=== PATIENT | male | born 1940 | race Caucasian/White ===

== ENCOUNTER 2016-07-31 11:20 | Outpatient (RCR) | payer MEDICARE, OTHER ==
[~2016-07-31 11:20] MED LIST: ASP81TEC PO; CEFP500T4 PO; CHOL10003 PO; DIPH25TA82 PO; HYDR-3720 PO; LISI-556 PO; MULT-608 PO; NFAMINITAB PO; OMEP40CA36 PO; SULF1TAB38 PO; TERA5CAP10 PO; [UNRECOGNIZED DRUG - OTHER] PO
[2016-07-31 11:42] LABS: BASOPHILS % (AUTO) 0 % (0-10); EOSINOPHILS # (AUTO) 0.2 10^3/uL (0.0-0.3); EOSINOPHILS % (AUTO) 3 % (0-10); LYMPHOCYTES # (AUTO) 1.1 X 10^3 (1.0-4.0); LYMPHOCYTES % (AUTO) 21 % (12-44); MEAN CORPUSCULAR HGB CONC 33 G/DL (32-36); MEAN CORPUSCULAR VOLUME 84 FL (80-99); MEAN PLATELET VOLUME 8.4 FL (7.4-10.4); MONOCYTES # (AUTO) 0.4 X 10^3 (0.0-1.0); MONOCYTES % (AUTO) 8 % (0-12); NEUTROPHILS # (AUTO) 3.4 X 10^3 (1.8-7.8); NEUTROPHILS % (AUTO) 68 % (42-75); PLATELET COUNT 160 10^3/uL (130-400); RED BLOOD COUNT 3.97 10^6/uL (4.35-5.85); RED CELL DISTRIBUTION WIDTH 14.4 % (10.0-14.5); RETICULOCYTE % 1.06 % (0.50-2.40); WHITE BLOOD COUNT 5.1 10^3/uL (4.3-11.0)
[2016-07-31 11:44] LABS: MEAN CORPUSCULAR HEMOGLOBIN 27 PG (25-34)
[2016-07-31 12:14] LABS: ERYTHROCYTE SEDIMENTATION RATE 15 MM/HR (0-30)
[2016-07-31 12:20] LABS: ALBUMIN 3.7 G/DL (3.2-4.5); BILIRUBIN,TOTAL 0.2 MG/DL (0.1-1.0); CALCIUM 8.8 MG/DL (8.5-10.1); CREATININE SERUM 1.33 MG/DL (0.60-1.30); POTASSIUM 4.4 MMOL/L (3.6-5.0); TOTAL PROTEIN 5.9 G/DL (6.4-8.2); hs C REACTIVE PROTEIN 1.33 MG/DL (0.00-0.50)
== END 2016-10-29 | disposition home or self-care (01) ==
LOC: ONC 11:20
PROVIDERS: ATTEND Internal Medicine Hematology & Oncology
DX: D63.1 Anemia in chronic kidney disease (principal); N18.3 Chronic kidney disease, stage 3 (moderate); I12.9 Hypertensive chronic kidney disease with stage 1 through stage 4 chronic kidney disease, or unspecified chronic kidney disease; M12.9 Arthropathy, unspecified; R73.09 Other abnormal glucose; Z85.46 Personal history of malignant neoplasm of prostate; Z79.899 Other long term (current) drug therapy; Z92.3 Personal history of irradiation
CPT/HCPCS: 36415; 80053; 85025; 85045; 85652; 86038; 86141

== ENCOUNTER → 2016-10-30 | Outpatient (CLI) | payer MEDICARE, OTHER | LOC: FS 11:45 | PROVIDERS: ATTEND Internal Medicine Hematology & Oncology | DX: N18.3 Chronic kidney disease, stage 3 (moderate) (principal); D63.1 Anemia in chronic kidney disease; I12.9 Hypertensive chronic kidney disease with stage 1 through stage 4 chronic kidney disease, or unspecified chronic kidney disease; L29.9 Pruritus, unspecified; M12.9 Arthropathy, unspecified; B35.3 Tinea pedis; L21.8 Other seborrheic dermatitis; R73.09 Other abnormal glucose; Z85.46 Personal history of malignant neoplasm of prostate; Z79.899 Other long term (current) drug therapy; Z92.3 Personal history of irradiation | CPT/HCPCS: 99213 ==

== ENCOUNTER → 2017-02-26 | Outpatient (CLI) | payer MEDICARE, OTHER | LOC: FS 13:07 | PROVIDERS: ATTEND Internal Medicine Hematology & Oncology | DX: N18.3 Chronic kidney disease, stage 3 (moderate) (principal); D63.1 Anemia in chronic kidney disease; I12.9 Hypertensive chronic kidney disease with stage 1 through stage 4 chronic kidney disease, or unspecified chronic kidney disease; E11.22 Type 2 diabetes mellitus with diabetic chronic kidney disease; I25.10 Atherosclerotic heart disease of native coronary artery without angina pectoris; J44.9 Chronic obstructive pulmonary disease, unspecified; M12.9 Arthropathy, unspecified; Z85.46 Personal history of malignant neoplasm of prostate; Z79.899 Other long term (current) drug therapy; Z92.3 Personal history of irradiation; Z95.1 Presence of aortocoronary bypass graft | CPT/HCPCS: 99213 ==

== ENCOUNTER → 2017-05-28 | Outpatient (CLI) | payer MEDICARE, OTHER | LOC: ONC 10:30 | PROVIDERS: ATTEND Internal Medicine Hematology & Oncology | DX: N18.3 Chronic kidney disease, stage 3 (moderate) (principal); D63.1 Anemia in chronic kidney disease; I12.9 Hypertensive chronic kidney disease with stage 1 through stage 4 chronic kidney disease, or unspecified chronic kidney disease; E11.22 Type 2 diabetes mellitus with diabetic chronic kidney disease; I25.10 Atherosclerotic heart disease of native coronary artery without angina pectoris; J44.9 Chronic obstructive pulmonary disease, unspecified; M12.9 Arthropathy, unspecified; Z85.46 Personal history of malignant neoplasm of prostate; Z79.899 Other long term (current) drug therapy; Z92.3 Personal history of irradiation; Z95.1 Presence of aortocoronary bypass graft | CPT/HCPCS: 99213 ==

== ENCOUNTER 2017-11-26 12:46 | Outpatient (RCR) | payer MEDICARE, OTHER ==
[2017-11-26 13:04] LABS: ABSOLUTE RETIC # 67 10e9/L (24-90); BASOPHILS % (AUTO) 0 % (0-10); EOSINOPHILS # (AUTO) 0.1 10^3/uL (0.0-0.3); EOSINOPHILS % (AUTO) 2 % (0-10); HEMATOCRIT 35 % (40-54); HEMOGLOBIN 11.5 G/DL (13.3-17.7); LYMPHOCYTES # (AUTO) 1.4 X 10^3 (1.0-4.0); LYMPHOCYTES % (AUTO) 22 % (12-44); MEAN CORPUSCULAR HEMOGLOBIN 27 PG (25-34); MEAN CORPUSCULAR HGB CONC 33 G/DL (32-36); MEAN CORPUSCULAR VOLUME 81 FL (80-99); MEAN PLATELET VOLUME 8.7 FL (7.4-10.4); MONOCYTES # (AUTO) 0.6 X 10^3 (0.0-1.0); MONOCYTES % (AUTO) 9 % (0-12); NEUTROPHILS # (AUTO) 4.3 X 10^3 (1.8-7.8); NEUTROPHILS % (AUTO) 66 % (42-75); PLATELET COUNT 252 10^3/uL (130-400); RED BLOOD COUNT 4.29 10^6/uL (4.35-5.85); RED CELL DISTRIBUTION WIDTH 13.2 % (10.0-14.5); RETICULOCYTE % 1.55 % (0.50-2.40); WHITE BLOOD COUNT 6.4 10^3/uL (4.3-11.0)
[2017-11-26 13:21] LABS: CREATININE SERUM 1.72 MG/DL (0.60-1.30); POTASSIUM 4.5 MMOL/L (3.6-5.0)
[2017-11-26 13:22] LABS: ALBUMIN 4.5 GM/DL (3.2-4.5); BILIRUBIN,TOTAL 0.4 MG/DL (0.1-1.0); CALCIUM 9.5 MG/DL (8.5-10.1); TOTAL PROTEIN 6.7 GM/DL (6.4-8.2)
== END 2018-02-24 | disposition home or self-care (01) ==
LOC: ONC 12:46
PROVIDERS: ATTEND Internal Medicine Hematology & Oncology
DX: N18.3 Chronic kidney disease, stage 3 (moderate) (principal); D63.1 Anemia in chronic kidney disease; I12.9 Hypertensive chronic kidney disease with stage 1 through stage 4 chronic kidney disease, or unspecified chronic kidney disease; E11.22 Type 2 diabetes mellitus with diabetic chronic kidney disease; I25.10 Atherosclerotic heart disease of native coronary artery without angina pectoris; J44.9 Chronic obstructive pulmonary disease, unspecified; M12.9 Arthropathy, unspecified; Z85.46 Personal history of malignant neoplasm of prostate; Z79.899 Other long term (current) drug therapy; Z92.3 Personal history of irradiation; Z95.1 Presence of aortocoronary bypass graft
CPT/HCPCS: 36415; 80053; 85025; 85045; 99213

== ENCOUNTER 2018-05-27 12:02 | Outpatient (RCR) | payer MEDICARE, OTHER ==
[2018-05-27 12:07] LABS: ABSOLUTE RETIC # 55 10e9/L (24-90); BASOPHILS % (AUTO) 0 % (0-10); EOSINOPHILS # (AUTO) 0.2 10^3/uL (0.0-0.3); EOSINOPHILS % (AUTO) 4 % (0-10); HEMATOCRIT 37 % (40-54); HEMOGLOBIN 12.1 G/DL (13.3-17.7); LYMPHOCYTES % (AUTO) 20 % (12-44); MEAN CORPUSCULAR HGB CONC 33 G/DL (32-36); MEAN CORPUSCULAR VOLUME 81 FL (80-99); MEAN PLATELET VOLUME 8.8 FL (7.4-10.4); MONOCYTES # (AUTO) 0.5 X 10^3 (0.0-1.0); MONOCYTES % (AUTO) 10 % (0-12); NEUTROPHILS # (AUTO) 3.3 X 10^3 (1.8-7.8); NEUTROPHILS % (AUTO) 66 % (42-75); PLATELET COUNT 209 10^3/uL (130-400); RED BLOOD COUNT 4.57 10^6/uL (4.35-5.85); RED CELL DISTRIBUTION WIDTH 14.6 % (10.0-14.5); WHITE BLOOD COUNT 5.1 10^3/uL (4.3-11.0)
[2018-05-27 12:10] LABS: MEAN CORPUSCULAR HEMOGLOBIN 26 PG (25-34)
[2018-05-27 12:27] LABS: ALBUMIN 4.1 GM/DL (3.2-4.5); BILIRUBIN,TOTAL 0.4 MG/DL (0.1-1.0); CALCIUM 9.5 MG/DL (8.5-10.1); CREATININE SERUM 1.46 MG/DL (0.60-1.30); POTASSIUM 3.8 MMOL/L (3.6-5.0); TOTAL PROTEIN 6.7 GM/DL (6.4-8.2)
== END 2018-08-25 | disposition home or self-care (01) ==
LOC: ONC 12:02
PROVIDERS: ATTEND Internal Medicine Hematology & Oncology
DX: N18.3 Chronic kidney disease, stage 3 (moderate) (principal); D63.1 Anemia in chronic kidney disease; I12.9 Hypertensive chronic kidney disease with stage 1 through stage 4 chronic kidney disease, or unspecified chronic kidney disease; E11.22 Type 2 diabetes mellitus with diabetic chronic kidney disease; I25.10 Atherosclerotic heart disease of native coronary artery without angina pectoris; J44.9 Chronic obstructive pulmonary disease, unspecified; M12.9 Arthropathy, unspecified; Z85.46 Personal history of malignant neoplasm of prostate; Z79.899 Other long term (current) drug therapy; Z92.3 Personal history of irradiation; Z95.1 Presence of aortocoronary bypass graft
CPT/HCPCS: 36415; 80053; 82728; 84153; 85025; 85045; 99213

== ENCOUNTER 2018-11-28 09:21 | Outpatient (RCR) | payer MEDICARE, OTHER ==
[2018-11-28 09:43] LABS: ABSOLUTE RETIC # 73 10e9/L (24-90); BASOPHILS % (AUTO) 0 % (0-10); EOSINOPHILS # (AUTO) 0.2 10^3/uL (0.0-0.3); EOSINOPHILS % (AUTO) 3 % (0-10); HEMATOCRIT 35 % (40-54); HEMOGLOBIN 11.2 G/DL (13.3-17.7); LYMPHOCYTES % (AUTO) 12 % (12-44); MEAN CORPUSCULAR HEMOGLOBIN 26 PG (25-34); MEAN CORPUSCULAR HGB CONC 32 G/DL (32-36); MEAN CORPUSCULAR VOLUME 81 FL (80-99); MEAN PLATELET VOLUME 8.8 FL (7.4-10.4); MONOCYTES # (AUTO) 0.5 X 10^3 (0.0-1.0); MONOCYTES % (AUTO) 6 % (0-12); NEUTROPHILS # (AUTO) 6.7 X 10^3 (1.8-7.8); NEUTROPHILS % (AUTO) 79 % (42-75); PLATELET COUNT 205 10^3/uL (130-400); RED CELL DISTRIBUTION WIDTH 15.2 % (10.0-14.5); RETICULOCYTE % 1.69 % (0.50-2.40); WHITE BLOOD COUNT 8.5 10^3/uL (4.3-11.0)
[2018-11-28 10:08] LABS: BILIRUBIN,TOTAL 0.2 MG/DL (0.1-1.0); CALCIUM 9.1 MG/DL (8.5-10.1); CREATININE SERUM 1.47 MG/DL (0.60-1.30); POTASSIUM 3.8 MMOL/L (3.6-5.0); TOTAL PROTEIN 6.2 GM/DL (6.4-8.2)
== END 2019-02-26 | disposition home or self-care (01) ==
LOC: ONC 09:21
PROVIDERS: ATTEND Internal Medicine Hematology & Oncology
DX: N18.3 Chronic kidney disease, stage 3 (moderate) (principal); D63.1 Anemia in chronic kidney disease; I12.9 Hypertensive chronic kidney disease with stage 1 through stage 4 chronic kidney disease, or unspecified chronic kidney disease; E11.22 Type 2 diabetes mellitus with diabetic chronic kidney disease; I25.10 Atherosclerotic heart disease of native coronary artery without angina pectoris; J44.9 Chronic obstructive pulmonary disease, unspecified; M12.9 Arthropathy, unspecified; Z85.46 Personal history of malignant neoplasm of prostate; Z79.899 Other long term (current) drug therapy; Z92.3 Personal history of irradiation; Z95.1 Presence of aortocoronary bypass graft
CPT/HCPCS: 36415; 80053; 82728; 85025; 85045; 99213

== ENCOUNTER 2019-05-19 12:26 | Outpatient (RCR) | payer MEDICARE, OTHER ==
[2019-05-19 13:08] LABS: ABSOLUTE RETIC # 54 10e9/L (24-90); BASOPHILS % (AUTO) 0 % (0-10); EOSINOPHILS # (AUTO) 0.3 10^3/uL (0.0-0.3); EOSINOPHILS % (AUTO) 6 % (0-10); HEMATOCRIT 33 % (40-54); HEMOGLOBIN 10.8 G/DL (13.3-17.7); LYMPHOCYTES # (AUTO) 1.3 X 10^3 (1.0-4.0); LYMPHOCYTES % (AUTO) 26 % (12-44); MEAN CORPUSCULAR HEMOGLOBIN 26 PG (25-34); MEAN CORPUSCULAR HGB CONC 33 G/DL (32-36); MEAN CORPUSCULAR VOLUME 79 FL (80-99); MEAN PLATELET VOLUME 9.5 FL (7.4-10.4); MONOCYTES # (AUTO) 0.5 X 10^3 (0.0-1.0); MONOCYTES % (AUTO) 10 % (0-12); NEUTROPHILS # (AUTO) 2.9 X 10^3 (1.8-7.8); NEUTROPHILS % (AUTO) 57 % (42-75); PLATELET COUNT 174 10^3/uL (130-400); RED CELL DISTRIBUTION WIDTH 14.9 % (10.0-14.5); RETICULOCYTE % 1.29 % (0.50-2.40); WHITE BLOOD COUNT 5.1 10^3/uL (4.3-11.0)
[2019-05-19 13:27] LABS: BILIRUBIN,TOTAL 0.2 MG/DL (0.1-1.0); CREATININE SERUM 1.58 MG/DL (0.60-1.30); TOTAL PROTEIN 6.1 GM/DL (6.4-8.2)
== END 2019-08-17 | disposition home or self-care (01) ==
LOC: ONC 12:26
PROVIDERS: ATTEND Internal Medicine Hematology & Oncology
DX: N18.3 Chronic kidney disease, stage 3 (moderate) (principal); D63.1 Anemia in chronic kidney disease; I12.9 Hypertensive chronic kidney disease with stage 1 through stage 4 chronic kidney disease, or unspecified chronic kidney disease; E11.22 Type 2 diabetes mellitus with diabetic chronic kidney disease; I25.10 Atherosclerotic heart disease of native coronary artery without angina pectoris; J44.9 Chronic obstructive pulmonary disease, unspecified; M12.9 Arthropathy, unspecified; Z85.46 Personal history of malignant neoplasm of prostate; Z79.899 Other long term (current) drug therapy; Z92.3 Personal history of irradiation; Z95.1 Presence of aortocoronary bypass graft
CPT/HCPCS: 36415; 80053; 82728; 85025; 85045; 99213

== ENCOUNTER → 2019-10-07 | Outpatient (CLI) | payer MEDICARE, OTHER ==
[~2019-10-07] MED LIST changes: +CATHETER FLUSH 10 ML SYR IV PRN; +HOLD METFORMIN - RECEIVED CONTRAST 20 ML VIAL IV SCH; +IOHEXOL 350 MG/ML 100 ML (OMNIPAQUE 350) VIAL IV ONE; +NS 100 ML (IVPB) BAG IV ONE
[2019-10-07 16:56] LABS: BILIRUBIN,TOTAL 0.2 MG/DL (0.1-1.0); CALCIUM 9.3 MG/DL (8.5-10.1); CREATININE SERUM 1.5 MG/DL (0.60-1.30); POTASSIUM 3.5 MMOL/L (3.6-5.0)
[2019-10-07 16:57] LABS: TOTAL PROTEIN 6.6 GM/DL (6.4-8.2)
--- NOTE | 2019-10-07 17:15 | Diagnostic Imaging Report ---
INDICATION: Chest pain. TECHNIQUE: Multiple contiguous axial images were obtained through the chest without the use of intravenous contrast. Auto Exposure Controls were utilized during the CT exam to meet ALARA standards for radiation dose reduction. COMPARISON: Study done without contrast is compared to 03/22/2016. FINDINGS: The thoracic aorta shows atherosclerotic calcifications. There is no evidence of aortic aneurysm. It is difficult to exclude dissection since contrast was not given, but the aorta does appear to be of normal caliber. There are coronary artery calcifications. There are no enlarged mediastinal or hilar lymph nodes. There are calcified nodes in the subcarinal region and left hilum compatible with old granulomatous disease. There are no enlarged axillary nodes. There is no pleural or pericardial fluid. Visualized portions of the upper abdomen demonstrate a few catheter scattered calcified granulomata in the spleen. There is a stable small cyst in the right lobe of the liver. Lung parenchymal windows demonstrate no pulmonary parenchymal infiltrates. There is a calcified granuloma in the left perihilar region. There is some linear scarring at right middle lobe. There is a calcified granuloma in the left lower lobe as well. There are no suspicious pulmonary masses. Patient has had previous sternotomy. IMPRESSION: Study is limited due to lack of IV contrast but no overt acute abnormality is seen. There is atherosclerotic plaquing of the aorta, but the aorta appears to be of normal caliber. There are coronary artery calcifications. There are old granulomatous changes. Some minimal linear scarring in the right middle lobe. There is no consolidation or pleural fluid. Dictated by: Dictated on workstation # [id number]
== END ==
LOC: LAB FS 15:50
PROVIDERS: ATTEND Nurse Practitioner Family
DX: I70.0 Atherosclerosis of aorta (principal); I25.10 Atherosclerotic heart disease of native coronary artery without angina pectoris; J84.10 Pulmonary fibrosis, unspecified
CPT/HCPCS: 71250; 80053

== ENCOUNTER → 2019-11-24 | Outpatient (CLI) | payer MEDICARE, OTHER ==
[~2019-11-24] MED LIST changes: -CATHETER FLUSH 10 ML SYR IV PRN; -HOLD METFORMIN - RECEIVED CONTRAST 20 ML VIAL IV SCH; -IOHEXOL 350 MG/ML 100 ML (OMNIPAQUE 350) VIAL IV ONE; -NS 100 ML (IVPB) BAG IV ONE
[2019-11-24 13:07] LABS: ABSOLUTE RETIC # 66 10e9/L (24-90); BASOPHILS % (AUTO) 0 % (0-10); EOSINOPHILS # (AUTO) 0.3 10^3/uL (0.0-0.3); EOSINOPHILS % (AUTO) 4 % (0-10); HEMATOCRIT 34 % (40-54); LYMPHOCYTES # (AUTO) 1.1 X 10^3 (1.0-4.0); LYMPHOCYTES % (AUTO) 15 % (12-44); MEAN CORPUSCULAR HEMOGLOBIN 25 PG (25-34); MEAN CORPUSCULAR HGB CONC 33 G/DL (32-36); MEAN CORPUSCULAR VOLUME 78 FL (80-99); MEAN PLATELET VOLUME 9.2 FL (7.4-10.4); MONOCYTES # (AUTO) 0.6 X 10^3 (0.0-1.0); MONOCYTES % (AUTO) 9 % (0-12); NEUTROPHILS # (AUTO) 5.3 X 10^3 (1.8-7.8); NEUTROPHILS % (AUTO) 72 % (42-75); PLATELET COUNT 203 10^3/uL (130-400); RED CELL DISTRIBUTION WIDTH 15.7 % (10.0-14.5); RETICULOCYTE % 1.52 % (0.50-2.40); WHITE BLOOD COUNT 7.4 10^3/uL (4.3-11.0)
[2019-11-24 13:21] LABS: ALBUMIN 4.2 GM/DL (3.2-4.5); POTASSIUM 4.2 MMOL/L (3.6-5.0)
[2019-11-24 13:23] LABS: TOTAL PROTEIN 6.7 GM/DL (6.4-8.2)
[2019-11-24 13:25] LABS: BILIRUBIN,TOTAL 0.4 MG/DL (0.1-1.0)
[2019-11-24 13:27] LABS: CREATININE SERUM 1.8 MG/DL (0.60-1.30)
== END ==
LOC: EDSTATUS 08-18 15:38 → ONC 12:54
PROVIDERS: ATTEND Internal Medicine Hematology & Oncology
DX: N18.3 Chronic kidney disease, stage 3 (moderate) (principal); D63.1 Anemia in chronic kidney disease; I12.9 Hypertensive chronic kidney disease with stage 1 through stage 4 chronic kidney disease, or unspecified chronic kidney disease; E11.22 Type 2 diabetes mellitus with diabetic chronic kidney disease; I25.10 Atherosclerotic heart disease of native coronary artery without angina pectoris; J44.9 Chronic obstructive pulmonary disease, unspecified; M12.9 Arthropathy, unspecified; Z85.46 Personal history of malignant neoplasm of prostate; Z79.899 Other long term (current) drug therapy; Z92.3 Personal history of irradiation; Z95.1 Presence of aortocoronary bypass graft
CPT/HCPCS: 80053; 82728; 85025; 85045; 99213

== ENCOUNTER → 2020-04-19 | Outpatient (CLI) | payer MEDICARE, OTHER | LOC: LAB FS 10:13 | PROVIDERS: ATTEND Emergency Medicine | DX: R06.02 Shortness of breath (principal); R42 Dizziness and giddiness; Z20.828 Contact with and (suspected) exposure to other viral communicable diseases | CPT/HCPCS: 87635 ==

== ENCOUNTER → 2020-05-23 | Outpatient (CLI) | payer MEDICARE, OTHER ==
[2020-05-23 13:04] LABS: ABSOLUTE RETIC # 58 10e9/uL (24-90); BASOPHILS % (AUTO) 1 % (0-10); EOSINOPHILS # (AUTO) 0.2 10^3/uL (0.0-0.3); EOSINOPHILS % (AUTO) 5 % (0-10); HEMATOCRIT 28 % (40-54); HEMOGLOBIN 9.2 g/dL (13.3-17.7); LYMPHOCYTES # (AUTO) 1.2 10^3/uL (1.0-4.0); LYMPHOCYTES % (AUTO) 27 % (12-44); MEAN CORPUSCULAR HEMOGLOBIN 25 pg (25-34); MEAN CORPUSCULAR HGB CONC 32 g/dL (32-36); MEAN CORPUSCULAR VOLUME 77 fL (80-99); MEAN PLATELET VOLUME 8.7 fL (9.0-12.2); MONOCYTES # (AUTO) 0.4 10^3/uL (0.0-1.0); MONOCYTES % (AUTO) 10 % (0-12); NEUTROPHILS # (AUTO) 2.4 10^3/uL (1.8-7.8); NEUTROPHILS % (AUTO) 57 % (42-75); PLATELET COUNT 168 10^3/uL (130-400); RETICULOCYTE % 1.58 % (0.50-2.40); WHITE BLOOD COUNT 4.2 10^3/uL (4.3-11.0)
[2020-05-23 13:25] LABS: ALBUMIN 3.6 GM/DL (3.2-4.5); BILIRUBIN,TOTAL 0.2 MG/DL (0.1-1.0); CALCIUM 8.2 MG/DL (8.5-10.1); CREATININE SERUM 1.7 MG/DL (0.60-1.30); POTASSIUM 4.2 MMOL/L (3.6-5.0); TOTAL PROTEIN 5.7 GM/DL (6.4-8.2)
== END ==
LOC: ONC 12:40
PROVIDERS: ATTEND Internal Medicine Hematology & Oncology
DX: D64.9 Anemia, unspecified (principal)
CPT/HCPCS: 80053; 82728; 85025; 85045; G0463; 99213

== ENCOUNTER → 2020-07-07 | Outpatient (CLI) | payer MEDICARE, OTHER ==
[~2020-07-07] MED LIST changes: +ALPR0.254 PO; +ASPI-1238 PO; +ASPI325T32 PO; +C,E,1CAP2 PO; +CART1TAB5 PO; +CARV3.122 PO; +CLOP75TA28 PO; +DOXY25TA50 PO; +EZET10TA49 PO; +FINA5TAB6 PO; +HYDR25TA4 PO; +HYDR50TA76 PO; +OMEP40CA27 PO; +PIOG15TA67 PO; +SENN-36 PO; +TMSL.4C PO
[2020-07-07 13:05] LABS: ABSOLUTE RETIC # 80 10e9/uL (24-90); BASOPHILS % (AUTO) 0 % (0-10); EOSINOPHILS # (AUTO) 0.3 10^3/uL (0.0-0.3); EOSINOPHILS % (AUTO) 6 % (0-10); HEMATOCRIT 28 % (40-54); HEMOGLOBIN 8.9 g/dL (13.3-17.7); LYMPHOCYTES % (AUTO) 20 % (12-44); MEAN CORPUSCULAR HEMOGLOBIN 26 pg (25-34); MEAN CORPUSCULAR HGB CONC 32 g/dL (32-36); MEAN CORPUSCULAR VOLUME 80 fL (80-99); MEAN PLATELET VOLUME 8.3 fL (9.0-12.2); MONOCYTES # (AUTO) 0.6 10^3/uL (0.0-1.0); MONOCYTES % (AUTO) 12 % (0-12); NEUTROPHILS # (AUTO) 2.9 10^3/uL (1.8-7.8); NEUTROPHILS % (AUTO) 61 % (42-75); PLATELET COUNT 258 10^3/uL (130-400); RETICULOCYTE % 2.34 % (0.50-2.40); WHITE BLOOD COUNT 4.7 10^3/uL (4.3-11.0)
[2020-07-07 13:24] LABS: ALBUMIN 3.7 GM/DL (3.2-4.5); BILIRUBIN,TOTAL 0.3 MG/DL (0.1-1.0); CALCIUM 8.8 MG/DL (8.5-10.1); CREATININE SERUM 1.58 MG/DL (0.60-1.30); POTASSIUM 3.8 MMOL/L (3.6-5.0)
== END ==
LOC: ONC 12:55
PROVIDERS: ATTEND Internal Medicine Hematology & Oncology
DX: D64.9 Anemia, unspecified (principal)
CPT/HCPCS: 80053; 82728; 83540; 85025; 85045

== ENCOUNTER → 2020-10-11 | Outpatient (CLI) | payer MEDICARE, OTHER ==
[2020-10-11 13:18] LABS: ABSOLUTE RETIC # 58 10e9/uL (24-90); BASOPHILS % (AUTO) 0 % (0-10); EOSINOPHILS # (AUTO) 0.3 10^3/uL (0.0-0.3); EOSINOPHILS % (AUTO) 5 % (0-10); HEMATOCRIT 32 % (40-54); HEMOGLOBIN 10.3 g/dL (13.3-17.7); LYMPHOCYTES # (AUTO) 1.3 10^3/uL (1.0-4.0); LYMPHOCYTES % (AUTO) 24 % (12-44); MEAN CORPUSCULAR HEMOGLOBIN 26 pg (25-34); MEAN CORPUSCULAR HGB CONC 32 g/dL (32-36); MEAN CORPUSCULAR VOLUME 80 fL (80-99); MONOCYTES # (AUTO) 0.4 10^3/uL (0.0-1.0); MONOCYTES % (AUTO) 8 % (0-12); NEUTROPHILS # (AUTO) 3.3 10^3/uL (1.8-7.8); NEUTROPHILS % (AUTO) 62 % (42-75); PLATELET COUNT 165 10^3/uL (130-400); RETICULOCYTE % 1.45 % (0.50-2.40); WHITE BLOOD COUNT 5.2 10^3/uL (4.3-11.0)
[2020-10-11 13:39] LABS: ALBUMIN 3.7 GM/DL (3.2-4.5); BILIRUBIN,TOTAL 0.3 MG/DL (0.1-1.0); CALCIUM 8.6 MG/DL (8.5-10.1); CREATININE SERUM 1.69 MG/DL (0.60-1.30); POTASSIUM 3.7 MMOL/L (3.6-5.0)
== END ==
LOC: ONC 13:04
PROVIDERS: ATTEND Internal Medicine Hematology & Oncology
DX: N18.9 Chronic kidney disease, unspecified (principal); D63.1 Anemia in chronic kidney disease; I25.10 Atherosclerotic heart disease of native coronary artery without angina pectoris; E11.22 Type 2 diabetes mellitus with diabetic chronic kidney disease; J44.9 Chronic obstructive pulmonary disease, unspecified; K21.9 Gastro-esophageal reflux disease without esophagitis; Z85.46 Personal history of malignant neoplasm of prostate; Z95.1 Presence of aortocoronary bypass graft; Z98.62 Peripheral vascular angioplasty status; Z92.3 Personal history of irradiation
CPT/HCPCS: 80053; 82728; 83540; 85025; 85045; G0463; 99213

== ENCOUNTER 2020-12-05 05:34 | Outpatient (RCR) | payer MEDICARE ==
[~2020-12-05] VITALS: Ht 177.9 cm; Wt 73.0 kg
[2020-12-05] MEDS ORDERED: OMEP40CA27 PO (11:00)
[2020-12-05] MEDS ORDERED: HYDR50TA76 PO (11:00)
[2020-12-05] MEDS ORDERED: CARV6.252 PO (11:00)
[2020-12-05] MEDS ORDERED: HYDR25TA4 PO (11:00)
[2020-12-05] MEDS ORDERED: DIPH25CA48 PO (11:00)
== END 2020-12-05 12:46 | disposition home or self-care (01) ==
LOC: PREOP 05:34 → EDSTATUS 10:30 → PREOP 12:46
PROVIDERS: ATTEND Surgery
DX: Z01.818 Encounter for other preprocedural examination (principal)

== ENCOUNTER → 2020-12-08 | Outpatient (CLI) | payer MEDICARE ==
[~2020-12-08] MED LIST changes: +CARV6.252 PO; +DIPH25CA48 PO
== END ==
LOC: LAB FS 09:57
PROVIDERS: ATTEND Surgery
DX: Z01.812 Encounter for preprocedural laboratory examination (principal); R19.5 Other fecal abnormalities; R12 Heartburn; Z20.822 Contact with and (suspected) exposure to COVID-19
CPT/HCPCS: 87635

== ENCOUNTER 2020-12-12 08:20 | Day surgery (SDC) | payer MEDICARE ==
[2020-12-12] VITALS (8 sets, daily range): BP systolic 89–176; BP diastolic 55–88
[~2020-12-12] VITALS: Ht 177.9 cm; Wt 73.0 kg
[2020-12-12] MEDS ORDERED: LACTATED RINGERS 1,000 ML IV ONE (08:24)
[2020-12-12] MEDS ORDERED: LACTATED RINGERS 1,000 ML IV STA (08:34)
[2020-12-12] MEDS ORDERED: HURRICAINE EXT TUBE (BENZOCAINE) XX PRN (08:45)
--- NOTE | 2020-12-12 08:47 | Progress Note-Pre Operative ---
Pre-Operative Progress Note H&P Reviewed The H&P was reviewed, patient examined and no changes noted. Time Seen by Provider: 08:46 Date H&P Reviewed: Dec 12, 2020 Time H&P Reviewed: 08:46 Pre-Operative Diagnosis: + Erika Lema ERIC B DO Dec 12, 2020 08:47
[2020-12-12] MEDS ORDERED: MIDAZOLAM 2 MG/2 ML (VERSED) VIAL ONE (09:35)
[2020-12-12] MEDS ORDERED: PROPOFOL INJECTION 50 ML IV ONE ×2 (09:35→09:51)
--- NOTE | 2020-12-12 10:40 | Progress Note-Post Operative ---
Post-Operative Progess Note Surgeon (s)/Tractor Driver Teamster (s) Surgeon REMINGTON MILLER DO Tractor Driver Teamster: Chivo Jean MSIII Pre-Operative Diagnosis + Cologuard, Gastritis Post-Operative Diagnosis Gastritis Hiatal hernia Gastric Polyp diverticula int hemorrhoids melanosis coli Procedure & Operative Findings Date of Procedure 12/12/20 Procedure Performed/Findings EGD with bx EGD with snare polypectomy Colon Anesthesia Type IV sedation by HUSBANDRY PERSON Estimated Blood Loss Estimated blood loss (mL): scant Specimens/Packing Specimens Removed antral bx polyp x 2 GE jxn bx REMINGTON MILLER DO Dec 12, 2020 10:40
--- NOTE | 2020-12-12 10:41 | Endoscopy Discharge Instruct ---
Endo Procedure/Findings Findings 1.: Hiatal Hernia, Gastritis 2.: Polyp (Gastric) 3.: Diverticulosis, Internal Hemorrhoids 4.: Other Findings (Melanosis Coli) Discharge Instructions - Activity: You might feel a little sleepy until tomorrow. This is due to the medicine you received to relax you. Until tomorrow, you should: NOT drive a car, operate machinery or power tools. NOT drink any alcoholic beverages. NOT make any important decisions or sign importortant papers. Do not return to work until tomorrow, unless otherwise instructed. Resume previous activities tomorrow. Diet: Start by taking liquids. If you tolerate liquids, advance to solid food. 1.: EGD in 1 year 2.: Colonscopy in 10 years Notify Physician - If you experience excessive bleeding, unusual abdominal pain, fever, or chest pain, contact your doctor immediately. REMINGTON MILLER DO Dec 12, 2020 10:41
--- NOTE | 2020-12-12 12:36 | Anesthesia-General Post-Op ---
MAC Patient Condition Mental Status/LOC: Same as Preop Cardiovascular: Satisfactory Nausea/Vomiting: Absent Respiratory: Satisfactory Pain: Controlled Complications: Absent Post Op Complications Complications None Follow Up Care/Instructions Patient Instructions None needed. Anesthesiology Discharge Order Discharge Order Patient is doing well, no complaints, stable vital signs, no apparent adverse anesthesia problems. No complications reported per nursing. ARTHUR AGRAWAL CRNA Dec 12, 2020 12:36
--- NOTE | 2020-12-13 13:52 | OPERATIVE REPORT ---
DATE OF SERVICE: 12/12/2020 PREOPERATIVE DIAGNOSES: Positive Cologuard and gastritis. POSTOPERATIVE DIAGNOSES: Gastritis, hiatal hernia and gastric polyps as well as diverticula, internal hemorrhoids and melanosis coli. PROCEDURES: 1. EGD with biopsy. 2. EGD with gastric polypectomy by snare. 3. Colonoscopy. SURGEON: Kem Johnson, DO COMPOSITE BOND WORKER: Chivo Jean, MS3 ANESTHESIA: IV sedation by the RESTUARANT CREW WORKER. SPECIMEN: Antral biopsy, gastric polyp x2 and GE junction biopsy. BLOOD LOSS: Scant. FLUIDS: Per anesthesia. POSTOPERATIVE CONDITION: Stable. INDICATION FOR PROCEDURE: The patient is an 80-year-old male who had a positive Cologuard. He has also complained of some gastritis and needed upper and lower scopes. FINDINGS: The patient had 2 polyps in the stomach. He had some gastritis as well and a small hiatal hernia. In the colon, he had diverticula, internal hemorrhoids and melanosis, but did not see any other pathology in the colon. PROCEDURE NOTE: After informed consent was obtained, the patient was brought to the endoscopy suite, placed in bed in left lateral decubitus position. He was administered IV sedation by the RESTUARANT CREW WORKER who then monitored his vitals the entire time, heart rate, blood pressure and pulse ox, started with the EGD, placing scope down the mouth through the esophagus and into the stomach. In the stomach, noted 2 polyps, one was on a stalk and one was flat and some mild gastritis. Pushing the duodenum, duodenum looked fine. Pulled back and did a biopsy of the antrum and then elected to remove these polyps with a snare polypectomy and heat. Able to grasp the polyps, had to take one of the larger polyp in 2 pieces and then the smaller polyp, took in one piece with snares. Retroflexed the scope, saw small hiatal hernia and then pulled the scope into the GE junction, did a biopsy of the GE junction. Suctioned all the air out of the scope and then out of the stomach and then pulled the scope up the esophagus and out the mouth. Switched camera, switched gloves, went down below, started the colonoscopy. Pushed all the way into about 140 cm, able to get to the cecum, took a picture of appendiceal orifice, noted the ileocecal valve. There is also a lot of melanosis here, took a picture of this and then slowly withdrew the scope insufflating to look circumferentially at the rowe looking the cecum, up the ascending colon to the hepatic flexure, then down the transverse colon, the splenic flexure, into the descending colon and down into the sigmoid, saw some diverticula on the right side and on the left side and then continued down into the rectum, retroflexed the rectal vault, saw some minimal internal hemorrhoids, took a picture of this and then removed the scope. The patient tolerated the procedure. He was recovered in endoscopy suite. Job ID: [id number] DocumentID: [id number] Dictated Date: 12/13/2020 10:16:14 Ultrasound Technologist Date: 12/13/2020 13:51:23 Dictated By: DO IFRAH PATEL
== END 2020-12-12 11:50 | disposition home or self-care (01) ==
LOC: ENDO 08:20
PROVIDERS: ATTEND Surgery
DX: K31.7 Polyp of stomach and duodenum (principal); K29.50 Unspecified chronic gastritis without bleeding; K44.9 Diaphragmatic hernia without obstruction or gangrene; K57.30 Diverticulosis of large intestine without perforation or abscess without bleeding; K64.8 Other hemorrhoids; K63.89 Other specified diseases of intestine; I10 Essential (primary) hypertension; I25.10 Atherosclerotic heart disease of native coronary artery without angina pectoris; K21.9 Gastro-esophageal reflux disease without esophagitis; I12.9 Hypertensive chronic kidney disease with stage 1 through stage 4 chronic kidney disease, or unspecified chronic kidney disease; N18.9 Chronic kidney disease, unspecified; E11.22 Type 2 diabetes mellitus with diabetic chronic kidney disease; M10.9 Gout, unspecified; M19.90 Unspecified osteoarthritis, unspecified site; D63.1 Anemia in chronic kidney disease; J44.9 Chronic obstructive pulmonary disease, unspecified; Z79.899 Other long term (current) drug therapy; Z90.49 Acquired absence of other specified parts of digestive tract; Z85.46 Personal history of malignant neoplasm of prostate; Z95.1 Presence of aortocoronary bypass graft; Z80.8 Family history of malignant neoplasm of other organs or systems
CPT/HCPCS: 82962; 88305; 88342

== ENCOUNTER → 2021-04-11 | Outpatient (CLI) | payer MEDICARE ==
[~2021-04-11] MED LIST changes: -OMEP40CA27 PO; +OMEP40CA6 PO
[2021-04-11 13:47] LABS: ABSOLUTE RETIC # 51 10e9/uL (24-90); BASOPHILS % (AUTO) 1 % (0-10); EOSINOPHILS # (AUTO) 0.2 10^3/uL (0.0-0.3); EOSINOPHILS % (AUTO) 6 % (0-10); HEMATOCRIT 29 % (40-54); HEMOGLOBIN 9.2 g/dL (13.3-17.7); LYMPHOCYTES % (AUTO) 25 % (12-44); MEAN CORPUSCULAR HEMOGLOBIN 26 pg (25-34); MEAN CORPUSCULAR HGB CONC 32 g/dL (32-36); MEAN CORPUSCULAR VOLUME 80 fL (80-99); MONOCYTES # (AUTO) 0.5 10^3/uL (0.0-1.0); MONOCYTES % (AUTO) 12 % (0-12); NEUTROPHILS # (AUTO) 2.1 10^3/uL (1.8-7.8); NEUTROPHILS % (AUTO) 56 % (42-75); PLATELET COUNT 133 10^3/uL (130-400); RETICULOCYTE % 1.43 % (0.50-2.40); WHITE BLOOD COUNT 3.8 10^3/uL (4.3-11.0)
[2021-04-11 14:10] LABS: ALBUMIN 3.4 GM/DL (3.2-4.5); BILIRUBIN,TOTAL 0.2 MG/DL (0.1-1.0); CALCIUM 8.6 MG/DL (8.5-10.1); CREATININE SERUM 1.5 MG/DL (0.60-1.30); POTASSIUM 4.5 MMOL/L (3.6-5.0); TOTAL PROTEIN 5.6 GM/DL (6.4-8.2)
== END ==
LOC: ONC 13:04
PROVIDERS: ATTEND Internal Medicine Hematology & Oncology
DX: D63.1 Anemia in chronic kidney disease (principal); I25.10 Atherosclerotic heart disease of native coronary artery without angina pectoris; E11.9 Type 2 diabetes mellitus without complications; J44.9 Chronic obstructive pulmonary disease, unspecified; E66.9 Obesity, unspecified; Z85.46 Personal history of malignant neoplasm of prostate
CPT/HCPCS: 80053; 82728; 85025; 85045; G0463; 99213

== ENCOUNTER → 2021-07-04 | Outpatient (CLI) | payer MEDICARE ==
[2021-07-04 13:41] LABS: ABSOLUTE RETIC # 66 10e9/uL (24-90); BASOPHILS % (AUTO) 0 % (0-10); EOSINOPHILS # (AUTO) 0.3 10^3/uL (0.0-0.3); EOSINOPHILS % (AUTO) 6 % (0-10); HEMATOCRIT 32 % (40-54); HEMOGLOBIN 10.4 g/dL (13.3-17.7); LYMPHOCYTES # (AUTO) 1.1 10^3/uL (1.0-4.0); LYMPHOCYTES % (AUTO) 24 % (12-44); MEAN CORPUSCULAR HEMOGLOBIN 27 pg (25-34); MEAN CORPUSCULAR HGB CONC 32 g/dL (32-36); MEAN CORPUSCULAR VOLUME 82 fL (80-99); MEAN PLATELET VOLUME 9.5 fL (9.0-12.2); MONOCYTES # (AUTO) 0.4 10^3/uL (0.0-1.0); MONOCYTES % (AUTO) 9 % (0-12); NEUTROPHILS # (AUTO) 2.8 10^3/uL (1.8-7.8); NEUTROPHILS % (AUTO) 61 % (42-75); PLATELET COUNT 162 10^3/uL (130-400); RETICULOCYTE % 1.69 % (0.50-2.40); WHITE BLOOD COUNT 4.6 10^3/uL (4.3-11.0)
[2021-07-04 13:59] LABS: ALBUMIN 3.9 GM/DL (3.2-4.5); BILIRUBIN,TOTAL 0.4 MG/DL (0.1-1.0); CALCIUM 8.9 MG/DL (8.5-10.1); CREATININE SERUM 1.28 MG/DL (0.60-1.30); TOTAL PROTEIN 6.2 GM/DL (6.4-8.2)
== END ==
LOC: ONC 13:25
PROVIDERS: ATTEND Internal Medicine Hematology & Oncology
DX: N18.30 Chronic kidney disease, stage 3 unspecified (principal); D63.1 Anemia in chronic kidney disease; I25.10 Atherosclerotic heart disease of native coronary artery without angina pectoris; E11.22 Type 2 diabetes mellitus with diabetic chronic kidney disease; J44.9 Chronic obstructive pulmonary disease, unspecified; K21.9 Gastro-esophageal reflux disease without esophagitis; E66.9 Obesity, unspecified; Z95.1 Presence of aortocoronary bypass graft; Z98.890 Other specified postprocedural states; Z85.46 Personal history of malignant neoplasm of prostate
CPT/HCPCS: 80053; 82728; 85025; 85045; G0463; 99213

== ENCOUNTER 2021-09-11 14:12 | Inpatient (IN) | payer MEDICARE ==
[~2021-09-11] VITALS: Ht 177.8 cm; Wt 73.0 kg
[2021-09-11] MEDS ORDERED: morphine INJ 10 MG/ML 1ML (SYR OR VIAL) IVP STA ×2 (14:22→14:59)
--- NOTE | 2021-09-11 14:28 | ED Fall/Injury ---
General Stated Complaint: FALL,L HIP PAIN Source: patient History of Present Illness Date Seen by Provider: Sep 11, 2021 Time Seen by Provider: 14:16 Initial Comments 81-year-old male with past medical history of CAD status post CABG, hypertension, hyperlipidemia, DM2 coming in with his family member after he tripped over a log while splitting wood earlier today. Happened a couple hours ago. He was alone, but was able to pull himself up to a chair nearby and sat for a while. He was unable to walk or put weight on his left leg due to severe left hip pain which was constant and worse with movement. Has not taking any medicines for it as of yet. 2 of his daughters were able to pick him up and put him in a car before they drove him here. Did not hit his head and did not pass out. Remembers all the events. Is denying any neck or back pain. He does not take any blood thinners. Allergies and Home Medications Allergies Coded Allergies: No Known Drug Allergies (Unverified , 07/25/10) Patient Home Medication List Home Medication List Reviewed: Yes ALPRAZolam (ALPRAZolam) 0.25 Mg Tablet, 0.25 MG PO QID PRN for ANXIETY, (Reported) Entered as Reported by: JUANPABLO LOMBARDI on 06/27/20 154 C,E,Zinc,Copper 24/Om3/Lut/Judah (Ocuvite Adult 50 Plus Softgel) 1 Each Capsule, 1 EACH PO HS, (Reported) Entered as Reported by: JUANPABLO LOMBARDI on 06/27/20 154 Cartilage/Collagen/Bor/Hyalur (Joint Health Tablet) 1 Each Tablet, 2 EACH PO DAILY, (Reported) Entered as Reported by: JUANPABLO LOMBARDI on 06/27/201544 Carvedilol (Carvedilol) 6.25 Mg Tablet, 6.25 MG PO BID, (Reported) Entered as Reported by: IGOR OCASIO on 12/05/20 1100 Diphenhydramine HCl (Diphenhydramine HCl) 25 Mg Capsule, 25 MG PO HS, (Reported) Entered as Reported by: IGOR OCASIO on 12/05/20 1100 Ezetimibe (Ezetimibe) 10 Mg Tablet, 10 MG PO DAILY, (Reported) Entered as Reported by: JUANPABLO LOMBARDI on 06/27/201544 Finasteride (Finasteride) 5 Mg Tablet, 5 MG PO HS, (Reported) Entered as Reported by: JUANPABLO LOMBARDI on 06/27/201544 Hydrochlorothiazide (Hydrochlorothiazide) 25 Mg Tablet, 25 MG PO BID, (Reported) Entered as Reported by: IGOR OCASIO on 12/05/201099 Hydroxyzine HCl (Hydroxyzine HCl) 50 Mg Tablet, 1-2 TAB PO BID PRN for ITCHING, (Reported) Entered as Reported by: IGOR OCASIO on 12/05/201099 Omeprazole (Omeprazole) 40 Mg Capsule.dr, 40 MG PO DAILY, (Reported) Entered as Reported by: GIOR OCASIO on 12/05/201099 Pioglitazone HCl (Pioglitazone HCl) 15 Mg Tablet, 15 MG PO DAILY, (Reported) Entered as Reported by: JUANPABLO LOMBARDI on 06/27/201544 Sennosides (Senokot) 8.6 Mg Tablet, 17.2 MG PO HS, (Reported) Entered as Reported by: JUANPABLO LOMBARDI on 06/27/201544 Tamsulosin HCl (Flomax) 0.4 Mg Cap, 0.4 MG PO BID, (Reported) Entered as Reported by: JUANPABLO LOMBARDI on 06/27/201544 Review of Systems Review of Systems Constitutional: No chills, No fever Eyes: Denies Blurred Vision Ears, Nose, Mouth, Throat: no symptoms reported Respiratory: No cough, No short of breath Cardiovascular: No chest pain Gastrointestinal: No abdominal pain, No diarrhea, No nausea, No vomiting Genitourinary: no symptoms reported Musculoskeletal: joint pain Skin: no symptoms reported Psychiatric/Neurological: No Symptoms Reported All Other Systems Reviewed Negative Unless Noted: Yes Past Iexuzjh-Opehon-Iedykd Hx Patient Social History Substance use?: No Seasonal Allergies Seasonal Allergies: No Past Medical History Surgeries: Yes Appendectomy, CABG, Gallbladder, Orthopedic, Transurethral Resection Respiratory: Yes COPD Currently Using CPAP: No Currently Using BIPAP: No Cardiac: Yes Coronary Artery Disease, High Cholesterol, Hypertension Neurological: No Reproductive Disorders: No Sexually Transmitted Disease: No Genitourinary: Yes (CHRONIC KIDNEY DISEASE) Benign Prostatic Hyperpl Gastrointestinal: Yes Gastroesophageal Reflux Musculoskeletal: Yes (OSTEOARTHRITIS) Endocrine: Yes Diabetes, Non-Insulin dep HEENT: Yes ([place]) Hearing Impairment: Hard of Hearing Cancer: No Psychosocial: No Integumentary: No Blood Disorders: Yes (ANEMIA) Family Medical History CAD Over 55 Years Old, Diabetes Physical Exam Vital Signs Vital Signs - First Documented 09/11/21 14:16 Temp 36.8 Pulse 71 Resp 18 B/P (MAP) 194/83 (120) Pulse Ox 100 O2 Delivery Room Air Capillary Refill : Height, Weight, BMI Height: '" Weight: lbs. oz. kg; 23.06 BMI Method: General Appearance: WD/WN, no apparent distress HEENT: PERRL/EOMI, normal ENT inspection, pharynx normal Neck: non-tender, full range of motion, supple, normal inspection Cardiovascular: regular rate, rhythm, no edema, no murmur Respiratory: chest non-tender, lungs clear, normal breath sounds, no respiratory distress, no accessory muscle use Gastrointestinal: normal bowel sounds, non tender, soft; No distended, No guarding, No rebound Back: normal inspection, no CVA tenderness, no vertebral tenderness Extremities: other (Left leg slightly shortened compared to the right, pain with any type of logroll of the left extremity and tenderness to palpation along the left hip, normal distal pulses and sensation, normal dorsiflexion and plantarflexion of the left foot, unable to lift left leg at the hip due to pain, normal right lower extremity exam) Neurologic/Psychiatric: no motor/sensory deficits, alert, normal mood/affect, oriented x 3 Skin: normal color, warm/dry Lymphatic: no adenopathy Rambo Coma Score Best Eye Response: (4) Open Spontaneously Best Verbal Response: (5) Oriented Best Motor Response: (6) Obeys Commands Progress/Results/Core Measures Results/Orders My Orders Orders - GIUSEPPE HURD MD Pelvis With Left Hip 2-3 View (09/11/21 14:22) Morphine Injection (Morphine Injection (09/11/21 14:22) Morphine Injection (Morphine Injection (09/11/21 14:59) Vital Signs/I&O 09/11/21 14:16 Temp 36.8 Pulse 71 Resp 18 B/P (MAP) 194/83 (120) Pulse Ox 100 O2 Delivery Room Air Progress Progress Note : Progress Note 81-year-old male with above history coming in after he tripped and landed on his left hip now with severe pain. ABCs were intact, vital stable, GCS 15 on presentation. He has no signs of head trauma and did not pass out. We will monitor his mental status, although I believe it is very unlikely he has any intracranial injury. No midline spinal tenderness at all. Due to his left hip pain will obtain x-rays to assess for fracture. An IV was placed and he was given morphine for pain control x2 with reassessment. X-ray of the left hip ordered and interpreted by me showing a left intertrochanteric femur fracture without displacement. I contacted the orthopedic surgeon on-call, Dr. Feliz, and he says he would be able to fix this. He needs to be n.p.o. after midnight. I then contacted Dr. De La Vega, and the patient was admitted to the hospitalist service under inpatient status for further evaluation and management. Diagnostic Imaging Diagonstic Imaging: Xray (pelvis and left hip) Comments [facility], [place] NAME: MAGDILARRY Arielle MED REC#: [id number] PT STATUS: REG ER : 1940 PHYSICIAN: GIUSEPPE HURD MD ADMIT DATE: 09/11/21/ER FS Draft Date of Exam:09/11/21 PELVIS WITH LEFT HIP 2-3 VIEW INDICATION: Left hip pain. FINDINGS: AP view pelvis shows postsurgical changes from brachytherapy seed implantation in the prostate. The pelvic ring is intact. There is a nondisplaced intertrochanteric fracture of the left hip. IMPRESSION: Nondisplaced intertrochanteric fracture of the left hip. Dictated on workstation # [id number] Dict: 09/11/21 1447 Trans: 09/11/21 1449 [id number] Interpreted by: JACY NIEVES MD Electronically signed by: Departure Impression Primary Impression: Intertrochanteric fracture of left femur Qualified Codes: S72.145A - Nondisplaced intertrochanteric fracture of left femur, initial encounter for closed fracture Disposition: 30 STILL A PATIENT Condition: Stable Admissions Decision to Admit Reason: Admit from ER (General) Decision to Admit/Date: Sep 11, 2021 Time/Decision to Admit Time: 15:10 Transfer Method of Transfer: EMS Departure-Patient Inst. Referrals: BRENT PHILLIPS DO (PCP/Family) Primary Care Physician GIUSEPPE HURD MD Sep 11, 2021 14:28
--- NOTE | 2021-09-11 14:49 | Diagnostic Imaging Report ---
INDICATION: Left hip pain. FINDINGS: AP view pelvis shows postsurgical changes from brachytherapy seed implantation in the prostate. The pelvic ring is intact. There is a nondisplaced intertrochanteric fracture of the left hip. IMPRESSION: Nondisplaced intertrochanteric fracture of the left hip. Dictated by: Dictated on workstation # [id number]
[2021-09-11 15:41] LABS: HEMATOCRIT 30 % (40-54); HEMOGLOBIN 9.9 g/dL (13.3-17.7); MEAN CORPUSCULAR HEMOGLOBIN 25 pg (25-34); MEAN CORPUSCULAR HGB CONC 33 g/dL (32-36); MEAN CORPUSCULAR VOLUME 77 fL (80-99); PLATELET COUNT 210 10^3/uL (130-400); WHITE BLOOD COUNT 8.7 10^3/uL (4.3-11.0)
[2021-09-11 15:42] LABS: BASOPHILS % (AUTO) 0 % (0-10); EOSINOPHILS # (AUTO) 0.1 10^3/uL (0.0-0.3); EOSINOPHILS % (AUTO) 2 % (0-10); LYMPHOCYTES % (AUTO) 11 % (12-44); MEAN PLATELET VOLUME 9.5 fL (9.0-12.2); MONOCYTES # (AUTO) 0.6 X 10^3 (0.0-1.0); MONOCYTES % (AUTO) 7 % (0-12); NEUTROPHILS % (AUTO) 81 % (42-75)
[2021-09-11 15:44] LABS: CREATININE SERUM 1.39 MG/DL (0.60-1.30); POTASSIUM 4.6 MMOL/L (3.6-5.0)
[2021-09-11 15:45] LABS: CALCIUM 9.2 MG/DL (8.5-10.1)
[2021-09-11 15:47] LABS: ALBUMIN 4.3 GM/DL (3.2-4.5); BILIRUBIN,TOTAL 0.3 MG/DL (0.1-1.0); TOTAL PROTEIN 6.7 GM/DL (6.4-8.2)
[2021-09-11 16:30] VITALS: BP 199/97
[2021-09-11] MEDS ORDERED: ONDANSETRON 4 MG/2 ML (SDV) Z0FRAN IV PRN ×2 (17:15→21:00)
[2021-09-11] MEDS ORDERED: CATHETER FLUSH 10 ML SYR IV PRN (17:15)
[2021-09-11] MEDS: morphine INJ 4 MG/ML 1 ML (VIAL/SYRINGE) IV PRN ×2 (17:35→21:59)
[2021-09-11 19:46] VITALS: BP 124/70
[2021-09-11] MEDS: CATHETER FLUSH 10 ML SYR IV SCH (20:15)
[2021-09-11] MEDS ORDERED: ACETAMINOPHEN 325 MG TABLET PO PRN (21:00)
[2021-09-11] MEDS ORDERED: ANTACID SUSP 30 ML UDC (MYLANTA) PO PRN (21:00)
[2021-09-11] MEDS ORDERED: ONDANSETRON 4 MG (ZOFRAN) ORAL DISSOLVE TAB PO PRN (21:00)
[2021-09-11] MEDS ORDERED: polyethylene glycoL POWDER 17 GM (MIRALAX) PACK PO PRN (21:00)
[2021-09-11] MEDS ORDERED: hydrALAZINE (APESOLINE) 20 MG/ML VIAL IV PRN (21:00)
[2021-09-11] MEDS ORDERED: MELATONIN 3 MG TABLET PO PRN (21:00)
[2021-09-11] MEDS: DOCUSATE SODIUM 100 MG (COLACE) CAP PO SCH (21:58)
[2021-09-11] MEDS: SENNOSIDES 8.6 MG (SENOKOT) TAB PO SCH (21:58)
[2021-09-11 23:49] VITALS: BP 145/72
[2021-09-12] VITALS (12 sets, daily range): BP systolic 120–176; BP diastolic 60–85
[2021-09-12] MEDS: morphine INJ 4 MG/ML 1 ML (VIAL/SYRINGE) IV PRN ×3 (02:02→12:56)
[2021-09-12 05:25] LABS: BASOPHILS % (AUTO) 0 % (0-10); EOSINOPHILS % (AUTO) 1 % (0-10); HEMATOCRIT 31 % (40-54); HEMOGLOBIN 10.2 g/dL (13.3-17.7); LYMPHOCYTES # (AUTO) 0.8 10^3/uL (1.0-4.0); LYMPHOCYTES % (AUTO) 10 % (12-44); MEAN CORPUSCULAR HEMOGLOBIN 25 pg (25-34); MEAN CORPUSCULAR HGB CONC 33 g/dL (32-36); MEAN CORPUSCULAR VOLUME 78 fL (80-99); MEAN PLATELET VOLUME 8.6 fL (9.0-12.2); MONOCYTES # (AUTO) 0.7 10^3/uL (0.0-1.0); MONOCYTES % (AUTO) 9 % (0-12); NEUTROPHILS # (AUTO) 6.5 10^3/uL (1.8-7.8); NEUTROPHILS % (AUTO) 80 % (42-75); PLATELET COUNT 188 10^3/uL (130-400); WHITE BLOOD COUNT 8.1 10^3/uL (4.3-11.0)
[2021-09-12] MEDS: CATHETER FLUSH 10 ML SYR IV SCH ×2 (05:26→14:15)
[2021-09-12 05:44] LABS: CALCIUM 9.4 MG/DL (8.5-10.1); CREATININE SERUM 1.42 MG/DL (0.60-1.30); POTASSIUM 4.5 MMOL/L (3.6-5.0)
--- NOTE | 2021-09-12 08:09 | Consultation - Ortho ---
Consult - Ortho Subjective Date of Exam 09/12/21 Chief Complaint Left Hip Pain HPI/Events since last exam fall while cutting wood last night, seen in [place] [facility] and diagnosed with L IT Femur Fx, transferred here for care of injury Medical, Surgical History Surgeries: Yes Appendectomy, CABG, Gallbladder, Orthopedic, Transurethral Resection Respiratory: Yes COPD Currently Using CPAP: No Currently Using BIPAP: No Cardiac: Yes Coronary Artery Disease, High Cholesterol, Hypertension Neurological: No Reproductive Disorders: No Sexually Transmitted Disease: No Genitourinary: Yes (CHRONIC KIDNEY DISEASE) Benign Prostatic Hyperpl Gastrointestinal: Yes Gastroesophageal Reflux Musculoskeletal: Yes (OSTEOARTHRITIS) Endocrine: Yes Diabetes, Non-Insulin dep [place]: Yes ([place]) Hearing Impairment: Hard of Hearing Cancer: No Psychosocial: No Integumentary: No Blood Disorders: Yes (ANEMIA) Social History Nonsmoker Family History Heart Dz Review of Systems not obtained Allergies: Coded Allergies: No Known Drug Allergies (Unverified , 07/25/10) Home Meds Reported Medications Omeprazole (Omeprazole) 40 Mg Capsule.dr, 40 MG PO DAILY, CAP 12/05/20 Hydroxyzine HCl (Hydroxyzine HCl) 50 Mg Tablet, 1-2 TAB PO BID PRN for ITCHING, TAB 12/05/20 Hydrochlorothiazide (Hydrochlorothiazide) 25 Mg Tablet, 25 MG PO BID, TAB 12/05/20 Diphenhydramine HCl (Diphenhydramine HCl) 25 Mg Capsule, 25 MG PO HS, CAP 12/05/20 Carvedilol (Carvedilol) 6.25 Mg Tablet, 6.25 MG PO BID, TAB 12/05/20 Sennosides (Senokot) 8.6 Mg Tablet, 17.2 MG PO HS, TAB TAKES 2 (8.2MG) TAB 06/27/20 C,E,Zinc,Copper 24/Om3/Lut/Judah (Ocuvite Adult 50 Plus Softgel) 1 Each Capsule, 1 EACH PO HS, CAP 06/27/20 Cartilage/Collagen/Bor/Hyalur (Joint Health Tablet) 1 Each Tablet, 2 EACH PO DAILY, TAB 06/27/20 Pioglitazone HCl (Pioglitazone HCl) 15 Mg Tablet, 15 MG PO DAILY, TAB 06/27/20 Ezetimibe (Ezetimibe) 10 Mg Tablet, 10 MG PO DAILY, TAB 06/27/20 Finasteride (Finasteride) 5 Mg Tablet, 5 MG PO HS, TAB 06/27/20 ALPRAZolam (ALPRAZolam) 0.25 Mg Tablet, 0.25 MG PO QID PRN for ANXIETY, TAB 06/27/20 Tamsulosin HCl (Flomax) 0.4 Mg Cap, 0.4 MG PO BID, CAP 06/27/20 Objective Exam L Hip: No abrasions, no ecchymosis, +DF of ankle, no s/s of DVT Vital Signs Vital Signs Date Time Temp Pulse Resp B/P (MAP) Pulse Ox O2 Delivery O2 Flow Rate FiO2 09/12/21 03:34 36.4 83 20 137/67 (90) 95 Room Air 09/11/21 23:49 36.3 81 18 145/72 (96) 97 Room Air 09/11/21 20:09 Room Air 09/11/21 19:46 36.3 89 19 124/70 (88) 100 Room Air 09/11/21 17:12 98 Room Air 09/11/21 16:30 36.7 80 19 199/97 (131) 98 Room Air 09/11/21 15:43 36.8 79 16 188/85 99 Room Air 09/11/21 14:16 36.8 71 18 194/83 (120) 100 Room Air I & O 09/12/21 07:00 Intake Total 200 ml Output Total 825 ml Balance -625 ml Lab Results Laboratory Tests 09/11/21 14:35: White Blood Count 8.7, Red Blood Count 3.89L, Hemoglobin 9.9L, Hematocrit 30L, Mean Corpuscular Volume 77L, Mean Corpuscular Hemoglobin 25, Mean Corpuscular Hemoglobin Concent 33, Red Cell Distribution Width 12.6, Platelet Count 210, Mean Platelet Volume 9.5, Neutrophils (%) (Auto) 81H, Lymphocytes (%) (Auto) 11L , Monocytes (%) (Auto) 7, Eosinophils (%) (Auto) 2, Basophils (%) (Auto) 0, Neutrophils # (Auto) 7.0, Lymphocytes # (Auto) 1.0, Monocytes # (Auto) 0.6, Eosinophils # (Auto) 0.1, Basophils # (Auto) 0.0, Sodium Level 131L, Potassium Level 4.6, Chloride Level 96L, Carbon Dioxide Level 23, Anion Gap 12, Blood Urea Nitrogen 19H, Creatinine 1.39H, Estimat Glomerular Filtration Rate 51, BUN/Creatinine Ratio 14, Glucose Level 167H, Calcium Level 9.2, Corrected Calcium 9.0, Total Bilirubin 0.3, Aspartate Amino Transf (AST/SGOT) 15, Alanine Aminotransferase (ALT/SGPT) 11, Alkaline Phosphatase 68, Total Protein 6.7, Albumin 4.3 09/12/21 03:44: SARS-CoV-2 RNA (RT-PCR) Not Detected 09/12/21 05:06: White Blood Count 8.1, Red Blood Count 4.04L, Hemoglobin 10.2L, Hematocrit 31L, Mean Corpuscular Volume 78L, Mean Corpuscular Hemoglobin 25, Mean Corpuscular Hemoglobin Concent 33, Red Cell Distribution Width 12.6, Platelet Count 188, Mean Platelet Volume 8.6L, Neutrophils (%) (Auto) 80H, Lymphocytes (%) (Auto) 10L, Monocytes (%) (Auto) 9, Eosinophils (%) (Auto) 1, Basophils (%) (Auto) 0, Neutrophils # (Auto) 6.5, Lymphocytes # (Auto) 0.8L, Monocytes # (Auto) 0.7, Eosinophils # (Auto) 0.0, Basophils # (Auto) 0.0, Sodium Level 134L, Potassium Level 4.5, Chloride Level 99, Carbon Dioxide Level 23, Anion Gap 12, Blood Urea Nitrogen 15, Creatinine 1.42H, Estimat Glomerular Filtration Rate 49, BUN/Creatinine Ratio 11, Glucose Level 138H, Calcium Level 9.4, Immature Granulocyte % (Auto) 1, Immature Granulocyte # (Auto) 0.0 09/12/21 05:11: Imaging 2 views of the left hip from 09/11/21 were reviewed from PACS and demonstrated a nondisplaced left intertrochanteric femur fracture Assessment and Plan Assessment Left Intertrochanteric Femur Fracture Problem List Left Intertrochanteric Femur Fracture Plan I have recommended reduction and fixation of the left intertrochanteric femur fracture. Nature of the procedure and the postoperative course were discussed. Risks and benefits were discussed. Plan to proceed later this AM. Consent to be obtained. Final Diagonsis Left Intertrochanteric Femur Fracture Level of the visit: Level 3 (preop) EDU COLLINS MD Sep 12, 2021 08:09
[2021-09-12] MEDS ORDERED: ceFAZolin INJECTION 1,000 MG in NS (IVPB) 50 ML IV ONE (08:15)
[2021-09-12] MEDS: DOCUSATE SODIUM 100 MG (COLACE) CAP PO SCH ×2 (08:37→19:58)
[2021-09-12] MEDS: SENNOSIDES 8.6 MG (SENOKOT) TAB PO SCH ×2 (08:37→19:58)
[2021-09-12] MEDS ORDERED: fentaNYL INJ 100 MCG/2 ML AMP ONE (10:07)
[2021-09-12] MEDS ORDERED: METH-731 PO (10:08)
[2021-09-12] MEDS ORDERED: DOCU-164 PO (10:08)
[2021-09-12] MEDS ORDERED: IBUP-2185 PO (10:08)
[2021-09-12] MEDS ORDERED: HYDR50TA76 PO (10:08)
[2021-09-12] MEDS ORDERED: AMLO2.5T4 PO (10:08)
[2021-09-12] MEDS ORDERED: [UNRECOGNIZED DRUG - CODE] PO (10:08)
[2021-09-12] MEDS ORDERED: ASPI-1238 PO (10:08)
[2021-09-12] MEDS ORDERED: BETA1TAB15 PO (10:08)
[2021-09-12] MEDS: LACTATED RINGERS 1,000 ML IV PRN ×2 (10:16→11:36)
[2021-09-12] MEDS ORDERED: proPOfol 200 MG/20 ML (DIPRIVAN) VIAL IV ONE (10:19)
[2021-09-12] MEDS ORDERED: ONDANSETRON 4 MG/2 ML (SDV) Z0FRAN ONE (10:19)
[2021-09-12] MEDS ORDERED: LIDOCAINE PF 2% 5 ML (XYLOCAINE) VIAL ONE (10:19)
[2021-09-12] MEDS ORDERED: ceFAZolin INJECTION 1,000 MG ONE (11:08)
[2021-09-12] MEDS ORDERED: ESMOLOL 100 MG/10 ML (BREVIBLOC) VIAL ONE (11:26)
[2021-09-12] MEDS ORDERED: BUPIVACAINE 0.25% 30 ML (SENSORCAINE) VIAL ONE (11:28)
--- NOTE | 2021-09-12 11:49 | Operative Report - Ortho ---
Operative Report Surgeon (s)/Activities Director (s) Surgeon EDU COLLINS MD Activities Director n/a Pre-Operative Diagnosis Left Intertrochanteric Femur Fracture Post-Operative Diagnosis same Operative Report Date of Procedure: Sep 12, 2021 Name of Procedure Performed: Intramedullary nailing of left intertrochanteric femur fracture Description & Findings After obtaining informed consent and marking the patient in the preoperative holding area, the patient was administered IV antibiotics and taken to the operating room. Anesthesia was induced. Patient was transferred to the fracture table. Surgical timeout was taken. The left lower extremity was placed in the traction spar and the right leg was placed in the well leg cha. The left lower extremity was prepped and draped in the usual sterile fashion. Incision was made just proximal to the greater trochanter. Blunt dissection was performed down to the tip of the trochanter. A guide wire was placed through a trochanteric entry point. Position of the wire was confirmed using C-arm. An entry reamer was then placed over the guidewire and reamed to the level of the lesser trochanter. A trochanteric gamma nail with a 125 degree angle was selected and assembled on the back table. Nail was inserted through the trochanteric entry point and seated by hand. Position of the nail was confirmed using C-arm. A guide wire was placed for the cephalomedullary screw. Version of the wire was obtained on the lateral. Measurement was taken and the reamer was set to 100 mm. Reamer was used over the guidewire and then the cephalomedullary screw was placed. Position of the cephalomedullary screw was confirmed on C-arm. Set screw was then tightened onto the cephalomedullary screw and then backed off 1/4 turn. Attention was then turned to the distal screw and using the provided guides, a 37.5 mm screw was placed through the static portion of the distal slot. Final C arm images were obtained, demonstrated appropriate placement of hardware with adequate reduction, and were transferred to PACS. Incision sites were irrigated with normal saline. Closed subcutaneously with 2- 0 vicryl and skin was closed with franklyn. Dressed with xeroform, 4x4s, ABD, and tape. Patient tolerated the procedure well and was stable to the recovery room. Anesthesia Type General Estimated Blood Loss minimal Specimen(s) collected/removed none EDU COLLINS MD Sep 12, 2021 11:49
[2021-09-12] MEDS ORDERED: morphine INJ 10 MG/ML 1ML (SYR OR VIAL) IVP ONE (12:00)
[2021-09-12] MEDS ORDERED: ONDANSETRON 4 MG/2 ML (SDV) Z0FRAN IVP PRN (12:00)
--- NOTE | 2021-09-12 13:57 | Diagnostic Imaging Report ---
INDICATION: Fluoroscopy for left hip surgery. Fluoroscopy was provided in the OR during left hip surgery. 51 seconds of fluoroscopic time were utilized. Four images were obtained demonstrating an intramedullary roxana and compression screw transfixing left hip fracture. Alignment is anatomic. IMPRESSION: Fluoroscopy for left hip ORIF. Dictated by: Dictated on workstation # [id number]
[2021-09-12] MEDS: ACETAMINOPHEN 500 MG TAB (TYLENOL) PO PRN (14:16)
--- NOTE | 2021-09-12 14:44 | Physical Therapy Evaluation ---
PT Evaluation-General Medical Diagnosis Admission Date Sep 11, 2021 at 16:40 Medical Diagnosis: L Femur fx Onset Date: Sep 11, 2021 Therapy Diagnosis Therapy Diagnosis: weakness, debility Precautions Precautions/Isolations: Fall Prevention, Standard Precautions Weight Bear Status Left Lower Extremity: Left Weight Bearing/Tolerated Referral Physician: Danilo Reason for Referral: Evaluation/Treatment Medical History Pertinent Medical History: CAD, DM, HTN Additional Medical History Hypolipidemia Current History Patient was splitting wood and tripped over a log and fell, breaking his femur. Patient arrived to ED on 09/11 via personal vehicle and had surgery on 09/12 to repair the break. Reviewed History: Yes Social History Home: Single Level Current Living Status: Alone Prior Prior Level of Function SCALE: Activities may be completed with or without assistive devices. 3-Rlbmvnzjra-gkoczpk completes the activity by him/herself with no assistance from a helper. 5-Set-up or Clean-up Assistance-helper sets up or cleans up; patient completes activity. [place] assists only prior to or following the activity. 4-Supervision or Touching Assistance-helper provides verbal cues and/or touching/steadying and/or contact guard assistance as patient completes activity. Assistance may be provided throughout the activity or intermittently. 3-Partial/Moderate Assistance-helper does LESS THAN HALF the effort. [place] lifts, holds or supports trunk or limbs, but provides less than half the effort. 2-Substantial/Maximal Assistance-helper does MORE THAN HALF the effort. [place] lifts or holds trunk or limbs and provides more than half the effort. 0-Ptnfmxkxj-dczbdw does ALL the effort. Patient does none of the effort to complete the activity. Or, the assistance of 2 or more helpers is required for the patient to complete the activity. If activity was not attempted, code reason: 7-Patient Refused. 9-Not Applicable-not attempted and the patient did not perform the activity before the current illness, exacerbation or injury. 10-Not Attempted due to Environmental Limitations-(lack of equipment, weather restraints, etc.). 88-Not Attempted due to Medical Conditions or Safety Concerns. Bed Mobility: 6 Transfers (B,C,W/C): 6 Gait: 6 Indoor Mobility (Ambulation): Independent PT Evaluation-Current Subjective Patient presented laying in bed and agreed to participate in therapy. Objective Patient Orientation: Person, Situation ROM/Strength ROM Lower Extremities WFL Strength Lower Extremities R LE 4/5 grossly L LE: not tested due to recent surgery Integumentary/Posture Bladder Incontinence: Elliott Cath Neuromuscular (Tone, Coordination, Reflexes) grossly intact Sensory Vision: Wears Glasses Hearing: Functional Sensation Right Lower Extremit: Intact Sensation Left Lower Extremity: Intact Transfers Roll Left to Right (QC): 6 Sit to Lying (QC): 3 Lying to Sitting/Side of Bed(Q: 3 Sit to Stand (QC): 3 Patient required min/mod assist for all transfers. Patient was unable to lift his leg back into bed after sitting EOB and standing. Gait Does the Patient Walk?: Yes Mode of Locomotion: Walk Anticipated Mode of Locomotion: Walk Gait Assistive Device: FWW Comments/Gait Description 5 side steps to HOB Balance Sitting Static: Normal Sitting Dynamic: Normal Standing Static: Fair Standing Dynamic: Fair Assessment/Needs Patient performed bed mobility, EOB sitting, and standing at a walker for a couple of minutes during therapy session. Patient reported that he started to feel dizzy while standing and side stepping toward the head of the bed so patient was instructed to sit back in bed and had assistance to get back to supine. Patient reported that he was not as dizzy when he was laying back in bed. Patient requires skilled therapy to return to [facility] and live independently at home. Rehab Potential: Good PT Pharmacy Buyer Goals Pharmacy Buyer Goals PT Pharmacy Buyer Goals Time Frame: Sep 23, 2021 Roll Left & Right (QC): 6 Sit to Lying (QC): 6 Lying-Sitting on Side/Bed(QC): 6 Sit to Stand (QC): 6 Chair/Tdk-nj-Wnxyu Xfer(QC): 6 Toilet Transfer (QC): 6 Does the Patient Walk: Yes Walk 10 feet (QC): 6 Walk 50ft with 2 Turns (QC): 6 Walk 150 ft (QC): 6 PT Plan Problem List Problem List: Activity Tolerance, Functional Strength, Safety, Balance, Gait, Transfer, Bed Mobility, ROM Treatment/Plan Treatment Plan: Continue Plan of Care Treatment Plan: Bed Mobility, Education, Functional Activity Liyah, Functional Strength, Gait, Safety, Therapeutic Exercise, Transfers Treatment Duration: Sep 23, 2021 Frequency: 11 times per week Estimated Hrs Per Day: .5 hour per day Patient and/or Family Agrees t: Yes Time/GCodes Time In: 1401 Time Out: 1415 Total Billed Treatment Time: 14 Total Billed Treatment 1 Visit EVModC 14 min MICHAEL RING PT Sep 12, 2021 14:44
[2021-09-12] MEDS ORDERED: SEVOFLURANE (ULTANE) 15 ML INHAL SOLN ONE (14:57)
--- NOTE | 2021-09-12 18:20 | History & Physical-Hospitalist ---
History of Present Illness HPI/Chief Complaint Chris Gaspar is an 81 year old male with PMH HTN, T2DM, HLD, BPH, CAD, GERD, who presented after a fall. He was found to have a hip fracture. He is having some hip pain. He denies any other complaints or cocnerns. He denies fevers and chills. He denies shortness of breath and cough. He denies chest pain. He denies abdominal pain, nausea, vomiting, and diarrhea. Source: patient Exam Limitations: no limitations Date Seen 09/12/21 Time Seen by a Provider: 13:00 Attending Physician Aidan Toscano MD PCP Deepak Goodman DO Referring Physician Date of Admission Sep 11, 2021 at 16:40 Home Medications & Allergies Home Medications Reviewed patient Home Medication Reconciliation performed by pharmacy medication reconciliations tar processing technician and/or nursing. Patients Allergies have been reviewed. Allergies Allergies Coded Allergies No Known Drug Allergies (Mqikpfnqne56/7/10) Past Ddeaalv-Xlxavm-Dfeocz Hx Patient Social History Tobacco Use?: No Use of E-Cig and/or Vaping dev: No Substance use?: No Alcohol Use?: No Pt feels they are or have been: No Immunizations Up To Date Date of Influenza Vaccine: May 19, 2020 First/Initial COVID19 Vaccinat: October 2ND SHOT DONE Second COVID19 Vaccination Neto: October 2ND SHOT DONE Tetanus Booster (TDap): Unknown Hepatitis A: No Hepatitis B: No Date of Pneumonia Vaccine: Aug 19, 2017 Seasonal Allergies Seasonal Allergies: No Current Status Advance Directives: Yes Advance Directive Location: Copy from prev record Communicates: Verbally Primary Language: Northern Irish Preferred Spoken Language: Northern Irish Is interpretation needed?: No Sensory deficits: Vision impairment Implanted or Applied Medical D: None Past Medical History Surgeries: Appendectomy, CABG, Gallbladder, Orthopedic, Transurethral Resection COPD Currently Using CPAP: No Currently Using BIPAP: No Coronary Artery Disease, High Cholesterol, Hypertension Sexually Transmitted Disease: No Benign Prostatic Hyperpl Gastroesophageal Reflux Diabetes, Non-Insulin dep Hearing Impairment: Hard of Hearing Blood Disorders: Yes (ANEMIA) Family Medical History CAD Over 55 Years Old, Diabetes Review of Systems Constitutional: no symptoms reported EENTM: no symptoms reported Respiratory: no symptoms reported Cardiovascular: no symptoms reported Gastrointestinal: no symptoms reported Genitourinary: no symptoms reported Musculoskeletal: joint pain Skin: no symptoms reported Psychiatric/Neurological: No Symptoms Reported Physical Exam Physical Exam Vital Signs Vital Signs - First Documented 09/11/21 14:16 Temp 36.8 Pulse 71 Resp 18 B/P (MAP) 194/83 (120) Pulse Ox 100 O2 Delivery Room Air Capillary Refill : Less Than 3 Seconds Height, Weight, BMI Height: '" Weight: lbs. oz. kg; 23.09 BMI Method: General Appearance: No Apparent Distress, WD/WN HEENT: PERRL/EOMI, Pharynx Normal Neck: Normal Inspection, Supple Respiratory: Lungs Clear, Normal Breath Sounds, No Respiratory Distress Cardiovascular: Regular Rate, Rhythm, No Edema, No Murmur Gastrointestinal: Normal Bowel Sounds, Non Tender, Soft Extremity: Normal Inspection, Non Tender, No Pedal Edema Neurologic/Psychiatric: Alert, Oriented x3, Normal Mood/Affect Skin: Normal Color, Warm/Dry Results Results/Procedures Labs Laboratory Tests 09/11/21 14:35 09/12/21 05:06 Patient resulted labs reviewed. Imaging: Reviewed Imaging Report Assessment/Plan Admission Diagnosis Hip fracture Admission Status: Inpatient Order (span 2 midnights) Reason for Inpatient Admission: Hip surgery Assessment and Plan Nondisplaced intertrochanteric fracture of the left hip XR with hip fracture Orthopedic surgery consulted s/p intramedullary nailing 09/12 Pain regimen Bowel regimen Incentive spriometry PT/OT IRU evaluation T2DM Sliding scale insulin HTN HLD CAD BPH GERD Continue home meds DVT prophylaxis: Lovenox Diagnosis/Problems Diagnosis/Problems (1) Intertrochanteric fracture of left femur Status: Acute Qualifiers: Encounter type: initial encounter Fracture type: closed Fracture alignment: nondisplaced Qualified Codes: S72.145A - Nondisplaced intertrochanteric fracture of left femur, initial encounter for closed fracture AIDAN TOSCANO MD Sep 12, 2021 18:20
[2021-09-12] MEDS ORDERED: inSUlin ASPART (NovoLOG) 1 UNIT/0.01 ML (CHARGE PER UNIT) ONE ×2 (21:28→21:29)
[2021-09-12] MEDS: inSUlin ASPART (NovoLOG) 1 UNIT/0.01 ML (CHARGE PER UNIT) SC SCH (21:36)
[2021-09-12] MEDS: ASPIRIN E.C. 81 MG (ECOTRIN) TAB PO SCH (22:05)
[2021-09-12] MEDS: FINASTERIDE (PROSCAR) 5 MG TAB PO SCH (22:07)
[2021-09-12] MEDS: hydrOXYzine (VISTARIL/ATARAX) 25 MG capsule/tablet PO SCH (22:07)
[2021-09-12] MEDS: ENOXAPARIN 40 MG/0.4 ML (LOVENOX) SYR SC SCH (22:07)
[2021-09-12] MEDS: TAMSULOSIN 0.4 MG (FLOMAX) CAP PO SCH (22:08)
[2021-09-12] MEDS: amLODIPine 2.5MG (NORVASC) TAB PO SCH ×2 (22:08→23:19)
[2021-09-13 03:24] VITALS: BP 147/69
[2021-09-13 05:50] LABS: HEMOGLOBIN 8.3 g/dL (13.3-17.7)
[2021-09-13] MEDS: inSUlin ASPART (NovoLOG) 1 UNIT/0.01 ML (CHARGE PER UNIT) SC SCH ×5 (06:31→20:10)
[2021-09-13 08:00] VITALS: BP 96/59
[2021-09-13] MEDS: DOCUSATE SODIUM 100 MG (COLACE) CAP PO SCH ×2 (08:18→20:09)
[2021-09-13] MEDS: eZETimibe 10 MG (ZETIA) TABLET PO SCH (08:18)
[2021-09-13] MEDS: hydrOXYzine (VISTARIL/ATARAX) 25 MG capsule/tablet PO SCH ×2 (08:19→20:10)
[2021-09-13] MEDS: TAMSULOSIN 0.4 MG (FLOMAX) CAP PO SCH ×2 (08:19→20:10)
[2021-09-13] MEDS ORDERED: METHYLSULFONYLMETHANE 1000 MG PO SCH (09:00)
--- NOTE | 2021-09-13 09:01 | Physical Therapy Daily Note ---
PT Daily Note-Current Subjective Patient presented sitting up in bed after finishing breakfast. Patient reports that his hip is pretty painful this morning. Mental Status Patient Orientation: Person, Place Attachments: Elliott Catheter Transfers SCALE: Activities may be completed with or without assistive devices. 1-Xnpeyxtrek-vhltkmg completes the activity by him/herself with no assistance from a helper. 5-Set-up or Clean-up Assistance-helper sets up or cleans up; patient completes activity. [place] assists only prior to or following the activity. 4-Supervision or Touching Assistance-helper provides verbal cues and/or touching/steadying and/or contact guard assistance as patient completes activity. Assistance may be provided throughout the activity or intermittently. 3-Partial/Moderate Assistance-helper does LESS THAN HALF the effort. [place] lifts, holds or supports trunk or limbs, but provides less than half the effort. 2-Substantial/Maximal Assistance-helper does MORE THAN HALF the effort. [place] lifts or holds trunk or limbs and provides more than half the effort. 9-Qpxofbdtw-zlisht does ALL the effort. Patient does none of the effort to complete the activity. Or, the assistance of 2 or more helpers is required for the patient to complete the activity. If activity was not attempted, code reason: 7-Patient Refused. 9-Not Applicable-not attempted and the patient did not perform the activity before the current illness, exacerbation or injury. 10-Not Attempted due to Environmental Limitations-(lack of equipment, weather restraints, etc.). 88-Not Attempted due to Medical Conditions or Safety Concerns. Sit to Lying (QC): 3 Lying to Sitting/Side of Bed(Q: 3 (mod assist) Sit to Stand (QC): 3 (mod) Patient stood twice and took a couple of steps the second time. Patient has a lot of dizziness and nausea. Weight Bearing Left Lower Extremity: Left Weight Bearing/Tolerated Gait Training Does the Patient Walk?: Yes Distance: 2 steps Gait Assistive Device: FWW Patient took 2 side steps toward the head of the bed. Patient had difficulty putting weight through his L LE and required assistance to move his L leg. Assessment Current Status: Poor Progress Patient performed bed mobility and standing at the walker during therapy session. Patient required mod assistance for bed mobility to move his L leg off of the bed and to sit EOB. Patient required mod assist to perform sit to stand transfer. Patient had difficulty standing all the way up and required assistance to move his L LE while trying to perform side steps. Patient was unable to perform more than two side steps and required mod assist to get back into bed. Patient reported that he was dizzy whenever he tried to stand up and is blaming it on his medication. Patient was educated on the importance of getting up and moving after a hip fracture. PT Chcf Goals Salesforce Consultant Goals PT Chcf Goals Time Frame: Sep 23, 2021 Roll Left & Right (QC): 6 Sit to Lying (QC): 6 Lying-Sitting on Side/Bed(QC): 6 Sit to Stand (QC): 6 Chair/Zzu-lx-Pwsar Xfer(QC): 6 Toilet Transfer (QC): 6 Does the Patient Walk: Yes Walk 10 feet (QC): 6 Walk 50ft with 2 Turns (QC): 6 Walk 150 ft (QC): 6 PT Plan Problem List Problem List: Activity Tolerance, Functional Strength, Safety, Balance, Gait, Transfer, Bed Mobility, ROM Treatment/Plan Treatment Plan: Continue Plan of Care Treatment Plan: Bed Mobility, Education, Functional Activity Liyah, Functional Strength, Gait, Safety, Therapeutic Exercise, Transfers Treatment Duration: Sep 23, 2021 Frequency: 11 times per week Estimated Hrs Per Day: .5 hour per day Patient and/or Family Agrees t: Yes Safety Risks/Education Patient Education: Reviewed Precautions, Correct Positioning Teaching Recipient: Patient Teaching Methods: Discussion Response to Teaching: Reinforcement Needed Time/GCodes Time In: 827 Time Out: 846 Total Billed Treatment Time: 19 Total Billed Treatment 1 Visit FA 19 min JERZY BRYAN PT Sep 13, 2021 09:01
--- NOTE | 2021-09-13 09:22 | Anesthesia-General Post-Op ---
General Patient Condition Mental Status/LOC: Same as Preop Cardiovascular: Satisfactory Nausea/Vomiting: Absent Respiratory: Satisfactory Pain: Controlled Complications: Absent Post Op Complications Complications None Follow Up Care/Instructions Patient Instructions None needed. Anesthesia/Patient Condition Patient Condition Patient is doing well, no complaints, stable vital signs, no apparent adverse anesthesia problems. No complications reported per nursing. MARY ALICE CRUZ CRNA Sep 13, 2021 09:22
--- NOTE | 2021-09-13 10:04 | Occupational Therapy Eval ---
OT Evaluation-General/PLF Medical Diagnosis Admission Date Sep 11, 2021 at 16:40 Medical Diagnosis: L Femur fx Onset Date: Sep 11, 2021 Therapy Diagnosis Therapy Diagnosis: decreased ADL status Precautions Precautions/Isolations: Fall Prevention, Standard Precautions Referral Physician: Danilo Referral Reason: Evaluation/Treatment Medical History Pertinent Medical History: CAD, DM, HTN Additional Medical History HTN, DM, HLD, BPH, CAD, GERD, COPD, CABG Current History presents after fall with hip fx, s/p L IM nail 09/12/21 Social History Home: Single Level Current Living Status: Alone Steps Into Home: 5 3 steps down into his bedroom but also has a ramp to get into the bedroom ADL-Prior Level of Function SCALE: Activities may be completed with or without assistive devices. 2-Lshvgwudld-jxqjcsu completes the activity by him/herself with no assistance from a helper. 5-Set-up or Clean-up Assistance-helper sets up or cleans up; patient completes activity. [place] assists only prior to or following the activity. 4-Supervision or Touching Assistance-helper provides verbal cues and/or touching/steadying and/or contact guard assistance as patient completes activity. Assistance may be provided throughout the activity or intermittently. 3-Partial/Moderate Assistance-helper does LESS THAN HALF the effort. [place] lifts, holds or supports trunk or limbs, but provides less than half the effort. 2-Substantial/Maximal Assistance-helper does MORE THAN HALF the effort. [place] lifts or holds trunk or limbs and provides more than half the effort. 3-Dbbsbizoo-jaqtba does ALL the effort. Patient does none of the effort to complete the activity. Or, the assistance of 2 or more helpers is required for the patient to complete the activity. If activity was not attempted, code reason: 7-Patient Refused. 9-Not Applicable-not attempted and the patient did not perform the activity befo re the current illness, exacerbation or injury. 10-Not Attempted due to Environmental Limitations-(lack of equipment, weather re straints, etc.). 88-Not Attempted due to Medical Conditions or Safety Concerns. ADL PLOF Comments Pt reports IND with ADLs and functional mobility at PLOF, no AD/AE. He has a [employer] tub with grab bars and a shower built in, does not have a SC. Self Care: Independent Functional Cognition: Independent DME/Equipment: Grab Bars, Tub (Jacuzzi tub) OT Current Status Subjective Pt in bed, agreeable to OT tx with moderate encouragement. OT educated pt on what OT is, he replied "how many therapies are there" & "I have already had therapy this morning". OT educated pt on difference between OT and PT. During session, pt states "you're pushing me too much". He would prefer to do therapy after he is able to get up on his leg more, OT attempted to educate pt on how therapy will help him get up on his leg. Mental Status/Objective Patient Orientation: Person, Place, Situation Attachments: Elliott Catheter Current Upper Extremity ROM WFL Upper Extremity Coordination WFL Upper Extremity Strength WFL ADL-Treatment Eating (QC): 6 (Per clincial judgment.) Oral Hygiene (QC): 5 (per clinical judgment.) Shower/Bathe Self (QC): 7 (Pt refused, per judgement total to max A.) Lower Body Dressing (QC): 1 (Per clinical judgement.) On/Off Footwear (QC): 1 (Per clinical judgment.) Toileting Hygiene (QC): 1 (total assist after bed newton.) Other Treatments Pt in bed, OT educated pt on purpose and benefit of OT. Pt provided information about PLOF and home set up. OT encouraged pt to participate in ADL session, he i nitially declined but agreeable with moderate encouragement. Pt does not want to get out of bed, but with encouragement agreed to attempting to sit EOB for sponge bath. Pt indicates he is on a bed [place], bed [place] removed, then pt attempted to sit EOB. OT assisted pt with moving LLE towards EOB, pt told therapist to stop and that he was being pushed too much. OT stopped assisting with LLE, pt then pulled his trunk up into a long sitting position but unable to move LLE towards EOB and refused help. Pt again indicates he thinks he is being pushed too much, and he doesn't understand why the other therapy couldn't do this. OT again educated pt on the difference between OT and PT. Pt declined further tx, bringing RLE back into bed, OT assisted with positioning LLE. Post tx, pt in bed, call light in reach and all needs met. Education OT Patient Education: Correct positioning, Modified ADL techniques, Progress toward Goal/Update tx plan, Purpose of tx/functional activities, Rehab process Teaching Recipient: Patient Teaching Methods: Discussion Response to Teaching: Verbalize Understanding OT Keysmith Goals Keysmith Goals Time Frame: Sep 29, 2021 Eating (QC): 6 Oral Hygiene (QC): 6 Toileting Hygiene (QC): 4 Shower/Bathe Self (QC): 4 Upper Body Dressing (QC): 5 Lower Body Dressing (QC): 4 On/Off Footwear (QC): 4 Additional Goals: 1-Demonstrate ADL Tasks, 2-Verbalize Understanding, 3- ImproveStrength/Liyah 1=Demonstrate adherence to instructed precautions during ADL tasks. 2=Patient will verbalize/demonstrate understanding of assistive devices/modifications for ADL. 3=Patient will improve strength/tolerance for activity to enable patient to perform ADL's. OT Education/Plan Problem List/Assessment Assessment: Decreased Activ Tolerance, Decreased UE Strength, Impaired Bed Mobility, Impaired Funct Balance, Impaired I ADL's, Impaired Self-Care Skills Discharge Recommendations Plan/Recommendations: Continue POC Treatment Plan/Plan of Care Patient would benefit from OT for education, treatment and training to promote independence in ADL's, mobility, safety and/or upper extremity function for ADL's. Plan of Care: ADL Retraining, Functional Mobility, UE Funct Exercise/Act Treatment Duration: Sep 29, 2021 Frequency: 3 times per week (3-5 times per week) Rehab Potential: Good Time/GCodes Start Time: 09:40 Stop Time: 09:54 Total Time Billed (hr/min): 14 Billed Treatment Time 1, STANISLAW COOPER OT Sep 13, 2021 10:04
--- NOTE | 2021-09-13 10:31 | Progress Note - Ortho ---
Progress Note Subjective Date of Exam 09/13/21 Chief Complaint POD #1 IM Nailing of L IT Femur Fx HPI/Events since last exam difficulty with pain, did not make much progress with therapy, concerned about medication Review of Systems - Allergies: Coded Allergies: No Known Drug Allergies (Unverified , 07/25/10) Home Meds Reported Medications Docusate Sodium (Dulcolax Stool Softener) 100 Mg Capsule, 100 MG PO HS, CAP 09/12/21 Ibuprofen (Ibuprofen) 200 Mg Capsule, 400 MG PO BID PRN for PAIN-MILD (1-4), CAP 09/12/21 Aspirin (Aspirin EC) 81 Mg Tablet.dr, 81 MG PO HS, TAB 09/12/21 Methylsulfonylmethane (MSM) 1,000 Mg Tablet, 1000 MG PO DAILY, TAB 09/12/21 Vit A/Vit C/Vit E/Zinc/Copper (Preservision Areds Tablet) 1 Each Tablet, 1 EACH PO DAILY, TAB 09/12/21 Hydroxyzine HCl (Hydroxyzine HCl) 50 Mg Tablet, 150 MG PO HS, TAB TAKES 3 (50MG)TABS 09/12/21 Amlodipine Besylate (Amlodipine Besylate) 2.5 Mg Tablet, 2.5 MG PO HS, TAB 09/12/21 Methocarbamol (Methocarbamol) 500 Mg Tablet, 500 MG PO BID PRN for HEADACHE/NECK SPASMS, TAB 09/12/21 Hydroxyzine HCl (Hydroxyzine HCl) 50 Mg Tablet, 100 MG PO DAILY, TAB TAKES 2 (50MG) TABS 12/05/20 Hydrochlorothiazide (Hydrochlorothiazide) 25 Mg Tablet, 25 MG PO BID, TAB 12/05/20 Carvedilol (Carvedilol) 6.25 Mg Tablet, 6.25 MG PO BID, TAB 12/05/20 Sennosides (Senokot) 8.6 Mg Tablet, 17.2 MG PO BID, TAB TAKES 2 (8.2MG) TAB 06/27/20 Pioglitazone HCl (Pioglitazone HCl) 15 Mg Tablet, 15 MG PO DAILY, TAB 06/27/20 Ezetimibe (Ezetimibe) 10 Mg Tablet, 10 MG PO DAILY, TAB 06/27/20 Finasteride (Finasteride) 5 Mg Tablet, 5 MG PO HS, TAB 06/27/20 ALPRAZolam (ALPRAZolam) 0.25 Mg Tablet, 0.5 MG PO HS, TAB TAKES 2 (0.25MG) TABS 06/27/20 Tamsulosin HCl (Flomax) 0.4 Mg Cap, 0.4 MG PO BID, CAP 06/27/20 Discontinued Reported Medications Omeprazole (Omeprazole) 40 Mg Capsule.dr, 40 MG PO DAILY, CAP 12/05/20 Diphenhydramine HCl (Diphenhydramine HCl) 25 Mg Capsule, 25 MG PO HS, CAP 12/05/20 C,E,Zinc,Copper 24/Om3/Lut/Judah (Ocuvite Adult 50 Plus Softgel) 1 Each Capsule, 1 EACH PO HS, CAP 06/27/20 Cartilage/Collagen/Bor/Hyalur (Joint Health Tablet) 1 Each Tablet, 2 EACH PO D AILY, TAB 06/27/20 Objective Exam L Hip: Dressing C/D/I, +DF of ankle, no s/s of DVT Vital Signs Vital Signs Date Time Temp Pulse Resp B/P (MAP) Pulse Ox O2 Delivery O2 Flow Rate FiO2 09/13/21 08:05 Room Air 09/13/21 08:00 36.4 76 16 96/59 (71) 95 Room Air 09/13/21 03:24 36.6 88 18 147/69 (95) 94 Room Air 09/12/21 23:18 36.8 85 20 129/60 (83) 94 Room Air 09/12/21 22:12 86 142/67 (92) 09/12/21 20:00 35.9 87 18 120/60 (80) 98 Room Air 09/12/21 19:56 Room Air 09/12/21 16:00 35.7 80 18 138/66 (90) 96 Room Air 09/12/21 14:00 Room Air 0.00 09/12/21 12:38 Room Air 09/12/21 12:30 36.2 16 162/76 (104) 94 Room Air 09/12/21 12:20 Room Air 09/12/21 12:20 16 170/84 (112) 100 Room Air 09/12/21 12:10 20 169/85 (113) 100 OxyMask 2 09/12/21 12:00 16 174/81 (112) 100 OxyMask 2 09/12/21 12:00 OxyMask 2 09/12/21 12:00 35.5 77 22 176/75 (108) 95 Room Air 09/12/21 11:50 16 144/71 (95) 100 OxyMask 4 09/12/21 11:45 OxyMask 6 09/12/21 11:45 37.6 16 134/65 (88) 100 OxyMask 6 I & O 09/13/21 06:59 Intake Total 1930 ml Output Total 2500 ml Balance -570 ml Lab Results Laboratory Tests 09/12/21 20:27: Glucometer 186H 09/13/21 05:37: Hemoglobin 8.3L, Hematocrit 25L 09/13/21 06:30: Glucometer 155H Microbiology 09/12/21 MRSA Screen - Final, Complete MRSA not isolated Assessment and Plan Assessment Left Intertrochanteric Femur Fracture s/p Intramedullary Nailing Problem List Left Intertrochanteric Femur Fracture s/p Intramedullary Nailing Plan PT/OT DVT Prophylaxis Potential candidate for swing bed Final Diagonsis Left Intertrochanteric Femur Fracture s/p Intramedullary Nailing Level of the visit: Level 3 (post op global) EDU COLLINS MD Sep 13, 2021 10:31
[2021-09-13] MEDS: SENNOSIDES 8.6 MG (SENOKOT) TAB PO SCH ×2 (10:37→20:09)
[2021-09-13 12:00] VITALS: BP 150/67
--- NOTE | 2021-09-13 14:25 | Physical Therapy Daily Note ---
PT Daily Note-Current Subjective Pt laying Supine in bed upon arrival. Pt reluctantly agrees to PT citing pain with WB. Pain Location: Left Location Body Site: Hip Pain Description: Throbbing, Sharp Comment: Reports no pain at rest but sharp increase w/WB Mental Status Patient Orientation: Person, Place, Situation Transfers SCALE: Activities may be completed with or without assistive devices. 1-Yazamtucko-txmmsai completes the activity by him/herself with no assistance from a helper. 5-Set-up or Clean-up Assistance-helper sets up or cleans up; patient completes activity. [place] assists only prior to or following the activity. 4-Supervision or Touching Assistance-helper provides verbal cues and/or touching/steadying and/or contact guard assistance as patient completes activity. Assistance may be provided throughout the activity or intermittently. 3-Partial/Moderate Assistance-helper does LESS THAN HALF the effort. [place] lifts, holds or supports trunk or limbs, but provides less than half the effort. 2-Substantial/Maximal Assistance-helper does MORE THAN HALF the effort. [place] lifts or holds trunk or limbs and provides more than half the effort. 2-Ehpsjfdgi-jkktbb does ALL the effort. Patient does none of the effort to complete the activity. Or, the assistance of 2 or more helpers is required for the patient to complete the activity. If activity was not attempted, code reason: 7-Patient Refused. 9-Not Applicable-not attempted and the patient did not perform the activity before the current illness, exacerbation or injury. 10-Not Attempted due to Environmental Limitations-(lack of equipment, weather restraints, etc.). 88-Not Attempted due to Medical Conditions or Safety Concerns. Weight Bearing Left Lower Extremity: Left Weight Bearing/Tolerated Exercises Supine Ex: Ankle pumps, Quad Set, Glut sets, Heel Slides, Hip abd/add Supine Reps: 15 Treatments Pt completes Supine EX in bed with RB as needed for fatigue and pain. AAROM with HS & AB/ADD to toleration. Pt resting in bed at end of tx w/all needs met, call light in hand. Assessment Current Status: Poor Progress Pain limits movement at this time. PIN DRAFTING MACHINE OPERATOR encourages pt but pt declines being able to complete more. PT Philatelic Consultant Goals Philatelic Consultant Goals PT Philatelic Consultant Goals Time Frame: Sep 23, 2021 Roll Left & Right (QC): 6 Sit to Lying (QC): 6 Lying-Sitting on Side/Bed(QC): 6 Sit to Stand (QC): 6 Chair/Qkw-eq-Gwulk Xfer(QC): 6 Toilet Transfer (QC): 6 Does the Patient Walk: Yes Walk 10 feet (QC): 6 Walk 50ft with 2 Turns (QC): 6 Walk 150 ft (QC): 6 PT Plan Problem List Problem List: Activity Tolerance, Functional Strength Treatment/Plan Treatment Plan: Continue Plan of Care Treatment Plan: Bed Mobility, Education, Functional Activity Liyah, Functional Strength, Gait, Safety, Therapeutic Exercise, Transfers Treatment Duration: Sep 23, 2021 Frequency: 11 times per week Estimated Hrs Per Day: .5 hour per day Patient and/or Family Agrees t: Yes Safety Risks/Education Patient Education: Correct Positioning Teaching Recipient: Patient Teaching Methods: Discussion Response to Teaching: Verbalize Understanding Time/GCodes Time In: 1345 Time Out: 1415 Total Billed Treatment Time: 30 Total Billed Treatment 1, EX x2 (30m) MISTY LION PIN DRAFTING MACHINE OPERATOR Sep 13, 2021 14:25
[2021-09-13 16:00] VITALS: BP 127/69
[2021-09-13 20:05] VITALS: BP 160/74
[2021-09-13] MEDS: ENOXAPARIN 40 MG/0.4 ML (LOVENOX) SYR SC SCH (20:08)
[2021-09-13] MEDS: amLODIPine 2.5MG (NORVASC) TAB PO SCH (20:10)
[2021-09-13] MEDS: ASPIRIN E.C. 81 MG (ECOTRIN) TAB PO SCH (20:10)
[2021-09-13] MEDS: FINASTERIDE (PROSCAR) 5 MG TAB PO SCH (20:10)
--- NOTE | 2021-09-13 20:48 | Progress Note - Hospitalist ---
Subjective HPI/CC On Admission Date Seen by Provider: Sep 13, 2021 Time Seen by Provider: 10:50 Chris Gaspar is an 81 year old male with PMH HTN, T2DM, HLD, BPH, CAD, GERD, who presented after a fall. He was found to have a hip fracture. He is having some hip pain. He denies any other complaints or cocnerns. He denies fevers and chills. He denies shortness of breath and cough. He denies chest pain. He denies abdominal pain, nausea, vomiting, and diarrhea. Subjective/Events-last exam He is in more pain today. He hasn't been able to get up today. He has no complaints or concerns. Objective Exam Vital Signs Vital Signs Date Time Temp Pulse Resp B/P (MAP) Pulse Ox O2 Delivery O2 Flow Rate FiO2 09/13/21 20:17 Room Air 09/13/21 20:05 37.2 92 20 160/74 (102) 99 09/12/21 14:00 0.00 Capillary Refill : Less Than 3 Seconds General Appearance: No Apparent Distress, WD/WN Respiratory: Lungs Clear, No Respiratory Distress Cardiovascular: Regular Rate, Rhythm, No Murmur Gastrointestinal: Normal Bowel Sounds, Soft Extremity: Normal Inspection, No Pedal Edema Neurologic/Psychiatric: Alert, Depressed Affect Skin: Warm/Dry, Pallor Results/Procedures Lab Laboratory Tests 09/13/21 05:37 Patient resulted labs reviewed. Imaging: Reviewed Imaging Report Assessment/Plan Assessment and Plan Assess & Plan/Chief Complaint Nondisplaced intertrochanteric fracture of the left hip XR with hip fracture Orthopedic surgery consulted s/p intramedullary nailing 09/12 Pain regimen Bowel regimen Incentive spriometry PT/OT IRU evaluation Anemia Hemoglobin down slightly Monitor T2DM Sliding scale insulin HTN HLD CAD BPH GERD CKD Continue home meds DVT prophylaxis: Lovenox Diagnosis/Problems Diagnosis/Problems (1) Intertrochanteric fracture of left femur Status: Acute Qualifiers: Encounter type: initial encounter Fracture type: closed Fracture alignment: nondisplaced Qualified Codes: S72.145A - Nondisplaced intertrochanteric fracture of left femur, initial encounter for closed fracture AIDAN TOSCANO MD Sep 13, 2021 20:47
[2021-09-13 23:30] VITALS: BP 116/56
[2021-09-14] VITALS (7 sets, daily range): BP systolic 110–205; BP diastolic 55–88
[2021-09-14 05:33] LABS: HEMOGLOBIN 7.7 g/dL (13.3-17.7)
[2021-09-14 05:44] LABS: POTASSIUM 4.5 MMOL/L (3.6-5.0)
[2021-09-14 05:45] LABS: CALCIUM 8.8 MG/DL (8.5-10.1)
[2021-09-14 05:49] LABS: CREATININE SERUM 1.36 MG/DL (0.60-1.30)
[2021-09-14] MEDS: inSUlin ASPART (NovoLOG) 1 UNIT/0.01 ML (CHARGE PER UNIT) SC SCH ×4 (06:11→21:19)
--- NOTE | 2021-09-14 08:15 | Progress Note - Ortho ---
Progress Note Subjective Date of Exam 09/14/21 Chief Complaint POD #2 IM Nailing of L IT Femur Fx HPI/Events since last exam comfortable in bed, confused, struggling with therapy due to pain Review of Systems - Allergies: Coded Allergies: No Known Drug Allergies (Unverified , 07/25/10) Home Meds Reported Medications Docusate Sodium (Dulcolax Stool Softener) 100 Mg Capsule, 100 MG PO HS, CAP 09/12/21 Ibuprofen (Ibuprofen) 200 Mg Capsule, 400 MG PO BID PRN for PAIN-MILD (1-4), CAP 09/12/21 Aspirin (Aspirin EC) 81 Mg Tablet.dr, 81 MG PO HS, TAB 09/12/21 Methylsulfonylmethane (MSM) 1,000 Mg Tablet, 1000 MG PO DAILY, TAB 09/12/21 Vit A/Vit C/Vit E/Zinc/Copper (Preservision Areds Tablet) 1 Each Tablet, 1 EACH PO DAILY, TAB 09/12/21 Hydroxyzine HCl (Hydroxyzine HCl) 50 Mg Tablet, 150 MG PO HS, TAB TAKES 3 (50MG)TABS 09/12/21 Amlodipine Besylate (Amlodipine Besylate) 2.5 Mg Tablet, 2.5 MG PO HS, TAB 09/12/21 Methocarbamol (Methocarbamol) 500 Mg Tablet, 500 MG PO BID PRN for HEADACHE/NECK SPASMS, TAB 09/12/21 Hydroxyzine HCl (Hydroxyzine HCl) 50 Mg Tablet, 100 MG PO DAILY, TAB TAKES 2 (50MG) TABS 12/05/20 Hydrochlorothiazide (Hydrochlorothiazide) 25 Mg Tablet, 25 MG PO BID, TAB 12/05/20 Carvedilol (Carvedilol) 6.25 Mg Tablet, 6.25 MG PO BID, TAB 12/05/20 Sennosides (Senokot) 8.6 Mg Tablet, 17.2 MG PO BID, TAB TAKES 2 (8.2MG) TAB 06/27/20 Pioglitazone HCl (Pioglitazone HCl) 15 Mg Tablet, 15 MG PO DAILY, TAB 06/27/20 Ezetimibe (Ezetimibe) 10 Mg Tablet, 10 MG PO DAILY, TAB 06/27/20 Finasteride (Finasteride) 5 Mg Tablet, 5 MG PO HS, TAB 06/27/20 ALPRAZolam (ALPRAZolam) 0.25 Mg Tablet, 0.5 MG PO HS, TAB TAKES 2 (0.25MG) TABS 06/27/20 Tamsulosin HCl (Flomax) 0.4 Mg Cap, 0.4 MG PO BID, CAP 06/27/20 Discontinued Reported Medications Omeprazole (Omeprazole) 40 Mg Capsule.dr, 40 MG PO DAILY, CAP 12/05/20 Diphenhydramine HCl (Diphenhydramine HCl) 25 Mg Capsule, 25 MG PO HS, CAP 12/05/20 C,E,Zinc,Copper 24/Om3/Lut/Judah (Ocuvite Adult 50 Plus Softgel) 1 Each Capsule, 1 EACH PO HS, CAP 06/27/20 Cartilage/Collagen/Bor/Hyalur (Joint Health Tablet) 1 Each Tablet, 2 EACH PO DAILY, TAB 06/27/20 Objective Exam Left Hip: Dressing C/D/I, +DF of ankle, no s/s of DVT Vital Signs Vital Signs Date Time Temp Pulse Resp B/P (MAP) Pulse Ox O2 Delivery O2 Flow Rate FiO2 09/14/21 07:36 Room Air 09/13/21 23:30 36.6 89 20 116/56 (76) 97 Room Air 09/13/21 20:17 Room Air 09/13/21 20:05 37.2 92 20 160/74 (102) 99 Room Air 09/13/21 16:00 36.7 88 20 127/69 (88) 98 Room Air 09/13/21 12:00 36.0 87 20 150/67 (94) 95 Room Air I & O 09/14/21 07:00 Intake Total 1460 ml Output Total 1550 ml Balance -90 ml Lab Results Laboratory Tests 09/13/21 16:18: Glucometer 172H 09/13/21 20:09: Glucometer 166H 09/14/21 05:00: Hemoglobin 7.7L, Hematocrit 24L, Sodium Level 129L, Potassium Level 4.5, Chloride Level 95L, Carbon Dioxide Level 24, Anion Gap 10, Blood Urea Nitrogen 17, Creatinine 1.36H, Estimat Glomerular Filtration Rate 52, BUN/Creatinine Ratio 13, Glucose Level 168H, Calcium Level 8.8 09/14/21 06:09: Glucometer 149H Microbiology 09/12/21 MRSA Screen - Final, Complete MRSA not isolated Assessment and Plan Assessment Left Intertrochanteric Femur Fracture s/p Intramedullary Nailing Problem List Left Intertrochanteric Femur Fracture s/p Intramedullary Nailing Plan Continue therapy efforts DVT Prophylaxis Will require extended care Final Diagonsis Left Intertrochanteric Femur Fracture s/p Intramedullary Nailing Level of the visit: Level 3 (postop global) EDU COLLINS MD Sep 14, 2021 08:15
[2021-09-14] MEDS: SENNOSIDES 8.6 MG (SENOKOT) TAB PO SCH ×2 (09:22→20:26)
[2021-09-14] MEDS: hydrOXYzine (VISTARIL/ATARAX) 25 MG capsule/tablet PO SCH (09:22)
[2021-09-14] MEDS: TAMSULOSIN 0.4 MG (FLOMAX) CAP PO SCH ×2 (09:22→20:26)
[2021-09-14] MEDS: DOCUSATE SODIUM 100 MG (COLACE) CAP PO SCH ×2 (09:22→20:26)
[2021-09-14] MEDS: eZETimibe 10 MG (ZETIA) TABLET PO SCH (09:22)
[2021-09-14] MEDS: ACETAMINOPHEN 500 MG TAB (TYLENOL) PO PRN (09:56)
--- NOTE | 2021-09-14 09:59 | Physical Therapy Daily Note ---
PT Daily Note-Current Subjective Patient presented in bed and agrees to get up and try and walk with therapy. Mental Status Patient Orientation: Person Attachments: Elliott Catheter Transfers SCALE: Activities may be completed with or without assistive devices. 6-Esovbsvyno-aguxuwa completes the activity by him/herself with no assistance from a helper. 5-Set-up or Clean-up Assistance-helper sets up or cleans up; patient completes activity. Arabi assists only prior to or following the activity. 4-Supervision or Touching Assistance-helper provides verbal cues and/or touching/steadying and/or contact guard assistance as patient completes activity. Assistance may be provided throughout the activity or intermittently. 3-Partial/Moderate Assistance-helper does LESS THAN HALF the effort. Arabi lifts, holds or supports trunk or limbs, but provides less than half the effort. 2-Substantial/Maximal Assistance-helper does MORE THAN HALF the effort. Arabi lifts or holds trunk or limbs and provides more than half the effort. 6-Emfslfzqq-soitkf does ALL the effort. Patient does none of the effort to complete the activity. Or, the assistance of 2 or more helpers is required for the patient to complete the activity. If activity was not attempted, code reason: 7-Patient Refused. 9-Not Applicable-not attempted and the patient did not perform the activity before the current illness, exacerbation or injury. 10-Not Attempted due to Environmental Limitations-(lack of equipment, weather restraints, etc.). 88-Not Attempted due to Medical Conditions or Safety Concerns. Lying to Sitting/Side of Bed(Q: 3 (min) Sit to Stand (QC): 3 (min) Chair/Yhv-ek-Jhelw Xfer(QC): 2 (max) Weight Bearing Left Lower Extremity: Left Weight Bearing/Tolerated Gait Training Does the Patient Walk?: Yes Distance: 3 steps Gait Assistive Device: FWW Patient ambulated with FWW and mod assist x2 for 3 steps. Patient had difficulty pushing the walker and shifting his weight onto his right leg to advance his left LE. Assessment Current Status: Poor Progress Patient was able to perform bed mobility with min to help move his L LE to EOB. Patient agreed to try and ambulate. While ambulating the patient started to become unresponsive and required dependent transfer back to bed. Patient feet were elevated and nurse was summonsed. Vitals were taken while patient was in supine, BP 110/53 and pulse of 84 BPM. Patient become responsive quickly in supine and once patient was back to baseline patient agreed to transfer to sitting in the chair. Patient required max assist pivot transfer to his chair. Patient was unable to tolerate OOB activity such as ambulation at this time and will be reassessed this afternoon. PT Detention Goals Detention Goals PT Roof Designer Goals Time Frame: Sep 23, 2021 Roll Left & Right (QC): 6 Sit to Lying (QC): 6 Lying-Sitting on Side/Bed(QC): 6 Sit to Stand (QC): 6 Chair/Ljo-ny-Vmvxp Xfer(QC): 6 Toilet Transfer (QC): 6 Does the Patient Walk: Yes Walk 10 feet (QC): 6 Walk 50ft with 2 Turns (QC): 6 Walk 150 ft (QC): 6 PT Plan Problem List Problem List: Activity Tolerance, Functional Strength, Safety, Balance, Gait, Transfer, Bed Mobility, ROM Treatment/Plan Treatment Plan: Continue Plan of Care Treatment Plan: Bed Mobility, Education, Functional Activity Liyah, Functional Strength, Gait, Safety, Therapeutic Exercise, Transfers Treatment Duration: Sep 23, 2021 Frequency: 11 times per week Estimated Hrs Per Day: .5 hour per day Patient and/or Family Agrees t: Yes Safety Risks/Education Patient Education: Gait Training, Transfer Techniques, Correct Positioning, Safety Issues Teaching Recipient: Patient Teaching Methods: Discussion Time/GCodes Time In: 916 Time Out: 931 Total Billed Treatment Time: 15 Total Billed Treatment 1 Visit FA 15 min MICHAEL RING PT Sep 14, 2021 09:59
--- NOTE | 2021-09-14 10:04 | Occupational Ther Daily Note ---
OT Current Status-Daily Note Subjective Pt in recliner. Pt agreeable to OT tx. Mental Status/Objective Patient Orientation: Person, Place, Situation Attachments: Elliott Catheter ADL-Treatment Therapy Code Descriptions/Definitions Functional Iron Measure: 0=Not Assessed/NA 4=Minimal Assistance 1=Total Assistance 5=Supervision or Setup 2=Maximal Assistance 6=Modified Iron 3=Moderate Assistance 7=Complete IndependenceSCALE: Activities may be completed with or without assistive devices. 8-Hojmewyaft-bvjqevm completes the activity by him/herself with no assistance from a helper. 5-Set-up or Clean-up Assistance-helper sets up or cleans up; patient completes activity. [place] assists only prior to or following the activity. 4-Supervision or Touching Assistance-helper provides verbal cues and/or touc roberto/steadying and/or contact guard assistance as patient completes activity. Assistance may be provided throughout the activity or intermittently. 3-Partial/Moderate Assistance-helper does LESS THAN HALF the effort. [place] lifts, holds or supports trunk or limbs, but provides less than half the effort. 2-Substantial/Maximal Assistance-helper does MORE THAN HALF the effort. [place] lifts or holds trunk or limbs and provides more than half the effort. 4-Pplxnqupr-kzpkkd does ALL the effort. Patient does none of the effort to complete the activity. Or, the assistance of 2 or more helpers is required for the patient to complete the activity. If activity was not attempted, code reason: 7-Patient Refused. 9-Not Applicable-not attempted and the patient did not perform the activity before the current illness, exacerbation or injury. 10-Not Attempted due to Environmental Limitations-(lack of equipment, weather restraints, etc.). 88-Not Attempted due to Medical Conditions or Safety Concerns. Bathing Location: L Arm, R Arm, L Upper Leg, R Upper Leg, L Lower Leg (including foot) (mod A needed to clean lower leg and foot), R Lower Leg (including foot), Chest, Abdomen, Buttocks, Perineal Area Shower/Bathe Self (QC): 3 (min A needed to clean LLE and foot) Upper Body Dressing (QC): 5 (setup) On/Off Footwear: 3 (mod A needed to doff/don sock on left foot) Other Treatment Pt sitting in recliner. Pt doffed hospital gown and right sock, assistance needed to doff left sock. Pt completed a sponge bath, min A needed to clean LLE, due to hip pain. Pt donned hospital gown and right sock, assistance needed to don left sock. Pt in recliner, call light in reach and all needs met. Education OT Patient Education: Correct positioning, Energy conservation, Modified ADL techniques, Progress toward Goal/Update tx plan, Purpose of tx/functional activities Teaching Recipient: Patient Teaching Methods: Discussion Response to Teaching: Verbalize Understanding OT Pharmacy Technician Assistant Goals Nursing Home Goals Time Frame: Sep 29, 2021 Eating (QC): 6 Oral Hygiene (QC): 6 Toileting Hygiene (QC): 4 Shower/Bathe Self (QC): 4 Upper Body Dressing (QC): 5 Lower Body Dressing (QC): 4 On/Off Footwear (QC): 4 Additional Goals: 1-Demonstrate ADL Tasks, 2-Verbalize Understanding, 3- ImproveStrength/Liyah 1=Demonstrate adherence to instructed precautions during ADL tasks. 2=Patient will verbalize/demonstrate understanding of assistive devices/modifications for ADL. 3=Patient will improve strength/tolerance for activity to enable patient to perform ADL's. OT Education/Plan Problem List/Assessment Assessment: Decreased UE Strength, Impaired Funct Balance, Impaired I ADL's, Impaired Self-Care Skills Discharge Recommendations Plan/Recommendations: Continue POC Treatment Plan/Plan of Care Patient would benefit from OT for education, treatment and training to promote independence in ADL's, mobility, safety and/or upper extremity function for ADL's. Plan of Care: ADL Retraining, Functional Mobility, UE Funct Exercise/Act Treatment Duration: Sep 29, 2021 Frequency: 3 times per week (3-5 times per week) Rehab Potential: Good Time/GCodes Start Time: 09:35 Stop Time: 09:50 Total Time Billed (hr/min): 15 Billed Treatment Time 1, ADL (15) STANISLAW OLVERA OT Sep 14, 2021 10:04
[2021-09-14] MEDS ORDERED: LACTATED RINGERS 1,000 ML IV SCH ×2 (13:15→14:15)
--- NOTE | 2021-09-14 13:31 | Physical Therapy Daily Note ---
PT Daily Note-Current Subjective Patient presented in his chair and reports that he thinks he can stand up to the walker this afternoon. Patient reports that his hip doesn't hurt when he's not standing. Mental Status Attachments: Elliott Catheter Transfers SCALE: Activities may be completed with or without assistive devices. 7-Hjfuuhsojv-jvevlkx completes the activity by him/herself with no assistance from a helper. 5-Set-up or Clean-up Assistance-helper sets up or cleans up; patient completes activity. [place] assists only prior to or following the activity. 4-Supervision or Touching Assistance-helper provides verbal cues and/or touching/steadying and/or contact guard assistance as patient completes activity. Assistance may be provided throughout the activity or intermittently. 3-Partial/Moderate Assistance-helper does LESS THAN HALF the effort. [place] lifts, holds or supports trunk or limbs, but provides less than half the effort. 2-Substantial/Maximal Assistance-helper does MORE THAN HALF the effort. [place] lifts or holds trunk or limbs and provides more than half the effort. 6-Rkpobkvxo-fqydwb does ALL the effort. Patient does none of the effort to complete the activity. Or, the assistance of 2 or more helpers is required for the patient to complete the activity. If activity was not attempted, code reason: 7-Patient Refused. 9-Not Applicable-not attempted and the patient did not perform the activity before the current illness, exacerbation or injury. 10-Not Attempted due to Environmental Limitations-(lack of equipment, weather restraints, etc.). 88-Not Attempted due to Medical Conditions or Safety Concerns. Sit to Stand (QC): 3 (min) Patient required min assist and cues to tuck his feet under him to come to a stand. Weight Bearing Left Lower Extremity: Left Weight Bearing/Tolerated Gait Training Does the Patient Walk?: No and Walking Goal IS indicated Exercises Seated Therapy Exercises: Sit to stand (3), Long arc quads (10) Standing: Marching (5) Assessment Patient performed seated exercises with minimal difficulty but reported that it hurt to move his leg. Patient required min assist to perform sit to stand transfer. Patient was able to perform 5 marches with his L LE while standing. Patient began to melt and the patient was put back into the chair. Patient BP was 77/39 once he was back in the chair. Patient reported that he was back to baseline and orthostatic BP was started. Patient BP did not decrease initially while standing but after standing for a short period of time his BP decrease to 77/46. Patient was put back into the chair with his feet up and BP returned to 121/67. Nurse was notified of blood pressure changes and assisted with taking orthostatic values. Patient was left post tx with nurse call, tray table, and phone while he was sitting in his chair. PT Residential Goals School Based Therapist Goals PT Residential Goals Time Frame: Sep 23, 2021 Roll Left & Right (QC): 6 Sit to Lying (QC): 6 Lying-Sitting on Side/Bed(QC): 6 Sit to Stand (QC): 6 Chair/Zoi-ju-Clkuo Xfer(QC): 6 Toilet Transfer (QC): 6 Does the Patient Walk: Yes Walk 10 feet (QC): 6 Walk 50ft with 2 Turns (QC): 6 Walk 150 ft (QC): 6 PT Plan Problem List Problem List: Activity Tolerance, Functional Strength, Safety, Balance, Gait, Transfer, Bed Mobility, ROM Treatment/Plan Treatment Plan: Continue Plan of Care Treatment Plan: Bed Mobility, Education, Functional Activity Liyah, Functional Strength, Gait, Safety, Therapeutic Exercise, Transfers Treatment Duration: Sep 23, 2021 Frequency: 11 times per week Estimated Hrs Per Day: .5 hour per day Patient and/or Family Agrees t: Yes Time/GCodes Time In: 1300 Time Out: 1315 Total Billed Treatment Time: 15 Total Billed Treatment 1 Visit FA 15 min MICHAEL RING PT Sep 14, 2021 13:31
[2021-09-14 13:36] LABS: HEMOGLOBIN 8.3 g/dL (13.3-17.7)
--- NOTE | 2021-09-14 16:25 | Progress Note - Hospitalist ---
Subjective HPI/CC On Admission Date Seen by Provider: Sep 14, 2021 Time Seen by Provider: 11:30 Chris Gaspar is an 81 year old male with PMH HTN, T2DM, HLD, BPH, CAD, GERD, who presented after a fall. He was found to have a hip fracture. He is having some hip pain. He denies any other complaints or cocnerns. He denies fevers and chills. He denies shortness of breath and cough. He denies chest pain. He denies abdominal pain, nausea, vomiting, and diarrhea. Subjective/Events-last exam He is having pain. He was lightheaded and dizzy when standing earlier. He denies shortness of breath. He feels like he will need to have a bowel movement soon. Objective Exam Vital Signs Vital Signs Date Time Temp Pulse Resp B/P (MAP) Pulse Ox O2 Delivery O2 Flow Rate FiO2 09/14/21 10:51 36.1 79 20 142/67 (92) 98 Room Air 09/12/21 14:00 0.00 Capillary Refill : Less Than 3 Seconds General Appearance: No Apparent Distress, WD/WN Respiratory: Lungs Clear, Normal Breath Sounds, No Respiratory Distress Cardiovascular: Regular Rate, Rhythm, No Murmur Gastrointestinal: Normal Bowel Sounds, Soft Extremity: Normal Inspection, No Pedal Edema Neurologic/Psychiatric: Alert, No Motor/Sensory Deficits, Depressed Affect Skin: Warm/Dry, Pallor Results/Procedures Lab Laboratory Tests 09/14/21 05:00 09/14/21 13:30 Patient resulted labs reviewed. Imaging: Reviewed Imaging Report Assessment/Plan Assessment and Plan Assess & Plan/Chief Complaint Nondisplaced intertrochanteric fracture of the left hip XR with hip fracture Orthopedic surgery following s/p intramedullary nailing 09/12 Pain regimen, increase Bowel regimen Incentive spriometry PT/OT IRU declined, considering appeal Orthostatic hypotension Fluid bolus Restart maintenance fluids Anemia Hemoglobin down slightly Monitor T2DM Sliding scale insulin HTN Hold home meds HLD CAD BPH GERD CKD Continue home meds DVT prophylaxis: Lovenox Diagnosis/Problems Diagnosis/Problems (1) Intertrochanteric fracture of left femur Status: Acute Qualifiers: Encounter type: initial encounter Fracture type: closed Fracture alignment: nondisplaced Qualified Codes: S72.145A - Nondisplaced intertrochanteric fracture of left femur, initial encounter for closed fracture (2) Acute postoperative anemia due to expected blood loss Status: Acute (3) Orthostatic hypotension Status: Acute AIDAN TOSCANO MD Sep 14, 2021 16:25
--- NOTE | 2021-09-14 16:57 | Physician Query Clarification ---
Physician Query-General Query to Physician: The medical record reflects the following clinical evidence: Clinical Indicators: Na on admission 131, and decreased to 129, Documentation of weakness Risk Factor(s): hydrochlorothiazide, Treatment: IVF's, Lab testing for electrolyte monitoring, I and O, 1. Hypo-osmolality and hyponatremia 2. Other explanation of clinical findings 3. Unable to determine (no explanation for clinical findings) Please clarify and document your clinical opinion in the progress notes and discharge summary including the definitive and/or presumptive diagnosis, (suspected or probable), related to the above clinical findings. Please include clinical findings supporting your diagnosis. Aracelis Goodrich MSN, RN Clinical Hog Ringer [phone] [email or web address] PHYSICIAN RESPONSE: Based on the clinical findings in the record, please respond to the query above on this document as an addendum. Physician Response: If you have questions please contact: Bulk Fluids Handler: Ext: Thank you for your time and cooperation. Clinical Hog Ringer/Bulk Fluids Handler This is a permanent part of the medical record ARACELIS GOODRICH Sep 14, 2021 16:57
[2021-09-14] MEDS: ASPIRIN E.C. 81 MG (ECOTRIN) TAB PO SCH (20:25)
[2021-09-14] MEDS: FINASTERIDE (PROSCAR) 5 MG TAB PO SCH (20:26)
[2021-09-14] MEDS: ENOXAPARIN 40 MG/0.4 ML (LOVENOX) SYR SC SCH (20:26)
[2021-09-15 04:25] VITALS: BP 162/72
[2021-09-15] MEDS: inSUlin ASPART (NovoLOG) 1 UNIT/0.01 ML (CHARGE PER UNIT) SC SCH ×4 (06:33→20:58)
[2021-09-15 08:00] VITALS: BP 142/65
--- NOTE | 2021-09-15 08:35 | Physical Therapy Daily Note ---
PT Daily Note-Current Subjective Patient reports that his hip is not causing him any pain when he is laying down and has been trying to perform bed exercises. Patient reports that he would like to sit up in the chair because it makes his hip feel better. Mental Status Patient Orientation: Person, Situation Attachments: Elliott Catheter Transfers SCALE: Activities may be completed with or without assistive devices. 8-Wpupewvbjj-rjwklbb completes the activity by him/herself with no assistance from a helper. 5-Set-up or Clean-up Assistance-helper sets up or cleans up; patient completes activity. [place] assists only prior to or following the activity. 4-Supervision or Touching Assistance-helper provides verbal cues and/or touching/steadying and/or contact guard assistance as patient completes activity. Assistance may be provided throughout the activity or intermittently. 3-Partial/Moderate Assistance-helper does LESS THAN HALF the effort. [place] lifts, holds or supports trunk or limbs, but provides less than half the effort. 2-Substantial/Maximal Assistance-helper does MORE THAN HALF the effort. [place] lifts or holds trunk or limbs and provides more than half the effort. 7-Hilcnzoyc-cdawpp does ALL the effort. Patient does none of the effort to complete the activity. Or, the assistance of 2 or more helpers is required for the patient to complete the activity. If activity was not attempted, code reason: 7-Patient Refused. 9-Not Applicable-not attempted and the patient did not perform the activity before the current illness, exacerbation or injury. 10-Not Attempted due to Environmental Limitations-(lack of equipment, weather restraints, etc.). 88-Not Attempted due to Medical Conditions or Safety Concerns. Lying to Sitting/Side of Bed(Q: 3 Sit to Stand (QC): 4 Chair/Whn-of-Gxrpf Xfer(QC): 3 Patient was min assist for bed mobility to get to the EOB but performed sit to stand transfer with CGA. Patient required assistance moving the walker and m ultiple cues while transferring to the chair. Weight Bearing Left Lower Extremity: Left Weight Bearing/Tolerated Gait Training Distance: 5 steps Gait Assistive Device: FWW Patient ambulated for 5 steps to transfer from bed to the chair. Patient required assistance to move his walker and frequent cues to continue to step. Exercises Supine Ex: Glut sets Supine Reps: 10 Seated Therapy Exercises: Ankle pumps, Sit to stand (3), Long arc quads Seated Reps: 10 Assessment Patient performed sit to stand transfers, bed mobility, and seated exercises. Patient continues to have difficulty with orthostatic hypotension. Patient reported that he was feeling dizzy when he was transferring from bed to the chair. Patient blood pressure was taken once patient was recovered in the chair and it was 98/56. Blood pressure was attempted to be taken when patient was standing but the machine could not get a clear reading. Patient blood pressure was taken a second time after recovered from performing the second sit to stand transfer and it was 92/54. Patient reported that he gets dizzy every time he stands up. PT Mascara Molder Goals Mascara Molder Goals PT [facility] Goals Time Frame: Sep 23, 2021 Roll Left & Right (QC): 6 Sit to Lying (QC): 6 Lying-Sitting on Side/Bed(QC): 6 Sit to Stand (QC): 6 Chair/Mnj-tv-Kjmxq Xfer(QC): 6 Toilet Transfer (QC): 6 Does the Patient Walk: Yes Walk 10 feet (QC): 6 Walk 50ft with 2 Turns (QC): 6 Walk 150 ft (QC): 6 PT Plan Problem List Problem List: Activity Tolerance, Functional Strength, Safety, Balance, Gait, Transfer, Bed Mobility, ROM Treatment/Plan Treatment Plan: Continue Plan of Care Treatment Plan: Bed Mobility, Education, Functional Activity Liyah, Functional Strength, Gait, Safety, Therapeutic Exercise, Transfers Treatment Duration: Sep 23, 2021 Frequency: 11 times per week Estimated Hrs Per Day: .5 hour per day Patient and/or Family Agrees t: Yes Safety Risks/Education Patient Education: Gait Training, Reviewed Precautions, Safety Issues Teaching Recipient: Patient Time/GCodes Time In: 732 Time Out: 755 Total Billed Treatment Time: 23 Total Billed Treatment 1 Visit FA 15 min Ex 8 min MICHAEL RING PT Sep 15, 2021 08:35
[2021-09-15] MEDS: eZETimibe 10 MG (ZETIA) TABLET PO SCH (09:17)
[2021-09-15] MEDS: TAMSULOSIN 0.4 MG (FLOMAX) CAP PO SCH ×2 (09:17→20:58)
[2021-09-15] MEDS: SENNOSIDES 8.6 MG (SENOKOT) TAB PO SCH ×2 (09:17→20:58)
[2021-09-15] MEDS: DOCUSATE SODIUM 100 MG (COLACE) CAP PO SCH ×2 (09:17→20:57)
[2021-09-15] MEDS: hydrOXYzine (VISTARIL/ATARAX) 25 MG capsule/tablet PO SCH (09:21)
--- NOTE | 2021-09-15 09:49 | Occupational Ther Daily Note ---
OT Current Status-Daily Note Subjective Pt in recliner. Pt agreeable to OT tx. Mental Status/Objective Patient Orientation: Person, Place ADL-Treatment Therapy Code Descriptions/Definitions Functional [place] Measure: 0=Not Assessed/NA 4=Minimal Assistance 1=Total Assistance 5=Supervision or Setup 2=Maximal Assistance 6=Modified [place] 3=Moderate Assistance 7=Complete IndependenceSCALE: Activities may be completed with or without assistive devices. 3-Awstjvhjhs-sigdrhg completes the activity by him/herself with no assistance from a helper. 5-Set-up or Clean-up Assistance-helper sets up or cleans up; patient completes activity. [place] assists only prior to or following the activity. 4-Supervision or Touching Assistance-helper provides verbal cues and/or touching/steadying and/or contact guard assistance as patient completes activity. Assistance may be provided throughout the activity or intermittently. 3-Partial/Moderate Assistance-helper does LESS THAN HALF the effort. [place] lifts, holds or supports trunk or limbs, but provides less than half the effort. 2-Substantial/Maximal Assistance-helper does MORE THAN HALF the effort. [place] lifts or holds trunk or limbs and provides more than half the effort. 6-Ddqyjfali-jmmcub does ALL the effort. Patient does none of the effort to complete the activity. Or, the assistance of 2 or more helpers is required for the patient to complete the activity. If activity was not attempted, code reason: 7-Patient Refused. 9-Not Applicable-not attempted and the patient did not perform the activity before the current illness, exacerbation or injury. 10-Not Attempted due to Environmental Limitations-(lack of equipment, weather restraints, etc.). 88-Not Attempted due to Medical Conditions or Safety Concerns. Eating (QC): 5 (assist to open cereal package partially, pt was able to open it all the way once started. assist opening milk carton) Oral Hygiene (QC): 3 (min A. Pt able to remove dentures, place in container and place denture tablet. Assist to rinse and brush dentures.) Other Treatment Pt in recliner. Pt placed dentures and denture tablet into cup to soak until he was ready to eat breakfast. OT assisted with rinsing dentures and scrubbing dentures. Pt needed assistance to open his cereal package partially, he was able to fully open and pour into bowl after it was started. Pt completed 10 reps of the following BUE exercises to work on arm strengthening: shoulder flexion, shoulder abduction, elbow flexion/extension, front punches, wrist flexion/extension and finger flexion/extension. Pt in recliner, call light in reach and all needs met. Education OT Patient Education: Correct positioning, Energy conservation, Exercise program, Modified ADL techniques, Progress toward Goal/Update tx plan, Purpose of tx/functional activities Teaching Recipient: Patient Teaching Methods: Demonstration, Discussion Response to Teaching: Verbalize Understanding, Return Demonstration OT Security Systems Installer Goals Security Systems Installer Goals Time Frame: Sep 29, 2021 Eating (QC): 6 Oral Hygiene (QC): 6 Toileting Hygiene (QC): 4 Shower/Bathe Self (QC): 4 Upper Body Dressing (QC): 5 Lower Body Dressing (QC): 4 On/Off Footwear (QC): 4 Additional Goals: 1-Demonstrate ADL Tasks, 2-Verbalize Understanding, 3- ImproveStrength/Liyah 1=Demonstrate adherence to instructed precautions during ADL tasks. 2=Patient will verbalize/demonstrate understanding of assistive devices/modifications for ADL. 3=Patient will improve strength/tolerance for activity to enable patient to perform ADL's. OT Education/Plan Problem List/Assessment Assessment: Decreased Activ Tolerance, Decreased UE Strength, Impaired Funct Balance, Impaired I ADL's, Impaired Self-Care Skills Discharge Recommendations Plan/Recommendations: Continue POC Treatment Plan/Plan of Care Patient would benefit from OT for education, treatment and training to promote independence in ADL's, mobility, safety and/or upper extremity function for ADL's. Plan of Care: ADL Retraining, Functional Mobility, UE Funct Exercise/Act Treatment Duration: Sep 29, 2021 Frequency: 3 times per week (3-5 times per week) Rehab Potential: Good Time/GCodes Start Time: 09:10 Stop Time: 09:22 Total Time Billed (hr/min): 12 Billed Treatment Time 1, EX (12) STANISLAW OLVERA OT Sep 15, 2021 09:49
--- NOTE | 2021-09-15 10:00 | Progress Note - Ortho ---
Progress Note Subjective Date of Exam 09/15/21 Chief Complaint POD #3 IM Nailing of L IT Femur Fx HPI/Events since last exam made some progress with therapy, still with pain with ambulation, no pain at rest Review of Systems - Allergies: Coded Allergies: No Known Drug Allergies (Unverified , 07/25/10) Home Meds Reported Medications Docusate Sodium (Dulcolax Stool Softener) 100 Mg Capsule, 100 MG PO HS, CAP 09/12/21 Ibuprofen (Ibuprofen) 200 Mg Capsule, 400 MG PO BID PRN for PAIN-MILD (1-4), CAP 09/12/21 Aspirin (Aspirin EC) 81 Mg Tablet.dr, 81 MG PO HS, TAB 09/12/21 Methylsulfonylmethane (MSM) 1,000 Mg Tablet, 1000 MG PO DAILY, TAB 09/12/21 Vit A/Vit C/Vit E/Zinc/Copper (Preservision Areds Tablet) 1 Each Tablet, 1 EACH PO DAILY, TAB 09/12/21 Hydroxyzine HCl (Hydroxyzine HCl) 50 Mg Tablet, 150 MG PO HS, TAB TAKES 3 (50MG)TABS 09/12/21 Amlodipine Besylate (Amlodipine Besylate) 2.5 Mg Tablet, 2.5 MG PO HS, TAB 09/12/21 Methocarbamol (Methocarbamol) 500 Mg Tablet, 500 MG PO BID PRN for HEADACHE/NECK SPASMS, TAB 09/12/21 Hydroxyzine HCl (Hydroxyzine HCl) 50 Mg Tablet, 100 MG PO DAILY, TAB TAKES 2 (50MG) TABS 12/05/20 Hydrochlorothiazide (Hydrochlorothiazide) 25 Mg Tablet, 25 MG PO BID, TAB 12/05/20 Carvedilol (Carvedilol) 6.25 Mg Tablet, 6.25 MG PO BID, TAB 12/05/20 Sennosides (Senokot) 8.6 Mg Tablet, 17.2 MG PO BID, TAB TAKES 2 (8.2MG) TAB 06/27/20 Pioglitazone HCl (Pioglitazone HCl) 15 Mg Tablet, 15 MG PO DAILY, TAB 06/27/20 Ezetimibe (Ezetimibe) 10 Mg Tablet, 10 MG PO DAILY, TAB 06/27/20 Finasteride (Finasteride) 5 Mg Tablet, 5 MG PO HS, TAB 06/27/20 ALPRAZolam (ALPRAZolam) 0.25 Mg Tablet, 0.5 MG PO HS, TAB TAKES 2 (0.25MG) TABS 06/27/20 Tamsulosin HCl (Flomax) 0.4 Mg Cap, 0.4 MG PO BID, CAP 06/27/20 Discontinued Reported Medications Omeprazole (Omeprazole) 40 Mg Capsule.dr, 40 MG PO DAILY, CAP 12/05/20 Diphenhydramine HCl (Diphenhydramine HCl) 25 Mg Capsule, 25 MG PO HS, CAP 12/05/20 C,E,Zinc,Copper 24/Om3/Lut/Judah (Ocuvite Adult 50 Plus Softgel) 1 Each Capsule, 1 EACH PO HS, CAP 06/27/20 Cartilage/Collagen/Bor/Hyalur (Joint Health Tablet) 1 Each Tablet, 2 EACH PO DAILY, TAB 06/27/20 Objective Exam L Hip: Dressing C/D/I, +DF of ankle, no s/s of DVT Vital Signs Vital Signs Date Time Temp Pulse Resp B/P (MAP) Pulse Ox O2 Delivery O2 Flow Rate FiO2 09/15/21 08:00 36.3 81 18 142/65 (90) 100 Room Air 09/15/21 04:25 36.4 92 18 162/72 (102) 96 Room Air 09/14/21 23:30 36.4 90 18 167/77 (107) 96 Room Air 09/14/21 20:45 87 205/88 (127) 09/14/21 20:45 91 142/66 (91) 94 123/55 (77) 09/14/21 20:45 142/66 (91) 09/14/21 20:30 Room Air 09/14/21 19:42 36.0 88 19 196/86 (122) 98 Room Air 09/14/21 17:00 149/72 (97) 09/14/21 15:30 36.0 76 19 180/77 (111) 98 Room Air 09/14/21 10:51 36.1 79 20 142/67 (92) 98 Room Air I & O 09/15/21 07:00 Intake Total 2800 ml Output Total 2750 ml Balance 50 ml Lab Results Laboratory Tests 09/14/21 10:16: Glucometer 132H 09/14/21 13:30: Hemoglobin 8.3L, Hematocrit 25L 09/14/21 15:46: Glucometer 182H 09/14/21 20:49: Glucometer 149H 09/15/21 05:11: Glucometer 137H Microbiology 09/12/21 MRSA Screen - Final, Complete MRSA not isolated Assessment and Plan Assessment Left Intertrochanteric Femur Fracture s/p Intramedullary Nailing Problem List Left Intertrochanteric Femur Fracture s/p Intramedullary Nailing Plan PT/OT DVT Prophyalxis Will require some form of extended care Final Diagonsis Left Intertrochanteric Femur Fracture s/p Intramedullary Nailing Level of the visit: Level 3 (postop globale) EDU COLLINS MD Sep 15, 2021 10:00
--- NOTE | 2021-09-15 10:36 | Physical Therapy Daily Note ---
PT Daily Note-Current Subjective Patient presented sitting in the chair and agreed to participate in therapy. Mental Status Patient Orientation: Person Attachments: Elliott Catheter Transfers SCALE: Activities may be completed with or without assistive devices. 1-Idoktbsffs-vcndaag completes the activity by him/herself with no assistance from a helper. 5-Set-up or Clean-up Assistance-helper sets up or cleans up; patient completes activity. [place] assists only prior to or following the activity. 4-Supervision or Touching Assistance-helper provides verbal cues and/or touching/steadying and/or contact guard assistance as patient completes activity. Assistance may be provided throughout the activity or intermittently. 3-Partial/Moderate Assistance-helper does LESS THAN HALF the effort. [place] lifts, holds or supports trunk or limbs, but provides less than half the effort. 2-Substantial/Maximal Assistance-helper does MORE THAN HALF the effort. [place] lifts or holds trunk or limbs and provides more than half the effort. 1-Ihsnallbf-yyjnyv does ALL the effort. Patient does none of the effort to complete the activity. Or, the assistance of 2 or more helpers is required for the patient to complete the activity. If activity was not attempted, code reason: 7-Patient Refused. 9-Not Applicable-not attempted and the patient did not perform the activity before the current illness, exacerbation or injury. 10-Not Attempted due to Environmental Limitations-(lack of equipment, weather restraints, etc.). 88-Not Attempted due to Medical Conditions or Safety Concerns. Sit to Stand (QC): 4 Toilet Transfer (QC): 4 Patient required CGA for transfer to commode and to for all sit to stand transfers. Patient required cues on hand placement for transfers. Weight Bearing Left Lower Extremity: Left Weight Bearing/Tolerated Gait Training Does the Patient Walk?: Yes Distance: 15' Walk 10 feet (QC): 3 Gait Assistive Device: FWW Patient ambulated for 15 feet within his room. Patient required cues to encouragement to continue to step. Patient reported slight dizziness with ambulation and needed to have the chair brought to him after ambulation. Exercises Seated Therapy Exercises: Ankle pumps, Long arc quads Seated Reps: 10 Assessment Patient completed seated exercises, toileting transfer and ambulated a short distance. Patient was CGA to min A for all transfers and ambulation. Patient was able to ambulate but required chair follow because patient fatigues quickly. Patient continues to have slight dizziness with standing and ambulation. PT Shelter Goals Shelter Goals PT Shelter Goals Time Frame: Sep 23, 2021 Roll Left & Right (QC): 6 Sit to Lying (QC): 6 Lying-Sitting on Side/Bed(QC): 6 Sit to Stand (QC): 6 Chair/Qrg-nf-Rwsdf Xfer(QC): 6 Toilet Transfer (QC): 6 Does the Patient Walk: Yes Walk 10 feet (QC): 6 Walk 50ft with 2 Turns (QC): 6 Walk 150 ft (QC): 6 PT Plan Problem List Problem List: Activity Tolerance, Functional Strength, Safety, Balance, Gait, Transfer, Bed Mobility, ROM Treatment/Plan Treatment Plan: Continue Plan of Care Treatment Plan: Bed Mobility, Education, Functional Activity Liyah, Functional Strength, Gait, Safety, Therapeutic Exercise, Transfers Treatment Duration: Sep 23, 2021 Frequency: 11 times per week Estimated Hrs Per Day: .5 hour per day Patient and/or Family Agrees t: Yes Time/GCodes Time In: 1010 Time Out: 1026 Total Billed Treatment Time: 16 Total Billed Treatment 1 Visit FA 16 min MICHAEL RING PT Sep 15, 2021 10:36
[2021-09-15 12:00] VITALS: BP 162/75
[2021-09-15 16:00] VITALS: BP 126/58
--- NOTE | 2021-09-15 18:45 | Progress Note - Hospitalist ---
Subjective HPI/CC On Admission Date Seen by Provider: Sep 15, 2021 Time Seen by Provider: 11:55 Chris Gaspar is an 81 year old male with PMH HTN, T2DM, HLD, BPH, CAD, GERD, who presented after a fall. He was found to have a hip fracture. He is having some hip pain. He denies any other complaints or cocnerns. He denies fevers and chills. He denies shortness of breath and cough. He denies chest pain. He denies abdominal pain, nausea, vomiting, and diarrhea. Subjective/Events-last exam He is still having pain. He is still getting lightheaded. He was able to walk to the door with physical therapy. Objective Exam Vital Signs Vital Signs Date Time Temp Pulse Resp B/P (MAP) Pulse Ox O2 Delivery O2 Flow Rate FiO2 09/15/21 16:00 36.0 75 18 126/58 (80) 97 Room Air 09/12/21 14:00 0.00 Capillary Refill : Less Than 3 Seconds General Appearance: No Apparent Distress, WD/WN Respiratory: Lungs Clear, No Respiratory Distress Cardiovascular: Regular Rate, Rhythm, No Murmur Gastrointestinal: Normal Bowel Sounds, Soft Extremity: Normal Inspection, Non Tender, No Pedal Edema Neurologic/Psychiatric: Alert, No Motor/Sensory Deficits Skin: Normal Color, Warm/Dry Results/Procedures Lab Patient resulted labs reviewed. Imaging: Reviewed Imaging Report Assessment/Plan Assessment and Plan Assess & Plan/Chief Complaint Nondisplaced intertrochanteric fracture of the left hip XR with hip fracture Orthopedic surgery following s/p intramedullary nailing 09/12 Pain regimen, increase Bowel regimen Incentive spriometry PT/OT IRU appeal pending Orthostatic hypotension IV fluids Consider fludrocortisone if pesists Anemia Hemoglobin stable Monitor T2DM Sliding scale insulin HTN Hold home meds HLD CAD BPH GERD CKD Continue home meds DVT prophylaxis: Lovenox Diagnosis/Problems Diagnosis/Problems (1) Intertrochanteric fracture of left femur Status: Acute Qualifiers: Encounter type: initial encounter Fracture type: closed Fracture alignment: nondisplaced Qualified Codes: S72.145A - Nondisplaced intertrochanteric fracture of left femur, initial encounter for closed fracture (2) Acute postoperative anemia due to expected blood loss Status: Acute (3) Orthostatic hypotension Status: Acute AIDAN TOSCANO MD Sep 15, 2021 18:45
[2021-09-15 20:00] VITALS: BP 149/65
[2021-09-15] MEDS: FINASTERIDE (PROSCAR) 5 MG TAB PO SCH (20:57)
[2021-09-15] MEDS: ACETAMINOPHEN 500 MG TAB (TYLENOL) PO SCH (20:57)
[2021-09-15] MEDS: ENOXAPARIN 40 MG/0.4 ML (LOVENOX) SYR SC SCH (20:58)
[2021-09-15] MEDS: ASPIRIN E.C. 81 MG (ECOTRIN) TAB PO SCH (20:58)
[2021-09-16] VITALS: BP 109/62
[2021-09-16 04:24] VITALS: BP 142/65
[2021-09-16] MEDS: inSUlin ASPART (NovoLOG) 1 UNIT/0.01 ML (CHARGE PER UNIT) SC SCH ×4 (06:28→21:25)
[2021-09-16 07:31] VITALS: BP 162/69
--- NOTE | 2021-09-16 07:34 | Progress Note - Ortho ---
Progress Note Subjective Date of Exam 09/16/21 Chief Complaint POD #4 s/p IM nailing of L IT Femur Fx HPI/Events since last exam making slow progress with therapy, pain has improved some, states he gets dizzy when he gets up Social History lives independently (states help is "6 to 8 blocks" away) Review of Systems - Allergies: Coded Allergies: No Known Drug Allergies (Unverified , 07/25/10) Home Meds Reported Medications Docusate Sodium (Dulcolax Stool Softener) 100 Mg Capsule, 100 MG PO HS, CAP 09/12/21 Ibuprofen (Ibuprofen) 200 Mg Capsule, 400 MG PO BID PRN for PAIN-MILD (1-4), CAP 09/12/21 Aspirin (Aspirin EC) 81 Mg Tablet.dr, 81 MG PO HS, TAB 09/12/21 Methylsulfonylmethane (MSM) 1,000 Mg Tablet, 1000 MG PO DAILY, TAB 09/12/21 Vit A/Vit C/Vit E/Zinc/Copper (Preservision Areds Tablet) 1 Each Tablet, 1 EACH PO DAILY, TAB 09/12/21 Hydroxyzine HCl (Hydroxyzine HCl) 50 Mg Tablet, 150 MG PO HS, TAB TAKES 3 (50MG)TABS 09/12/21 Amlodipine Besylate (Amlodipine Besylate) 2.5 Mg Tablet, 2.5 MG PO HS, TAB 09/12/21 Methocarbamol (Methocarbamol) 500 Mg Tablet, 500 MG PO BID PRN for HEADACHE/NECK SPASMS, TAB 09/12/21 Hydroxyzine HCl (Hydroxyzine HCl) 50 Mg Tablet, 100 MG PO DAILY, TAB TAKES 2 (50MG) TABS 12/05/20 Hydrochlorothiazide (Hydrochlorothiazide) 25 Mg Tablet, 25 MG PO BID, TAB 12/05/20 Carvedilol (Carvedilol) 6.25 Mg Tablet, 6.25 MG PO BID, TAB 12/05/20 Sennosides (Senokot) 8.6 Mg Tablet, 17.2 MG PO BID, TAB TAKES 2 (8.2MG) TAB 06/27/20 Pioglitazone HCl (Pioglitazone HCl) 15 Mg Tablet, 15 MG PO DAILY, TAB 06/27/20 Ezetimibe (Ezetimibe) 10 Mg Tablet, 10 MG PO DAILY, TAB 06/27/20 Finasteride (Finasteride) 5 Mg Tablet, 5 MG PO HS, TAB 06/27/20 ALPRAZolam (ALPRAZolam) 0.25 Mg Tablet, 0.5 MG PO HS, TAB TAKES 2 (0.25MG) TABS 06/27/20 Tamsulosin HCl (Flomax) 0.4 Mg Cap, 0.4 MG PO BID, CAP 06/27/20 Discontinued Reported Medications Omeprazole (Omeprazole) 40 Mg Capsule.dr, 40 MG PO DAILY, CAP 12/05/20 Diphenhydramine HCl (Diphenhydramine HCl) 25 Mg Capsule, 25 MG PO HS, CAP 12/05/20 C,E,Zinc,Copper 24/Om3/Lut/Judah (Ocuvite Adult 50 Plus Softgel) 1 Each Capsule, 1 EACH PO HS, CAP 06/27/20 Cartilage/Collagen/Bor/Hyalur (Joint Health Tablet) 1 Each Tablet, 2 EACH PO DAILY, TAB 06/27/20 Objective Exam L Hip: Dressing C/D/I, +DF of ankle, no s/s of DVT Vital Signs Vital Signs Date Time Temp Pulse Resp B/P (MAP) Pulse Ox O2 Delivery O2 Flow Rate FiO2 09/16/21 04:24 36.4 73 20 142/65 (90) 73 Room Air 09/16/21 00:00 37.0 75 20 109/62 (78) 94 Room Air 09/15/21 20:57 Room Air 09/15/21 20:57 36.0 09/15/21 20:00 36.0 81 20 149/65 (93) 99 Room Air 09/15/21 16:00 36.0 75 18 126/58 (80) 97 Room Air 09/15/21 12:00 36.4 75 18 162/75 (104) 98 Room Air 09/15/21 10:26 Room Air 09/15/21 08:00 36.3 81 18 142/65 (90) 100 Room Air I & O 09/16/21 07:00 Intake Total 1580 ml Output Total 1575 ml Balance 5 ml Lab Results Laboratory Tests 09/15/21 11:01: Glucometer 220H 09/15/21 15:57: Glucometer 203H 09/15/21 20:14: Glucometer 134H 09/16/21 06:20: Glucometer 159H Microbiology 09/12/21 MRSA Screen - Final, Complete MRSA not isolated Assessment and Plan Assessment Left Intertrochanteric Femur Fracture s/p Intramedullary Nailing Problem List Left Intertrochanteric Femur Fracture s/p Intramedullary Nailing Plan Continue therapy efforts DVT prophylaxis Extended care Final Diagonsis Left Intertrochanteric Femur Fracture s/p Intramedullary Nailing Level of the visit: Level 3 (postop global) EDU COLLINS MD Sep 16, 2021 07:34
[2021-09-16] MEDS: SENNOSIDES 8.6 MG (SENOKOT) TAB PO SCH ×2 (08:47→21:25)
[2021-09-16] MEDS: eZETimibe 10 MG (ZETIA) TABLET PO SCH (08:48)
[2021-09-16] MEDS: hydrOXYzine (VISTARIL/ATARAX) 25 MG capsule/tablet PO SCH (08:48)
[2021-09-16] MEDS: DOCUSATE SODIUM 100 MG (COLACE) CAP PO SCH ×2 (08:48→21:25)
[2021-09-16] MEDS: ACETAMINOPHEN 500 MG TAB (TYLENOL) PO SCH ×3 (08:48→13:30)
[2021-09-16] MEDS: TAMSULOSIN 0.4 MG (FLOMAX) CAP PO SCH ×2 (08:48→21:25)
[2021-09-16 10:01] LABS: HEMOGLOBIN 7.6 g/dL (13.3-17.7)
[2021-09-16 10:18] LABS: CREATININE SERUM 1.78 MG/DL (0.60-1.30); POTASSIUM 3.9 MMOL/L (3.6-5.0)
--- NOTE | 2021-09-16 10:58 | Physical Therapy Daily Note ---
PT Daily Note-Current Subjective Patient lying supine in bed, agreeable to treatment but hesitant to get out of bed. States "I just got down with a shower and I'm pretty tired." Mental Status Patient Orientation: Person, Place, Time, Situation Transfers SCALE: Activities may be completed with or without assistive devices. 1-Rwalvbsane-cqdwygg completes the activity by him/herself with no assistance from a helper. 5-Set-up or Clean-up Assistance-helper sets up or cleans up; patient completes activity. [place] assists only prior to or following the activity. 4-Supervision or Touching Assistance-helper provides verbal cues and/or touching/steadying and/or contact guard assistance as patient completes activity. Assistance may be provided throughout the activity or intermittently. 3-Partial/Moderate Assistance-helper does LESS THAN HALF the effort. [place] lifts, holds or supports trunk or limbs, but provides less than half the effort. 2-Substantial/Maximal Assistance-helper does MORE THAN HALF the effort. [place] lifts or holds trunk or limbs and provides more than half the effort. 5-Moklxipjs-jevbcz does ALL the effort. Patient does none of the effort to complete the activity. Or, the assistance of 2 or more helpers is required for the patient to complete the activity. If activity was not attempted, code reason: 7-Patient Refused. 9-Not Applicable-not attempted and the patient did not perform the activity before the current illness, exacerbation or injury. 10-Not Attempted due to Environmental Limitations-(lack of equipment, weather restraints, etc.). 88-Not Attempted due to Medical Conditions or Safety Concerns. Roll Left & Right (QC): 4 Sit to Lying (QC): 4 Lying to Sitting/Side of Bed(Q: 4 Sit to Stand (QC): 4 Weight Bearing Left Lower Extremity: Left Weight Bearing/Tolerated Gait Training Does the Patient Walk?: No and Walking Goal IS indicated Distance: 0 Exercises Seated Therapy Exercises: Ankle pumps, Long arc quads, Hip flexion, Hamstring Curls, Hip abd/add Seated Reps: 10 Assessment Current Status: Fair Progress Patient lying supine in bed upon PT arrival with Phlebotomy in the room. Patient performs all bed mobility and transfers with SBA. Upon sitting at the edge of the bed patient reports increased dizziness. He was able to stand, however upon standing became very somnolent. He did not respond to verbal cues for ~ 5 seconds. Patient did not lose consciousness, and was able to answer questions again shortly. He was also able to sit under his own control with SBA. Patient performed LE exercises as listed above. Patient supine in bed post treatment with all needs met, nursing notified, and call light in hand. PT Artificial Limb Maker Goals Artificial Limb Maker Goals PT Artificial Limb Maker Goals Time Frame: Sep 23, 2021 Roll Left & Right (QC): 6 Sit to Lying (QC): 6 Lying-Sitting on Side/Bed(QC): 6 Sit to Stand (QC): 6 Chair/Vry-bw-Sllgh Xfer(QC): 6 Toilet Transfer (QC): 6 Does the Patient Walk: Yes Walk 10 feet (QC): 6 Walk 50ft with 2 Turns (QC): 6 Walk 150 ft (QC): 6 PT Plan Treatment/Plan Treatment Plan: Continue Plan of Care Treatment Plan: Bed Mobility, Education, Functional Activity Liyah, Functional Strength, Gait, Safety, Therapeutic Exercise, Transfers Treatment Duration: Sep 23, 2021 Frequency: 11 times per week Estimated Hrs Per Day: .5 hour per day Patient and/or Family Agrees t: Yes Safety Risks/Education Patient Education: Transfer Techniques, Reviewed Precautions, Safety Issues Teaching Recipient: Patient Teaching Methods: Demonstration, Discussion Response to Teaching: Verbalize Understanding Time/GCodes Time In: 952 Time Out: 1004 Total Billed Treatment Time: 12 Total Billed Treatment Visit, Ex MG TOURE PT Sep 16, 2021 10:58
[2021-09-16 11:44] VITALS: BP 110/59
[2021-09-16] MEDS: NS IV 1000 ML 1,000 ML IV SCH (12:14)
[2021-09-16 15:28] VITALS: BP 105/54
--- NOTE | 2021-09-16 18:50 | Progress Note - Hospitalist ---
Subjective HPI/CC On Admission Date Seen by Provider: Sep 16, 2021 Time Seen by Provider: 11:50 Chris Gaspar is an 81 year old male with PMH HTN, T2DM, HLD, BPH, CAD, GERD, who presented after a fall. He was found to have a hip fracture. He is having some hip pain. He denies any other complaints or cocnerns. He denies fevers and chills. He denies shortness of breath and cough. He denies chest pain. He denies abdominal pain, nausea, vomiting, and diarrhea. Subjective/Events-last exam He continues to have pain. He is not having any pain at rest. He was able to work with therapy this morning. He was still lightheaded. Objective Exam Vital Signs Vital Signs Date Time Temp Pulse Resp B/P (MAP) Pulse Ox O2 Delivery O2 Flow Rate FiO2 09/16/21 15:28 36.6 70 18 105/54 (71) 97 Room Air 09/12/21 14:00 0.00 Capillary Refill : Less Than 3 Seconds General Appearance: No Apparent Distress, WD/WN Respiratory: Lungs Clear, No Respiratory Distress Cardiovascular: Regular Rate, Rhythm, No Murmur Gastrointestinal: Normal Bowel Sounds, Soft Extremity: Normal Inspection, No Pedal Edema Neurologic/Psychiatric: Alert, Oriented x3, Depressed Affect Skin: Warm/Dry, Pallor Results/Procedures Lab Laboratory Tests 09/16/21 09:56 Patient resulted labs reviewed. Imaging: Reviewed Imaging Report Assessment/Plan Assessment and Plan Assess & Plan/Chief Complaint Nondisplaced intertrochanteric fracture of the left hip XR with hip fracture Orthopedic surgery following s/p intramedullary nailing 09/12 Pain regimen Bowel regimen Incentive spriometry PT/OT IRU appeal pending Orthostatic hypotension Resume IV fluids Consider fludrocortisone if pesists Postoperative anemia Acute blood loss anemia Hemoglobin stable Monitor T2DM Sliding scale insulin HTN Hold home meds HLD CAD BPH GERD CKD Continue home meds DVT prophylaxis: Lovenox Diagnosis/Problems Diagnosis/Problems (1) Intertrochanteric fracture of left femur Status: Acute Qualifiers: Encounter type: initial encounter Fracture type: closed Fracture alignment: nondisplaced Qualified Codes: S72.145A - Nondisplaced intertrochanteric fracture of left femur, initial encounter for closed fracture (2) Acute postoperative anemia due to expected blood loss Status: Acute (3) Orthostatic hypotension Status: Acute AIDAN TOSCANO MD Sep 16, 2021 18:50
[2021-09-16 19:12] VITALS: BP 111/56
[2021-09-16] MEDS: FINASTERIDE (PROSCAR) 5 MG TAB PO SCH (21:24)
[2021-09-16] MEDS: ENOXAPARIN 40 MG/0.4 ML (LOVENOX) SYR SC SCH (21:24)
[2021-09-16] MEDS: ASPIRIN E.C. 81 MG (ECOTRIN) TAB PO SCH (21:25)
[2021-09-17] VITALS (7 sets, daily range): BP systolic 104–189; BP diastolic 54–80
[2021-09-17] MEDS: NS IV 1000 ML 1,000 ML IV SCH ×3 (03:22→14:42)
[2021-09-17] MEDS: inSUlin ASPART (NovoLOG) 1 UNIT/0.01 ML (CHARGE PER UNIT) SC SCH ×4 (05:26→21:35)
[2021-09-17] MEDS: DOCUSATE SODIUM 100 MG (COLACE) CAP PO SCH ×2 (07:49→21:43)
[2021-09-17] MEDS: eZETimibe 10 MG (ZETIA) TABLET PO SCH (07:49)
[2021-09-17] MEDS: hydrOXYzine (VISTARIL/ATARAX) 25 MG capsule/tablet PO SCH (07:50)
[2021-09-17] MEDS: SENNOSIDES 8.6 MG (SENOKOT) TAB PO SCH ×2 (07:51→21:43)
[2021-09-17] MEDS: ACETAMINOPHEN 500 MG TAB (TYLENOL) PO SCH ×3 (07:51→21:44)
[2021-09-17] MEDS: TAMSULOSIN 0.4 MG (FLOMAX) CAP PO SCH ×2 (07:54→21:42)
[2021-09-17 09:44] LABS: CALCIUM 8.8 MG/DL (8.5-10.1); CREATININE SERUM 1.56 MG/DL (0.60-1.30)
--- NOTE | 2021-09-17 11:49 | Physical Therapy Daily Note ---
PT Daily Note-Current Subjective Patient lying supine in bed upon PT arrival, agreeable to treatment. Rates pain at 0/10 currently. Transfers SCALE: Activities may be completed with or without assistive devices. 4-Byrqetodaf-qpiwzfy completes the activity by him/herself with no assistance from a helper. 5-Set-up or Clean-up Assistance-helper sets up or cleans up; patient completes activity. [place] assists only prior to or following the activity. 4-Supervision or Touching Assistance-helper provides verbal cues and/or touching/steadying and/or contact guard assistance as patient completes activity. Assistance may be provided throughout the activity or intermittently. 3-Partial/Moderate Assistance-helper does LESS THAN HALF the effort. [place] lifts, holds or supports trunk or limbs, but provides less than half the effort. 2-Substantial/Maximal Assistance-helper does MORE THAN HALF the effort. [place] lifts or holds trunk or limbs and provides more than half the effort. 5-Loenhzqka-fcsunv does ALL the effort. Patient does none of the effort to complete the activity. Or, the assistance of 2 or more helpers is required for the patient to complete the activity. If activity was not attempted, code reason: 7-Patient Refused. 9-Not Applicable-not attempted and the patient did not perform the activity before the current illness, exacerbation or injury. 10-Not Attempted due to Environmental Limitations-(lack of equipment, weather restraints, etc.). 88-Not Attempted due to Medical Conditions or Safety Concerns. Roll Left & Right (QC): 4 Sit to Lying (QC): 4 Lying to Sitting/Side of Bed(Q: 4 Sit to Stand (QC): 4 Chair/Lmf-as-Tmixp Xfer(QC): 4 Weight Bearing Left Lower Extremity: Left Weight Bearing/Tolerated Gait Training Does the Patient Walk?: Yes Distance: 100 Walk 10 feet (QC): 4 Walk 50 ft with 2 Turns(QC): 4 Gait Assistive Device: FWW Assessment Current Status: Good Progress Patient tolerated treatment well. Nurse reports his BP has been higher this morning and he seems to be experiencing less issues with hypotension at the moment. Patient performs all observed bed mobility and transfers with SBA. Patient ambulates 100 feet with FWW, with SBA and verbal cues for safety, progression and conservation of energy. Patient in chair post treatment with all needs met, nursing notified, call light in reach. PT Tannery Gummer Goals Longterm Goals PT Tannery Gummer Goals Time Frame: Sep 23, 2021 Roll Left & Right (QC): 6 Sit to Lying (QC): 6 Lying-Sitting on Side/Bed(QC): 6 Sit to Stand (QC): 6 Chair/Ffr-rj-Unapa Xfer(QC): 6 Toilet Transfer (QC): 6 Does the Patient Walk: Yes Walk 10 feet (QC): 6 Walk 50ft with 2 Turns (QC): 6 Walk 150 ft (QC): 6 PT Plan Treatment/Plan Treatment Plan: Continue Plan of Care Treatment Plan: Bed Mobility, Education, Functional Activity Liyah, Functional Strength, Gait, Safety, Therapeutic Exercise, Transfers Treatment Duration: Sep 23, 2021 Frequency: 11 times per week Estimated Hrs Per Day: .5 hour per day Patient and/or Family Agrees t: Yes Safety Risks/Education Patient Education: Gait Training Teaching Recipient: Patient Teaching Methods: Demonstration, Discussion Response to Teaching: Verbalize Understanding, Return Demonstration Time/GCodes Time In: 1120 Time Out: 1135 Total Billed Treatment Time: 15 Total Billed Treatment Visit, MG Villatoro PT Sep 17, 2021 11:49
--- NOTE | 2021-09-17 16:43 | Progress Note - Hospitalist ---
Subjective HPI/CC On Admission Date Seen by Provider: Sep 17, 2021 Time Seen by Provider: 11:10 Chris Gaspar is an 81 year old male with PMH HTN, T2DM, HLD, BPH, CAD, GERD, who presented after a fall. He was found to have a hip fracture. He is having some hip pain. He denies any other complaints or cocnerns. He denies fevers and chills. He denies shortness of breath and cough. He denies chest pain. He denies abdominal pain, nausea, vomiting, and diarrhea. Subjective/Events-last exam He is not feeling as lightheaded today. He got up and went to the bathroom earlier. Objective Exam Vital Signs Vital Signs Date Time Temp Pulse Resp B/P (MAP) Pulse Ox O2 Delivery O2 Flow Rate FiO2 09/17/21 15:30 36.7 68 20 151/63 (92) 99 Room Air 09/12/21 14:00 0.00 Capillary Refill : Less Than 3 Seconds General Appearance: No Apparent Distress, WD/WN Respiratory: Lungs Clear, Normal Breath Sounds, No Respiratory Distress Cardiovascular: Regular Rate, Rhythm, No Murmur Gastrointestinal: Normal Bowel Sounds, Soft Extremity: Normal Inspection, Non Tender, No Pedal Edema Neurologic/Psychiatric: Alert, Motor Weakness Skin: Normal Color, Warm/Dry Results/Procedures Lab Laboratory Tests 09/17/21 09:02 Patient resulted labs reviewed. Imaging: Reviewed Imaging Report Assessment/Plan Assessment and Plan Assess & Plan/Chief Complaint Nondisplaced intertrochanteric fracture of the left hip XR with hip fracture Orthopedic surgery following s/p intramedullary nailing 09/12 Pain regimen Bowel regimen Incentive spriometry PT/OT IRU appeal approved Discharge to IRU tomorrow morning Orthostatic hypotension JONELLE on CKD Continue IV fluids Postoperative anemia Acute blood loss anemia Hemoglobin stable Monitor T2DM Sliding scale insulin HTN Hold home meds HLD CAD BPH GERD CKD Continue home meds DVT prophylaxis: Lovenox Diagnosis/Problems Diagnosis/Problems (1) Intertrochanteric fracture of left femur Status: Acute Qualifiers: Encounter type: initial encounter Fracture type: closed Fracture alignment: nondisplaced Qualified Codes: S72.145A - Nondisplaced intertrochanteric fracture of left femur, initial encounter for closed fracture (2) Acute postoperative anemia due to expected blood loss Status: Acute (3) Orthostatic hypotension Status: Acute (4) Acute kidney injury superimposed on chronic kidney disease Status: Acute AIDAN TOSCANO MD Sep 17, 2021 16:43
[2021-09-17] MEDS: ENOXAPARIN 40 MG/0.4 ML (LOVENOX) SYR SC SCH (21:42)
[2021-09-17] MEDS: FINASTERIDE (PROSCAR) 5 MG TAB PO SCH (21:43)
[2021-09-17] MEDS: ASPIRIN E.C. 81 MG (ECOTRIN) TAB PO SCH (21:43)
[2021-09-18] MEDS: NS IV 1000 ML 1,000 ML IV SCH (02:53)
[2021-09-18 06:01] LABS: HEMOGLOBIN 6.7 g/dL (13.3-17.7)
[2021-09-18 06:21] LABS: CALCIUM 8.2 MG/DL (8.5-10.1); CREATININE SERUM 1.22 MG/DL (0.60-1.30); POTASSIUM 3.8 MMOL/L (3.6-5.0)
[2021-09-18] MEDS ORDERED: NS IV 500 ML 500 ML IV SCH (06:30)
[2021-09-18] MEDS: inSUlin ASPART (NovoLOG) 1 UNIT/0.01 ML (CHARGE PER UNIT) SC SCH (06:38)
[2021-09-18 08:25] VITALS: BP 178/67
--- NOTE | 2021-09-18 08:56 | Progress Note - Ortho ---
Progress Note Subjective Date of Exam 09/18/21 Chief Complaint POD #6 s/p IM nailing of L IT Femur Fx HPI/Events since last exam good progress with therapy yesterday, pain control improved Review of Systems - Allergies: Coded Allergies: No Known Drug Allergies (Unverified , 07/25/10) Home Meds Reported Medications Docusate Sodium (Dulcolax Stool Softener) 100 Mg Capsule, 100 MG PO HS, CAP 09/12/21 Ibuprofen (Ibuprofen) 200 Mg Capsule, 400 MG PO BID PRN for PAIN-MILD (1-4), CAP 09/12/21 Aspirin (Aspirin EC) 81 Mg Tablet.dr, 81 MG PO HS, TAB 09/12/21 Methylsulfonylmethane (MSM) 1,000 Mg Tablet, 1000 MG PO DAILY, TAB 09/12/21 Vit A/Vit C/Vit E/Zinc/Copper (Preservision Areds Tablet) 1 Each Tablet, 1 EACH PO DAILY, TAB 09/12/21 Hydroxyzine HCl (Hydroxyzine HCl) 50 Mg Tablet, 150 MG PO HS, TAB TAKES 3 (50MG)TABS 09/12/21 Amlodipine Besylate (Amlodipine Besylate) 2.5 Mg Tablet, 2.5 MG PO HS, TAB 09/12/21 Methocarbamol (Methocarbamol) 500 Mg Tablet, 500 MG PO BID PRN for HEADACHE/NECK SPASMS, TAB 09/12/21 Hydroxyzine HCl (Hydroxyzine HCl) 50 Mg Tablet, 100 MG PO DAILY, TAB TAKES 2 (50MG) TABS 12/05/20 Hydrochlorothiazide (Hydrochlorothiazide) 25 Mg Tablet, 25 MG PO BID, TAB 12/05/20 Carvedilol (Carvedilol) 6.25 Mg Tablet, 6.25 MG PO BID, TAB 12/05/20 Sennosides (Senokot) 8.6 Mg Tablet, 17.2 MG PO BID, TAB TAKES 2 (8.2MG) TAB 06/27/20 Pioglitazone HCl (Pioglitazone HCl) 15 Mg Tablet, 15 MG PO DAILY, TAB 06/27/20 Ezetimibe (Ezetimibe) 10 Mg Tablet, 10 MG PO DAILY, TAB 06/27/20 Finasteride (Finasteride) 5 Mg Tablet, 5 MG PO HS, TAB 06/27/20 ALPRAZolam (ALPRAZolam) 0.25 Mg Tablet, 0.5 MG PO HS, TAB TAKES 2 (0.25MG) TABS 06/27/20 Tamsulosin HCl (Flomax) 0.4 Mg Cap, 0.4 MG PO BID, CAP 06/27/20 Discontinued Reported Medications Omeprazole (Omeprazole) 40 Mg Capsule.dr, 40 MG PO DAILY, CAP 12/05/20 Diphenhydramine HCl (Diphenhydramine HCl) 25 Mg Capsule, 25 MG PO HS, CAP 12/05/20 C,E,Zinc,Copper 24/Om3/Lut/Judah (Ocuvite Adult 50 Plus Softgel) 1 Each Capsule, 1 EACH PO HS, CAP 06/27/20 Cartilage/Collagen/Bor/Hyalur (Joint Health Tablet) 1 Each Tablet, 2 EACH PO DAILY, TAB 06/27/20 Objective Exam L Hip: without significant swelling or bruising, dressing C/D/I, +DF of ankle, no s/s of DVT Vital Signs Vital Signs Date Time Temp Pulse Resp B/P (MAP) Pulse Ox O2 Delivery O2 Flow Rate FiO2 09/18/21 08:25 37.0 77 18 178/67 (104) 97 Room Air 0.00 0.00 09/17/21 23:10 36.8 77 18 169/72 (104) 96 Room Air 09/17/21 20:00 Room Air 09/17/21 19:30 36.2 73 20 154/80 (104) 99 Room Air 09/17/21 15:30 36.7 68 20 151/63 (92) 99 Room Air 09/17/21 12:25 36.4 64 20 104/54 (71) 98 Room Air I & O 09/18/21 07:00 Intake Total 1300 ml Output Total 1751 ml Balance -451 ml Lab Results Laboratory Tests 09/17/21 09:02 09/18/21 05:38 Laboratory Tests 09/17/21 09:02: Hemoglobin 8.0L, Hematocrit 25L, Sodium Level 129L, Potassium Level 4.0, Chloride Level 94L, Carbon Dioxide Level 20L, Anion Gap 15H, Blood Urea Nitrogen 29H, Creatinine 1.56H, Estimat Glomerular Filtration Rate 44, BUN/Creatinine Ratio 19, Glucose Level 263H, Calcium Level 8.8 09/17/21 11:25: Glucometer 171H 09/17/21 16:22: Glucometer 130H 09/17/21 20:54: Glucometer 155H 09/18/21 05:38: Hemoglobin 6.7*L, Hematocrit 20*L, Sodium Level 130L, Potassium Level 3.8, Chloride Level 98, Carbon Dioxide Level 21, Anion Gap 11, Blood Urea Nitrogen 24H, Creatinine 1.22, Estimat Glomerular Filtration Rate 59, BUN/Creatinine Ratio 20, Glucose Level 132H, Calcium Level 8.2L Microbiology 09/12/21 MRSA Screen - Final, Complete MRSA not isolated Assessment and Plan Assessment Left Intertrochanteric Femur Fracture s/p Intramedullary Nailing Problem List Left Intertrochanteric Femur Fracture s/p Intramedullary Nailing Plan PT as able Agree with inpatient rehab Final Diagonsis Left Intertrochanteric Femur Fracture s/p Intramedullary Nailing Level of the visit: Level 3 (post op global) EDU COLLINS MD Sep 18, 2021 08:56
[2021-09-18 09:50] VITALS: BP 116/54
--- NOTE | 2021-09-18 09:53 | Physical Therapy Daily Note ---
PT Daily Note-Current Subjective Patient is requesting to ambulate to the bathroom with therapy assistance. Mental Status Patient Orientation: Person, Situation Transfers SCALE: Activities may be completed with or without assistive devices. 5-Jnjoebjmlp-qahqefn completes the activity by him/herself with no assistance from a helper. 5-Set-up or Clean-up Assistance-helper sets up or cleans up; patient completes activity. [place] assists only prior to or following the activity. 4-Supervision or Touching Assistance-helper provides verbal cues and/or touching/steadying and/or contact guard assistance as patient completes activity. Assistance may be provided throughout the activity or intermittently. 3-Partial/Moderate Assistance-helper does LESS THAN HALF the effort. [place] lif ts, holds or supports trunk or limbs, but provides less than half the effort. 2-Substantial/Maximal Assistance-helper does MORE THAN HALF the effort. [place] lifts or holds trunk or limbs and provides more than half the effort. 7-Ewmqdooqc-lzghkc does ALL the effort. Patient does none of the effort to complete the activity. Or, the assistance of 2 or more helpers is required for the patient to complete the activity. If activity was not attempted, code reason: 7-Patient Refused. 9-Not Applicable-not attempted and the patient did not perform the activity before the current illness, exacerbation or injury. 10-Not Attempted due to Environmental Limitations-(lack of equipment, weather restraints, etc.). 88-Not Attempted due to Medical Conditions or Safety Concerns. Lying to Sitting/Side of Bed(Q: 4 Sit to Stand (QC): 4 Chair/Qmq-dh-Dhtky Xfer(QC): 4 Toilet Transfer (QC): 4 Patient required CGA for all transfers and sit to stand activities. Weight Bearing Left Lower Extremity: Left Weight Bearing/Tolerated Gait Training Distance: 15' Walk 10 feet (QC): 4 Gait Assistive Device: FWW Patient ambulated to his bathroom in his room with CGA. Treatments Transfer training Ambulation Toileting Assessment Patient ambulated to his bathroom and performed toilet transfers with CGA. Pat ient ambulated back to his chair after using the bathroom. Patient reported slight fatigue with this activity. Patient is possibly moving to rehab floor. PT Laser Print Operator Goals Long-Term Goals PT Laser Print Operator Goals Time Frame: Sep 23, 2021 Roll Left & Right (QC): 6 Sit to Lying (QC): 6 Lying-Sitting on Side/Bed(QC): 6 Sit to Stand (QC): 6 Chair/Lqg-rg-Jtskq Xfer(QC): 6 Toilet Transfer (QC): 6 Does the Patient Walk: Yes Walk 10 feet (QC): 6 Walk 50ft with 2 Turns (QC): 6 Walk 150 ft (QC): 6 PT Plan Problem List Problem List: Activity Tolerance, Functional Strength, Safety, Balance, Gait, Transfer, Bed Mobility, ROM Treatment/Plan Treatment Plan: Continue Plan of Care Treatment Plan: Bed Mobility, Education, Functional Activity Liyah, Functional Strength, Gait, Safety, Therapeutic Exercise, Transfers Treatment Duration: Sep 23, 2021 Frequency: 11 times per week Estimated Hrs Per Day: .5 hour per day Patient and/or Family Agrees t: Yes Time/GCodes Time In: 855 Time Out: 920 Total Billed Treatment Time: 25 Total Billed Treatment 1 Visit FA x2 25 min MICHAEL RING PT Sep 18, 2021 09:53
[2021-09-18 10:03] VITALS: BP 118/56
[2021-09-18] MEDS: eZETimibe 10 MG (ZETIA) TABLET PO SCH (10:08)
[2021-09-18] MEDS: ACETAMINOPHEN 500 MG TAB (TYLENOL) PO SCH (10:08)
[2021-09-18] MEDS: TAMSULOSIN 0.4 MG (FLOMAX) CAP PO SCH (10:09)
[2021-09-18] MEDS: DOCUSATE SODIUM 100 MG (COLACE) CAP PO SCH (10:09)
[2021-09-18] MEDS: hydrOXYzine (VISTARIL/ATARAX) 25 MG capsule/tablet PO SCH (10:09)
[2021-09-18] MEDS: SENNOSIDES 8.6 MG (SENOKOT) TAB PO SCH (10:09)
[2021-09-18 11:11] VITALS: BP 118/56
== END 2021-09-18 10:55 | DRG 481 ==
LOC: EDUNIT# 14:12 → ER FS 14:14 → 4TH 16:40
PROVIDERS: ADMIT Internal Medicine; ATTEND Internal Medicine
PROC: 0QH736Z Insertion of Intramedullary Internal Fixation Device into Left Upper Femur, Percutaneous Approach (ICD-10-PCS; principal; 2021-09-12 10:20)
DX: S72.145A Nondisplaced intertrochanteric fracture of left femur, initial encounter for closed fracture (principal); D62 Acute posthemorrhagic anemia; N17.9 Acute kidney failure, unspecified; I25.10 Atherosclerotic heart disease of native coronary artery without angina pectoris; I12.9 Hypertensive chronic kidney disease with stage 1 through stage 4 chronic kidney disease, or unspecified chronic kidney disease; E11.22 Type 2 diabetes mellitus with diabetic chronic kidney disease; N18.9 Chronic kidney disease, unspecified; I95.1 Orthostatic hypotension; Z20.822 Contact with and (suspected) exposure to COVID-19; E78.5 Hyperlipidemia, unspecified; E78.00 Pure hypercholesterolemia, unspecified; J44.9 Chronic obstructive pulmonary disease, unspecified; N40.0 Benign prostatic hyperplasia without lower urinary tract symptoms; K21.9 Gastro-esophageal reflux disease without esophagitis; H54.7 Unspecified visual loss; Z95.1 Presence of aortocoronary bypass graft; W01.0XXA Fall on same level from slipping, tripping and stumbling without subsequent striking against object, initial encounter
CPT/HCPCS: 36415; 73502; 76000; 80048; 80053; 82728; 82947; 83540; 83550; 85014; 85018; 85025; 86850; 86900; 86901; 87081; 87636; 96374

== ENCOUNTER 2021-09-18 10:22 | Inpatient (IN) | payer MEDICARE ==
[~2021-09-18] VITALS: Ht 177.8 cm; Wt 71.8 kg
[~2021-09-18 10:22] MED LIST changes: +AMLO2.5T4 PO; +BETA1TAB15 PO; +DOCU-164 PO; +IBUP-2185 PO; +METH-731 PO; +[UNRECOGNIZED DRUG - CODE] PO
--- NOTE | 2021-09-18 10:55 | PM&R Post Admission Assessment ---
PM&R HP Date of Visit: Sep 18, 2021 Time of Visit: 14:00 History of Present Illness CC: Debility from left hip fracture while chopping wood HPI: 81 yr old WM who presents to in-patient rehab for recovery and strengthening following a left hip fracture sustained when he was chopping wood and started his chainsaw, lost his balance and fell over a log. He reports he chops wood on a regular basis. Currently he is reporting pain due to the hip but is ready for in-patient rehab strengthening. His daughter is involved in his care. His bowels haven't moved, so we will need to treat that aggressively. Pt is receiving one unit of blood currently due to postoperative acute blood loss anemia. Hemoglobin of 6.7. His creatinine has improved from 1.5 to 1.23 today. Vitals remain stable. He does have some BPH he takes Tamsulosin and Proscar for. He has seen Dr. Diaz in the past. Although he has hesitation he has been able to void. We will continue DVT Prophylaxis especially reflecting the hemoglobin level. May need to hold any pharmacological DVT Prophylaxis and will work on fall risk prevention and strengthening in order to go home. HPI: Chris Gaspar is an 81yoWM s/p ORIF of Left Intertrochanteric Femur Fracture on 09/12/2021. He is POD#6 today and has been transferred to inpatient rehabilitation unit. His prior hospital course was significant for postoperative anemia and JONELLE on CKD. His past medical history is notable for HTN, HLD, T2DM, CAD, BPH, and GERD. Today, Mr. Gaspar states that he is feeling well and his pain has been under control. He is ambulating with walker and one-person assist with therapy. He his last bowel movement was on 09/15/21. PMH: - HTN - HLD - T2DM - CAD - BPH - GERD PSH: - Appendectomy, CABG, Cholecystectomy, Orthopedic, TURP MEDS: - see med list ALL: - NKDA ROS: - 12-point ROS completed and negative except for headache and left hip pain Exam: GEN: well-appearing 81yoM in NAD, pleasant, conversational HEENT: PERRL, MMM CARD: RRR, no murmur, rub, or gallop PULM: no SOB, lungs clear to auscultation bilaterally GI: abdomen soft, nontender, nondistended : deferred SKIN: no new skin ulcers EXT: normal extremities with no palpable edema PSYCH: appropriate mood and affect, tangential but logical A/P: 1. Left Intertrochanteric Femur Fracture - s/p ORIF on 09/12/21 - inpatient PT/OT - DVT prophylaxis 2. Constipation Following Procedure - bowel regimen - may discuss further intervention without bowel movement within the next 1-2 days 3. Postoperative Anemia - Hgb reviewed - s/p 1 unit PRBCs on 09/18/21 awaiting morning labs to review Hgb 4. JONELLE on CKD - Cr reviewed, resolved - continue holding IVF - will monitor CR with morning lab 5. BPH - continue home meds 6. T2DM - continue home insulin 7. HTN - continue home meds 8. HLD - resume Ezitimibe on 09/19/21 9. GERD - continue home med Dispo: Inpatient rehab with anticipation of return home with minimal assistance; pending PT/OT recommendations GIUSEPPE ASKEW Sep 18, 2021 13:43 <Created by GIUSEPPE ASKEW > Past Retoffw-Iagsee-Hgsohn Hx Past Med/Social Hx: Reviewed Nursing Past Med/Soc Hx, Reviewed and Corrections made Patient Social History Marrital Status: single Employed/Student: retired Alcohol Use: Denies Use Smoking Status: Never a Smoker 2nd Hand Smoke Exposure: No Recent Hopitalizations: No Immunizations Up To Date Date of Pneumonia Vaccine: Aug 19, 2017 Date of Influenza Vaccine: May 19, 2020 Seasonal Allergies Seasonal Allergies: No Past Medical History Surgeries: Appendectomy, CABG, Gallbladder, Orthopedic, Transurethral Resection Currently Using CPAP: No Currently Using BIPAP: No Cardiac: Coronary Artery Disease, High Cholesterol, Hypertension Reproductive: No Sexually Transmitted Disease: No Genitourinary: Benign Prostatic Hyperpl Gastrointestinal: Gastroesophageal Reflux Endocrine: Diabetes, Non-Insulin dep Hearing Impairment: Hard of Hearing History of Blood Disorders: Yes (ANEMIA) Family History CAD Over 55 Years Old, Diabetes PM&R Allergy/Meds/Data Review Allergies Coded Allergies: No Known Drug Allergies (Unverified , 07/25/10) Home Medications Scheduled ALPRAZolam (ALPRAZolam), 0.5 MG PO HS, (Reported) Amlodipine Besylate (Amlodipine Besylate), 2.5 MG PO HS, (Reported) Aspirin (Aspirin EC), 81 MG PO HS, (Reported) Carvedilol (Carvedilol), 6.25 MG PO BID, (Reported) Docusate Sodium (Dulcolax Stool Softener), 100 MG PO HS, (Reported) Ezetimibe (Ezetimibe), 10 MG PO DAILY, (Reported) Finasteride (Finasteride), 5 MG PO HS, (Reported) Hydrochlorothiazide (Hydrochlorothiazide), 25 MG PO BID, (Reported) Hydroxyzine HCl (Hydroxyzine HCl), 100 MG PO DAILY, (Reported) Hydroxyzine HCl (Hydroxyzine HCl), 150 MG PO HS, (Reported) Methylsulfonylmethane (Msm), 1,000 MG PO DAILY, (Reported) Pioglitazone HCl (Pioglitazone HCl), 15 MG PO DAILY, (Reported) Sennosides (Senokot), 17.2 MG PO BID, (Reported) Tamsulosin HCl (Flomax), 0.4 MG PO BID, (Reported) Vit A/Vit C/Vit E/Zinc/Copper (Preservision Areds Tablet), 1 EACH PO DAILY, (Reported) Scheduled PRN Ibuprofen (Ibuprofen), 400 MG PO BID PRN for PAIN-MILD (1-4), (Reported) Methocarbamol (Methocarbamol), 500 MG PO BID PRN for HEADACHE/NECK SPASMS, (Reported) Discontinued Medications C,E,Zinc,Copper 24/Om3/Lut/Judah (Ocuvite Adult 50 Plus Softgel), 1 EACH PO HS, (Reported) Discontinued Reason: Duplicate Order Cartilage/Collagen/Bor/Hyalur (Joint Health Tablet), 2 EACH PO DAILY, (Reported) Discontinued Reason: No Longer Taking Diphenhydramine HCl (Diphenhydramine HCl), 25 MG PO HS, (Reported) Discontinued Reason: No Longer Taking Omeprazole (Omeprazole), 40 MG PO DAILY, (Reported) Discontinued Reason: No Longer Taking Current Medications Current Medications Reviewed Review of Systems Constitutional: see HPI, malaise, weakness EENTM: no symptoms reported Respiratory: no symptoms reported Cardiovascular: no symptoms reported Gastrointestinal: constipation Genitourinary: decreased output, frequency, hesitancy Musculoskeletal: joint pain Skin: no symptoms reported Psychiatric/Neurological: No Symptoms Reported All Other Systems Reviewed Negative Unless Noted: Yes Physical Exam Physical Exam Vital Signs Capillary Refill : Height, Weight, BMI Height: '" Weight: lbs. oz. kg; 23.09 BMI Method: General Appearance: No Apparent Distress, WD/WN, Chronically ill Eyes: Bilateral Eye Normal Inspection, Bilateral Eye PERRL HEENT: PERRL/EOMI, Normal ENT Inspection, Pharynx Normal Neck: Full Range of Motion, Normal Inspection, Non Tender, Supple, Carotid Bruit Respiratory: Chest Non Tender, Lungs Clear, Normal Breath Sounds, No Accessory Muscle Use, No Respiratory Distress Cardiovascular: Regular Rate, Rhythm, No Edema, No Gallop, No JVD, No Murmur, Normal Peripheral Pulses Gastrointestinal: Normal Bowel Sounds, No Organomegaly, No Pulsatile Mass, Non Tender, Soft Back: Normal Inspection, No CVA Tenderness, No Vertebral Tenderness Extremity: Normal Capillary Refill, Normal Inspection, Normal Range of Motion (except left leg), Non Tender, No Calf Tenderness, No Pedal Edema Neurologic/Psychiatric: Alert, Oriented x3, No Motor/Sensory Deficits, animal trainer supervisor II- XII Norm as Tested, Abnormal Gait, Depressed Affect, Motor Weakness (generalized) Skin: Normal Color, Warm/Dry Lymphatic: No Adenopathy PM&R Medical Assessment & Plan REHAB/MEDICAL ASSESSMENT AND PLAN: REHAB IMPAIRMENT GROUP: Left hip fracture ETIOLOGIC DIAGNOSIS: Left hip fracture The comorbidities that impact the patients function and/or functional outcome by: Lives alone, advanced age, postop anemia requiring transfusion, postop constipation, BPH with urinary retention REHAB PLAN: The patient is being admitted to our comprehensive inpatient rehabilitation facility and can tolerate the intensity of service consisting of at least: 180 minutes of therapy a day, 5 out of 7 days a week Rehab treatment will consist of: PT and OT will focus on use of assistive devices in order to regain enough function to ambulate and return to independent living The patient/family has a good understanding of our discharge process and will benefit from an interdisciplinary inpatient rehabilitation program. The patient has potential to make improvement and is in need of at least two of the following multidisciplinary therapies including but not limited to physical, occupational, speech, and prosthetics and orthotics. Additionally the patient will need services from respiratory, nutritional services, wound care, psychology, etc. (Customize this to each patient). Given the patients complex condition and risk of further medical complications, rehabilitation services cannot be safely or effectively provided at a lower level of care such as a senior living facility. BARRIERS TO DISCHARGE: Lives alone ESTIMATED LOS: 7 days DISPOSITION: Home RELEVANT CHANGES SINCE PREADMISSION SCREENING: I have compared the patients medical and functional status at the time of the preadmission screening and there are: No changes PROGNOSIS: Good REHABILITATION GOALS: 1.PT and OT will focus on use of assistive devices in order to regain enough function to ambulate and return to independent living All the above goals were reviewed with the patient and he/she is in agreement. By signing this document, I acknowledge that I have personally performed a full physical examination on this patient within 24 hours of admission to this inpatient rehabilitation facility and have determined the patient to be able to tolerate the above course of treatment at an intensive level for a reasonable period of time. I will be completing a detailed individualized Plan of Care for this patient by day #4 of the patients stay based upon the Preadmission Screen, the Post-Admission Evaluation, and the therapy evaluations. Admission Dx/Comorbidities: (1) Intertrochanteric fracture of left femur Status: Acute ICD Codes: S72.142A - Displaced intertrochanteric fracture of left femur, initial encounter for closed fracture (2) Acute kidney injury superimposed on chronic kidney disease Status: Acute ICD Codes: N17.9 - Acute kidney failure, unspecified; N18.9 - Chronic kidney di sease, unspecified (3) CAD (coronary artery disease) ICD Codes: I25.10 - Atherosclerotic heart disease of [place] coronary artery without angina pectoris (4) Hx of CABG ICD Codes: Z95.1 - Presence of aortocoronary bypass graft (5) Transfusion of blood during current hospitalisation (6) BPH (benign prostatic hyperplasia) ICD Codes: N40.0 - Benign prostatic hyperplasia without lower urinary tract symptoms (7) Urinary retention ICD Codes: R33.9 - Retention of urine, unspecified (8) Acute postoperative anemia due to expected blood loss Status: Acute ICD Codes: D62 - Acute posthemorrhagic anemia (9) Orthostatic hypotension Status: Acute ICD Codes: I95.1 - Orthostatic hypotension Assessment/Plan Assessment and Plan Assess & Plan/Chief Complaint Assessment: Status post left hip fracture Postop anemia requiring transfusion on 09/18/2021 CAD previous bypass Hypertension Chronic kidney disease Hyperlipidemia BPH Urinary retention Plan: Monitor hemoglobin Monitor need for holding Lovenox depending on hemoglobin Aggressive PT and OT Supportive care PADDY CASAS DO Sep 18, 2021 10:54
[2021-09-18 11:00] VITALS: BP 176/72
[2021-09-18] MEDS ORDERED: LOPERAMIDE 2 MG (IMODIUM) TABLET PO PRN (11:00)
[2021-09-18] MEDS ORDERED: MELATONIN 3 MG TABLET PO PRN ×2 (11:00→12:30)
[2021-09-18] MEDS ORDERED: ALPRAZolam 0.25 MG (XANAX) TAB PO PRN (11:00)
[2021-09-18] MEDS ORDERED: BISACODYL 10 MG SUPP (DULCOLAX) PR PRN (11:00)
[2021-09-18] MEDS ORDERED: FLEET ENEMA ADULT 1 EA BTL PR PRN (11:00)
[2021-09-18] MEDS ORDERED: diphenhydrAMINE 25 MG TAB (BENADRYL) PO PRN (11:00)
[2021-09-18] MEDS ORDERED: LACTULOSE SYRUP 10GM/15ML (ENULOSE) 30ML UDC PO PRN (11:00)
[2021-09-18] MEDS ORDERED: DOCUSATE SODIUM 100 MG (COLACE) CAP PO PRN (11:00)
[2021-09-18] MEDS ORDERED: guaiFENesin/CODEINE (ROBITUSSIN AC) 10ML UDC PO PRN (11:00)
--- NOTE | 2021-09-18 11:27 | Occupational Therapy Eval ---
OT Evaluation-General/PLF Medical Diagnosis Admission Date Medical Diagnosis: s/p L IM Nail Onset Date: Sep 12, 2021 Therapy Diagnosis Therapy Diagnosis: decreased ADL status Referral Physician: Daysi Mendoza Reason: Evaluation/Treatment Medical History Pertinent Medical History: CAD, DM, HTN Additional Medical History HTN, DM, HLD, BPH, CAD, GERD, COPD, CABG Current History presents after fall with hip fx, s/p L IM nail 09/12/21. Transfer to ARU 09/18/21 Social History Home: Multilevel (1 level with basement) Current Living Status: Alone Entry Into Home: Stairs With Railing 3 steps down into his bedroom but also has a ramp to get into the bedroom ADL-Prior Level of Function SCALE: Activities may be completed with or without assistive devices. 4-Mjtzfrftrp-okmoixs completes the activity by him/herself with no assistance from a helper. 5-Set-up or Clean-up Assistance-helper sets up or cleans up; patient completes activity. [place] assists only prior to or following the activity. 4-Supervision or Touching Assistance-helper provides verbal cues and/or touching/steadying and/or contact guard assistance as patient completes activity. Assistance may be provided throughout the activity or intermittently. 3-Partial/Moderate Assistance-helper does LESS THAN HALF the effort. [place] lifts, holds or supports trunk or limbs, but provides less than half the effort. 2-Substantial/Maximal Assistance-helper does MORE THAN HALF the effort. [place] lifts or holds trunk or limbs and provides more than half the effort. 8-Iazberehe-iugiut does ALL the effort. Patient does none of the effort to complete the activity. Or, the assistance of 2 or more helpers is required for the patient to complete the activity. If activity was not attempted, code reason: 7-Patient Refused. 9-Not Applicable-not attempted and the patient did not perform the activity before the current illness, exacerbation or injury. 10-Not Attempted due to Environmental Limitations-(lack of equipment, weather restraints, etc.). 88-Not Attempted due to Medical Conditions or Safety Concerns. ADL PLOF Comments Pt reports IND with all ADLS and functional mobility at PLOF, no AD. Pt has a CuPcAkE & other things you bakei tub with grab bars and a shower head. Self Care: Independent Functional Cognition: Independent DME/Equipment: Grab Bars, Tub OT Current Status Subjective Pt agreeable to OT evaluation followed by treatment from [facility]. Pt receiving blood transfusion. Mental Status/Objective Patient Orientation: Person, Place, Situation Attachments: IV Current Glasses/Contacts: Yes Hearing Aids: No Dentures/Partials: Yes Hand Dominance: Right Upper Extremity ROM WFL, BUE shoulder flexion to approx 160 degrees Upper Extremity Coordination WFL Upper Extremity Sensation WFL Upper Extremity Strength grossly 4+/5 ADL-Treatment Eating (QC): 7 Oral Hygiene (QC): 5 (Per clinical judgment.) Shower/Bathe Self (QC): 7 Upper Body Dressing (QC): 7 Lower Body Dressing (QC): 7 On/Off Footwear (QC): 7 Toileting Hygiene (QC): 5 (set up/clean up with urinal) Other Treatments Pt seated in recliner, agreeable to OT evaluation followed by OT tx performed by [facility]. Pt provided information about PLOF and home set up and participated in UE screen. Pt able to place and use urinal, clean up assistance provided. Post tx, pt in recliner, [facility] present, all needs met. Education OT Patient Education: Correct positioning, Energy conservation, Modified ADL techniques, Progress toward Goal/Update tx plan, Purpose of tx/functional activities, Rehab process Teaching Recipient: Patient Teaching Methods: Discussion Response to Teaching: Verbalize Understanding OT Short Term Goals Short Term Goals Time Frame: Sep 22, 2021 Oral hygiene: 5 Shower/bathe self: 4 Lower body dressin OT Prison Goals Batterboard Setter Goals Time Frame: Oct 06, 2021 Eating (QC): 6 Oral Hygiene (QC): 6 Toileting Hygiene (QC): 6 Shower/Bathe Self (QC): 6 Upper Body Dressing (QC): 6 Lower Body Dressing (QC): 6 On/Off Footwear (QC): 6 Additional Goals: 1-Demonstrate ADL Tasks, 2-Verbalize Understanding, 3- ImproveStrength/Liyah 1=Demonstrate adherence to instructed precautions during ADL tasks. 2=Patient will verbalize/demonstrate understanding of assistive devices/modifications for ADL. 3=Patient will improve strength/tolerance for activity to enable patient to perform ADL's. OT Education/Plan Problem List/Assessment Assessment: Decreased Activ Tolerance, Decreased UE Strength, Impaired Funct Balance, Impaired I ADL's, Impaired Self-Care Skills Discharge Recommendations Plan/Recommendations: Continue POC Treatment Plan/Plan of Care Patient would benefit from OT for education, treatment and training to promote independence in ADL's, mobility, safety and/or upper extremity function for ADL's. Plan of Care: ADL Retraining, Functional Mobility, Group Exercise/Act as Ind, UE Funct Exercise/Act Treatment Duration: Sep 29, 2021 Frequency: At least 5 of 7 days/Wk (IRF) Estimated Hrs Per Day: 1.5 hours per day Agreement: Yes Rehab Potential: Good Time/GCodes Start Time: 11:00 Stop Time: 11:10 Total Time Billed (hr/min): 10 Billed Treatment Time 1, STANISLAW COOPER OT Sep 18, 2021 11:27
--- NOTE | 2021-09-18 12:08 | Occupational Ther Daily Note ---
OT Current Status-Daily Note Subjective Pt alert, sitting in recliner when OT entered. Pt agreed to therapy. No c/o pain reported. Mental Status/Objective Patient Orientation: Person, Place, Time, Situation ADL-Treatment Co-treat from ([id number]) due to skill of 2 clinicians required which a rehabilitation case coordinator could not perform in order to decrease fall risk, and due to pt's limitations in strength, mobility, activity tolerance. OT focused on UE placement, UE exercise, and ADLs, PT focused on LE placement, gross overall movements, and LE exercises .Pt agreed to complete sponge bath at this time. Pt was able to doff socks and hospital gown while seated at recliner. After set up of materials required, pt cleansed chest, abdominal area, UB, upper legs, and LB while seated in recliner. Pt sit-stand from recliner to cleanse buttocks with CGA. After set up, pt able to thread BLE through LB dressing using enrollment management director. Pt sit-stand from recliner to hike LB dressing with CGA. After set up, pt able to don LB dressing. Pt required assist to don chloe hose. After set up, pt placed dentures in tub to complete oral hygiene. Therapy Code Descriptions/Definitions Functional [place] Measure: 0=Not Assessed/NA 4=Minimal Assistance 1=Total Assistance 5=Supervision or Setup 2=Maximal Assistance 6=Modified [place] 3=Moderate Assistance 7=Complete IndependenceSCALE: Activities may be completed with or without assistive devices. 1-Xhncfzblqa-cludtgw completes the activity by him/herself with no assistance from a helper. 5-Set-up or Clean-up Assistance-helper sets up or cleans up; patient completes activity. [place] assists only prior to or following the activity. 4-Supervision or Touching Assistance-helper provides verbal cues and/or touching/steadying and/or contact guard assistance as patient completes activity. Assistance may be provided throughout the activity or intermittently. 3-Partial/Moderate Assistance-helper does LESS THAN HALF the effort. [place] lifts, holds or supports trunk or limbs, but provides less than half the effort. 2-Substantial/Maximal Assistance-helper does MORE THAN HALF the effort. [place] lifts or holds trunk or limbs and provides more than half the effort. 7-Fgnjqebid-zmapyo does ALL the effort. Patient does none of the effort to complete the activity. Or, the assistance of 2 or more helpers is required for the patient to complete the activity. If activity was not attempted, code reason: 7-Patient Refused. 9-Not Applicable-not attempted and the patient did not perform the activity before the current illness, exacerbation or injury. 10-Not Attempted due to Environmental Limitations-(lack of equipment, weather restraints, etc.). 88-Not Attempted due to Medical Conditions or Safety Concerns. Bathing Location: L Arm, R Arm, L Upper Leg, R Upper Leg, L Lower Leg (including foot), R Lower Leg (including foot), Chest, Abdomen, Buttocks, Perineal Area Shower/Bathe Self (QC): 4 (CGA when cleansing butocks while standing) Upper Body Dressing (QC): 5 Lower Body Dressing (QC): 4 (CGA when hiking LB dressing) Other Treatment Pt required skilled instruction of BUE green theraband exercises. Pt completed x1 set of 10 reps of BUE green theraband exercises for increase BUE strength for improved independence with ADLs. Pt required verbal and physical demonstration of each exercise for correct completion. After session, pt sitting in recliner. All needs met and call light in reach. Education OT Patient Education: Energy conservation, Exercise program, Home exercise program, Progress toward Goal/Update tx plan, Use of adapted equipment Teaching Recipient: Patient Teaching Methods: Demonstration, Handout, Discussion Response to Teaching: Verbalize Understanding, Return Demonstration OT Short Term Goals Short Term Goals Time Frame: Sep 22, 2021 Oral hygiene: 5 Shower/bathe self: 4 Lower body dressin OT Long-Term Goals Mechanical Engineering Teacher Goals Time Frame: Oct 06, 2021 Eating (QC): 6 Oral Hygiene (QC): 6 Toileting Hygiene (QC): 6 Shower/Bathe Self (QC): 6 Upper Body Dressing (QC): 6 Lower Body Dressing (QC): 6 On/Off Footwear (QC): 6 Additional Goals: 1-Demonstrate ADL Tasks, 2-Verbalize Understanding, 3- ImproveStrength/Liyah 1=Demonstrate adherence to instructed precautions during ADL tasks. 2=Patient will verbalize/demonstrate understanding of assistive devices/modifications for ADL. 3=Patient will improve strength/tolerance for activity to enable patient to perform ADL's. OT Education/Plan Problem List/Assessment Assessment: Decreased Activ Tolerance, Decreased UE Strength, Impaired I ADL's, Impaired Self-Care Skills Discharge Recommendations Plan/Recommendations: Continue POC Treatment Plan/Plan of Care Patient would benefit from OT for education, treatment and training to promote independence in ADL's, mobility, safety and/or upper extremity function for ADL's. Plan of Care: ADL Retraining, Functional Mobility, Group Exercise/Act as Ind, UE Funct Exercise/Act Treatment Duration: Sep 29, 2021 Frequency: At least 5 of 7 days/Wk (IRF) Estimated Hrs Per Day: 1.5 hours per day Agreement: Yes Rehab Potential: Good Time/GCodes Start Time: 11:10 Stop Time: 12:00 Total Time Billed (hr/min): 50 Billed Treatment Time 1 visit - ADL 2 ( 38 mins) EX 1 (12 mins) Co-treat ([id number]) SHAUNA MALDONADO Sep 18, 2021 12:08
[2021-09-18] MEDS ORDERED: morphine INJ 4 MG/ML 1 ML (VIAL/SYRINGE) IV PRN (12:30)
[2021-09-18] MEDS ORDERED: ANTACID SUSP 30 ML UDC (MYLANTA) PO PRN (12:30)
[2021-09-18] MEDS ORDERED: ONDANSETRON 4 MG/2 ML (SDV) Z0FRAN IV PRN (12:30)
[2021-09-18] MEDS ORDERED: ACETAMINOPHEN 325 MG TABLET PO PRN (12:30)
[2021-09-18] MEDS ORDERED: polyethylene glycoL POWDER 17 GM (MIRALAX) PACK PO PRN (12:30)
[2021-09-18] MEDS ORDERED: ONDANSETRON 4 MG (ZOFRAN) ORAL DISSOLVE TAB PO PRN (12:30)
[2021-09-18 12:45] VITALS: BP 125/62
--- NOTE | 2021-09-18 12:51 | Physical Therapy Evaluation ---
PT Evaluation-General Medical Diagnosis Admission Date Sep 18, 2021 at 10:59 Medical Diagnosis: s/p L IM Nail Onset Date: Sep 12, 2021 Therapy Diagnosis Therapy Diagnosis: weakness, debility Precautions Precautions/Isolations: Fall Prevention, Standard Precautions Weight Bear Status Left Lower Extremity: Left Weight Bearing/Tolerated Referral Physician: Daysi Reason for Referral: Evaluation/Treatment Medical History Pertinent Medical History: CAD, DM, HTN Current History Patient transferred from 4th floor to [facility]. Social History Home: Multilevel (1 level with basement) Current Living Status: Alone Entry Into Home: Stairs With Railing Prior Prior Level of Function SCALE: Activities may be completed with or without assistive devices. 5-Vxlbefxtlo-brvphld completes the activity by him/herself with no assistance from a helper. 5-Set-up or Clean-up Assistance-helper sets up or cleans up; patient completes activity. [place] assists only prior to or following the activity. 4-Supervision or Touching Assistance-helper provides verbal cues and/or touching/steadying and/or contact guard assistance as patient completes activity. Assistance may be provided throughout the activity or intermittently. 3-Partial/Moderate Assistance-helper does LESS THAN HALF the effort. [place] lifts, holds or supports trunk or limbs, but provides less than half the effort. 2-Substantial/Maximal Assistance-helper does MORE THAN HALF the effort. [place] lifts or holds trunk or limbs and provides more than half the effort. 8-Uvswwamsx-fwwfjz does ALL the effort. Patient does none of the effort to complete the activity. Or, the assistance of 2 or more helpers is required for the patient to complete the activity. If activity was not attempted, code reason: 7-Patient Refused. 9-Not Applicable-not attempted and the patient did not perform the activity before the current illness, exacerbation or injury. 10-Not Attempted due to Environmental Limitations-(lack of equipment, weather restraints, etc.). 88-Not Attempted due to Medical Conditions or Safety Concerns. Bed Mobility: 6 Transfers (B,C,W/C): 6 Gait: 6 Stairs: 6 Indoor Mobility (Ambulation): Independent Stairs: Independent Prior Devices Use: None PT Evaluation-Current Subjective Patient presented in his chair and agreed to walk down to U. Objective Patient Orientation: Person, Place, Time, Situation Attachments: IV ROM/Strength ROM Lower Extremities WFL Strength Lower Extremities R LE 4/5 strength grossly L LE: not tested due to recent surgery Integumentary/Posture Bowel Incontinence: No Bladder Incontinence: No Posture slightly kyphotic Neuromuscular (Tone, Coordination, Reflexes) grossly intact Sensory Vision: Wears Glasses Hearing: Functional Hand Dominance: Right Transfers Roll Left & Right (QC): 4 Sit to Lying (QC): 4 Lying to Sitting/Side of Bed(Q: 4 Sit to Stand (QC): 4 Chair/Bpp-pk-Vfotl Xfer(QC): 4 Toilet Transfer (QC): 4 Car Transfer (QC): 4 Patient required CGA for all transfers Gait Does the Patient Walk?: Yes Mode of Locomotion: Walk Anticipated Mode of Locomotion: Walk Walk 10 feet (QC): 4 Walk 50 ft with 2 Turns(QC): 4 Walk 150 ft (QC): 4 Walking 10ft/uneven surface-QC: 4 Distance: 300' Gait Assistive Device: FWW Comments/Gait Description Patient ambulated for 300' with short breaks to rest. Patient ambulated with FWW and CGA. Wheelchair Training Wheel 50 ft with 2 turns (QC): 9 Wheel 150 ft (QC): 9 Stairs #of Steps: 1 1 Step (curb) (QC): 4 4 Steps (QC): 88 12 Steps (QC): 88 Balance Sitting Static: Normal Sitting Dynamic: Normal Standing Static: Fair Standing Dynamic: Fair Picking up an Object (QC): 88 Assessment/Needs Patient required CGA for all transfers and ambulation. Patient ambulated with FWW and CGA and ambulated on uneven surface and stepped up on a single short step with CGA. Patient requires skilled therapy to increase strength and endurance to return to PLOF. Rehab Potential: Fair PT Mcfp Goals Inspector Handbag Frames Goals PT Mcfp Goals Time Frame: Oct 16, 2021 Roll Left & Right (QC): 6 Sit to Lying (QC): 6 Lying-Sitting on Side/Bed(QC): 6 Sit to Stand (QC): 6 Chair/Wkm-bj-Fhcpe Xfer(QC): 6 Toilet Transfer (QC): 6 Car Transfer (QC): 6 Does the Patient Walk: Yes Walk 10 feet (QC): 6 Walk 50ft with 2 Turns (QC): 6 Walk 150 ft (QC): 6 Walking 10ft on Uneven Surface: 6 1 Step (curb) (QC): 6 4 Steps (QC): 6 12 Steps (QC): 6 Picking up an Object (QC): 6 Does the Pt use WC or Scooter?: No Wheel 50 feet with 2 turns (QC: 9 Type: N/A Wheel 150 feet: 9 Type: N/A PT Plan Problem List Problem List: Activity Tolerance, Functional Strength, Safety, Balance, Gait, Transfer, Bed Mobility, ROM Treatment/Plan Treatment Plan: Continue Plan of Care Treatment Plan: Bed Mobility, Education, Functional Activity Liyah, Functional Strength, Group Therapy, Gait, Safety, Therapeutic Exercise, Transfers Treatment Duration: Oct 16, 2021 Frequency: At least 5 of 7 days/Wk (IRF) Estimated Hrs Per Day: 1.5 hours per day Patient and/or Family Agrees t: Yes Safety Risks/Education Patient Education: Gait Training, Safety Issues Teaching Recipient: Patient Teaching Methods: Discussion Time/GCodes Time In: 1050 Time Out: 1100 Total Billed Treatment Time: 10 Total Billed Treatment 1 Visit EVModC 10 min MICHAEL RING PT Sep 18, 2021 12:51
--- NOTE | 2021-09-18 12:59 | Occupational Ther Daily Note ---
OT Current Status-Daily Note Subjective Pt alert, sitting in recliner. Pt agrees to therapy. No c/o pain. Mental Status/Objective Patient Orientation: Person, Place, Time, Situation Attachments: IV ADL-Treatment Therapy Code Descriptions/Definitions Functional [place] Measure: 0=Not Assessed/NA 4=Minimal Assistance 1=Total Assistance 5=Supervision or Setup 2=Maximal Assistance 6=Modified [place] 3=Moderate Assistance 7=Complete IndependenceSCALE: Activities may be completed with or without assistive devices. 0-Ztnrujzdof-ejzmrns completes the activity by him/herself with no assistance from a helper. 5-Set-up or Clean-up Assistance-helper sets up or cleans up; patient completes activity. [place] assists only prior to or following the activity. 4-Supervision or Touching Assistance-helper provides verbal cues and/or touching/steadying and/or contact guard assistance as patient completes activity. Assistance may be provided throughout the activity or intermittently. 3-Partial/Moderate Assistance-helper does LESS THAN HALF the effort. [place] li fts, holds or supports trunk or limbs, but provides less than half the effort. 2-Substantial/Maximal Assistance-helper does MORE THAN HALF the effort. [place] lifts or holds trunk or limbs and provides more than half the effort. 8-Jeumraxba-wssjpt does ALL the effort. Patient does none of the effort to complete the activity. Or, the assistance of 2 or more helpers is required for the patient to complete the activity. If activity was not attempted, code reason: 7-Patient Refused. 9-Not Applicable-not attempted and the patient did not perform the activity before the current illness, exacerbation or injury. 10-Not Attempted due to Environmental Limitations-(lack of equipment, weather restraints, etc.). 88-Not Attempted due to Medical Conditions or Safety Concerns. Eating (QC): 6 (Pt able to open containers/packages independently. Uses regular utensils to eat.) OT Short Term Goals Short Term Goals Time Frame: Sep 22, 2021 Oral hygiene: 5 Shower/bathe self: 4 Lower body dressin OT Sweeper Brush Maker Machine Goals Sweeper Brush Maker Machine Goals Time Frame: Oct 06, 2021 Eating (QC): 6 Oral Hygiene (QC): 6 Toileting Hygiene (QC): 6 Shower/Bathe Self (QC): 6 Upper Body Dressing (QC): 6 Lower Body Dressing (QC): 6 On/Off Footwear (QC): 6 Additional Goals: 1-Demonstrate ADL Tasks, 2-Verbalize Understanding, 3-ImproveStrength/[place]iyah 1=Demonstrate adherence to instructed precautions during ADL tasks. 2=Patient will verbalize/demonstrate understanding of assistive devices/modifications for ADL. 3=Patient will improve strength/tolerance for activity to enable patient to perform ADL's. OT Education/Plan Problem List/Assessment Assessment: Impaired Self-Care Skills Discharge Recommendations Plan/Recommendations: Continue POC Treatment Plan/Plan of Care Patient would benefit from OT for education, treatment and training to promote independence in ADL's, mobility, safety and/or upper extremity function for ADL's. Plan of Care: ADL Retraining, Functional Mobility, Group Exercise/Act as Ind, UE Funct Exercise/Act Treatment Duration: Sep 29, 2021 Frequency: At least 5 of 7 days/Wk (IRF) Estimated Hrs Per Day: 1.5 hours per day Agreement: Yes Rehab Potential: Good Time/GCodes Start Time: 12:45 Stop Time: 13:00 Total Time Billed (hr/min): 15 Billed Treatment Time 1 visit-ADL 1 (15 min) SHANE CORREIA Sep 18, 2021 12:59
--- NOTE | 2021-09-18 13:09 | Physical Therapy Daily Note ---
PT Daily Note-Current Subjective Pt sitting in recliner getting sponge bath upon arrival. Pt agrees to PT. Mental Status Patient Orientation: Person, Place, Time, Situation Attachments: IV Transfers SCALE: Activities may be completed with or without assistive devices. 9-Ctlhlthilm-xkaqyjx completes the activity by him/herself with no assistance from a helper. 5-Set-up or Clean-up Assistance-helper sets up or cleans up; patient completes activity. [place] assists only prior to or following the activity. 4-Supervision or Touching Assistance-helper provides verbal cues and/or touching/steadying and/or contact guard assistance as patient completes activity. Assistance may be provided throughout the activity or intermittently. 3-Partial/Moderate Assistance-helper does LESS THAN HALF the effort. [place] lifts, holds or supports trunk or limbs, but provides less than half the effort. 2-Substantial/Maximal Assistance-helper does MORE THAN HALF the effort. [place] lifts or holds trunk or limbs and provides more than half the effort. 4-Xpjfjhrkk-oqfggk does ALL the effort. Patient does none of the effort to complete the activity. Or, the assistance of 2 or more helpers is required for the patient to complete the activity. If activity was not attempted, code reason: 7-Patient Refused. 9-Not Applicable-not attempted and the patient did not perform the activity before the current illness, exacerbation or injury. 10-Not Attempted due to Environmental Limitations-(lack of equipment, weather restraints, etc.). 88-Not Attempted due to Medical Conditions or Safety Concerns. Sit to Stand (QC): 4 Weight Bearing Left Lower Extremity: Left Weight Bearing/Tolerated Exercises Seated Therapy Exercises: Ankle pumps, Long arc quads, Hip flexion, Glut set Seated Reps: 10 Treatments Co-treat from ([id number]) due to skill of 2 clinicians required which a rehabilitation assistant could not perform in order to decrease fall risk, and due to pt's limitations in strength, mobility, activity tolerance. OT focused on UE placement, UE exercise, and ADLs, PT focused on LE placement, gross overall movements, and LE exercises .Pt agreed to complete sponge bath at this time. Pt was able to doff socks and hospital gown while seated at recliner. After set up of materials required, pt cleansed chest, abdominal area, UB, upper legs, and LB while seated in recliner. Pt sit-stand from recliner to cleanse buttocks with CGA. After set up, pt able to thread BLE through LB dressing using staff research associate. Pt sit-stand from recliner to hike LB dressing with CGA. After set up, pt able to don LB dressing. Pt required assist to don chloe hose. After set up, pt placed dentures in tub to complete oral hygiene. PT & OT alternated Seated EX and written HEP was provided for UE as well as Supine & Seated LE. Assessment Current Status: Good Progress Pt required verbal and physical demonstration of each exercise for correct c ompletion. After session, pt sitting in recliner. All needs met and call light in reach. PT Residential Goals Parole Officer Goals PT Residential Goals Time Frame: Oct 16, 2021 Roll Left & Right (QC): 6 Sit to Lying (QC): 6 Lying-Sitting on Side/Bed(QC): 6 Sit to Stand (QC): 6 Chair/Pcb-bp-Zakqt Xfer(QC): 6 Toilet Transfer (QC): 6 Car Transfer (QC): 6 Does the Patient Walk: Yes Walk 10 feet (QC): 6 Walk 50ft with 2 Turns (QC): 6 Walk 150 ft (QC): 6 Walking 10ft on Uneven Surface: 6 1 Step (curb) (QC): 6 4 Steps (QC): 6 12 Steps (QC): 6 Picking up an Object (QC): 6 Does the Pt use WC or Scooter?: No Wheel 50 feet with 2 turns (QC: 9 Type: N/A Wheel 150 feet: 9 Type: N/A PT Plan Problem List Problem List: Activity Tolerance, Functional Strength Treatment/Plan Treatment Plan: Continue Plan of Care Treatment Plan: Bed Mobility, Education, Functional Activity Liyah, Functional Strength, Group Therapy, Gait, Safety, Therapeutic Exercise, Transfers Treatment Duration: Oct 16, 2021 Frequency: At least 5 of 7 days/Wk (IRF) Estimated Hrs Per Day: 1.5 hours per day Patient and/or Family Agrees t: Yes Safety Risks/Education Patient Education: Reviewed Precautions, Correct Positioning, Safety Issues Teaching Recipient: Patient Teaching Methods: Discussion Response to Teaching: Verbalize Understanding Time/GCodes Time In: 1115 Time Out: 1200 Total Billed Treatment Time: 45 Total Billed Treatment Co-treat w/OT for 45m 1, FA (20m) & EX x2 (25m) MISTY LION FIELD MECHANIC/SITE LEAD Sep 18, 2021 13:09
--- NOTE | 2021-09-18 13:43 | Progress Note ---
GIUSEPPE ASKEW 09/18/21 1343: Progress Note HPI: Chris Gaspar is an 81yoWM s/p ORIF of Left Intertrochanteric Femur Fracture on 09/12/2021. He is POD#6 today and has been transferred to inpatient rehabilitation unit. His prior hospital course was significant for postoperative anemia and JONELLE on CKD. His past medical history is notable for HTN, HLD, T2DM, CAD, BPH, and GERD. Today, Mr. Gaspar states that he is feeling well and his pain has been under control. He is ambulating with walker and one-person assist with therapy. He his last bowel movement was on 09/15/21. PMH: - HTN - HLD - T2DM - CAD - BPH - GERD PSH: - Appendectomy, CABG, Cholecystectomy, Orthopedic, TURP MEDS: - see med list ALL: - NKDA ROS: - 12-point ROS completed and negative except for headache and left hip pain Exam: GEN: well-appearing 81yoM in NAD, pleasant, conversational HEENT: PERRL, MMM CARD: RRR, no murmur, rub, or gallop PULM: no SOB, lungs clear to auscultation bilaterally GI: abdomen soft, nontender, nondistended : deferred SKIN: no new skin ulcers EXT: normal extremities with no palpable edema PSYCH: appropriate mood and affect, tangential but logical A/P: 1. Left Intertrochanteric Femur Fracture - s/p ORIF on 09/12/21 - inpatient PT/OT - DVT prophylaxis 2. Constipation Following Procedure - bowel regimen - may discuss further intervention without bowel movement within the next 1-2 days 3. Postoperative Anemia - Hgb reviewed - s/p 1 unit PRBCs on 09/18/21 awaiting morning labs to review Hgb 4. JONELLE on CKD - Cr reviewed, resolved - continue holding IVF - will monitor CR with morning lab 5. BPH - continue home meds 6. T2DM - continue home insulin 7. HTN - continue home meds 8. HLD - resume Ezitimibe on 09/19/21 9. GERD - continue home med Dispo: Inpatient rehab with anticipation of return home with minimal assistance; pending PT/OT recommendations ADELITA CASAS DO 09/19/21 0564: Supervisory-Addendum Brief Verification & Attestation Participated in pt care: history, MDM, physical Personally performed: exam, history, MDM, supervision of care Care discussed with: Medical Student Procedures: n/a Results interpretation: Verified all documentation Verification and Attestation of Medical Student E/M Service A medical student performed and documented this service in my presence. I reviewed and verified all information documented by the medical student and made modifications to such information, when appropriate. I personally performed the physical exam and medical decision making. Adelita Casas, Sep 19, 2021,05:41 GIUSEPPE ASKEW Sep 18, 2021 13:43 ADELITA CASAS DO Sep 19, 2021 05:41
--- NOTE | 2021-09-18 14:22 | Physical Therapy Daily Note ---
PT Daily Note-Current Subjective Patient presented sitting up in his chair and agrees to participate in therapy. Patient reports his pain is about a 2/10 when sitting in his chair. Pain Numeric Pain Scale: 2 Location: Left Location Body Site: Hip Pain Description: Acute Mental Status Patient Orientation: Person, Place, Time, Situation Transfers SCALE: Activities may be completed with or without assistive devices. 1-Lswnqvdcqs-ucstpzt completes the activity by him/herself with no assistance from a helper. 5-Set-up or Clean-up Assistance-helper sets up or cleans up; patient completes activity. [place] assists only prior to or following the activity. 4-Supervision or Touching Assistance-helper provides verbal cues and/or touching/steadying and/or contact guard assistance as patient completes activity. Assistance may be provided throughout the activity or intermittently. 3-Partial/Moderate Assistance-helper does LESS THAN HALF the effort. [place] lifts, holds or supports trunk or limbs, but provides less than half the effort. 2-Substantial/Maximal Assistance-helper does MORE THAN HALF the effort. [place] lifts or holds trunk or limbs and provides more than half the effort. 8-Bwcmpcffy-smandi does ALL the effort. Patient does none of the effort to complete the activity. Or, the assistance of 2 or more helpers is required for the patient to complete the activity. If activity was not attempted, code reason: 7-Patient Refused. 9-Not Applicable-not attempted and the patient did not perform the activity before the current illness, exacerbation or injury. 10-Not Attempted due to Environmental Limitations-(lack of equipment, weather restraints, etc.). 88-Not Attempted due to Medical Conditions or Safety Concerns. Sit to Stand (QC): 4 Weight Bearing Left Lower Extremity: Left Weight Bearing/Tolerated Gait Training Does the Patient Walk?: Yes Distance: 150' x2 Walk 10 feet (QC): 4 Walk 50 ft with 2 Turns(QC): 4 Walk 150 ft (QC): 4 Gait Assistive Device: FWW Patient ambulated from his room to the gym and back with FWW and CGA. Patient required rest breaks once he got to each location. Stair Training Stair Training: Handrails/: 2 handrails #of Steps: 4 1 Step (curb) (QC): 4 4 Steps (QC): 4 12 Steps (QC): 88 Stairs: Pattern: Step to Patient climbed 4 steps and came back down with CGA and cues on which foot to lead with. 12 steps not performed due to patient fatigue. Exercises Seated Therapy Exercises: Ankle pumps, Long arc quads, Hip flexion Seated Reps: 15 Assessment Patient ambulated, performed steps, and seated exercises. Patient reported significant fatigue after this therapy session. 12 steps were not attempted due to patient fatigue but will attempt tomorrow . Patient would benefit from NuStep tomorrow to help increase his activity tolerance and endurance. PT [facility] Goals [facility] Goals PT [facility] Goals Time Frame: Oct 16, 2021 Roll Left & Right (QC): 6 Sit to Lying (QC): 6 Lying-Sitting on Side/Bed(QC): 6 Sit to Stand (QC): 6 Chair/Mif-ml-Yuydw Xfer(QC): 6 Toilet Transfer (QC): 6 Car Transfer (QC): 6 Does the Patient Walk: Yes Walk 10 feet (QC): 6 Walk 50ft with 2 Turns (QC): 6 Walk 150 ft (QC): 6 Walking 10ft on Uneven Surface: 6 1 Step (curb) (QC): 6 4 Steps (QC): 6 12 Steps (QC): 6 Picking up an Object (QC): 6 Does the Pt use WC or Scooter?: No Wheel 50 feet with 2 turns (QC: 9 Type: N/A Wheel 150 feet: 9 Type: N/A PT Plan Problem List Problem List: Activity Tolerance, Functional Strength, Safety, Balance, Gait, Transfer, Bed Mobility, ROM Treatment/Plan Treatment Plan: Continue Plan of Care Treatment Plan: Bed Mobility, Education, Functional Activity Liyah, Functional Strength, Group Therapy, Gait, Safety, Therapeutic Exercise, Transfers Treatment Duration: Oct 16, 2021 Frequency: At least 5 of 7 days/Wk (IRF) Estimated Hrs Per Day: 1.5 hours per day Patient and/or Family Agrees t: Yes Time/GCodes Time In: 1335 Time Out: 1405 Total Billed Treatment Time: 30 Total Billed Treatment 1 Visit FA 20 min Ex 10 min MICHAEL RING PT Sep 18, 2021 14:22
--- NOTE | 2021-09-18 14:38 | ST Cognitive Linguistic Eval ---
Speech Evaluation-General Medical Diagnosis s/p L IM Nail Onset Date: Sep 12, 2021 Therapy Diagnosis Therapy Diagnosis: Cognitive Linguistic Skills WNL Precautions Precautions: Fall Precautions/Isolations: Standard Precautions Referral Referring Physician: Dr. Adelita Tavarez Reason for Referral: Evaluation/Treatment Medical History Pertinent Medical History: CAD, DM, HTN Current History The patient is an 81 year-old male, who was admitted to the acute rehabilitation unit following a left hip fracture and repair. Reviewed History: Yes Social History Current Living Status: Alone Speech PLF-Current Status Prior Level of Function The patient reported independence with ADL's prior to hospitalization. Subjective The patient was seated upright in his recliner, alert and awake upon entrance by the clinician. The patient greeted the clinician appropriately and was agreeable to participation in the cognitive linguistic evaluation. The patient denied concerns or difficulties with his speech, cognition, language, or swallowing. Language Eval: Auditory Comprehends Simple Yes/No Ques: Functional Indent/Objects Multiple Concepcion: Functional Ident/Pics in Multiple Concepcion: Functional Follows 1-Step Commands: Functional Follows Complex Directions: Functional Follows General Conversations: Functional Language Eval: Verbal Language Completes Spontaneous Greeting: Functional Produces Auto, Serial Info: Functional Imitates Simple Words/Phrases: Functional Word Finding: Functional Requests Basic Needs: Functional States Basic Personal Info: Functional Expresses Complex Ideas: Functional Language Evaluation: Reading Follows Simple Written Direct: Functional Language Evaluation: Writing Writes to Simple Dictation: Functional Cognitive Patient Orientation The patient was independently oriented to self, location, month, day of the week, date, and year. Objective Cognitive Domain Attention: WNL Memory: WNL Problem Solving: Functional Executive Functions: WNL Visuospatial Skills: WNL Composite Severity Rating: WNL Clock Drawing Severity Rating: WNL Objective Formal/Standardized Tests [facility] Mental Status ([facility]) Results The patient demonstrated a result of +27/30 correlating to normal neurocognitive abilities. Oral Motor/Speech Production The patient does not display dysarthria or apraxia of speech. The patient remains 100% intelligible in known and unknown contexts. Impression The patient is an 81 year-old male, who presented with neurocognitive skills within normal limits. The patient demonstrated on error on delayed recall, recalling four of five single words, and one error on immediate recall of paragraph information. Speech Patient Assess Expression of Ideas/Wants: Expression (4) Understanding Verbal Content: Understands (4) Brief Interview-Mental Status: Yes Repetition of Three Words: Three (3) Temporal Orientation: Year: Correct (3) Temporal Orientation: Month: Accurate within 5 days(2) Temporal Orientation: Day: Correct (1) Recall : Wear to say "Sock": Yes, no cue required (2) Recall : Color: Yes, no cue required (2) Recall : Bed: Yes,after cueing (1) Memory/Recall Ability: Current season, That he or she is in a hsp/hsp unit Speech-Plan Patient/Family Goals Patient/Family Goals: The patient wishes to return home independently. Treatment Plan Speech Therapy Treatment Plan: Discontinue ST Frequency: 1 time per week Estimated Hrs Per Day: .5 hour per day Rehab Potential: Good Pt/Family Agrees to Plan: Yes Safety Risks/Education Teaching Recipient: Patient Teaching Methods: Discussion Response to Teaching: Verbalize Understanding Education Topics Provided: Plan of Care, Results of SLUMS Time Speech Therapy Time In: 14:05 Speech Therapy Time Out: 14:25 Total Billed Time: 20 Billed Treatment Time 1, YOLIS CANALES ELIZABETH ST Sep 18, 2021 14:38
[2021-09-18] MEDS: inSUlin ASPART (NovoLOG) 1 UNIT/0.01 ML (CHARGE PER UNIT) SC SCH ×2 (16:13→21:15)
[2021-09-18 17:07] VITALS: BP 196/90
[2021-09-18 18:02] VITALS: BP 155/73
[2021-09-18 20:00] VITALS: BP 198/92
[2021-09-18] MEDS: DOCUSATE SODIUM 100 MG (COLACE) CAP PO SCH (20:59)
[2021-09-18] MEDS: ASPIRIN E.C. 81 MG (ECOTRIN) TAB PO SCH (20:59)
[2021-09-18] MEDS: FINASTERIDE (PROSCAR) 5 MG TAB PO SCH (20:59)
[2021-09-18] MEDS: SENNA W/DOCUSATE (SENOKOT S) TABLET PO SCH (20:59)
[2021-09-18] MEDS: TAMSULOSIN 0.4 MG (FLOMAX) CAP PO SCH (21:00)
[2021-09-18] MEDS ORDERED: DOCUSATE SODIUM 100 MG (COLACE) CAP PO SCH (21:00)
[2021-09-18] MEDS: ENOXAPARIN 40 MG/0.4 ML (LOVENOX) SYR SC SCH (21:01)
[2021-09-18] MEDS: SENNOSIDES 8.6 MG (SENOKOT) TAB PO SCH (21:25)
[2021-09-18] MEDS: polyethylene glycoL POWDER 17 GM (MIRALAX) PACK PO SCH (21:25)
[2021-09-18 22:05] VITALS: BP 146/60
[2021-09-19] VITALS (9 sets, daily range): BP systolic 84–172; BP diastolic 50–92
[2021-09-19] MEDS: BETHANECHOL 25 MG (URECHOLINE) TAB PO SCH ×3 (01:00→07:04)
--- NOTE | 2021-09-19 05:48 | Individualized Plan of Care ---
Individualized Plan of Care Rehab Nursing IPOC Order Admission Date Sep 18, 2021 at 10:59 Current Orders Orders Admission Order(Inpt,Obs,Sdc) (09/18/21 10:48) Vital Signs: Per Unit Policy ( 08,16,00 (09/18/21 10:48) Hugh Barahona 09,21 (09/18/21 10:48) Sequential Compression Device (09/18/21 10:48) Bottling Equipment Sales Representative-Inpt Rehab Con (09/18/21 10:48) Rehab Nursing Orders-Ipoc (09/18/21 10:48) Physical Therapy Rehab Orders (09/18/21 10:48) Occupational Therapy Rehab Ord (09/18/21 10:48) Speech Therapy Rehab Orders (09/18/21 10:48) Cbc With Automated Diff (09/19/21 06:00) Comprehensive Metabolic Panel (09/19/21 06:00) Precautions (Aru) (09/18/21 10:48) Weekly Weight WEEK (09/18/21 10:48) Rehab-Intensity Of Therapy (09/18/21 10:48) Initiate Admission Nursing Pro .admission (09/18/21 10:48) Alprazolam Tablet (Xanax Tablet) (09/18/21 11:00) Calcium Carbonate Chew Tablet (Antacid C (09/18/21 11:00) Diphenhydramine Tablet (Benadryl Tablet) (09/18/21 11:00) Docusate Sodium Capsule (Colace Capsule) (09/18/21 21:00) Docusate Sodium Capsule (Colace Capsule) (09/18/21 11:00) Bisacodyl Suppository (Dulcolax Supposit (09/18/21 11:00) Lactulose Oral Solution (Enulose Oral So (09/18/21 11:00) Na Phos/Na Biphos Enema (Fleet Enema Richardson (09/18/21 11:00) Guaifenesin/Codeine Syrup (Robitussin Ac (09/18/21 11:00) Loperamide Tablet (Imodium Tablet) (09/18/21 11:00) Melatonin Tablet (Melatonin Tablet) (09/18/21 11:00) Polyethylene Glycol Powder Pkt (Miralax (09/18/21 21:00) Ondansetron Oral Dissolve Tab (Zofran (09/18/21 11:00) Senna S Tablet (Senokot S Tablet) (09/18/21 21:00) Acetaminophen Tablet/Caplet (Tylenol T (09/18/21 11:00) Code/Resuscitation (09/18/21 10:48) Sequential Compression Device ONCE (09/18/21 10:48) Initiate Admission Nursing Pro .admission (09/18/21 10:48) Admission Arrival Bed Request (09/18/21 10:59) General/Regular (09/18/21 Lunch) Code/Resuscitation (09/18/21 12:25) Accucheck Achs ACHS (09/18/21 12:25) Activity (09/18/21 12:25) Ambulate TID (09/18/21 12:25) Dressing Order (Intervention) DAILY (09/18/21 12:25) Heating Pad (09/18/21 12:25) Ice: Apply To Affected Area (09/18/21 12:25) Incentive Spirometry (Nursing) Q2H (09/18/21 12:25) Sequential Compression Device (09/18/21 12:25) Hugh Barahona (09/18/21 12:25) Aspirin Enteric Coated Tablet (Ecotrin T (09/18/21 21:00) Docusate Sodium Capsule (Colace Capsule) (09/18/21 21:00) Enoxaparin Injection (Lovenox Injectio (09/18/21 21:00) Finasteride Tablet (Proscar Tablet) (09/18/21 21:00) Melatonin Tablet (Melatonin Tablet) (09/18/21 12:30) Polyethylene Glycol Powder Pkt (Miralax (09/18/21 12:30) Antacid Suspension (Mylanta Suspension (09/18/21 12:30) Sennosides Tablet (Senokot Tablet) (09/18/21 21:00) Tamsulosin Capsule (Flomax Capsule) (09/18/21 21:00) Acetaminophen Tablet/Caplet (Tylenol T (09/18/21 12:30) Ondansetron Injection (Zofran Injectio (09/18/21 12:30) Ondansetron Oral Dissolve Tab (Zofran (09/18/21 12:30) Carvedilol Tablet (Coreg Tablet) (09/18/21 18:00) Ezetimibe Tablet (Zetia Tablet) (09/19/21 09:00) Insulin Aspart (Novolog) (Novolog (Charg (09/18/21 16:00) Oxycodone Immediate Rel Tablet (Oxyir Ta (09/18/21 12:30) Consult Orthopedic Surgery (09/18/21 12:25) Incentive Spirometry Initial (09/18/21 12:25) Weight Bearing As Tolerated (09/18/21 12:25) Morphine Injection (Morphine Injection (09/18/21 12:30) Incentive Spirometry (Nursing) Q2H (09/18/21 12:25) Patient Visit (09/18/21 ) Speech Sound Lang Comp (09/18/21 ) Treat. Speech/Lang/Voice (09/18/21 ) Patient Visit (09/18/21 ) Pt Eval Low Complexity (09/18/21 ) Exercise Therap, Ea 15 Min (09/18/21 ) Patient Visit (09/18/21 ) Functional Activities, Ea 15 (09/18/21 ) Exercise Therap, Ea 15 Min (09/18/21 ) Patient Visit (09/18/21 ) Functional Activities, Ea 15 (09/18/21 ) Bethanechol Tablet (Urecholine Tablet) (09/19/21 01:00) Nursing Communication (Order) (09/19/21 00:56) Vital Signs: Special (Order) (09/19/21 06:16) Consent-Obtain Consent For (09/19/21 06:16) Monitor S/S Transfusion Reacti (09/19/21 06:16) Ns Iv 500 Ml (Sodium Chloride 0.9%) (09/19/21 06:30) Type And Screen (09/19/21 06:16) Furosemide Injection (Lasix Injection) (09/19/21 06:30) Red Cells Leukocytes Reduced (09/19/21 06:16) Ns Iv 500 Ml (Sodium Chloride 0.9%) (09/19/21 06:30) Cbc With Automated Diff (09/20/21 06:00) Comprehensive Metabolic Panel (09/20/21 06:00) Urinalysis (09/19/21 07:45) Consult Urology (09/19/21 06:42) Urine Culture (09/19/21 07:45) Sulfamethoxazole/Trimet Ds Tab (Bactrim (09/19/21 10:30) Bladder Scan (09/19/21 10:20) White Blood Count Transf Rx (09/19/21 11:02) Patient Visit (09/19/21 ) Gait Training, Ea 15 Min (09/19/21 ) Functional Activities, Ea 15 (09/19/21 ) Rehab Nursing Orders: Ongoing Assess. of Cognitive Status, Ongoing Assess. of Function Status, Bladder Management, Bladder Scan, Bladder Training, Bowel Management, Bowel Training, Disease Management & Educaiton, DVT Prophylaxis, Fall Prevention, Fluid/Electrolyte/Nutrition Mgmt, Infection Prevention, Medication Management & Education, Management of Risks & Complications, Nu trition Management, Pain Management, Patient/Family Support, Safety Management Intensity of Therapy to be met Patient to be seen: Min.3h per day/5 of 7d PT IPOC Problem List: Activity Tolerance, Functional Strength, Safety, Balance, Gait, Transfer, Bed Mobility, ROM Treatment Plan: Continue Plan of Care Bed Mobility, Education, Functional Activity Liyah, Functional Strength, Group Therapy, Gait, Safety, Therapeutic Exercise, Transfers Treatment Duration: Oct 16, 2021 Frequency: At least 5 of 7 days/Wk (IRF) Estimated Hrs Per Day: 1.5 hours per day OT IPOC Problems: Impaired Self-Care Skills OT Treatment, Training and Edu: Yes Plan of Care: ADL Retraining, Functional Mobility, Group Exercise/Act as Ind, UE Funct Exercise/Act Treatment Duration: Sep 29, 2021 Frequency: At least 5 of 7 days/Wk (IRF) Estimated Hrs Per Day: 1.[address] IPOC Speech Therapy Treatment Plan: Discontinue ST Treatment Duration: Sep 19, 2021 Frequency: 1 time per week Estimated Hrs Per Day: .5 hour per day Bottling Equipment Sales Representative/Case Mgmt Bottling Equipment Sales Representative/Case Managemen: Discharge Planning Dietitian/Service Member Dietitian/Service Member to monitor nutritional status and make changes and/or recommendations as needed and work with speech pathology on dietary upgrades as the occur. Physician IPOC Medical Issues being managed closely and that require the 24 hour availability of a physician: Recent hip fracture with postop anemia requiring 2 units of transfusions of blood along with multiple somatic complaints with now new UTI with BPH chronic issues requiring urology consult will take close monitoring from physician standpoint Medical Issues: Bowel/Bladder Function, DVT Prophylaxis, Falls Precautions, Fluid/Electrolyte/Nutrition Balance, Infection Protection, Pain Management, Wound Care Brief Synthesis of Preadmission Screen, Post-Admission Evaluation, and Therapy Evaluations: PT and OT will focus on regaining function in order to return to independent living while using assistive device and prevent falls Medical Prognosis: Guarded Anticipated Length of Stay: 10 days PADDY CASAS DO Sep 19, 2021 05:48
--- NOTE | 2021-09-19 05:48 | PM&R Progress Note ---
Subjective HPI/CC On Admission Date Seen by Provider: Sep 19, 2021 Time Seen by Provider: 09:00 Subjective/Events-last exam 09/19/2021: Pt having difficulties Lot of somatic complaints One unit of blood given for hemoglobin of 6.3 BP varies White count of 16 UTI will be managed with placement of Bactrim by Dr. Toledo Bowels moved yesterday Review of Systems General: Fatigue, Malaise Musculoskeletal: leg pain Objective Exam Vital Signs Vital Signs Date Time Temp Pulse Resp B/P (MAP) Pulse Ox O2 Delivery O2 Flow Rate FiO2 09/19/21 21:03 99 Room Air 09/19/21 19:40 35.9 82 16 128/70 (89) Capillary Refill : General Appearance: No Apparent Distress, WD/WN, Chronically ill HEENT: PERRL/EOMI, Normal ENT Inspection, Pharynx Normal Neck: Full Range of Motion, Normal Inspection, Non Tender, Supple, Carotid Bruit Respiratory: Chest Non Tender, Lungs Clear, Normal Breath Sounds, No Accessory Muscle Use, No Respiratory Distress Cardiovascular: Regular Rate, Rhythm, No Edema, No Gallop, No JVD, No Murmur, Normal Peripheral Pulses Gastrointestinal: Normal Bowel Sounds, No Organomegaly, No Pulsatile Mass, Non Tender, Soft Back: Normal Inspection, No CVA Tenderness, No Vertebral Tenderness Extremity: Normal Capillary Refill, Normal Inspection, Normal Range of Motion (except left leg), Non Tender, No Calf Tenderness, No Pedal Edema Neurologic/Psychiatric: Alert, Oriented x3, No Motor/Sensory Deficits, podiatry teacher II- XII Norm as Tested, Abnormal Gait, Depressed Affect, Motor Weakness (genera lized) Skin: Normal Color, Warm/Dry Lymphatic: No Adenopathy Results/Procedures Lab Laboratory Tests 09/19/21 11:25 09/20/21 05:20 Patient resulted labs reviewed. FIM Transfers Therapy Code Descriptions/Definitions Functional [place] Measure: 0=Not Assessed/NA 4=Minimal Assistance 1=Total Assistance 5=Supervision or Setup 2=Maximal Assistance 6=Modified [place] 3=Moderate Assistance 7=Complete IndependenceSCALE: Activities may be completed with or without assistive devices. 7-Rzifmqzuds-gkpzeam completes the activity by him/herself with no assistance from a helper. 5-Set-up or Clean-up Assistance-helper sets up or cleans up; patient completes activity. [place] assists only prior to or following the activity. 4-Supervision or Touching Assistance-helper provides verbal cues and/or touching/steadying and/or contact guard assistance as patient completes activity. Assistance may be provided throughout the activity or intermittently. 3-Partial/Moderate Assistance-helper does LESS THAN HALF the effort. [place] lifts, holds or supports trunk or limbs, but provides less than half the effort. 2-Substantial/Maximal Assistance-helper does MORE THAN HALF the effort. [place] lifts or holds trunk or limbs and provides more than half the effort. 7-Rcvykzcqx-dhjqqs does ALL the effort. Patient does none of the effort to complete the activity. Or, the assistance of 2 or more helpers is required for the patient to complete the activity. If activity was not attempted, code reason: 7-Patient Refused. 9-Not Applicable-not attempted and the patient did not perform the activity before the current illness, exacerbation or injury. 10-Not Attempted due to Environmental Limitations-(lack of equipment, weather restraints, etc.). 88-Not Attempted due to Medical Conditions or Safety Concerns. Roll Left to Right (QC): 4 Sit to Lying (QC): 4 Sit to Stand (QC): 4 Chair/Bfp-rd-Rgvoz Xfer(QC): 4 Car Transfer (QC): 4 Gait Training Does the Patient Walk?: Yes Distance: 150' x2 Walk 10 feet (QC): 4 Walk 50 ft with 2 Turns(QC): 4 Walk 150 ft (QC): 4 Walking 10ft/uneven surface-QC: 4 Gait Assistive Device: FWW Wheelchair Training Wheel 50 ft with 2 turns (QC): 9 Wheel 150 ft (QC): 9 Stair Training Stair Training: Handrails/: 2 handrails #of Steps: 4 1 Step (curb) (QC): 4 4 Steps (QC): 4 12 Steps (QC): 88 Stairs: Pattern: Step to Balance Picking up an Object (QC): 88 ADL-Treatment Eating (QC): 7 Oral Hygiene (QC): 5 (Per clinical judgment.) Bathing Location: L Arm, R Arm, L Upper Leg, R Upper Leg, L Lower Leg (including foot), R Lower Leg (including foot), Chest, Abdomen, Buttocks, Perineal Area Shower/Bathe Self (QC): 7 Upper Body Dressing (QC): 7 Lower Body Dressing (QC): 7 On/Off Footwear (QC): 7 Toileting Hygiene (QC): 5 (set up/clean up with urinal) Assessment/Plan Assessment and Plan Assess & Plan/Chief Complaint Assessment: Status post left hip fracture Postop anemia requiring transfusion on 09/18/2021 and again on 09/19/2021 CAD previous bypass Hypertension Chronic kidney disease Hyperlipidemia BPH Urinary retention UTI placed on Bactrim after consulting Dr. Toledo Plan: Monitor hemoglobin Monitor need for holding Lovenox depending on hemoglobin Aggressive PT and OT Supportive care 09/19/2021: Dr. Toledo consult appreciated Bactrim until urine culture final Monitor hemoglobin (1) Intertrochanteric fracture of left femur Status: Acute (2) Acute kidney injury superimposed on chronic kidney disease Status: Acute (3) CAD (coronary artery disease) (4) Hx of CABG (5) Transfusion of blood during current hospitalisation (6) BPH (benign prostatic hyperplasia) (7) Urinary retention (8) Acute postoperative anemia due to expected blood loss Status: Acute (9) Orthostatic hypotension Status: Acute PADDY CASAS DO Sep 19, 2021 05:48
[2021-09-19 05:58] LABS: BASOPHILS % (AUTO) 0 % (0-10); EOSINOPHILS # (AUTO) 0.2 10^3/uL (0.0-0.3); EOSINOPHILS % (AUTO) 1 % (0-10); LYMPHOCYTES # (AUTO) 1.4 10^3/uL (1.0-4.0); LYMPHOCYTES % (AUTO) 9 % (12-44); MEAN CORPUSCULAR HEMOGLOBIN 25 pg (25-34); MEAN CORPUSCULAR HGB CONC 32 g/dL (32-36); MEAN CORPUSCULAR VOLUME 78 fL (80-99); MEAN PLATELET VOLUME 9.3 fL (9.0-12.2); MONOCYTES # (AUTO) 1.3 10^3/uL (0.0-1.0); MONOCYTES % (AUTO) 8 % (0-12); NEUTROPHILS # (AUTO) 13.2 10^3/uL (1.8-7.8); NEUTROPHILS % (AUTO) 81 % (42-75); PLATELET COUNT 328 10^3/uL (130-400); WHITE BLOOD COUNT 16.3 10^3/uL (4.3-11.0)
[2021-09-19] MEDS: inSUlin ASPART (NovoLOG) 1 UNIT/0.01 ML (CHARGE PER UNIT) SC SCH ×4 (06:00→21:01)
[2021-09-19 06:01] LABS: HEMATOCRIT 20 % (40-54); HEMOGLOBIN 6.5 g/dL (13.3-17.7)
[2021-09-19 06:02] LABS: POTASSIUM 3.9 MMOL/L (3.6-5.0)
[2021-09-19 06:03] LABS: CALCIUM 9.4 MG/DL (8.5-10.1)
[2021-09-19 06:04] LABS: TOTAL PROTEIN 7.1 GM/DL (6.4-8.2)
[2021-09-19 06:06] LABS: BILIRUBIN,TOTAL 0.6 MG/DL (0.1-1.0)
[2021-09-19 06:08] LABS: CREATININE SERUM 1.34 MG/DL (0.60-1.30)
[2021-09-19] MEDS ORDERED: NS IV 500 ML 500 ML IV SCH ×2 (06:30)
[2021-09-19] MEDS ORDERED: FUROSEMIDE 40 MG/4 ML INJ (LASIX) IVP NR (06:30)
[2021-09-19] MEDS: ONDANSETRON 4 MG (ZOFRAN) ORAL DISSOLVE TAB PO PRN (07:27)
[2021-09-19 08:07] LABS: BILIRUBIN,URINE NEGATIVE (NEGATIVE); CLARITY,URINE CLEAR; COLOR,URINE YELLOW; GLUCOSE, URINE (UA) NEGATIVE (NEGATIVE); KETONES,URINE NEGATIVE (NEGATIVE); LEUKOCYTE ESTERASE ,URINE 3+ (NEGATIVE); NITRITE,URINE NEGATIVE (NEGATIVE); PH,URINE 7.5 (5-9); PROTEIN,URINE TRACE (NEGATIVE)
[2021-09-19 08:13] LABS: BACTERIA,URINE LARGE /HPF; WBC,URINE >100 /HPF
[2021-09-19] MEDS: TAMSULOSIN 0.4 MG (FLOMAX) CAP PO SCH ×2 (08:35→20:50)
[2021-09-19] MEDS: DOCUSATE SODIUM 100 MG (COLACE) CAP PO SCH ×2 (08:35→20:49)
[2021-09-19] MEDS: SENNA W/DOCUSATE (SENOKOT S) TABLET PO SCH ×2 (08:35→21:00)
[2021-09-19] MEDS: eZETimibe 10 MG (ZETIA) TABLET PO SCH (08:35)
[2021-09-19] MEDS: SENNOSIDES 8.6 MG (SENOKOT) TAB PO SCH ×2 (08:36→21:00)
[2021-09-19] MEDS: polyethylene glycoL POWDER 17 GM (MIRALAX) PACK PO SCH ×2 (08:36→21:00)
--- NOTE | 2021-09-19 08:55 | Occupational Ther Daily Note ---
OT Current Status-Daily Note Subjective Pt alert, laying in bed when OT entered. Nrsing stated pt has felt dizzy earlier in the morning. Pt reported 8/10 pain. Nrsing notified. Mental Status/Objective Patient Orientation: Person, Place, Time, Situation ADL-Treatment Due to pt feeling dizzy out of bed, pt requested to complete sponge bath at EOB. Pt transferred to EOB and stated he was feeling dizzy and requested to lay back down. Pt completed sponge bath while laying in bed. After set up of materials required, pt cleansed UB, chest, abdomen, nicko area, and LB while laying in bed. Pt required min A to thread BLE through LB dressing. Pt able to hike LB dressing by using bridge technique. Pt requested to complete oral care. After set up of, pt placed dentures in cup to complete oral hygiene. Therapy Code Descriptions/Definitions Functional [place] Measure: 0=Not Assessed/NA 4=Minimal Assistance 1=Total Assistance 5=Supervision or Setup 2=Maximal Assistance 6=Modified [place] 3=Moderate Assistance 7=Complete IndependenceSCALE: Activities may be completed with or without assistive devices. 7-Tsdggrmywv-bunrchy completes the activity by him/herself with no assistance from a helper. 5-Set-up or Clean-up Assistance-helper sets up or cleans up; patient completes activity. [place] assists only prior to or following the activity. 4-Supervision or Touching Assistance-helper provides verbal cues and/or touching/steadying and/or contact guard assistance as patient completes activity. Assistance may be provided throughout the activity or intermittently. 3-Partial/Moderate Assistance-helper does LESS THAN HALF the effort. [place] lifts, holds or supports trunk or limbs, but provides less than half the effort. 2-Substantial/Maximal Assistance-helper does MORE THAN HALF the effort. [place] lifts or holds trunk or limbs and provides more than half the effort. 5-Yomlzbkuo-mvpzxo does ALL the effort. Patient does none of the effort to complete the activity. Or, the assistance of 2 or more helpers is required for the patient to complete the activity. If activity was not attempted, code reason: 7-Patient Refused. 9-Not Applicable-not attempted and the patient did not perform the activity before the current illness, exacerbation or injury. 10-Not Attempted due to Environmental Limitations-(lack of equipment, weather restraints, etc.). 88-Not Attempted due to Medical Conditions or Safety Concerns. Other Treatment Skilled instruction required of BUE exercises. Pt completed x1 set of 10 reps of BUE against gravity exercises in all planes for increase activity tolerance. Pt required frequent resting break due to fatigue. After session, pt laying in bed. Call light in reach and all needs met. Education OT Patient Education: Correct positioning, Energy conservation, Exercise progr am, Modified ADL techniques Teaching Recipient: Patient Teaching Methods: Demonstration, Discussion Response to Teaching: Verbalize Understanding, Return Demonstration OT Short Term Goals Short Term Goals Time Frame: Sep 22, 2021 Oral hygiene: 5 Shower/bathe self: 4 Lower body dressin OT Correction Goals Correction Goals Time Frame: Oct 06, 2021 Eating (QC): 6 Oral Hygiene (QC): 6 Toileting Hygiene (QC): 6 Shower/Bathe Self (QC): 6 Upper Body Dressing (QC): 6 Lower Body Dressing (QC): 6 On/Off Footwear (QC): 6 Additional Goals: 1-Demonstrate ADL Tasks, 2-Verbalize Understanding, 3- ImproveStrength/Liyah 1=Demonstrate adherence to instructed precautions during ADL tasks. 2=Patient will verbalize/demonstrate understanding of assistive devices/m odifications for ADL. 3=Patient will improve strength/tolerance for activity to enable patient to perform ADL's. OT Education/Plan Problem List/Assessment Assessment: Decreased Activ Tolerance, Decreased UE Strength, Impaired I ADL's, Impaired Self-Care Skills Discharge Recommendations Plan/Recommendations: Continue POC Treatment Plan/Plan of Care Patient would benefit from OT for education, treatment and training to promote independence in ADL's, mobility, safety and/or upper extremity function for ADL's. Plan of Care: ADL Retraining, Functional Mobility, Group Exercise/Act as Ind, UE Funct Exercise/Act Treatment Duration: Sep 29, 2021 Frequency: At least 5 of 7 days/Wk (IRF) Estimated Hrs Per Day: 1.5 hours per day Agreement: Yes Rehab Potential: Good Time/GCodes Start Time: 08:00 Stop Time: 09:00 Total Time Billed (hr/min): 60 Billed Treatment Time 1 visit- ADL 3 (42 mins) EX 1 (18 mins) SHAUNA MALDONADO Sep 19, 2021 08:55
[2021-09-19] MEDS: TRIM/SULFAMETH 160/800 (SEPTRA DS) TAB PO SCH ×2 (10:57→17:50)
--- NOTE | 2021-09-19 11:04 | Occupational Ther Daily Note ---
OT Current Status-Daily Note Subjective Pt alert, laying in bed when OT entered. Pt stated feeling hot and wanted his temperature take. Nrsing notified. Mental Status/Objective Patient Orientation: Person, Place, Time, Situation ADL-Treatment Therapy Code Descriptions/Definitions Functional [place] Measure: 0=Not Assessed/NA 4=Minimal Assistance 1=Total Assistance 5=Supervision or Setup 2=Maximal Assistance 6=Modified [place] 3=Moderate Assistance 7=Complete IndependenceSCALE: Activities may be completed with or without assistive devices. 0-Subbpcpcxu-djrkqpc completes the activity by him/herself with no assistance from a helper. 5-Set-up or Clean-up Assistance-helper sets up or cleans up; patient completes activity. [place] assists only prior to or following the activity. 4-Supervision or Touching Assistance-helper provides verbal cues and/or touching/steadying and/or contact guard assistance as patient completes activity. Assistance may be provided throughout the activity or intermittently. 3-Partial/Moderate Assistance-helper does LESS THAN HALF the effort. [place] lifts, holds or supports trunk or limbs, but provides less than half the effort. 2-Substantial/Maximal Assistance-helper does MORE THAN HALF the effort. [place] lifts or holds trunk or limbs and provides more than half the effort. 2-Beslajnaa-cokouw does ALL the effort. Patient does none of the effort to complete the activity. Or, the assistance of 2 or more helpers is required for the patient to complete the activity. If activity was not attempted, code reason: 7-Patient Refused. 9-Not Applicable-not attempted and the patient did not perform the activity before the current illness, exacerbation or injury. 10-Not Attempted due to Environmental Limitations-(lack of equipment, weather restraints, etc.). 88-Not Attempted due to Medical Conditions or Safety Concerns. Other Treatment Co-treat from ([id number]) due to skill of 2 clinicians required due to increase pain, and due to pt's limitations in strength, and activity tolerance. OT focused on UE placement, UE exercise. PT focused on LE placement, gross overall movements, and LE exercises. Skilled instruction required of green theraband exercises. Pt completed x1 set of 10 reps of BUE green theraband exercises in all planes for increased BUE strength. Pt required resting break due to decreased activity tolerance. After session, pt with PT finishing treatment Education OT Patient Education: Correct positioning, Energy conservation, Exercise program, Home exercise program Teaching Recipient: Patient Teaching Methods: Demonstration, Discussion Response to Teaching: Verbalize Understanding, Return Demonstration OT Short Term Goals Short Term Goals Time Frame: Sep 22, 2021 Oral hygiene: 5 Shower/bathe self: 4 Lower body dressin OT Long-Term Goals Long-Term Goals Time Frame: Oct 06, 2021 Eating (QC): 6 Oral Hygiene (QC): 6 Toileting Hygiene (QC): 6 Shower/Bathe Self (QC): 6 Upper Body Dressing (QC): 6 Lower Body Dressing (QC): 6 On/Off Footwear (QC): 6 Additional Goals: 1-Demonstrate ADL Tasks, 2-Verbalize Understanding, 3- ImproveStrength/Liyah 1=Demonstrate adherence to instructed precautions during ADL tasks. 2=Patient will verbalize/demonstrate understanding of assistive devices/modifications for ADL. 3=Patient will improve strength/tolerance for activity to enable patient to perform ADL's. OT Education/Plan Problem List/Assessment Assessment: Decreased Activ Tolerance, Decreased UE Strength, Impaired I ADL's, Impaired Self-Care Skills Discharge Recommendations Plan/Recommendations: Continue POC Treatment Plan/Plan of Care Patient would benefit from OT for education, treatment and training to promote independence in ADL's, mobility, safety and/or upper extremity function for ADL's. Plan of Care: ADL Retraining, Functional Mobility, Group Exercise/Act as Ind, UE Funct Exercise/Act Treatment Duration: Sep 29, 2021 Frequency: At least 5 of 7 days/Wk (IRF) Estimated Hrs Per Day: 1.5 hours per day Agreement: Yes Rehab Potential: Good Time/GCodes Start Time: 10:30 Stop Time: 11:00 Total Time Billed (hr/min): 30 Billed Treatment Time 1 visit- EX 2 (30 mins) SHAUNA MALDONADO Sep 19, 2021 11:04
--- NOTE | 2021-09-19 13:08 | CONSULTATION REPORT ---
DATE OF SERVICE: 09/19/2021 ATTENDING PHYSICIAN: Dr. Tavarez and Dr. Feliz. SUMMARY: After reviewing the patient's record and interviewing him, this is an 81-year-old white man recovering from a left hip fracture surgery. He has been having some trouble passing urine, especially when lying in bed and also dysuria and urinary tract issue suspicious of infection. He did have a urinalysis showing white cells and large amount of bacteria. Culture is pending. He has been seeing Dr. Diaz in [place] for BPH. He has had a recent rectal exam and a PSA today, according to him were normal. He has been taking Flomax b.i.d. at home and finasteride 5 mg daily and that seems to be helping him. Dr. Diaz told him that he will see him on a p.r.n. basis if he wishes and just follow up with his PCP for that. His postvoid residual by bladder scan was 116. He was started on Urecholine, which are held. IMPRESSION: Benign prostatic hyperplasia with prostatism and urinary tract infection. PLAN: 1. Continue Flomax b.i.d. and finasteride daily. 2. Hold Urecholine. I think if we treat the symptoms of infection that dysuria could be reflected inhibiting his urination, he will improve his urination. We will do a daily bladder scan, postvoid residual p.r.n. and manage accordingly. The plan was fully explained to the patient and the nurse. CC: Dr. Feliz - requested, unable to deliver. Job ID: [id number] DocumentID: [id number] Dictated Date: 09/19/2021 10:27:50 Blanket Maker Date: 09/19/2021 13:07:34 Dictated By: ELIZABETH CALVILLO MD
--- NOTE | 2021-09-19 13:21 | Physical Therapy Daily Note ---
PT Daily Note-Current Transfers SCALE: Activities may be completed with or without assistive devices. 0-Yhnfdckrmw-qllxcom completes the activity by him/herself with no assistance from a helper. 5-Set-up or Clean-up Assistance-helper sets up or cleans up; patient completes activity. [place] assists only prior to or following the activity. 4-Supervision or Touching Assistance-helper provides verbal cues and/or touching/steadying and/or contact guard assistance as patient completes activity. Assistance may be provided throughout the activity or intermittently. 3-Partial/Moderate Assistance-helper does LESS THAN HALF the effort. [place] lifts, holds or supports trunk or limbs, but provides less than half the effort. 2-Substantial/Maximal Assistance-helper does MORE THAN HALF the effort. [place] lifts or holds trunk or limbs and provides more than half the effort. 9-Rayopbvar-mcoiax does ALL the effort. Patient does none of the effort to complete the activity. Or, the assistance of 2 or more helpers is required for the patient to complete the activity. If activity was not attempted, code reason: 7-Patient Refused. 9-Not Applicable-not attempted and the patient did not perform the activity before the current illness, exacerbation or injury. 10-Not Attempted due to Environmental Limitations-(lack of equipment, weather restraints, etc.). 88-Not Attempted due to Medical Conditions or Safety Concerns. Weight Bearing Left Lower Extremity: Left Weight Bearing/Tolerated Treatments Co-treat from ([id number]) due to skill of 2 clinicians required due to increase pain, and due to pt's limitations in strength, and activity tolerance. OT focused on UE placement, UE exercise. PT focused on LE placement, gross overall movements, and LE exercises. Skilled instruction required of green theraband exercises for OT and Supine EX for PT. Pt takes RB as needed. ([id number]) Pt requests to use BR for possible BM. After no success, pt stands and returns to recliner. Lab arrives for blood draw and Nurse takes Blood Sugar. Pt completes Seated EX then rests at end of tx with all needs met, call light in hand. Assessment Current Status: Fair Progress Pt reports not feeling well to start and during tx. Temperature is taken and no fever but Nurse reports pt feeling clammy. BP taken 172/77, O2 is 99%. Pt fatigue easier than previous tx. PT Section Leader Goals Long-Term Goals PT Long-Term Goals Time Frame: Oct 16, 2021 Roll Left & Right (QC): 6 Sit to Lying (QC): 6 Lying-Sitting on Side/Bed(QC): 6 Sit to Stand (QC): 6 Chair/Tyl-jb-Oofxb Xfer(QC): 6 Toilet Transfer (QC): 6 Car Transfer (QC): 6 Does the Patient Walk: Yes Walk 10 feet (QC): 6 Walk 50ft with 2 Turns (QC): 6 Walk 150 ft (QC): 6 Walking 10ft on Uneven Surface: 6 1 Step (curb) (QC): 6 4 Steps (QC): 6 12 Steps (QC): 6 Picking up an Object (QC): 6 Does the Pt use WC or Scooter?: No Wheel 50 feet with 2 turns (QC: 9 Type: N/A Wheel 150 feet: 9 Type: N/A PT Plan Problem List Problem List: Activity Tolerance, Functional Strength Treatment/Plan Treatment Plan: Continue Plan of Care Treatment Plan: Bed Mobility, Education, Functional Activity Liyah, Functional Strength, Group Therapy, Gait, Safety, Therapeutic Exercise, Transfers Treatment Duration: Oct 16, 2021 Frequency: At least 5 of 7 days/Wk (IRF) Estimated Hrs Per Day: 1.5 hours per day Patient and/or Family Agrees t: Yes Safety Risks/Education Patient Education: Reviewed Precautions, Correct Positioning Teaching Recipient: Patient Teaching Methods: Discussion Response to Teaching: Verbalize Understanding Time/GCodes Time In: 1030 Time Out: 1200 Total Billed Treatment Time: 90 Total Billed Treatment 1, EX x2 (30m) & FA x4 (60m) MISTY LION PTA Sep 19, 2021 13:21
[2021-09-19] MEDS: FINASTERIDE (PROSCAR) 5 MG TAB PO SCH (20:50)
[2021-09-19] MEDS: ENOXAPARIN 40 MG/0.4 ML (LOVENOX) SYR SC SCH (20:51)
[2021-09-19] MEDS: ASPIRIN E.C. 81 MG (ECOTRIN) TAB PO SCH (20:52)
[2021-09-20 05:44] LABS: BASOPHILS % (AUTO) 0 % (0-10); EOSINOPHILS # (AUTO) 0.3 10^3/uL (0.0-0.3); EOSINOPHILS % (AUTO) 3 % (0-10); HEMATOCRIT 25 % (40-54); HEMOGLOBIN 8.3 g/dL (13.3-17.7); LYMPHOCYTES # (AUTO) 1.4 10^3/uL (1.0-4.0); LYMPHOCYTES % (AUTO) 16 % (12-44); MEAN CORPUSCULAR HEMOGLOBIN 26 pg (25-34); MEAN CORPUSCULAR HGB CONC 33 g/dL (32-36); MEAN CORPUSCULAR VOLUME 79 fL (80-99); MEAN PLATELET VOLUME 8.9 fL (9.0-12.2); MONOCYTES # (AUTO) 1.1 10^3/uL (0.0-1.0); MONOCYTES % (AUTO) 12 % (0-12); NEUTROPHILS # (AUTO) 6.1 10^3/uL (1.8-7.8); NEUTROPHILS % (AUTO) 68 % (42-75); PLATELET COUNT 281 10^3/uL (130-400); WHITE BLOOD COUNT 9.1 10^3/uL (4.3-11.0)
[2021-09-20 06:01] LABS: ALBUMIN 3.7 GM/DL (3.2-4.5); POTASSIUM 3.7 MMOL/L (3.6-5.0)
[2021-09-20] MEDS: inSUlin ASPART (NovoLOG) 1 UNIT/0.01 ML (CHARGE PER UNIT) SC SCH ×4 (06:01→20:33)
[2021-09-20 06:04] LABS: TOTAL PROTEIN 6.4 GM/DL (6.4-8.2)
[2021-09-20 06:05] LABS: BILIRUBIN,TOTAL 0.5 MG/DL (0.1-1.0)
[2021-09-20 06:07] LABS: CREATININE SERUM 1.58 MG/DL (0.60-1.30)
[2021-09-20 07:38] VITALS: BP 103/57
--- NOTE | 2021-09-20 08:07 | PM&R Progress Note ---
Subjective HPI/CC On Admission Date Seen by Provider: Sep 20, 2021 Time Seen by Provider: 11:00 Subjective/Events-last exam 09/20/2021: Pt doing really well Hemoglobin stable at 8.3 Cystoscopy will be preformed at 12 Pain issues are managed blood pressure is 103/57 Very Dizzy at times Bowels are moving Headache and Tylenol was given 09/19/2021: Pt having difficulties Lot of somatic complaints One unit of blood given for hemoglobin of 6.3 BP varies White count of 16 UTI will be managed with placement of Bactrim by Dr. Toledo Bowels moved yesterday Review of Systems General: Fatigue, Malaise Musculoskeletal: leg pain Objective Exam Vital Signs Vital Signs Date Time Temp Pulse Resp B/P (MAP) Pulse Ox O2 Delivery O2 Flow Rate FiO2 09/20/21 20:30 99 Room Air 09/20/21 20:26 36.0 89 20 136/63 (87) Capillary Refill : General Appearance: No Apparent Distress, WD/WN, Chronically ill HEENT: PERRL/EOMI, Normal ENT Inspection, Pharynx Normal Neck: Full Range of Motion, Normal Inspection, Non Tender, Supple, Carotid Bruit Respiratory: Chest Non Tender, Lungs Clear, Normal Breath Sounds, No Accessory Muscle Use, No Respiratory Distress Cardiovascular: Regular Rate, Rhythm, No Edema, No Gallop, No JVD, No Murmur, Normal Peripheral Pulses Gastrointestinal: Normal Bowel Sounds, No Organomegaly, No Pulsatile Mass, Non Tender, Soft Back: Normal Inspection, No CVA Tenderness, No Vertebral Tenderness Extremity: Normal Capillary Refill, Normal Inspection, Normal Range of Motion (except left leg), Non Tender, No Calf Tenderness, No Pedal Edema Neurologic/Psychiatric: Alert, Oriented x3, No Motor/Sensory Deficits, pharmacy technician assistant II- XII Norm as Tested, Abnormal Gait, Depressed Affect, Motor Weakness (generalized) Skin: Normal Color, Warm/Dry Lymphatic: No Adenopathy Results/Procedures Lab Patient resulted labs reviewed. FIM Transfers Therapy Code Descriptions/Definitions Functional [place] Measure: 0=Not Assessed/NA 4=Minimal Assistance 1=Total Assistance 5=Supervision or Setup 2=Maximal Assistance 6=Modified [place] 3=Moderate Assistance 7=Complete IndependenceSCALE: Activities may be completed with or without assistive devices. 3-Jnrihtxjxv-uifvmwd completes the activity by him/herself with no assistance from a helper. 5-Set-up or Clean-up Assistance-helper sets up or cleans up; patient completes activity. [place] assists only prior to or following the activity. 4-Supervision or Touching Assistance-helper provides verbal cues and/or touching/steadying and/or contact guard assistance as patient completes activity. Assistance may be provided throughout the activity or intermittently. 3-Partial/Moderate Assistance-helper does LESS THAN HALF the effort. [place] lifts, holds or supports trunk or limbs, but provides less than half the effort. 2-Substantial/Maximal Assistance-helper does MORE THAN HALF the effort. [place] lifts or holds trunk or limbs and provides more than half the effort. 8-Qsqyegxbq-otxjoc does ALL the effort. Patient does none of the effort to complete the activity. Or, the assistance of 2 or more helpers is required for the patient to complete the activity. If activity was not attempted, code reason: 7-Patient Refused. 9-Not Applicable-not attempted and the patient did not perform the activity before the current illness, exacerbation or injury. 10-Not Attempted due to Environmental Limitations-(lack of equipment, weather restraints, etc.). 88-Not Attempted due to Medical Conditions or Safety Concerns. Roll Left to Right (QC): 4 Sit to Lying (QC): 4 Sit to Stand (QC): 4 Chair/Lfu-wb-Nwaam Xfer(QC): 4 Car Transfer (QC): 4 Gait Training Does the Patient Walk?: Yes Distance: 150' x2 Walk 10 feet (QC): 4 Walk 50 ft with 2 Turns(QC): 4 Walk 150 ft (QC): 4 Walking 10ft/uneven surface-QC: 4 Gait Assistive Device: FWW Wheelchair Training Wheel 50 ft with 2 turns (QC): 9 Wheel 150 ft (QC): 9 Stair Training Stair Training: Handrails/: 2 handrails #of Steps: 4 1 Step (curb) (QC): 4 4 Steps (QC): 4 12 Steps (QC): 88 Stairs: Pattern: Step to Balance Picking up an Object (QC): 88 ADL-Treatment Eating (QC): 7 Oral Hygiene (QC): 5 (Per clinical judgment.) Bathing Location: L Arm, R Arm, L Upper Leg, R Upper Leg, L Lower Leg (including foot), R Lower Leg (including foot), Chest, Abdomen, Buttocks, Perineal Area Shower/Bathe Self (QC): 7 Upper Body Dressing (QC): 7 Lower Body Dressing (QC): 7 On/Off Footwear (QC): 7 Toileting Hygiene (QC): 5 (set up/clean up with urinal) Assessment/Plan Assessment and Plan Assess & Plan/Chief Complaint Assessment: Status post left hip fracture Postop anemia requiring transfusion on 09/18/2021 and again on 09/19/2021 CAD previous bypass Hypertension Chronic kidney disease Hyperlipidemia BPH Urinary retention UTI placed on Bactrim after consulting Dr. Toledo Plan: Monitor hemoglobin Monitor need for holding Lovenox depending on hemoglobin Aggressive PT and OT Supportive care 09/19/2021: Dr. Toledo consult appreciated Bactrim until urine culture final Monitor hemoglobin 09/20/21: Supportive care Bactrim Await urine culture (1) Intertrochanteric fracture of left femur Status: Acute (2) Acute kidney injury superimposed on chronic kidney disease Status: Acute (3) CAD (coronary artery disease) (4) Hx of CABG (5) Transfusion of blood during current hospitalisation (6) BPH (benign prostatic hyperplasia) (7) Urinary retention (8) Acute postoperative anemia due to expected blood loss Status: Acute (9) Orthostatic hypotension Status: Acute PADDY CASAS DO Sep 20, 2021 08:07
[2021-09-20] MEDS: TAMSULOSIN 0.4 MG (FLOMAX) CAP PO SCH ×2 (08:48→20:27)
[2021-09-20] MEDS: SENNOSIDES 8.6 MG (SENOKOT) TAB PO SCH ×2 (08:48→20:33)
[2021-09-20] MEDS: TRIM/SULFAMETH 160/800 (SEPTRA DS) TAB PO SCH ×2 (08:48→18:23)
[2021-09-20] MEDS: DOCUSATE SODIUM 100 MG (COLACE) CAP PO SCH ×2 (08:48→20:32)
[2021-09-20] MEDS: eZETimibe 10 MG (ZETIA) TABLET PO SCH (08:48)
--- NOTE | 2021-09-20 08:55 | Occupational Ther Daily Note ---
OT Current Status-Daily Note Subjective Pt in recliner. Pt states right shoulder pain 02/25 due to having a COVID shot in June and pain in his left leg, no able to rate. Pt agreeable to OT tx. Mental Status/Objective Patient Orientation: Person, Place, Situation Attachments: IV ADL-Treatment Therapy Code Descriptions/Definitions Functional [place] Measure: 0=Not Assessed/NA 4=Minimal Assistance 1=Total Assistance 5=Supervision or Setup 2=Maximal Assistance 6=Modified [place] 3=Moderate Assistance 7=Complete IndependenceSCALE: Activities may be completed with or without assistive devices. 3-Eaqiwledph-imloyjn completes the activity by him/herself with no assistance from a helper. 5-Set-up or Clean-up Assistance-helper sets up or cleans up; patient completes activity. [place] assists only prior to or following the activity. 4-Supervision or Touching Assistance-helper provides verbal cues and/or touching/steadying and/or contact guard assistance as patient completes activity. Assistance may be provided throughout the activity or intermittently. 3-Partial/Moderate Assistance-helper does LESS THAN HALF the effort. [place] lifts, holds or supports trunk or limbs, but provides less than half the effort. 2-Substantial/Maximal Assistance-helper does MORE THAN HALF the effort. [place] lifts or holds trunk or limbs and provides more than half the effort. 1-Nsehsjztq-ygqfaa does ALL the effort. Patient does none of the effort to complete the activity. Or, the assistance of 2 or more helpers is required for the patient to complete the activity. If activity was not attempted, code reason: 7-Patient Refused. 9-Not Applicable-not attempted and the patient did not perform the activity before the current illness, exacerbation or injury. 10-Not Attempted due to Environmental Limitations-(lack of equipment, weather restraints, etc.). 88-Not Attempted due to Medical Conditions or Safety Concerns. Eating (QC): 6 Oral Hygiene (QC): 5 (setup) Bathing Location: L Arm, R Arm, L Upper Leg, R Upper Leg, L Lower Leg (including foot), R Lower Leg (including foot), Chest, Abdomen, Buttocks, Perineal Area Shower/Bathe Self (QC): 5 (setup/cleanup) Upper Body Dressing (QC): 5 (setup) Lower Body Dressing (QC): 4 (SBA ) On/Off Footwear: 3 (min A needed to thread sock over left heel) Toileting Hygiene (QC): 4 (SBA) Toilet Transfer (QC): 4 (SBA) Other Treatment 1st session: Pt in recliner. Pt agrees to complete sponge bath while sitting in recliner. Pt doffed hospital gown and socks, cues needed to initiate task. Pt completed sponge bath with setup, rest breaks needed. Pt donned pants, SBA, shirt set up and socks min A needed to thread sock over left heel, able to don R sock by self. Pt placed/removed x100 pegs, BUE, into pegboard to work on fine motor skills, activity tolerance and strengthening, verbal cues needed to place the pegs into only the empty holes and not on top of each other. Pt worked on a 100 piece puzzle to work on fine motor skills and problem solving. Pt in recliner, call light in reach and all needs met. 2nd session: Set up for oral care after lunch. Pt demonstrated understanding of HEP for theraband. Pt completed 1 set 10 reps with medium heavy theraband of 5 exercises. Only 1 physical cue needed for correct technique. After therapy, pt lying in bed with call light/phone in reach. All needs met. Education OT Patient Education: Correct positioning, Energy conservation, Modified ADL techniques, Progress toward Goal/Update tx plan, Purpose of tx/functional activities, Rehab process Teaching Recipient: Patient Teaching Methods: Demonstration, Discussion Response to Teaching: Verbalize Understanding, Return Demonstration, Reinforcement Needed OT Short Term Goals Short Term Goals Time Frame: Sep 22, 2021 Oral hygiene: 5 Shower/bathe self: 4 Lower body dressin OT Prison Goals Prison Goals Time Frame: Oct 06, 2021 Eating (QC): 6 Oral Hygiene (QC): 6 Toileting Hygiene (QC): 6 Shower/Bathe Self (QC): 6 Upper Body Dressing (QC): 6 Lower Body Dressing (QC): 6 On/Off Footwear (QC): 6 Additional Goals: 1-Demonstrate ADL Tasks, 2-Verbalize Understanding, 3- ImproveStrength/Liyah 1=Demonstrate adherence to instructed precautions during ADL tasks. 2=Patient will verbalize/demonstrate understanding of assistive devices/modifications for ADL. 3=Patient will improve strength/tolerance for activity to enable patient to perform ADL's. OT Education/Plan Problem List/Assessment Assessment: Decreased Activ Tolerance, Decreased UE Strength, Impaired Coordination, Impaired Funct Balance, Impaired I ADL's, Impaired Self-Care Skills Discharge Recommendations Plan/Recommendations: Continue POC Treatment Plan/Plan of Care Patient would benefit from OT for education, treatment and training to promote independence in ADL's, mobility, safety and/or upper extremity function for ADL's. Plan of Care: ADL Retraining, Functional Mobility, Group Exercise/Act as Ind, UE Funct Exercise/Act Treatment Duration: Sep 29, 2021 Frequency: At least 5 of 7 days/Wk (IRF) Estimated Hrs Per Day: 1.5 hours per day Agreement: Yes Rehab Potential: Good Time/GCodes Start Time: 08:00 (1245) Stop Time: 09:00 (1300) Total Time Billed (hr/min): 75 Billed Treatment Time 1 visit ([id number]) ADL 2 (30), FA 2 (30) 1 visit ([id number])FA 1 (15 min) SHANE CORREIA Sep 20, 2021 08:55
[2021-09-20] MEDS: SENNA W/DOCUSATE (SENOKOT S) TABLET PO SCH ×2 (09:04→20:33)
[2021-09-20] MEDS: polyethylene glycoL POWDER 17 GM (MIRALAX) PACK PO SCH ×2 (09:04→20:33)
--- NOTE | 2021-09-20 10:16 | Physical Therapy Daily Note ---
PT Daily Note-Current Subjective Pt is reporting 3/10 hip pain and 6/10 head pain due to headache. Pain Numeric Pain Scale: 3 Location: Left Location Body Site: Hip Pain Description: Ache Mental Status Patient Orientation: Person, Place, Time, Situation Transfers SCALE: Activities may be completed with or without assistive devices. 6-Ljldadrehg-biqsgxv completes the activity by him/herself with no assistance from a helper. 5-Set-up or Clean-up Assistance-helper sets up or cleans up; patient completes activity. [place] assists only prior to or following the activity. 4-Supervision or Touching Assistance-helper provides verbal cues and/or touching/steadying and/or contact guard assistance as patient completes activity. Assistance may be provided throughout the activity or intermittently. 3-Partial/Moderate Assistance-helper does LESS THAN HALF the effort. [place] lifts, holds or supports trunk or limbs, but provides less than half the effort. 2-Substantial/Maximal Assistance-helper does MORE THAN HALF the effort. [place] lifts or holds trunk or limbs and provides more than half the effort. 4-Fipdzxsev-wrllkg does ALL the effort. Patient does none of the effort to complete the activity. Or, the assistance of 2 or more helpers is required for the patient to complete the activity. If activity was not attempted, code reason: 7-Patient Refused. 9-Not Applicable-not attempted and the patient did not perform the activity before the current illness, exacerbation or injury. 10-Not Attempted due to Environmental Limitations-(lack of equipment, weather restraints, etc.). 88-Not Attempted due to Medical Conditions or Safety Concerns. Roll Left & Right (QC): 4 Sit to Lying (QC): 4 Lying to Sitting/Side of Bed(Q: 5 Sit to Stand (QC): 5 Chair/Kxy-ff-Eczow Xfer(QC): 5 Weight Bearing Left Lower Extremity: Left Weight Bearing/Tolerated Gait Training Does the Patient Walk?: Yes Distance: 90ft x2 Walk 10 feet (QC): 5 Walk 50 ft with 2 Turns(QC): 5 Gait Persons Needed: 1 Gait Assistive Device: FWW Wheelchair Training Does the Pt Use a Wheelchair?: No Exercises Supine Ex: LE Protocol Supine Reps: 20 Seated Therapy Exercises: LE Protocol Seated Reps: 20 NuStep Minutes: 15 NuStep Workload: 5 Assessment Current Status: Good Progress Pt was limited by his headache. Mild difficulty with supine hip abduction on the (L). Planning to work on standing ex with next visit. PT Custodial Goals Custodial Goals PT Custodial Goals Time Frame: Oct 16, 2021 Roll Left & Right (QC): 6 Sit to Lying (QC): 6 Lying-Sitting on Side/Bed(QC): 6 Sit to Stand (QC): 6 Chair/Pzd-ft-Zczcu Xfer(QC): 6 Toilet Transfer (QC): 6 Car Transfer (QC): 6 Does the Patient Walk: Yes Walk 10 feet (QC): 6 Walk 50ft with 2 Turns (QC): 6 Walk 150 ft (QC): 6 Walking 10ft on Uneven Surface: 6 1 Step (curb) (QC): 6 4 Steps (QC): 6 12 Steps (QC): 6 Picking up an Object (QC): 6 Does the Pt use WC or Scooter?: No Wheel 50 feet with 2 turns (QC: 9 Type: N/A Wheel 150 feet: 9 Type: N/A PT Plan Treatment/Plan Treatment Plan: Continue Plan of Care Treatment Plan: Bed Mobility, Education, Functional Activity Liyah, Functional Strength, Group Therapy, Gait, Safety, Therapeutic Exercise, Transfers Treatment Duration: Oct 16, 2021 Frequency: At least 5 of 7 days/Wk (IRF) Estimated Hrs Per Day: 1.5 hours per day Patient and/or Family Agrees t: Yes Time/GCodes Time In: 0910 Time Out: 1010 Total Billed Treatment Time: 60 Total Billed Treatment 1, ex x3 (45), gt (15) JUDY GEORGE PT Sep 20, 2021 10:16
[2021-09-20] MEDS: ACETAMINOPHEN 325 MG TABLET PO PRN (10:19)
--- NOTE | 2021-09-20 10:23 | Progress Note - Urology ---
Progress Note-Urology Progress Notes/Assess & Plan Progress/Assessment & Plan PLAN CYSTO TODAY. FULLY EXPLAINED AND CONSENT ORDERED Final Diagnosis RETENTION ELIZABETH CALVILLO MD Sep 20, 2021 10:23
--- NOTE | 2021-09-20 10:34 | Progress Note-Pre Operative ---
Pre-Operative Progress Note H&P Reviewed The H&P was reviewed, patient examined and no changes noted. Date Seen by Provider: Sep 20, 2021 Time Seen by Provider: 10:33 Date H&P Reviewed: Sep 20, 2021 Time H&P Reviewed: 10:33 Pre-Operative Diagnosis: ELIZABETH MATA MD Sep 20, 2021 10:33
--- NOTE | 2021-09-20 12:16 | Physical Therapy Daily Note ---
PT Daily Note-Current Subjective Pt notes that he had tylenol earlier and his headache is gone. He reports 3/10 (L) hip pain during ambulation. Pain Numeric Pain Scale: 3 Location: Left Location Body Site: Hip Pain Description: Ache Mental Status Patient Orientation: Person, Place, Time, Situation Transfers SCALE: Activities may be completed with or without assistive devices. 1-Avubkcfmya-opqxevs completes the activity by him/herself with no assistance from a helper. 5-Set-up or Clean-up Assistance-helper sets up or cleans up; patient completes activity. [place] assists only prior to or following the activity. 4-Supervision or Touching Assistance-helper provides verbal cues and/or touching/steadying and/or contact guard assistance as patient completes activity. Assistance may be provided throughout the activity or intermittently. 3-Partial/Moderate Assistance-helper does LESS THAN HALF the effort. [place] lifts, holds or supports trunk or limbs, but provides less than half the effort. 2-Substantial/Maximal Assistance-helper does MORE THAN HALF the effort. [place] lifts or holds trunk or limbs and provides more than half the effort. 9-Bsrwwnhej-ixpfvl does ALL the effort. Patient does none of the effort to complete the activity. Or, the assistance of 2 or more helpers is required for the patient to complete the activity. If activity was not attempted, code reason: 7-Patient Refused. 9-Not Applicable-not attempted and the patient did not perform the activity before the current illness, exacerbation or injury. 10-Not Attempted due to Environmental Limitations-(lack of equipment, weather restraints, etc.). 88-Not Attempted due to Medical Conditions or Safety Concerns. Roll Left & Right (QC): 4 Sit to Lying (QC): 4 Lying to Sitting/Side of Bed(Q: 4 Sit to Stand (QC): 5 Toilet Transfer (QC): 4 Weight Bearing Left Lower Extremity: Left Weight Bearing/Tolerated Gait Training Does the Patient Walk?: Yes Distance: 100ft, 150ft Walk 10 feet (QC): 5 Walk 50 ft with 2 Turns(QC): 5 Walk 150 ft (QC): 5 Gait Persons Needed: 1 Gait Assistive Device: FWW Exercises Supine Ex: LE Protocol Supine Reps: 20 Seated Therapy Exercises: LE Protocol Seated Reps: 20 Standing: Heel/toe raises, 3 way Ex=Flex, Abd, Ext, Marching Standing Reps: 20 Better tolerance to the standing exercises than supine. Pt showed good glute strength (B) during standing ex. Assessment Current Status: Good Progress Able to advance to standing exercises today with no issues. Need to progress to steps as tolerated. PT Retirement Goals Retirement Goals PT Neuro Urologist Goals Time Frame: Oct 16, 2021 Roll Left & Right (QC): 6 Sit to Lying (QC): 6 Lying-Sitting on Side/Bed(QC): 6 Sit to Stand (QC): 6 Chair/Kgj-dv-Tcgxc Xfer(QC): 6 Toilet Transfer (QC): 6 Car Transfer (QC): 6 Does the Patient Walk: Yes Walk 10 feet (QC): 6 Walk 50ft with 2 Turns (QC): 6 Walk 150 ft (QC): 6 Walking 10ft on Uneven Surface: 6 1 Step (curb) (QC): 6 4 Steps (QC): 6 12 Steps (QC): 6 Picking up an Object (QC): 6 Does the Pt use WC or Scooter?: No Wheel 50 feet with 2 turns (QC: 9 Type: N/A Wheel 150 feet: 9 Type: N/A PT Plan Treatment/Plan Treatment Plan: Continue Plan of Care Treatment Plan: Bed Mobility, Education, Functional Activity Liyah, Functional Strength, Group Therapy, Gait, Safety, Therapeutic Exercise, Transfers Treatment Duration: Oct 16, 2021 Frequency: At least 5 of 7 days/Wk (IRF) Estimated Hrs Per Day: 1.5 hours per day Patient and/or Family Agrees t: Yes Time/GCodes Time In: 1115 Time Out: 1200 Total Billed Treatment Time: 45 Total Billed Treatment 1, gt (15), ex x2 (30) JUDY GEORGE PT Sep 20, 2021 12:16
[2021-09-20 20:26] VITALS: BP 136/63
[2021-09-20] MEDS: ENOXAPARIN 40 MG/0.4 ML (LOVENOX) SYR SC SCH (20:27)
[2021-09-20] MEDS: ASPIRIN E.C. 81 MG (ECOTRIN) TAB PO SCH (20:27)
[2021-09-20] MEDS: FINASTERIDE (PROSCAR) 5 MG TAB PO SCH (20:27)
[2021-09-21] MEDS: inSUlin ASPART (NovoLOG) 1 UNIT/0.01 ML (CHARGE PER UNIT) SC SCH ×4 (05:36→20:35)
[2021-09-21 07:30] VITALS: BP 110/57
[2021-09-21] MEDS: DOCUSATE SODIUM 100 MG (COLACE) CAP PO SCH ×2 (07:57→20:42)
[2021-09-21] MEDS: SENNOSIDES 8.6 MG (SENOKOT) TAB PO SCH ×2 (07:57→20:42)
[2021-09-21] MEDS: eZETimibe 10 MG (ZETIA) TABLET PO SCH (07:57)
[2021-09-21] MEDS: TRIM/SULFAMETH 160/800 (SEPTRA DS) TAB PO SCH ×2 (07:57→17:43)
[2021-09-21] MEDS: TAMSULOSIN 0.4 MG (FLOMAX) CAP PO SCH ×2 (07:57→20:41)
[2021-09-21] MEDS: SENNA W/DOCUSATE (SENOKOT S) TABLET PO SCH ×2 (07:57→20:41)
[2021-09-21] MEDS: polyethylene glycoL POWDER 17 GM (MIRALAX) PACK PO SCH ×2 (09:00→20:40)
--- NOTE | 2021-09-21 09:12 | Occupational Ther Daily Note ---
OT Current Status-Daily Note Subjective Pt reports hip pain as 2/10, states pain meds given prior to therapy arrival. Appearance Returned to sitting in recliner, all needs within reach. Mental Status/Objective Attachments: IV ADL-Treatment Therapy Code Descriptions/Definitions Functional [place] Measure: 0=Not Assessed/NA 4=Minimal Assistance 1=Total Assistance 5=Supervision or Setup 2=Maximal Assistance 6=Modified [place] 3=Moderate Assistance 7=Complete IndependenceSCALE: Activities may be completed with or without assistive devices. 7-Slewwokjhh-vqsshsz completes the activity by him/herself with no assistance from a helper. 5-Set-up or Clean-up Assistance-helper sets up or cleans up; patient completes activity. [place] assists only prior to or following the activity. 4-Supervision or Touching Assistance-helper provides verbal cues and/or touching/steadying and/or contact guard assistance as patient completes activity. Assistance may be provided throughout the activity or intermittently. 3-Partial/Moderate Assistance-helper does LESS THAN HALF the effort. [place] lifts, holds or supports trunk or limbs, but provides less than half the effort. 2-Substantial/Maximal Assistance-helper does MORE THAN HALF the effort. [place] lifts or holds trunk or limbs and provides more than half the effort. 3-Apqmkxfzn-vgvkfr does ALL the effort. Patient does none of the effort to complete the activity. Or, the assistance of 2 or more helpers is required for the patient to complete the activity. If activity was not attempted, code reason: 7-Patient Refused. 9-Not Applicable-not attempted and the patient did not perform the activity before the current illness, exacerbation or injury. 10-Not Attempted due to Environmental Limitations-(lack of equipment, weather restraints, etc.). 88-Not Attempted due to Medical Conditions or Safety Concerns. Upper Body Dressing (QC): 5 Lower Body Dressing (QC): 4 On/Off Footwear: 4 Toileting Hygiene (QC): 4 Toilet Transfer (QC): 4 Pt verbalizes feelings of lightheadedness. BP: 93/61, HR: 88bpm; agreeable to treatment as much as tolerable. RN notified. Sit<>stand: SBA. He ambulated to/from bathroom with close sba-cga due to low blood pressure. C/o pain in neck. Walker adjusted to correct height, cues to not push all weight through UE's. Partial sponge bath performed standing at sink. Pt washed upper body only, close supervision for safety. He verbalizes back pain with prolong standing and requires a sitting rest break at end of activity. Pt presents with Kyphotic posture and appears to have some leg length discrepancies. He sat to don clothing. After failed attempt to don L sock, OT instructed pt on use of sock aid. Post instruction, he was able to complete with verbal cues only. BP at end of session: 108/53, HR: 105 bpm. Slow processing, appears to have some short term memory loss. Education OT Patient Education: Correct positioning, Energy conservation, Modified ADL techniques, Progress toward Goal/Update tx plan, Purpose of tx/functional activities, Safety issues, Use of adapted equipment Teaching Recipient: Patient Teaching Methods: Demonstration, Discussion Response to Teaching: Verbalize Understanding, Return Demonstration, Reinforcement Needed OT Short Term Goals Short Term Goals Time Frame: Sep 22, 2021 Oral hygiene: 5 Shower/bathe self: 4 Lower body dressin OT [facility]sp Goals Therapeutic Consultant Goals Time Frame: Oct 06, 2021 Eating (QC): 6 Oral Hygiene (QC): 6 Toileting Hygiene (QC): 6 Shower/Bathe Self (QC): 6 Upper Body Dressing (QC): 6 Lower Body Dressing (QC): 6 On/Off Footwear (QC): 6 Additional Goals: 1-Demonstrate ADL Tasks, 2-Verbalize Understanding, 3- ImproveStrength/Liyah 1=Demonstrate adherence to instructed precautions during ADL tasks. 2=Patient will verbalize/demonstrate understanding of assistive devices/modifications for ADL. 3=Patient will improve strength/tolerance for activity to enable patient to perform ADL's. OT Education/Plan Problem List/Assessment Assessment: Decreased Activ Tolerance, Decreased UE Strength, Impaired Cognition, Impaired Funct Balance, Impaired I ADL's, Impaired Self-Care Skills Discharge Recommendations Plan/Recommendations: Continue POC Equpiment Recommendations-D/C: Extended Bath Bench, Sock Aide Comment Pt reports he does not have a tub bench, OT to practice tub transfers in future sessions. Treatment Plan/Plan of Care Treatment,Training & Education: Yes Patient would benefit from OT for education, treatment and training to promote independence in ADL's, mobility, safety and/or upper extremity function for ADL's. Plan of Care: ADL Retraining, Functional Mobility, Group Exercise/Act as Ind, UE Funct Exercise/Act Treatment Duration: Sep 29, 2021 Frequency: At least 5 of 7 days/Wk (IRF) Estimated Hrs Per Day: 1.5 hours per day Agreement: Yes Rehab Potential: Good Time/GCodes Start Time: 07:55 Stop Time: 09:00 Total Time Billed (hr/min): 65 Billed Treatment Time 1 visit ADL x4 Yanni Collado OT Sep 21, 2021 09:12
[2021-09-21] MEDS: ACETAMINOPHEN 325 MG TABLET PO PRN (09:40)
[2021-09-21] MEDS: ONDANSETRON 4 MG (ZOFRAN) ORAL DISSOLVE TAB PO PRN (10:26)
--- NOTE | 2021-09-21 10:38 | Physical Therapy Daily Note ---
PT Daily Note-Current Subjective Patient presented sitting in his chair and agrees to physical therapy. Patient reports slight dizziness and BP was obtained and was 105/57. Pain Numeric Pain Scale: 3 Location: Left Location Body Site: Hip Pain Description: Acute Comment: at rest Mental Status Patient Orientation: Person, Place, Time, Situation Transfers SCALE: Activities may be completed with or without assistive devices. 0-Rshrtkvskl-pvysinc completes the activity by him/herself with no assistance from a helper. 5-Set-up or Clean-up Assistance-helper sets up or cleans up; patient completes activity. [place] assists only prior to or following the activity. 4-Supervision or Touching Assistance-helper provides verbal cues and/or touching/steadying and/or contact guard assistance as patient completes activity. Assistance may be provided throughout the activity or intermittently. 3-Partial/Moderate Assistance-helper does LESS THAN HALF the effort. [place] lifts, holds or supports trunk or limbs, but provides less than half the effort. 2-Substantial/Maximal Assistance-helper does MORE THAN HALF the effort. [place] lifts or holds trunk or limbs and provides more than half the effort. 8-Mfgkipkdr-ijgbid does ALL the effort. Patient does none of the effort to compl ete the activity. Or, the assistance of 2 or more helpers is required for the patient to complete the activity. If activity was not attempted, code reason: 7-Patient Refused. 9-Not Applicable-not attempted and the patient did not perform the activity before the current illness, exacerbation or injury. 10-Not Attempted due to Environmental Limitations-(lack of equipment, weather restraints, etc.). 88-Not Attempted due to Medical Conditions or Safety Concerns. Sit to Stand (QC): 4 Weight Bearing Left Lower Extremity: Left Weight Bearing/Tolerated Gait Training Does the Patient Walk?: Yes Distance: 500 Walk 10 feet (QC): 4 Walk 50 ft with 2 Turns(QC): 4 Walk 150 ft (QC): 4 Gait Assistive Device: FWW Patient ambulated for 100'x3 and 200' with FWW and CGA. Patient required frequent rest breaks due to fatigue and reports of dizziness. Exercises Seated Therapy Exercises: Long arc quads, Hip flexion Seated Reps: 20 Standing: Heel/toe raises, 3 way Ex=Flex, Abd, Ext, Sit to Stand (4) Standing Reps: 10 NuStep Minutes: 15 NuStep Workload: 3 Treatments NuStep Ambulation Seated Exercises Standing Exercises Assessment Patient performed seated and standing exercises, NuStep, and ambulation. Patient ambulated for 200' first followed by 100' x3. Patient required frequent rest breaks with ambulation due to fatigue and dizziness reported by the patient. Patient completed NuStep activity with minimal difficulty. Patient performed standing exercises but required rest breaks due to dizziness. Patient reported that he keeps getting dizzy when doing activities and standing for long periods of time. Patient BP was taken pre tx and was 105/57 and was taken post tx and was 107/58. PT Drapery Operator Goals Drapery Operator Goals PT [facility] Goals Time Frame: Oct 16, 2021 Roll Left & Right (QC): 6 Sit to Lying (QC): 6 Lying-Sitting on Side/Bed(QC): 6 Sit to Stand (QC): 6 Chair/Ejr-wl-Wsqiv Xfer(QC): 6 Toilet Transfer (QC): 6 Car Transfer (QC): 6 Does the Patient Walk: Yes Walk 10 feet (QC): 6 Walk 50ft with 2 Turns (QC): 6 Walk 150 ft (QC): 6 Walking 10ft on Uneven Surface: 6 1 Step (curb) (QC): 6 4 Steps (QC): 6 12 Steps (QC): 6 Picking up an Object (QC): 6 Does the Pt use WC or Scooter?: No Wheel 50 feet with 2 turns (QC: 9 Type: N/A Wheel 150 feet: 9 Type: N/A PT Plan Problem List Problem List: Activity Tolerance, Functional Strength, Safety, Balance, Gait, Transfer, Bed Mobility, ROM Treatment/Plan Treatment Plan: Continue Plan of Care Treatment Plan: Bed Mobility, Education, Functional Activity Liyah, Functional Strength, Group Therapy, Gait, Safety, Therapeutic Exercise, Transfers Treatment Duration: Oct 16, 2021 Frequency: At least 5 of 7 days/Wk (IRF) Estimated Hrs Per Day: 1.5 hours per day Patient and/or Family Agrees t: Yes Safety Risks/Education Patient Education: Gait Training, Safety Issues Teaching Recipient: Patient Teaching Methods: Discussion Time/GCodes Time In: 910 Time Out: 1040 Total Billed Treatment Time: 90 Total Billed Treatment 1 Visit Ex x 4 60 min Gait x2 30 min MICHAEL RING PT Sep 21, 2021 10:38
--- NOTE | 2021-09-21 11:09 | Progress Note - Urology ---
Progress Note-Urology Progress Notes/Assess & Plan Progress/Assessment & Plan STATUS QUO ROSALES. PVR AROUND 200. DISCUSSED UROLIFT WITH HIM WITH PROS AND CONS, EXPECTATIONS, RISKS AND COMPLICATIONS. INTERESTED IN IT. WE WILL CHECK WITH DR CASAS IF AND WHEN MEDICALLY READY Final Diagnosis RETENTION ELIZABETH CALVILLO MD Sep 21, 2021 11:09
--- NOTE | 2021-09-21 11:10 | Progress Note - Urology ---
Progress Note-Urology Progress Notes/Assess & Plan Progress/Assessment & Plan DISCUSSED WITH HIM NEED FOR CYSTOSCOPY. AGREEABLE TO IT. WE WILL CHECK THE OR SCHEDULE Final Diagnosis RETENTION ELIZABETH CALVILLO MD Sep 21, 2021 11:10
--- NOTE | 2021-09-21 12:04 | Occupational Ther Daily Note ---
OT Current Status-Daily Note Subjective Reports feeling slightly better than early am since being able to lay down. Appearance Left supine in bed, all needs within reach. ADL-Treatment Therapy Code Descriptions/Definitions Functional [place] Measure: 0=Not Assessed/NA 4=Minimal Assistance 1=Total Assistance 5=Supervision or Setup 2=Maximal Assistance 6=Modified [place] 3=Moderate Assistance 7=Complete IndependenceSCALE: Activities may be completed with or without assistive devices. 7-Rhkslbzykv-irpjeus completes the activity by him/herself with no assistance from a helper. 5-Set-up or Clean-up Assistance-helper sets up or cleans up; patient completes activity. [place] assists only prior to or following the activity. 4-Supervision or Touching Assistance-helper provides verbal cues and/or touching/steadying and/or contact guard assistance as patient completes activity. Assistance may be provided throughout the activity or intermittently. 3-Partial/Moderate Assistance-helper does LESS THAN HALF the effort. [place] lifts, holds or supports trunk or limbs, but provides less than half the effort. 2-Substantial/Maximal Assistance-helper does MORE THAN HALF the effort. [place] lifts or holds trunk or limbs and provides more than half the effort. 9-Rmbstiekf-gzpmjr does ALL the effort. Patient does none of the effort to complete the activity. Or, the assistance of 2 or more helpers is required for the patient to complete the activity. If activity was not attempted, code reason: 7-Patient Refused. 9-Not Applicable-not attempted and the patient did not perform the activity before the current illness, exacerbation or injury. 10-Not Attempted due to Environmental Limitations-(lack of equipment, weather restraints, etc.). 88-Not Attempted due to Medical Conditions or Safety Concerns. Other Treatment Pt participated in UE exercises with isabelle theraband. He was able to recall 2 exercises learned in previous session. Verbal and tactile cues needed for correct technique. All movements performed through full range; 10 x2 in all planes. Pt reports that he likes doing arm exercises because it is the one thing that does not hurt his hip. Education OT Patient Education: Correct positioning, Exercise program, Purpose of tx/functional activities Teaching Recipient: Patient Teaching Methods: Demonstration, Discussion Response to Teaching: Verbalize Understanding, Return Demonstration, Reinforcement Needed OT Short Term Goals Short Term Goals Time Frame: Sep 22, 2021 Oral hygiene: 5 Shower/bathe self: 4 Lower body dressin OT Cementer Machine Joiner Goals [facility] Goals Time Frame: Oct 06, 2021 Eating (QC): 6 Oral Hygiene (QC): 6 Toileting Hygiene (QC): 6 Shower/Bathe Self (QC): 6 Upper Body Dressing (QC): 6 Lower Body Dressing (QC): 6 On/Off Footwear (QC): 6 Additional Goals: 1-Demonstrate ADL Tasks, 2-Verbalize Understanding, 3- ImproveStrength/Liyah 1=Demonstrate adherence to instructed precautions during ADL tasks. 2=Patient will verbalize/demonstrate understanding of assistive devices/modifications for ADL. 3=Patient will improve strength/tolerance for activity to enable patient to perform ADL's. OT Education/Plan Problem List/Assessment Assessment: Decreased Activ Tolerance, Decreased UE Strength, Impaired Cognition, Impaired I ADL's, Impaired Self-Care Skills Discharge Recommendations Plan/Recommendations: Continue POC Treatment Plan/Plan of Care Treatment,Training & Education: Yes Patient would benefit from OT for education, treatment and training to promote independence in ADL's, mobility, safety and/or upper extremity function for ADL's. Plan of Care: ADL Retraining, Functional Mobility, Group Exercise/Act as Ind, UE Funct Exercise/Act Treatment Duration: Sep 29, 2021 Frequency: At least 5 of 7 days/Wk (IRF) Estimated Hrs Per Day: 1.5 hours per day Agreement: Yes Rehab Potential: Good Time/GCodes Start Time: 11:35 Stop Time: 12:00 Total Time Billed (hr/min): 25 Billed Treatment Time 1 visit EX Yanni Lees OT Sep 21, 2021 12:04
--- NOTE | 2021-09-21 14:35 | PM&R Progress Note ---
Subjective HPI/CC On Admission Date Seen by Provider: Sep 21, 2021 Time Seen by Provider: 14:30 Subjective/Events-last exam 09/21/2021: Patient doing fairly well Pain is controlled Changing oxycodone to hydrocodone No other concerns 09/20/2021: Pt doing really well Hemoglobin stable at 8.3 Cystoscopy will be preformed at 12 Pain issues are managed blood pressure is 103/57 Very Dizzy at times Bowels are moving Headache and Tylenol was given 09/19/2021: Pt having difficulties Lot of somatic complaints One unit of blood given for hemoglobin of 6.3 BP varies White count of 16 UTI will be managed with placement of Bactrim by Dr. Toledo Bowels moved yesterday Review of Systems Musculoskeletal: leg pain Objective Exam Vital Signs Vital Signs Date Time Temp Pulse Resp B/P (MAP) Pulse Ox O2 Delivery O2 Flow Rate FiO2 09/21/21 21:02 99 Room Air 09/21/21 20:00 36.0 76 18 122/56 (78) Capillary Refill : General Appearance: No Apparent Distress, WD/WN, Chronically ill HEENT: PERRL/EOMI, Normal ENT Inspection, Pharynx Normal Neck: Full Range of Motion, Normal Inspection, Non Tender, Supple, Carotid Bruit Respiratory: Chest Non Tender, Lungs Clear, Normal Breath Sounds, No Accessory Muscle Use, No Respiratory Distress Cardiovascular: Regular Rate, Rhythm, No Edema, No Gallop, No JVD, No Murmur, Normal Peripheral Pulses Gastrointestinal: Normal Bowel Sounds, No Organomegaly, No Pulsatile Mass, Non Tender, Soft Back: Normal Inspection, No CVA Tenderness, No Vertebral Tenderness Extremity: Normal Capillary Refill, Normal Inspection, Normal Range of Motion (except left leg), Non Tender, No Calf Tenderness, No Pedal Edema Neurologic/Psychiatric: Alert, Oriented x3, No Motor/Sensory Deficits, media services director II- XII Norm as Tested, Abnormal Gait, Depressed Affect, Motor Weakness (genera lized) Skin: Normal Color, Warm/Dry Lymphatic: No Adenopathy Results/Procedures Lab Patient resulted labs reviewed. FIM Transfers Therapy Code Descriptions/Definitions Functional [place] Measure: 0=Not Assessed/NA 4=Minimal Assistance 1=Total Assistance 5=Supervision or Setup 2=Maximal Assistance 6=Modified [place] 3=Moderate Assistance 7=Complete IndependenceSCALE: Activities may be completed with or without assistive devices. 3-Klvlnsxccp-fejlfqh completes the activity by him/herself with no assistance from a helper. 5-Set-up or Clean-up Assistance-helper sets up or cleans up; patient completes activity. [place] assists only prior to or following the activity. 4-Supervision or Touching Assistance-helper provides verbal cues and/or touching/steadying and/or contact guard assistance as patient completes activity. Assistance may be provided throughout the activity or intermittently. 3-Partial/Moderate Assistance-helper does LESS THAN HALF the effort. [place] lifts, holds or supports trunk or limbs, but provides less than half the effort. 2-Substantial/Maximal Assistance-helper does MORE THAN HALF the effort. [place] lifts or holds trunk or limbs and provides more than half the effort. 0-Gzbkfnubu-pxuofb does ALL the effort. Patient does none of the effort to complete the activity. Or, the assistance of 2 or more helpers is required for the patient to complete the activity. If activity was not attempted, code reason: 7-Patient Refused. 9-Not Applicable-not attempted and the patient did not perform the activity before the current illness, exacerbation or injury. 10-Not Attempted due to Environmental Limitations-(lack of equipment, weather restraints, etc.). 88-Not Attempted due to Medical Conditions or Safety Concerns. Roll Left to Right (QC): 4 Sit to Lying (QC): 4 Sit to Stand (QC): 4 Chair/Bta-sv-Peuos Xfer(QC): 5 Car Transfer (QC): 4 Gait Training Does the Patient Walk?: Yes Distance: 500 Walk 10 feet (QC): 4 Walk 50 ft with 2 Turns(QC): 4 Walk 150 ft (QC): 4 Walking 10ft/uneven surface-QC: 4 Gait Persons Needed: 1 Gait Assistive Device: FWW Wheelchair Training Does the Pt Use a Wheelchair?: No Wheel 50 ft with 2 turns (QC): 9 Wheel 150 ft (QC): 9 Stair Training Stair Training: Handrails/: 2 handrails #of Steps: 4 1 Step (curb) (QC): 4 4 Steps (QC): 4 12 Steps (QC): 88 Stairs: Pattern: Step to Balance Picking up an Object (QC): 88 ADL-Treatment Eating (QC): 6 Oral Hygiene (QC): 5 (setup) Bathing Location: L Arm, R Arm, L Upper Leg, R Upper Leg, L Lower Leg (including foot), R Lower Leg (including foot), Chest, Abdomen, Buttocks, Perineal Area Shower/Bathe Self (QC): 5 (setup/cleanup) Upper Body Dressing (QC): 5 Lower Body Dressing (QC): 4 On/Off Footwear (QC): 4 Toileting Hygiene (QC): 4 Toilet Transfer (QC): 4 Assessment/Plan Assessment and Plan Assess & Plan/Chief Complaint Assessment: Status post left hip fracture Postop anemia requiring transfusion on 09/18/2021 and again on 09/19/2021 CAD previous bypass Hypertension Chronic kidney disease Hyperlipidemia BPH Urinary retention UTI placed on Bactrim after consulting Dr. Toledo Plan: Monitor hemoglobin Monitor need for holding Lovenox depending on hemoglobin Aggressive PT and OT Supportive care 09/19/2021: Dr. Toledo consult appreciated Bactrim until urine culture final Monitor hemoglobin 09/20/21: Supportive care Bactrim Await urine culture 09/21/2021: Pain control Change oxycodone to hydrocodone Await urine culture (1) Intertrochanteric fracture of left femur Status: Acute (2) Acute kidney injury superimposed on chronic kidney disease Status: Acute (3) CAD (coronary artery disease) (4) Hx of CABG (5) Transfusion of blood during current hospitalisation (6) BPH (benign prostatic hyperplasia) (7) Urinary retention (8) Acute postoperative anemia due to expected blood loss Status: Acute (9) Orthostatic hypotension Status: Acute PADDY CASAS DO Sep 21, 2021 14:35
[2021-09-21 17:43] VITALS: BP 125/60
[2021-09-21 20:00] VITALS: BP 122/56
[2021-09-21] MEDS: ENOXAPARIN 40 MG/0.4 ML (LOVENOX) SYR SC SCH (20:40)
[2021-09-21] MEDS: FINASTERIDE (PROSCAR) 5 MG TAB PO SCH (20:41)
[2021-09-21] MEDS: ASPIRIN E.C. 81 MG (ECOTRIN) TAB PO SCH (20:41)
[2021-09-22] MEDS: inSUlin ASPART (NovoLOG) 1 UNIT/0.01 ML (CHARGE PER UNIT) SC SCH ×4 (06:32→21:02)
--- NOTE | 2021-09-22 06:39 | PM&R Progress Note ---
Subjective HPI/CC On Admission Date Seen by Provider: Sep 22, 2021 Time Seen by Provider: 11:30 Subjective/Events-last exam 09/22/2021: Patient doing well Working with PT Hydrocodone worked better for him No major issues 09/21/2021: Patient doing fairly well Pain is controlled Changing oxycodone to hydrocodone No other concerns 09/20/2021: Pt doing really well Hemoglobin stable at 8.3 Cystoscopy will be preformed at 12 Pain issues are managed blood pressure is 103/57 Very Dizzy at times Bowels are moving Headache and Tylenol was given 09/19/2021: Pt having difficulties Lot of somatic complaints One unit of blood given for hemoglobin of 6.3 BP varies White count of 16 UTI will be managed with placement of Bactrim by Dr. Toledo Bowels moved yesterday Review of Systems General: Fatigue, Malaise Musculoskeletal: leg pain Objective Exam Vital Signs Vital Signs Date Time Temp Pulse Resp B/P (MAP) Pulse Ox O2 Delivery O2 Flow Rate FiO2 09/22/21 09:00 97 Room Air 09/22/21 07:34 35.9 84 16 122/57 (78) Capillary Refill : General Appearance: No Apparent Distress, WD/WN, Chronically ill HEENT: PERRL/EOMI, Normal ENT Inspection, Pharynx Normal Neck: Full Range of Motion, Normal Inspection, Non Tender, Supple, Carotid Bruit Respiratory: Chest Non Tender, Lungs Clear, Normal Breath Sounds, No Accessory Muscle Use, No Respiratory Distress Cardiovascular: Regular Rate, Rhythm, No Edema, No Gallop, No JVD, No Murmur, Normal Peripheral Pulses Gastrointestinal: Normal Bowel Sounds, No Organomegaly, No Pulsatile Mass, Non Tender, Soft Back: Normal Inspection, No CVA Tenderness, No Vertebral Tenderness Extremity: Normal Capillary Refill, Normal Inspection, Normal Range of Motion (except left leg), Non Tender, No Calf Tenderness, No Pedal Edema Neurologic/Psychiatric: Alert, Oriented x3, No Motor/Sensory Deficits, hard tile setter II- XII Norm as Tested, Abnormal Gait, Depressed Affect, Motor Weakness (generalized) Skin: Normal Color, Warm/Dry Lymphatic: No Adenopathy Results/Procedures Lab Patient resulted labs reviewed. FIM Transfers Therapy Code Descriptions/Definitions Functional [place] Measure: 0=Not Assessed/NA 4=Minimal Assistance 1=Total Assistance 5=Supervision or Setup 2=Maximal Assistance 6=Modified [place] 3=Moderate Assistance 7=Complete IndependenceSCALE: Activities may be completed with or without assistive devices. 7-Jymsvzniok-vzojgic completes the activity by him/herself with no assistance from a helper. 5-Set-up or Clean-up Assistance-helper sets up or cleans up; patient completes activity. [place] assists only prior to or following the activity. 4-Supervision or Touching Assistance-helper provides verbal cues and/or touching/steadying and/or contact guard assistance as patient completes activity. Assistance may be provided throughout the activity or intermittently. 3-Partial/Moderate Assistance-helper does LESS THAN HALF the effort. [place] lifts, holds or supports trunk or limbs, but provides less than half the effort. 2-Substantial/Maximal Assistance-helper does MORE THAN HALF the effort. [place] lifts or holds trunk or limbs and provides more than half the effort. 6-Ngpwoliwz-lsozoj does ALL the effort. Patient does none of the effort to complete the activity. Or, the assistance of 2 or more helpers is required for the patient to complete the activity. If activity was not attempted, code reason: 7-Patient Refused. 9-Not Applicable-not attempted and the patient did not perform the activity before the current illness, exacerbation or injury. 10-Not Attempted due to Environmental Limitations-(lack of equipment, weather restraints, etc.). 88-Not Attempted due to Medical Conditions or Safety Concerns. Roll Left to Right (QC): 4 Sit to Lying (QC): 4 Sit to Stand (QC): 4 Chair/Hal-ny-Hjjvu Xfer(QC): 5 Car Transfer (QC): 4 Gait Training Does the Patient Walk?: Yes Distance: 500 Walk 10 feet (QC): 4 Walk 50 ft with 2 Turns(QC): 4 Walk 150 ft (QC): 4 Walking 10ft/uneven surface-QC: 4 Gait Persons Needed: 1 Gait Assistive Device: FWW Wheelchair Training Does the Pt Use a Wheelchair?: No Wheel 50 ft with 2 turns (QC): 9 Wheel 150 ft (QC): 9 Stair Training Stair Training: Handrails/: 2 handrails #of Steps: 4 1 Step (curb) (QC): 4 4 Steps (QC): 4 12 Steps (QC): 88 Stairs: Pattern: Step to Balance Picking up an Object (QC): 88 ADL-Treatment Eating (QC): 6 Oral Hygiene (QC): 5 (setup) Bathing Location: L Arm, R Arm, L Upper Leg, R Upper Leg, L Lower Leg (including foot), R Lower Leg (including foot), Chest, Abdomen, Buttocks, Perineal Area Shower/Bathe Self (QC): 5 (setup/cleanup) Upper Body Dressing (QC): 5 Lower Body Dressing (QC): 4 On/Off Footwear (QC): 4 Toileting Hygiene (QC): 4 Toilet Transfer (QC): 4 Assessment/Plan Assessment and Plan Assess & Plan/Chief Complaint Assessment: Status post left hip fracture Postop anemia requiring transfusion on 09/18/2021 and again on 09/19/2021 CAD previous bypass Hypertension Chronic kidney disease Hyperlipidemia BPH Urinary retention UTI placed on Bactrim after consulting Dr. Toledo Plan: Monitor hemoglobin Monitor need for holding Lovenox depending on hemoglobin Aggressive PT and OT Supportive care 09/19/2021: Dr. Toledo consult appreciated Bactrim until urine culture final Monitor hemoglobin 09/20/21: Supportive care Bactrim Await urine culture 09/21/2021: Pain control Change oxycodone to hydrocodone Await urine culture 09/22/2021: Bactrim Monitor closely (1) Intertrochanteric fracture of left femur Status: Acute (2) Acute kidney injury superimposed on chronic kidney disease Status: Acute (3) CAD (coronary artery disease) (4) Hx of CABG (5) Transfusion of blood during current hospitalisation (6) BPH (benign prostatic hyperplasia) (7) Urinary retention (8) Acute postoperative anemia due to expected blood loss Status: Acute (9) Orthostatic hypotension Status: Acute PADDY CASAS DO Sep 22, 2021 06:39
[2021-09-22 07:34] VITALS: BP 122/57
[2021-09-22] MEDS: eZETimibe 10 MG (ZETIA) TABLET PO SCH (08:09)
[2021-09-22] MEDS: TAMSULOSIN 0.4 MG (FLOMAX) CAP PO SCH ×2 (08:09→21:00)
[2021-09-22] MEDS: ACETAMINOPHEN 325 MG TABLET PO PRN (08:09)
[2021-09-22] MEDS: TRIM/SULFAMETH 160/800 (SEPTRA DS) TAB PO SCH ×2 (08:09→18:03)
[2021-09-22] MEDS: polyethylene glycoL POWDER 17 GM (MIRALAX) PACK PO SCH ×2 (08:09→21:01)
[2021-09-22] MEDS: SENNOSIDES 8.6 MG (SENOKOT) TAB PO SCH ×2 (08:09→21:00)
[2021-09-22] MEDS: SENNA W/DOCUSATE (SENOKOT S) TABLET PO SCH ×2 (08:09→21:00)
[2021-09-22] MEDS: DOCUSATE SODIUM 100 MG (COLACE) CAP PO SCH ×2 (08:09→21:00)
--- NOTE | 2021-09-22 09:39 | Progress Note - Urology ---
Progress Note-Urology Progress Notes/Assess & Plan Progress/Assessment & Plan PATIENT GOOD CANDIDATE FOR UROLIFT ELIZABETH CALVILLO MD Sep 22, 2021 09:39
--- NOTE | 2021-09-22 09:47 | Occupational Ther Daily Note ---
OT Current Status-Daily Note Subjective Reports headache pain as 3/10, states Tylenol given earlier in morning. Appearance Returned to sitting in recliner, all needs within reach, RN notified. Mental Status/Objective Attachments: IV ADL-Treatment Therapy Code Descriptions/Definitions Functional [place] Measure: 0=Not Assessed/NA 4=Minimal Assistance 1=Total Assistance 5=Supervision or Setup 2=Maximal Assistance 6=Modified [place] 3=Moderate Assistance 7=Complete IndependenceSCALE: Activities may be completed with or without assistive devices. 2-Isvtnhvksm-chsbsjs completes the activity by him/herself with no assistance from a helper. 5-Set-up or Clean-up Assistance-helper sets up or cleans up; patient completes activity. [place] assists only prior to or following the activity. 4-Supervision or Touching Assistance-helper provides verbal cues and/or touching/steadying and/or contact guard assistance as patient completes acti vity. Assistance may be provided throughout the activity or intermittently. 3-Partial/Moderate Assistance-helper does LESS THAN HALF the effort. [place] lifts, holds or supports trunk or limbs, but provides less than half the effort. 2-Substantial/Maximal Assistance-helper does MORE THAN HALF the effort. [place] lifts or holds trunk or limbs and provides more than half the effort. 7-Jcahudsbg-kuleoy does ALL the effort. Patient does none of the effort to complete the activity. Or, the assistance of 2 or more helpers is required for the patient to complete the activity. If activity was not attempted, code reason: 7-Patient Refused. 9-Not Applicable-not attempted and the patient did not perform the activity before the current illness, exacerbation or injury. 10-Not Attempted due to Environmental Limitations-(lack of equipment, weather restraints, etc.). 88-Not Attempted due to Medical Conditions or Safety Concerns. Shower/Bathe Self (QC): 4 Upper Body Dressing (QC): 5 Lower Body Dressing (QC): 4 On/Off Footwear: 4 Toileting Hygiene (QC): 4 Toilet Transfer (QC): 4 Shower performed; majority completed in sitting. Supervision for safety as pt stood to wash buttocks/nicko area. No physical assistance required to wash body parts. Clothing donned seated on shower bench. Extra time to thread LLE. Pt stood with sba for clothing management. Good recall on use of sock aid, only needing 1 cue for improved performance. Once returned to chair and post adls, pt verbalizes "seeing black." BP checked; 140/66. After ~2 minutes of rest, pt reports feeling much better. RN notified. Education OT Patient Education: Correct positioning, Energy conservation, Progress toward Goal/Update tx plan, Purpose of tx/functional activities, Safety issues, Use of adapted equipment Teaching Recipient: Patient Teaching Methods: Discussion Response to Teaching: Verbalize Understanding, Return Demonstration OT Short Term Goals Short Term Goals Time Frame: Sep 22, 2021 Oral hygiene: 5 Shower/bathe self: 4 Lower body dressin OT Halfway Goals Halfway Goals Time Frame: Oct 06, 2021 Eating (QC): 6 Oral Hygiene (QC): 6 Toileting Hygiene (QC): 6 Shower/Bathe Self (QC): 6 Upper Body Dressing (QC): 6 Lower Body Dressing (QC): 6 On/Off Footwear (QC): 6 Additional Goals: 1-Demonstrate ADL Tasks, 2-Verbalize Understanding, 3- ImproveStrength/Liyah 1=Demonstrate adherence to instructed precautions during ADL tasks. 2=Patient will verbalize/demonstrate understanding of assistive devices/modifications for ADL. 3=Patient will improve strength/tolerance for activity to enable patient to perform ADL's. OT Education/Plan Problem List/Assessment Assessment: Decreased Activ Tolerance, Decreased UE Strength, Impaired I ADL's, Impaired Self-Care Skills Discharge Recommendations Plan/Recommendations: Continue POC Therapy Discharge Recommendati: Home & Family Equpiment Recommendations-D/C: Sock Aide Treatment Plan/Plan of Care Treatment,Training & Education: Yes Patient would benefit from OT for education, treatment and training to promote independence in ADL's, mobility, safety and/or upper extremity function for ADL's. Plan of Care: ADL Retraining, Functional Mobility, Group Exercise/Act as Ind, UE Funct Exercise/Act Treatment Duration: Sep 29, 2021 Frequency: At least 5 of 7 days/Wk (IRF) Estimated Hrs Per Day: 1.5 hours per day Agreement: Yes Rehab Potential: Good Time/GCodes Start Time: 08:45 Stop Time: 09:45 Total Time Billed (hr/min): 60 Billed Treatment Time 1 visit ADL x4 Yanni Collado OT Sep 22, 2021 09:47
--- NOTE | 2021-09-22 10:35 | Physical Therapy Daily Note ---
PT Daily Note-Current Subjective Patient presented sitting in his chair and agreed to participate in therapy. Patient reports that his hip isn't very painful when he is sitting. Mental Status Patient Orientation: Person, Place, Situation Transfers SCALE: Activities may be completed with or without assistive devices. 9-Ofoxxqgtes-qvrbrzf completes the activity by him/herself with no assistance from a helper. 5-Set-up or Clean-up Assistance-helper sets up or cleans up; patient completes activity. [place] assists only prior to or following the activity. 4-Supervision or Touching Assistance-helper provides verbal cues and/or touching/steadying and/or contact guard assistance as patient completes activity. Assistance may be provided throughout the activity or intermittently. 3-Partial/Moderate Assistance-helper does LESS THAN HALF the effort. [place] lifts, holds or supports trunk or limbs, but provides less than half the effort. 2-Substantial/Maximal Assistance-helper does MORE THAN HALF the effort. [place] lifts or holds trunk or limbs and provides more than half the effort. 7-Ppfihahrs-fnmean does ALL the effort. Patient does none of the effort to compl ete the activity. Or, the assistance of 2 or more helpers is required for the patient to complete the activity. If activity was not attempted, code reason: 7-Patient Refused. 9-Not Applicable-not attempted and the patient did not perform the activity before the current illness, exacerbation or injury. 10-Not Attempted due to Environmental Limitations-(lack of equipment, weather restraints, etc.). 88-Not Attempted due to Medical Conditions or Safety Concerns. Sit to Stand (QC): 4 Weight Bearing Left Lower Extremity: Left Weight Bearing/Tolerated Gait Training Does the Patient Walk?: Yes Distance: 200' x4 Walk 10 feet (QC): 4 Walk 50 ft with 2 Turns(QC): 4 Walk 150 ft (QC): 4 Gait Assistive Device: FWW Exercises Seated Therapy Exercises: Ankle pumps, Sit to stand (4), Long arc quads, Hip flexion Seated Reps: 15 Assessment Patient completed ambulation and seated exercises with minimal fatigue. Patient did not report any dizziness with therapy today. Patient ambulated for 200' x4 times with CGA. Patient completed 4 sit to stand transfers with CGA. Patient fatigue level is biggest limiting factor from increasing ambulation distance. PT Jail Goals Jail Goals PT Jail Goals Time Frame: Oct 16, 2021 Roll Left & Right (QC): 6 Sit to Lying (QC): 6 Lying-Sitting on Side/Bed(QC): 6 Sit to Stand (QC): 6 Chair/Aaj-of-Ekoqh Xfer(QC): 6 Toilet Transfer (QC): 6 Car Transfer (QC): 6 Does the Patient Walk: Yes Walk 10 feet (QC): 6 Walk 50ft with 2 Turns (QC): 6 Walk 150 ft (QC): 6 Walking 10ft on Uneven Surface: 6 1 Step (curb) (QC): 6 4 Steps (QC): 6 12 Steps (QC): 6 Picking up an Object (QC): 6 Does the Pt use WC or Scooter?: No Wheel 50 feet with 2 turns (QC: 9 Type: N/A Wheel 150 feet: 9 Type: N/A PT Plan Problem List Problem List: Activity Tolerance, Functional Strength, Safety, Balance, Gait, Transfer, Bed Mobility, ROM Treatment/Plan Treatment Plan: Continue Plan of Care Treatment Plan: Bed Mobility, Education, Functional Activity Liyah, Functional Strength, Group Therapy, Gait, Safety, Therapeutic Exercise, Transfers Treatment Duration: Oct 16, 2021 Frequency: At least 5 of 7 days/Wk (IRF) Estimated Hrs Per Day: 1.5 hours per day Patient and/or Family Agrees t: Yes Time/GCodes Time In: 1000 Time Out: 1030 Total Billed Treatment Time: 30 Total Billed Treatment 1 Visit Gait 20 min Ex 10 min MICHAEL RING PT Sep 22, 2021 10:35
--- NOTE | 2021-09-22 11:03 | Occupational Ther Daily Note ---
OT Current Status-Daily Note Subjective Pt reports hip pain as 8/10 after walk with PT. Appearance Left sitting in chair, seismograph recorder in room. Mental Status/Objective Patient Orientation: Person, Place, Situation ADL-Treatment Therapy Code Descriptions/Definitions Functional [place] Measure: 0=Not Assessed/NA 4=Minimal Assistance 1=Total Assistance 5=Supervision or Setup 2=Maximal Assistance 6=Modified [place] 3=Moderate Assistance 7=Complete IndependenceSCALE: Activities may be completed with or without assistive devices. 7-Ekkiclajrj-beztjgr completes the activity by him/herself with no assistance from a helper. 5-Set-up or Clean-up Assistance-helper sets up or cleans up; patient completes activity. [place] assists only prior to or following the activity. 4-Supervision or Touching Assistance-helper provides verbal cues and/or touching/steadying and/or contact guard assistance as patient completes activity. Assistance may be provided throughout the activity or intermittently. 3-Partial/Moderate Assistance-helper does LESS THAN HALF the effort. [place] lifts, holds or supports trunk or limbs, but provides less than half the effort. 2-Substantial/Maximal Assistance-helper does MORE THAN HALF the effort. [place] lifts or holds trunk or limbs and provides more than half the effort. 3-Pejgsvica-zenhui does ALL the effort. Patient does none of the effort to complete the activity. Or, the assistance of 2 or more helpers is required for the patient to complete the activity. If activity was not attempted, code reason: 7-Patient Refused. 9-Not Applicable-not attempted and the patient did not perform the activity before the current illness, exacerbation or injury. 10-Not Attempted due to Environmental Limitations-(lack of equipment, weather restraints, etc.). 88-Not Attempted due to Medical Conditions or Safety Concerns. Other Treatment Pt participated in UE exercises with isabelle theraband. He was able to recall 3 exercises learned in previous session. Min Verbal and tactile cues needed for correct technique as well as to keep tension throughout entire movement. All movements performed through full range; 10 x2 in all planes. Education OT Patient Education: Correct positioning, Exercise program, Home exercise program, Progress toward Goal/Update tx plan, Purpose of tx/functional activities Teaching Recipient: Patient Teaching Methods: Demonstration, Discussion Response to Teaching: Verbalize Understanding, Reinforcement Needed OT Short Term Goals Short Term Goals Time Frame: Sep 22, 2021 Oral hygiene: 5 Shower/bathe self: 4 Lower body dressin OT Brass Bobbin Winder Goals Correction Goals Time Frame: Oct 06, 2021 Eating (QC): 6 Oral Hygiene (QC): 6 Toileting Hygiene (QC): 6 Shower/Bathe Self (QC): 6 Upper Body Dressing (QC): 6 Lower Body Dressing (QC): 6 On/Off Footwear (QC): 6 Additional Goals: 1-Demonstrate ADL Tasks, 2-Verbalize Understanding, 3- ImproveStrength/Liyah 1=Demonstrate adherence to instructed precautions during ADL tasks. 2=Patient will verbalize/demonstrate understanding of assistive devices/modifications for ADL. 3=Patient will improve strength/tolerance for activity to enable patient to perform ADL's. OT Education/Plan Problem List/Assessment Assessment: Decreased Activ Tolerance, Decreased UE Strength, Impaired I ADL's, Impaired Self-Care Skills Discharge Recommendations Plan/Recommendations: Continue POC Treatment Plan/Plan of Care Treatment,Training & Education: Yes Patient would benefit from OT for education, treatment and training to promote independence in ADL's, mobility, safety and/or upper extremity function for ADL's. Plan of Care: ADL Retraining, Functional Mobility, Group Exercise/Act as Ind, UE Funct Exercise/Act Treatment Duration: Sep 29, 2021 Frequency: At least 5 of 7 days/Wk (IRF) Estimated Hrs Per Day: 1.5 hours per day Agreement: Yes Rehab Potential: Good Time/GCodes Start Time: 10:30 Stop Time: 11:00 Total Time Billed (hr/min): 30 Billed Treatment Time 1 visit EX Yanni Lees OT Sep 22, 2021 11:03
--- NOTE | 2021-09-22 12:02 | Physical Therapy Daily Note ---
PT Daily Note-Current Subjective Patient presented sitting in his chair and agreed to participate in physical therapy. Mental Status Patient Orientation: Person, Place, Situation Transfers SCALE: Activities may be completed with or without assistive devices. 9-Pbuuodoiyd-yhvudzr completes the activity by him/herself with no assistance from a helper. 5-Set-up or Clean-up Assistance-helper sets up or cleans up; patient completes activity. [place] assists only prior to or following the activity. 4-Supervision or Touching Assistance-helper provides verbal cues and/or touching/steadying and/or contact guard assistance as patient completes activity. Assistance may be provided throughout the activity or intermittently. 3-Partial/Moderate Assistance-helper does LESS THAN HALF the effort. [place] lifts, holds or supports trunk or limbs, but provides less than half the effort. 2-Substantial/Maximal Assistance-helper does MORE THAN HALF the effort. [place] lifts or holds trunk or limbs and provides more than half the effort. 4-Affakrbve-myhkvn does ALL the effort. Patient does none of the effort to complete the activity. Or, the assistance of 2 or more helpers is required for the patient to complete the activity. If activity was not attempted, code reason: 7-Patient Refused. 9-Not Applicable-not attempted and the patient did not perform the activity before the current illness, exacerbation or injury. 10-Not Attempted due to Environmental Limitations-(lack of equipment, weather restraints, etc.). 88-Not Attempted due to Medical Conditions or Safety Concerns. Roll Left & Right (QC): 6 Sit to Lying (QC): 4 Lying to Sitting/Side of Bed(Q: 4 Sit to Stand (QC): 4 Chair/Bbz-zr-Smprc Xfer(QC): 4 Toilet Transfer (QC): 4 Car Transfer (QC): 4 Patient is improving with transfers and is CGA. Weight Bearing Left Lower Extremity: Left Weight Bearing/Tolerated Gait Training Does the Patient Walk?: Yes Distance: 300' Walk 10 feet (QC): 4 Walk 50 ft with 2 Turns(QC): 4 Walk 150 ft (QC): 4 Walking 10ft/uneven surface-QC: 4 Gait Assistive Device: FWW Patient ambulated for 150' x2 as well as performed ambulation on uneven surfaces. Patient required CGA for ambulation. Patient continues to have impaired gait pattern and has decreased stance time on his L LE. Stair Training #of Steps: 8 1 Step (curb) (QC): 4 4 Steps (QC): 4 12 Steps (QC): 88 Stairs: Pattern: Step to Patient required CGA for stair training and required cues for correct lead foot. Exercises Seated Therapy Exercises: Long arc quads, Hip flexion Seated Reps: 10 NuStep Minutes: 10 NuStep Workload: 3 Assessment Current Status: Good Progress Patient continues to improve with ambulation, endurance and stair training. Patient reported fatigue after therapy session. Patient required frequent rest breaks due to fatigue and lack of endurance. Patient reports that he has 4-5 steps at home and believes he is able to get around in the house without difficulty. Patient reports that he does not have concerns of going home next week and thinks he will do fine at home. Patient needs to continue to increase his activity tolerance to ensure safe return to home. PT Jail Goals Railway Switchman Goals PT Railway Switchman Goals Time Frame: Oct 16, 2021 Roll Left & Right (QC): 6 Sit to Lying (QC): 6 Lying-Sitting on Side/Bed(QC): 6 Sit to Stand (QC): 6 Chair/Rkq-hj-Lcxhk Xfer(QC): 6 Toilet Transfer (QC): 6 Car Transfer (QC): 6 Does the Patient Walk: Yes Walk 10 feet (QC): 6 Walk 50ft with 2 Turns (QC): 6 Walk 150 ft (QC): 6 Walking 10ft on Uneven Surface: 6 1 Step (curb) (QC): 6 4 Steps (QC): 6 12 Steps (QC): 6 Picking up an Object (QC): 6 Does the Pt use WC or Scooter?: No Wheel 50 feet with 2 turns (QC: 9 Type: N/A Wheel 150 feet: 9 Type: N/A PT Plan Problem List Problem List: Activity Tolerance, Functional Strength, Safety, Balance, Gait, Transfer, Bed Mobility, ROM Treatment/Plan Treatment Plan: Continue Plan of Care Treatment Plan: Bed Mobility, Education, Functional Activity Liyah, Functional Strength, Group Therapy, Gait, Safety, Therapeutic Exercise, Transfers Treatment Duration: Oct 16, 2021 Frequency: At least 5 of 7 days/Wk (IRF) Estimated Hrs Per Day: 1.5 hours per day Patient and/or Family Agrees t: Yes Safety Risks/Education Patient Education: Gait Training, Steps, Safety Issues Teaching Recipient: Patient Teaching Methods: Discussion Time/GCodes Time In: 1100 Time Out: 1200 Total Billed Treatment Time: 60 Total Billed Treatment 1 Visit Ex x2 30 min FA x2 30 min MICHAEL RING PT Sep 22, 2021 12:02
[2021-09-22 20:00] VITALS: BP 111/57
[2021-09-22] MEDS: FINASTERIDE (PROSCAR) 5 MG TAB PO SCH (21:00)
[2021-09-22] MEDS: ENOXAPARIN 40 MG/0.4 ML (LOVENOX) SYR SC SCH (21:00)
[2021-09-22] MEDS: ASPIRIN E.C. 81 MG (ECOTRIN) TAB PO SCH (21:00)
[2021-09-23] MEDS: ACETAMINOPHEN 325 MG TABLET PO PRN ×2 (01:25→15:43)
--- NOTE | 2021-09-23 05:27 | PM&R Progress Note ---
Subjective HPI/CC On Admission Date Seen by Provider: Sep 23, 2021 Time Seen by Provider: 11:00 Subjective/Events-last exam 09/23/21: Patient doing well 1/2 Lortab help pain Dizzy at times he reported Talking on the phone currently 09/22/2021: Patient doing well Working with PT Hydrocodone worked better for him No major issues 09/21/2021: Patient doing fairly well Pain is controlled Changing oxycodone to hydrocodone No other concerns 09/20/2021: Pt doing really well Hemoglobin stable at 8.3 Cystoscopy will be preformed at 12 Pain issues are managed blood pressure is 103/57 Very Dizzy at times Bowels are moving Headache and Tylenol was given 09/19/2021: Pt having difficulties Lot of somatic complaints One unit of blood given for hemoglobin of 6.3 BP varies White count of 16 UTI will be managed with placement of Bactrim by Dr. Toledo Bowels moved yesterday Review of Systems Musculoskeletal: leg pain Objective Exam Vital Signs Vital Signs Date Time Temp Pulse Resp B/P (MAP) Pulse Ox O2 Delivery O2 Flow Rate FiO2 09/23/21 09:03 Room Air 09/23/21 08:27 35.8 96 20 113/58 (76) 100 Capillary Refill : General Appearance: No Apparent Distress, WD/WN, Chronically ill HEENT: PERRL/EOMI, Normal ENT Inspection, Pharynx Normal Neck: Full Range of Motion, Normal Inspection, Non Tender, Supple, Carotid Bruit Respiratory: Chest Non Tender, Lungs Clear, Normal Breath Sounds, No Accessory Muscle Use, No Respiratory Distress Cardiovascular: Regular Rate, Rhythm, No Edema, No Gallop, No JVD, No Murmur, Normal Peripheral Pulses Gastrointestinal: Normal Bowel Sounds, No Organomegaly, No Pulsatile Mass, Non Tender, Soft Back: Normal Inspection, No CVA Tenderness, No Vertebral Tenderness Extremity: Normal Capillary Refill, Normal Inspection, Normal Range of Motion (except left leg), Non Tender, No Calf Tenderness, No Pedal Edema Neurologic/Psychiatric: Alert, Oriented x3, No Motor/Sensory Deficits, spear fisher II- XII Norm as Tested, Abnormal Gait, Depressed Affect, Motor Weakness (generalized) Skin: Normal Color, Warm/Dry Lymphatic: No Adenopathy Results/Procedures Lab Patient resulted labs reviewed. FIM Transfers Therapy Code Descriptions/Definitions Functional [place] Measure: 0=Not Assessed/NA 4=Minimal Assistance 1=Total Assistance 5=Supervision or Setup 2=Maximal Assistance 6=Modified [place] 3=Moderate Assistance 7=Complete IndependenceSCALE: Activities may be completed with or without assistive devices. 8-Czduzmyqer-tcuddti completes the activity by him/herself with no assistance from a helper. 5-Set-up or Clean-up Assistance-helper sets up or cleans up; patient completes a ctivity. [place] assists only prior to or following the activity. 4-Supervision or Touching Assistance-helper provides verbal cues and/or touching/steadying and/or contact guard assistance as patient completes activity. Assistance may be provided throughout the activity or intermittently. 3-Partial/Moderate Assistance-helper does LESS THAN HALF the effort. [place] lifts, holds or supports trunk or limbs, but provides less than half the effort. 2-Substantial/Maximal Assistance-helper does MORE THAN HALF the effort. [place] lifts or holds trunk or limbs and provides more than half the effort. 9-Jpcqzckiv-qtvbuk does ALL the effort. Patient does none of the effort to complete the activity. Or, the assistance of 2 or more helpers is required for the patient to complete the activity. If activity was not attempted, code reason: 7-Patient Refused. 9-Not Applicable-not attempted and the patient did not perform the activity before the current illness, exacerbation or injury. 10-Not Attempted due to Environmental Limitations-(lack of equipment, weather restraints, etc.). 88-Not Attempted due to Medical Conditions or Safety Concerns. Roll Left to Right (QC): 6 Sit to Lying (QC): 4 Sit to Stand (QC): 4 Chair/Gls-vm-Vtkkn Xfer(QC): 4 Car Transfer (QC): 4 Gait Training Does the Patient Walk?: Yes Distance: 300' Walk 10 feet (QC): 4 Walk 50 ft with 2 Turns(QC): 4 Walk 150 ft (QC): 4 Walking 10ft/uneven surface-QC: 4 Gait Persons Needed: 1 Gait Assistive Device: FWW Wheelchair Training Does the Pt Use a Wheelchair?: No Wheel 50 ft with 2 turns (QC): 9 Wheel 150 ft (QC): 9 Stair Training Stair Training: Handrails/: 2 handrails #of Steps: 8 1 Step (curb) (QC): 4 4 Steps (QC): 4 12 Steps (QC): 88 Stairs: Pattern: Step to Balance Picking up an Object (QC): 88 ADL-Treatment Eating (QC): 6 Oral Hygiene (QC): 5 (setup) Bathing Location: L Arm, R Arm, L Upper Leg, R Upper Leg, L Lower Leg (including foot), R Lower Leg (including foot), Chest, Abdomen, Buttocks, Perineal Area Shower/Bathe Self (QC): 4 Upper Body Dressing (QC): 5 Lower Body Dressing (QC): 4 On/Off Footwear (QC): 4 Toileting Hygiene (QC): 4 Toilet Transfer (QC): 4 Assessment/Plan Assessment and Plan Assess & Plan/Chief Complaint Assessment: Status post left hip fracture Postop anemia requiring transfusion on 09/18/2021 and again on 09/19/2021 CAD previous bypass Hypertension Chronic kidney disease Hyperlipidemia BPH Urinary retention UTI placed on Bactrim after consulting Dr. Toledo Plan: Monitor hemoglobin Monitor need for holding Lovenox depending on hemoglobin Aggressive PT and OT Supportive care 09/19/2021: Dr. Toledo consult appreciated Bactrim until urine culture final Monitor hemoglobin 09/20/21: Supportive care Bactrim Await urine culture 09/21/2021: Pain control Change oxycodone to hydrocodone Await urine culture 09/22/2021: Bactrim Monitor closely 09/23/21: Ucx pending Pain control (1) Intertrochanteric fracture of left femur Status: Acute (2) Acute kidney injury superimposed on chronic kidney disease Status: Acute (3) CAD (coronary artery disease) (4) Hx of CABG (5) Transfusion of blood during current hospitalisation (6) BPH (benign prostatic hyperplasia) (7) Urinary retention (8) Acute postoperative anemia due to expected blood loss Status: Acute (9) Orthostatic hypotension Status: Acute PADDY CASAS DO Sep 23, 2021 05:27
[2021-09-23] MEDS: inSUlin ASPART (NovoLOG) 1 UNIT/0.01 ML (CHARGE PER UNIT) SC SCH ×2 (06:06→11:00)
[2021-09-23 08:27] VITALS: BP 113/58
[2021-09-23] MEDS: eZETimibe 10 MG (ZETIA) TABLET PO SCH (08:34)
[2021-09-23] MEDS: HYDROcodone/APAP 5 MG/325 MG (LORTAB) TAB PO PRN ×3 (08:34→23:47)
[2021-09-23] MEDS: SENNA W/DOCUSATE (SENOKOT S) TABLET PO SCH ×2 (08:34→20:19)
[2021-09-23] MEDS: DOCUSATE SODIUM 100 MG (COLACE) CAP PO SCH ×2 (08:34→20:19)
[2021-09-23] MEDS: TRIM/SULFAMETH 160/800 (SEPTRA DS) TAB PO SCH ×2 (08:34→17:51)
[2021-09-23] MEDS: SENNOSIDES 8.6 MG (SENOKOT) TAB PO SCH ×2 (08:34→20:28)
[2021-09-23] MEDS: TAMSULOSIN 0.4 MG (FLOMAX) CAP PO SCH ×2 (08:34→20:19)
[2021-09-23] MEDS: polyethylene glycoL POWDER 17 GM (MIRALAX) PACK PO SCH ×2 (08:47→19:49)
--- NOTE | 2021-09-23 09:46 | Progress Note - Urology ---
Progress Note-Urology Progress Notes/Assess & Plan Progress/Assessment & Plan VOIDING BUT ?PVR CHECKED. WE WILL TODAY Final Diagnosis RETENTION ELIZABETH CALVILLO MD Sep 23, 2021 09:46
--- NOTE | 2021-09-23 10:56 | Physical Therapy Daily Note ---
PT Daily Note-Current Subjective Pt sitting in recliner upon arrival. Pt reports feeling "isael blah" today but agrees to Ex for tx. Mental Status Patient Orientation: Person, Place, Situation Transfers SCALE: Activities may be completed with or without assistive devices. 4-Jcrnkpdiox-qnezwrw completes the activity by him/herself with no assistance from a helper. 5-Set-up or Clean-up Assistance-helper sets up or cleans up; patient completes activity. [place] assists only prior to or following the activity. 4-Supervision or Touching Assistance-helper provides verbal cues and/or touching/steadying and/or contact guard assistance as patient completes activ ity. Assistance may be provided throughout the activity or intermittently. 3-Partial/Moderate Assistance-helper does LESS THAN HALF the effort. [place] lifts, holds or supports trunk or limbs, but provides less than half the effort. 2-Substantial/Maximal Assistance-helper does MORE THAN HALF the effort. [place] lifts or holds trunk or limbs and provides more than half the effort. 1-Hedoayimb-jdygjj does ALL the effort. Patient does none of the effort to complete the activity. Or, the assistance of 2 or more helpers is required for the patient to complete the activity. If activity was not attempted, code reason: 7-Patient Refused. 9-Not Applicable-not attempted and the patient did not perform the activity before the current illness, exacerbation or injury. 10-Not Attempted due to Environmental Limitations-(lack of equipment, weather restraints, etc.). 88-Not Attempted due to Medical Conditions or Safety Concerns. Weight Bearing Left Lower Extremity: Left Weight Bearing/Tolerated Exercises Supine Ex: Ankle pumps, Quad Set, Glut sets, Heel Slides, Straight leg raise, Hip abd/add Supine Reps: 15 Seated Therapy Exercises: Long arc quads, Hip flexion, Hip abd/add, Glut set Seated Reps: 15 Treatments Pt completes Supine & Seated EX with RB as needed as well as describes medical history and why pt feels he isn't feeling well. ONLINE MERCHANDISER gives encouragement to c ramakrishnainue to try to eat and complete Ex as pt can while on in tx. Pt resting with all needs met, call light next to pt. Assessment Current Status: Fair Progress Pt is a little down and needs some encouragement to push self. Pt fatigues and needs RB during Ex. PT Detention Goals Detention Goals PT Parts Consultant Goals Time Frame: Oct 16, 2021 Roll Left & Right (QC): 6 Sit to Lying (QC): 6 Lying-Sitting on Side/Bed(QC): 6 Sit to Stand (QC): 6 Chair/Rhj-qk-Epley Xfer(QC): 6 Toilet Transfer (QC): 6 Car Transfer (QC): 6 Does the Patient Walk: Yes Walk 10 feet (QC): 6 Walk 50ft with 2 Turns (QC): 6 Walk 150 ft (QC): 6 Walking 10ft on Uneven Surface: 6 1 Step (curb) (QC): 6 4 Steps (QC): 6 12 Steps (QC): 6 Picking up an Object (QC): 6 Does the Pt use WC or Scooter?: No Wheel 50 feet with 2 turns (QC: 9 Type: N/A Wheel 150 feet: 9 Type: N/A PT Plan Problem List Problem List: Activity Tolerance, Functional Strength Treatment/Plan Treatment Plan: Continue Plan of Care Treatment Plan: Bed Mobility, Education, Functional Activity Liyah, Functional Strength, Group Therapy, Gait, Safety, Therapeutic Exercise, Transfers Treatment Duration: Oct 16, 2021 Frequency: At least 5 of 7 days/Wk (IRF) Estimated Hrs Per Day: 1.5 hours per day Patient and/or Family Agrees t: Yes Safety Risks/Education Patient Education: Correct Positioning Teaching Recipient: Patient Teaching Methods: Discussion Response to Teaching: Verbalize Understanding Time/GCodes Time In: 935 Time Out: 1005 Total Billed Treatment Time: 30 Total Billed Treatment 1, EX (20m) & FA (10m) MISTY LION PTA Sep 23, 2021 10:56
[2021-09-23] MEDS: CALCIUM CARBONATE 500 MG (TUMS) TAB.CHEW PO PRN (17:53)
[2021-09-23 20:00] VITALS: BP 186/86
[2021-09-23] MEDS: ASPIRIN E.C. 81 MG (ECOTRIN) TAB PO SCH (20:18)
[2021-09-23] MEDS: ENOXAPARIN 40 MG/0.4 ML (LOVENOX) SYR SC SCH (20:18)
[2021-09-23] MEDS: FINASTERIDE (PROSCAR) 5 MG TAB PO SCH (20:19)
[2021-09-23 23:51] VITALS: BP 136/65
--- NOTE | 2021-09-24 07:47 | PM&R Progress Note ---
Subjective HPI/CC On Admission Date Seen by Provider: Sep 24, 2021 Time Seen by Provider: 17:00 Subjective/Events-last exam 09/24/2021: Patient doing pretty well Pain is pretty well controlled Checked meds and labs Talking on the phone when I went to see him 09/23/21: Patient doing well 1/2 Lortab help pain Dizzy at times he reported Talking on the phone currently 09/22/2021: Patient doing well Working with PT Hydrocodone worked better for him No major issues 09/21/2021: Patient doing fairly well Pain is controlled Changing oxycodone to hydrocodone No other concerns 09/20/2021: Pt doing really well Hemoglobin stable at 8.3 Cystoscopy will be preformed at 12 Pain issues are managed blood pressure is 103/57 Very Dizzy at times Bowels are moving Headache and Tylenol was given 09/19/2021: Pt having difficulties Lot of somatic complaints One unit of blood given for hemoglobin of 6.3 BP varies White count of 16 UTI will be managed with placement of Bactrim by Dr. Toledo Bowels moved yesterday Review of Systems General: Fatigue, Malaise Musculoskeletal: leg pain Objective Exam Vital Signs Vital Signs Date Time Temp Pulse Resp B/P (MAP) Pulse Ox O2 Delivery O2 Flow Rate FiO2 09/24/21 20:02 Room Air 09/24/21 19:32 36.3 76 18 124/58 (80) 99 Capillary Refill : General Appearance: No Apparent Distress, WD/WN, Chronically ill HEENT: PERRL/EOMI, Normal ENT Inspection, Pharynx Normal Neck: Full Range of Motion, Normal Inspection, Non Tender, Supple, Carotid Bruit Respiratory: Chest Non Tender, Lungs Clear, Normal Breath Sounds, No Accessory Muscle Use, No Respiratory Distress Cardiovascular: Regular Rate, Rhythm, No Edema, No Gallop, No JVD, No Murmur, Normal Peripheral Pulses Gastrointestinal: Normal Bowel Sounds, No Organomegaly, No Pulsatile Mass, Non Tender, Soft Back: Normal Inspection, No CVA Tenderness, No Vertebral Tenderness Extremity: Normal Capillary Refill, Normal Inspection, Normal Range of Motion (except left leg), Non Tender, No Calf Tenderness, No Pedal Edema Neurologic/Psychiatric: Alert, Oriented x3, No Motor/Sensory Deficits, in service coordinator II- XII Norm as Tested, Abnormal Gait, Depressed Affect, Motor Weakness (ge neralized) Skin: Normal Color, Warm/Dry Lymphatic: No Adenopathy Results/Procedures Lab Patient resulted labs reviewed. FIM Transfers Therapy Code Descriptions/Definitions Functional [place] Measure: 0=Not Assessed/NA 4=Minimal Assistance 1=Total Assistance 5=Supervision or Setup 2=Maximal Assistance 6=Modified [place] 3=Moderate Assistance 7=Complete IndependenceSCALE: Activities may be completed with or without assistive devices. 2-Ivirgnziur-enjwrhr completes the activity by him/herself with no assistance from a helper. 5-Set-up or Clean-up Assistance-helper sets up or cleans up; patient completes activity. [place] assists only prior to or following the activity. 4-Supervision or Touching Assistance-helper provides verbal cues and/or touching/steadying and/or contact guard assistance as patient completes activity. Assistance may be provided throughout the activity or intermittently. 3-Partial/Moderate Assistance-helper does LESS THAN HALF the effort. [place] lifts, holds or supports trunk or limbs, but provides less than half the effort. 2-Substantial/Maximal Assistance-helper does MORE THAN HALF the effort. [place] lifts or holds trunk or limbs and provides more than half the effort. 1-Vpeuddivn-csayts does ALL the effort. Patient does none of the effort to complete the activity. Or, the assistance of 2 or more helpers is required for the patient to complete the activity. If activity was not attempted, code reason: 7-Patient Refused. 9-Not Applicable-not attempted and the patient did not perform the activity before the current illness, exacerbation or injury. 10-Not Attempted due to Environmental Limitations-(lack of equipment, weather restraints, etc.). 88-Not Attempted due to Medical Conditions or Safety Concerns. Roll Left to Right (QC): 6 Sit to Lying (QC): 4 Sit to Stand (QC): 4 Chair/Qid-bc-Dhmii Xfer(QC): 4 Car Transfer (QC): 4 Gait Training Does the Patient Walk?: Yes Distance: 300' Walk 10 feet (QC): 4 Walk 50 ft with 2 Turns(QC): 4 Walk 150 ft (QC): 4 Walking 10ft/uneven surface-QC: 4 Gait Persons Needed: 1 Gait Assistive Device: FWW Wheelchair Training Does the Pt Use a Wheelchair?: No Wheel 50 ft with 2 turns (QC): 9 Wheel 150 ft (QC): 9 Stair Training Stair Training: Handrails/: 2 handrails #of Steps: 8 1 Step (curb) (QC): 4 4 Steps (QC): 4 12 Steps (QC): 88 Stairs: Pattern: Step to Balance Picking up an Object (QC): 88 ADL-Treatment Eating (QC): 6 Oral Hygiene (QC): 5 (setup) Bathing Location: L Arm, R Arm, L Upper Leg, R Upper Leg, L Lower Leg (including foot), R Lower Leg (including foot), Chest, Abdomen, Buttocks, Perineal Area Shower/Bathe Self (QC): 4 Upper Body Dressing (QC): 5 Lower Body Dressing (QC): 4 On/Off Footwear (QC): 4 Toileting Hygiene (QC): 4 Toilet Transfer (QC): 4 Assessment/Plan Assessment and Plan Assess & Plan/Chief Complaint Assessment: Status post left hip fracture Postop anemia requiring transfusion on 09/18/2021 and again on 09/19/2021 CAD previous bypass Hypertension Chronic kidney disease Hyperlipidemia BPH Urinary retention UTI placed on Bactrim after consulting Dr. Toledo Plan: Monitor hemoglobin Monitor need for holding Lovenox depending on hemoglobin Aggressive PT and OT Supportive care 09/19/2021: Dr. Toledo consult appreciated Bactrim until urine culture final Monitor hemoglobin 09/20/21: Supportive care Bactrim Await urine culture 09/21/2021: Pain control Change oxycodone to hydrocodone Await urine culture 09/22/2021: Bactrim Monitor closely 09/23/21: Ucx pending Pain control 09/24/2021: Await urine culture Antibiotics maintained (1) Intertrochanteric fracture of left femur Status: Acute (2) Acute kidney injury superimposed on chronic kidney disease Status: Acute (3) CAD (coronary artery disease) (4) Hx of CABG (5) Transfusion of blood during current hospitalisation (6) BPH (benign prostatic hyperplasia) (7) Urinary retention (8) Acute postoperative anemia due to expected blood loss Status: Acute (9) Orthostatic hypotension Status: Acute PADDY CASAS DO Sep 24, 2021 07:47
[2021-09-24 08:00] VITALS: BP 182/77
[2021-09-24 08:20] VITALS: BP 131/65
[2021-09-24] MEDS: eZETimibe 10 MG (ZETIA) TABLET PO SCH (08:35)
[2021-09-24] MEDS: SENNA W/DOCUSATE (SENOKOT S) TABLET PO SCH ×2 (08:35→20:35)
[2021-09-24] MEDS: SENNOSIDES 8.6 MG (SENOKOT) TAB PO SCH ×2 (08:35→20:35)
[2021-09-24] MEDS: DOCUSATE SODIUM 100 MG (COLACE) CAP PO SCH ×2 (08:35→20:34)
[2021-09-24] MEDS: TAMSULOSIN 0.4 MG (FLOMAX) CAP PO SCH ×2 (08:35→20:27)
[2021-09-24] MEDS: polyethylene glycoL POWDER 17 GM (MIRALAX) PACK PO SCH ×2 (08:37→19:44)
[2021-09-24] MEDS: ACETAMINOPHEN 325 MG TABLET PO PRN ×2 (08:37→15:06)
[2021-09-24 17:55] VITALS: BP 155/73
[2021-09-24 19:32] VITALS: BP 124/58
[2021-09-24] MEDS: ENOXAPARIN 40 MG/0.4 ML (LOVENOX) SYR SC SCH (20:27)
[2021-09-24] MEDS: ASPIRIN E.C. 81 MG (ECOTRIN) TAB PO SCH (20:27)
[2021-09-24] MEDS: FINASTERIDE (PROSCAR) 5 MG TAB PO SCH (20:27)
[2021-09-24] MEDS: CALCIUM CARBONATE 500 MG (TUMS) TAB.CHEW PO PRN (20:33)
[2021-09-24] MEDS: HYDROcodone/APAP 5 MG/325 MG (LORTAB) TAB PO PRN (21:29)
[2021-09-25] MEDS: ACETAMINOPHEN 325 MG TABLET PO PRN ×3 (03:02→21:04)
[2021-09-25 06:40] LABS: BASOPHILS % (AUTO) 1 % (0-10); EOSINOPHILS # (AUTO) 0.3 10^3/uL (0.0-0.3); EOSINOPHILS % (AUTO) 4 % (0-10); HEMATOCRIT 27 % (40-54); HEMOGLOBIN 8.9 g/dL (13.3-17.7); LYMPHOCYTES # (AUTO) 1.4 10^3/uL (1.0-4.0); LYMPHOCYTES % (AUTO) 19 % (12-44); MEAN CORPUSCULAR HEMOGLOBIN 26 pg (25-34); MEAN CORPUSCULAR HGB CONC 33 g/dL (32-36); MEAN CORPUSCULAR VOLUME 80 fL (80-99); MEAN PLATELET VOLUME 8.5 fL (9.0-12.2); MONOCYTES # (AUTO) 0.7 10^3/uL (0.0-1.0); MONOCYTES % (AUTO) 9 % (0-12); NEUTROPHILS % (AUTO) 66 % (42-75); PLATELET COUNT 366 10^3/uL (130-400); WHITE BLOOD COUNT 7.6 10^3/uL (4.3-11.0)
--- NOTE | 2021-09-25 06:56 | PM&R Progress Note ---
Subjective HPI/CC On Admission Date Seen by Provider: Sep 25, 2021 Time Seen by Provider: 11:00 Subjective/Events-last exam 09/25/2021: Pt doing really well Discharge plan for tomorrow with [facility] Labs are good Proscar and Flomax maintained 09/24/2021: Patient doing pretty well Pain is pretty well controlled Checked meds and labs Talking on the phone when I went to see him 09/23/21: Patient doing well 1/2 Lortab help pain Dizzy at times he reported Talking on the phone currently 09/22/2021: Patient doing well Working with PT Hydrocodone worked better for him No major issues 09/21/2021: Patient doing fairly well Pain is controlled Changing oxycodone to hydrocodone No other concerns 09/20/2021: Pt doing really well Hemoglobin stable at 8.3 Cystoscopy will be preformed at 12 Pain issues are managed blood pressure is 103/57 Very Dizzy at times Bowels are moving Headache and Tylenol was given 09/19/2021: Pt having difficulties Lot of somatic complaints One unit of blood given for hemoglobin of 6.3 BP varies White count of 16 UTI will be managed with placement of Bactrim by Dr. Toledo Bowels moved yesterday Review of Systems General: Fatigue, Malaise Genitourinary: Frequency Musculoskeletal: leg pain Objective Exam Vital Signs Vital Signs Date Time Temp Pulse Resp B/P (MAP) Pulse Ox O2 Delivery O2 Flow Rate FiO2 09/25/21 21:05 99 Room Air 09/25/21 20:00 36.6 72 18 165/73 (103) Capillary Refill : General Appearance: No Apparent Distress, WD/WN, Chronically ill HEENT: PERRL/EOMI, Normal ENT Inspection, Pharynx Normal Neck: Full Range of Motion, Normal Inspection, Non Tender, Supple, Carotid Bruit Respiratory: Chest Non Tender, Lungs Clear, Normal Breath Sounds, No Accessory Muscle Use, No Respiratory Distress Cardiovascular: Regular Rate, Rhythm, No Edema, No Gallop, No JVD, No Murmur, Normal Peripheral Pulses Gastrointestinal: Normal Bowel Sounds, No Organomegaly, No Pulsatile Mass, Non Tender, Soft Back: Normal Inspection, No CVA Tenderness, No Vertebral Tenderness Extremity: Normal Capillary Refill, Normal Inspection, Normal Range of Motion (except left leg), Non Tender, No Calf Tenderness, No Pedal Edema Neurologic/Psychiatric: Alert, Oriented x3, No Motor/Sensory Deficits, freelance data entry II- XII Norm as Tested, Abnormal Gait, Depressed Affect, Motor Weakness (generalized) Skin: Normal Color, Warm/Dry Lymphatic: No Adenopathy Results/Procedures Lab Laboratory Tests 09/25/21 05:57 Patient resulted labs reviewed. FIM Transfers Therapy Code Descriptions/Definitions Functional [place] Measure: 0=Not Assessed/NA 4=Minimal Assistance 1=Total Assistance 5=Supervision or Setup 2=Maximal Assistance 6=Modified [place] 3=Moderate Assistance 7=Complete IndependenceSCALE: Activities may be completed with or without assistive devices. 6-Ylgqybkzwm-zuctenf completes the activity by him/herself with no assistance f rom a helper. 5-Set-up or Clean-up Assistance-helper sets up or cleans up; patient completes activity. [place] assists only prior to or following the activity. 4-Supervision or Touching Assistance-helper provides verbal cues and/or touching/steadying and/or contact guard assistance as patient completes activity. Assistance may be provided throughout the activity or intermittently. 3-Partial/Moderate Assistance-helper does LESS THAN HALF the effort. [place] lifts, holds or supports trunk or limbs, but provides less than half the effort. 2-Substantial/Maximal Assistance-helper does MORE THAN HALF the effort. [place] lifts or holds trunk or limbs and provides more than half the effort. 6-Rwpzyjsgm-pbufel does ALL the effort. Patient does none of the effort to complete the activity. Or, the assistance of 2 or more helpers is required for the patient to complete the activity. If activity was not attempted, code reason: 7-Patient Refused. 9-Not Applicable-not attempted and the patient did not perform the activity before the current illness, exacerbation or injury. 10-Not Attempted due to Environmental Limitations-(lack of equipment, weather restraints, etc.). 88-Not Attempted due to Medical Conditions or Safety Concerns. Roll Left to Right (QC): 6 Sit to Lying (QC): 4 Sit to Stand (QC): 4 Chair/Guj-cq-Cdiqi Xfer(QC): 4 Car Transfer (QC): 4 Gait Training Does the Patient Walk?: Yes Distance: 300' Walk 10 feet (QC): 4 Walk 50 ft with 2 Turns(QC): 4 Walk 150 ft (QC): 4 Walking 10ft/uneven surface-QC: 4 Gait Persons Needed: 1 Gait Assistive Device: FWW Wheelchair Training Does the Pt Use a Wheelchair?: No Wheel 50 ft with 2 turns (QC): 9 Wheel 150 ft (QC): 9 Stair Training Stair Training: Handrails/: 2 handrails #of Steps: 8 1 Step (curb) (QC): 4 4 Steps (QC): 4 12 Steps (QC): 88 Stairs: Pattern: Step to Balance Picking up an Object (QC): 88 ADL-Treatment Eating (QC): 6 Oral Hygiene (QC): 5 (setup) Bathing Location: L Arm, R Arm, L Upper Leg, R Upper Leg, L Lower Leg (including foot), R Lower Leg (including foot), Chest, Abdomen, Buttocks, Perineal Area Shower/Bathe Self (QC): 4 Upper Body Dressing (QC): 5 Lower Body Dressing (QC): 4 On/Off Footwear (QC): 4 Toileting Hygiene (QC): 4 Toilet Transfer (QC): 4 Assessment/Plan Assessment and Plan Assess & Plan/Chief Complaint Assessment: Status post left hip fracture Postop anemia requiring transfusion on 09/18/2021 and again on 09/19/2021 CAD previous bypass Hypertension Chronic kidney disease Hyperlipidemia BPH Urinary retention UTI placed on Bactrim after consulting Dr. Toledo Plan: Monitor hemoglobin Monitor need for holding Lovenox depending on hemoglobin Aggressive PT and OT Supportive care 09/19/2021: Dr. Toledo consult appreciated Bactrim until urine culture final Monitor hemoglobin 09/20/21: Supportive care Bactrim Await urine culture 09/21/2021: Pain control Change oxycodone to hydrocodone Await urine culture 09/22/2021: Bactrim Monitor closely 09/23/21: Ucx pending Pain control 09/24/2021: Await urine culture Antibiotics maintained 09/25/2021: Discharge plan tomorrow (1) Intertrochanteric fracture of left femur Status: Acute (2) Acute kidney injury superimposed on chronic kidney disease Status: Acute (3) CAD (coronary artery disease) (4) Hx of CABG (5) Transfusion of blood during current hospitalisation (6) BPH (benign prostatic hyperplasia) (7) Urinary retention (8) Acute postoperative anemia due to expected blood loss Status: Acute (9) Orthostatic hypotension Status: Acute PADDY CASAS DO Sep 25, 2021 06:56
[2021-09-25 07:02] LABS: ALBUMIN 3.7 GM/DL (3.2-4.5); POTASSIUM 4.4 MMOL/L (3.6-5.0)
[2021-09-25 07:03] LABS: CALCIUM 9.4 MG/DL (8.5-10.1)
[2021-09-25 07:04] LABS: TOTAL PROTEIN 6.2 GM/DL (6.4-8.2)
[2021-09-25 07:06] LABS: BILIRUBIN,TOTAL 0.4 MG/DL (0.1-1.0)
[2021-09-25 07:08] LABS: CREATININE SERUM 1.58 MG/DL (0.60-1.30)
[2021-09-25] MEDS: ONDANSETRON 4 MG (ZOFRAN) ORAL DISSOLVE TAB PO PRN (07:09)
[2021-09-25 07:50] VITALS: BP 121/67
[2021-09-25] MEDS: eZETimibe 10 MG (ZETIA) TABLET PO SCH (08:05)
[2021-09-25] MEDS: TAMSULOSIN 0.4 MG (FLOMAX) CAP PO SCH ×2 (08:06→21:04)
--- NOTE | 2021-09-25 08:34 | Occupational Ther Daily Note ---
OT Current Status-Daily Note Subjective Pt reports L hip pain as 3/10 at start of session. He states Tylenol was given ~1 hour prior to OT arrival. Appearance Pt left sitting in recliner, all needs within reach, RN notified. Mental Status/Objective Patient Orientation: Person, Place, Situation Attachments: IV ADL-Treatment Therapy Code Descriptions/Definitions Functional [place] Measure: 0=Not Assessed/NA 4=Minimal Assistance 1=Total Assistance 5=Supervision or Setup 2=Maximal Assistance 6=Modified [place] 3=Moderate Assistance 7=Complete IndependenceSCALE: Activities may be completed with or without assistive devices. 2-Iscktoqrdo-pjiszhg completes the activity by him/herself with no assistance from a helper. 5-Set-up or Clean-up Assistance-helper sets up or cleans up; patient completes activity. [place] assists only prior to or following the activity. 4-Supervision or Touching Assistance-helper provides verbal cues and/or touching/steadying and/or contact guard assistance as patient completes activity. Assistance may be provided throughout the activity or intermittently. 3-Partial/Moderate Assistance-helper does LESS THAN HALF the effort. [place] lifts, holds or supports trunk or limbs, but provides less than half the effort. 2-Substantial/Maximal Assistance-helper does MORE THAN HALF the effort. [place] lifts or holds trunk or limbs and provides more than half the effort. 9-Iynlmvjuz-bzqxou does ALL the effort. Patient does none of the effort to complete the activity. Or, the assistance of 2 or more helpers is required for the patient to complete the activity. If activity was not attempted, code reason: 7-Patient Refused. 9-Not Applicable-not attempted and the patient did not perform the activity before the current illness, exacerbation or injury. 10-Not Attempted due to Environmental Limitations-(lack of equipment, weather restraints, etc.). 88-Not Attempted due to Medical Conditions or Safety Concerns. Eating (QC): 6 Oral Hygiene (QC): 6 Shower/Bathe Self (QC): 6 Upper Body Dressing (QC): 6 Lower Body Dressing (QC): 6 On/Off Footwear: 5 Toileting Hygiene (QC): 6 Toilet Transfer (QC): 6 Shower performed; majority completed in sitting. He stood only briefly to wash/dry buttocks/nicko area; no unsteadiness observed. No physical assistance required to wash body parts. Clothing donned seated on shower bench. Extra time to thread LLE into LB clothing. Good recall on use of sock aid, set up only. Following morning ADL routine, pt verbalizes feelings of dizziness. BP: 81/49, HR 101 bpm. RN notified. Education on moving slower through tasks and positional changes. Education OT Patient Education: Energy conservation, Progress toward Goal/Update tx plan, Purpose of tx/functional activities, Rehab process Teaching Recipient: Patient Teaching Methods: Discussion Response to Teaching: Verbalize Understanding, Return Demonstration OT Short Term Goals Short Term Goals Time Frame: Sep 22, 2021 Oral hygiene: 5 Shower/bathe self: 4 Lower body dressin OT Senior Care Goals Sustainability Specialist Goals Time Frame: Oct 06, 2021 Eating (QC): 6 Oral Hygiene (QC): 6 Toileting Hygiene (QC): 6 Shower/Bathe Self (QC): 6 Upper Body Dressing (QC): 6 Lower Body Dressing (QC): 6 On/Off Footwear (QC): 6 Additional Goals: 1-Demonstrate ADL Tasks, 2-Verbalize Understanding, 3- ImproveStrength/[place] 1=Demonstrate adherence to instructed precautions during ADL tasks. 2=Patient will verbalize/demonstrate understanding of assistive devices/modifications for ADL. 3=Patient will improve strength/tolerance for activity to enable patient to perform ADL's. OT Education/Plan Problem List/Assessment Assessment: Decreased Activ Tolerance, Decreased UE Strength, Impaired I ADL's Discharge Recommendations Plan/Recommendations: Continue POC Equpiment Recommendations-D/C: Bath Chair, Sock Aide Treatment Plan/Plan of Care Treatment,Training & Education: Yes Patient would benefit from OT for education, treatment and training to promote independence in ADL's, mobility, safety and/or upper extremity function for ADL's. Plan of Care: ADL Retraining, Functional Mobility, Group Exercise/Act as Ind, UE Funct Exercise/Act Treatment Duration: Sep 29, 2021 Frequency: At least 5 of 7 days/Wk (IRF) Estimated Hrs Per Day: 1.5 hours per day Agreement: Yes Rehab Potential: Good Time/GCodes Start Time: 07:42 Stop Time: 08:42 Total Time Billed (hr/min): 60 Billed Treatment Time 1 visit ADL x4 Yanni Collado OT Sep 25, 2021 08:34
[2021-09-25] MEDS: HYDROcodone/APAP 5 MG/325 MG (LORTAB) TAB PO PRN ×3 (10:02→22:32)
--- NOTE | 2021-09-25 10:32 | Occupational Ther Daily Note ---
OT Current Status-Daily Note Subjective Pt agreeable to OT. Requests performing UE exercises. "I like these so much better than the leg exercises." Appearance Left sitting in chair, all needs within reach at OT departure ADL-Treatment Therapy Code Descriptions/Definitions Functional [place] Measure: 0=Not Assessed/NA 4=Minimal Assistance 1=Total Assistance 5=Supervision or Setup 2=Maximal Assistance 6=Modified [place] 3=Moderate Assistance 7=Complete IndependenceSCALE: Activities may be completed with or without assistive devices. 7-Ncejyviowt-ekufmrx completes the activity by him/herself with no assistance from a helper. 5-Set-up or Clean-up Assistance-helper sets up or cleans up; patient completes activity. [place] assists only prior to or following the activity. 4-Supervision or Touching Assistance-helper provides verbal cues and/or touching/steadying and/or contact guard assistance as patient completes activity. Assistance may be provided throughout the activity or intermittently. 3-Partial/Moderate Assistance-helper does LESS THAN HALF the effort. [place] lifts, holds or supports trunk or limbs, but provides less than half the effort. 2-Substantial/Maximal Assistance-helper does MORE THAN HALF the effort. [place] lifts or holds trunk or limbs and provides more than half the effort. 4-Ykzpqexvq-libkwz does ALL the effort. Patient does none of the effort to complete the activity. Or, the assistance of 2 or more helpers is required for the patient to complete the activity. If activity was not attempted, code reason: 7-Patient Refused. 9-Not Applicable-not attempted and the patient did not perform the activity before the current illness, exacerbation or injury. 10-Not Attempted due to Environmental Limitations-(lack of equipment, weather restraints, etc.). 88-Not Attempted due to Medical Conditions or Safety Concerns. Other Treatment Pt participated in UE exercises with 2# dumbbell. He was able to perform all movements through full range. Continues to need visual cues for correct technique. 12x2 in all planes. Good tolerance. Education OT Patient Education: Correct positioning, Exercise program, Purpose of tx/functional activities Teaching Recipient: Patient Teaching Methods: Demonstration, Discussion Response to Teaching: Verbalize Understanding, Return Demonstration OT Short Term Goals Short Term Goals Time Frame: Sep 22, 2021 Oral hygiene: 5 Shower/bathe self: 4 Lower body dressin OT Halfway Goals Halfway Goals Time Frame: Oct 06, 2021 Eating (QC): 6 Oral Hygiene (QC): 6 Toileting Hygiene (QC): 6 Shower/Bathe Self (QC): 6 Upper Body Dressing (QC): 6 Lower Body Dressing (QC): 6 On/Off Footwear (QC): 6 Additional Goals: 1-Demonstrate ADL Tasks, 2-Verbalize Understanding, 3- ImproveStrength/Liyah 1=Demonstrate adherence to instructed precautions during ADL tasks. 2=Patient will verbalize/demonstrate understanding of assistive devices/modifications for ADL. 3=Patient will improve strength/tolerance for activity to enable patient to perform ADL's. OT Education/Plan Problem List/Assessment Assessment: Decreased Activ Tolerance, Decreased UE Strength, Impaired I ADL's Discharge Recommendations Plan/Recommendations: Continue POC Treatment Plan/Plan of Care Treatment,Training & Education: Yes Patient would benefit from OT for education, treatment and training to promote i ndependence in ADL's, mobility, safety and/or upper extremity function for ADL's. Plan of Care: ADL Retraining, Functional Mobility, Group Exercise/Act as Ind, UE Funct Exercise/Act Treatment Duration: Sep 29, 2021 Frequency: At least 5 of 7 days/Wk (IRF) Estimated Hrs Per Day: 1.5 hours per day Agreement: Yes Rehab Potential: Good Time/GCodes Start Time: 10:00 Stop Time: 10:30 Total Time Billed (hr/min): 30 Billed Treatment Time 1 visit EX Yanni Lees OT Sep 25, 2021 10:32
[2021-09-25] MEDS: polyethylene glycoL POWDER 17 GM (MIRALAX) PACK PO SCH ×2 (13:28→21:08)
[2021-09-25] MEDS: SENNA W/DOCUSATE (SENOKOT S) TABLET PO SCH ×2 (13:28→21:08)
[2021-09-25] MEDS: SENNOSIDES 8.6 MG (SENOKOT) TAB PO SCH ×2 (13:28→21:08)
[2021-09-25] MEDS: DOCUSATE SODIUM 100 MG (COLACE) CAP PO SCH ×2 (13:28→21:04)
--- NOTE | 2021-09-25 14:24 | Physical Therapy Daily Note ---
PT Daily Note-Current Subjective Pt sitting in recliner upon arrival. Pt agrees to PT. Pain Numeric Pain Scale: 6 Location: Left Location Body Site: Hip Pain Description: Ache Mental Status Patient Orientation: Person, Place, Time, Situation Transfers SCALE: Activities may be completed with or without assistive devices. 4-Ncpcfwnlgw-favszwk completes the activity by him/herself with no assistance from a helper. 5-Set-up or Clean-up Assistance-helper sets up or cleans up; patient completes activity. [place] assists only prior to or following the activity. 4-Supervision or Touching Assistance-helper provides verbal cues and/or touching/steadying and/or contact guard assistance as patient completes activity. Assistance may be provided throughout the activity or intermittently. 3-Partial/Moderate Assistance-helper does LESS THAN HALF the effort. [place] lifts, holds or supports trunk or limbs, but provides less than half the effort. 2-Substantial/Maximal Assistance-helper does MORE THAN HALF the effort. [place] lifts or holds trunk or limbs and provides more than half the effort. 4-Ssvmkuxck-iappex does ALL the effort. Patient does none of the effort to compl ete the activity. Or, the assistance of 2 or more helpers is required for the patient to complete the activity. If activity was not attempted, code reason: 7-Patient Refused. 9-Not Applicable-not attempted and the patient did not perform the activity before the current illness, exacerbation or injury. 10-Not Attempted due to Environmental Limitations-(lack of equipment, weather restraints, etc.). 88-Not Attempted due to Medical Conditions or Safety Concerns. Roll Left & Right (QC): 6 Sit to Lying (QC): 6 Lying to Sitting/Side of Bed(Q: 6 Sit to Stand (QC): 6 Chair/Yvn-bf-Hriqp Xfer(QC): 6 Toilet Transfer (QC): 6 Car Transfer (QC): 6 Weight Bearing Left Lower Extremity: Left Weight Bearing/Tolerated Gait Training Does the Patient Walk?: Yes Distance: 150' x2 Walk 10 feet (QC): 6 Walk 50 ft with 2 Turns(QC): 6 Walk 150 ft (QC): 6 Walking 10ft/uneven surface-QC: 6 Gait Persons Needed: 0 Gait Assistive Device: FWW Wheelchair Training Does the Pt Use a Wheelchair?: No Stair Training Stair Training: Handrails/: 2 handrails #of Steps: 8 1 Step (curb) (QC): 6 4 Steps (QC): 6 12 Steps (QC): 7 Stairs: Pattern: Step to Balance Picking up an Object (QC): 5 Special Test Comments Pt will use a contract technician at home. Treatments ([id number]) Pt completes QC scoring items listed above as well as uses NuStep for 15m at WL 3. Pt returns to room at end of tx to rest in bed with all needs met, lunch arriving and call light in hand. ([id number]) FINISHED HARDWARE ERECTOR reviews HEP for Supine & Seated EX as well as answers questions regarding AE and discharge meds & HH. Pt resting at end of tx with all needs met, call light in hand. Assessment Current Status: Good Progress Pt [email or web address]. tx well, taking RB if needed for fatigue and pain. Pt is made Ad sandra in room after afternoon session. PT Sustainability Officer Goals Group Home Goals PT Sustainability Officer Goals Time Frame: Oct 16, 2021 Roll Left & Right (QC): 6 Sit to Lying (QC): 6 Lying-Sitting on Side/Bed(QC): 6 Sit to Stand (QC): 6 Chair/Yhf-vm-Frlub Xfer(QC): 6 Toilet Transfer (QC): 6 Car Transfer (QC): 6 Does the Patient Walk: Yes Walk 10 feet (QC): 6 Walk 50ft with 2 Turns (QC): 6 Walk 150 ft (QC): 6 Walking 10ft on Uneven Surface: 6 1 Step (curb) (QC): 6 4 Steps (QC): 6 12 Steps (QC): 6 Picking up an Object (QC): 6 Does the Pt use WC or Scooter?: No Wheel 50 feet with 2 turns (QC: 9 Type: N/A Wheel 150 feet: 9 Type: N/A PT Plan Problem List Problem List: Activity Tolerance Treatment/Plan Treatment Plan: Continue Plan of Care Treatment Plan: Bed Mobility, Education, Functional Activity Liyah, Functional Strength, Group Therapy, Gait, Safety, Therapeutic Exercise, Transfers Treatment Duration: Oct 16, 2021 Frequency: At least 5 of 7 days/Wk (IRF) Estimated Hrs Per Day: 1.5 hours per day Patient and/or Family Agrees t: Yes Time/GCodes Time In: 1100 Time Out: 1200 Total Billed Treatment Time: 60 Total Billed Treatment ([id number]) 1, GT (15m), FA x2 (30m) & EX (15m) ([id number]) 1, EX (15m) & FA (15m) MISTY LION FINISHED HARDWARE ERECTOR Sep 25, 2021 14:24
[2021-09-25 20:00] VITALS: BP 165/73
[2021-09-25] MEDS: FINASTERIDE (PROSCAR) 5 MG TAB PO SCH (21:04)
[2021-09-25] MEDS: ASPIRIN E.C. 81 MG (ECOTRIN) TAB PO SCH (21:04)
[2021-09-25] MEDS: ENOXAPARIN 40 MG/0.4 ML (LOVENOX) SYR SC SCH (21:05)
[2021-09-26] MEDS ORDERED: TMSL.4C PO (05:36)
[2021-09-26] MEDS ORDERED: ACHD5005 PO (05:36)
--- NOTE | 2021-09-26 05:38 | D/C HH Face to Face Order ---
D/C Face to Face Orders Reconcile Patient Problems Problems Reviewed?: Yes Instructions for Patient Integrity Patient Instructions/FollowUp: PCP 1 week Physician to follow Patient: PCP Discharge Diet for Home: No Restrictions Patient Problems: Hip fx Patient Data-Allergies,Ht & Wt Patient Allergies: Coded Allergies: No Known Drug Allergies (Unverified , 07/25/10) Home Health Need/Face to Face Date of Face to Face: Sep 26, 2021 Clinical Findings: Generalized weakness and fatigue, Instability, Muscle weakness, Pain with ambulation, Unsteady gait I have seen Pt fjzg-tk-pedt: Yes Discharged To: Home Diagnosis/Conditions: Hip fx Patient is Homebound due to: Tisha fall risk due to instabilty, Muscle weakness, Pain w/ambulation Homebound Status Due to the above stated illness, injury or surgical procedure (medical condition or diagnosis) and associated clinical findings, the patient is homebound because of his/her inability to leave home except with aid of a supportive device and/or person AND leaving the home requires a considerable and taxing effort or is medically contraindicated. Pt req the following assistanc: Walker Home Health Nursing Orders Home Health Services Order: Nursing Services, Stone Unloader-Evaluate & Treat, Physical Therapy-Evaluate & Treat Certify Stmt I certify that this patient is under my care and that I, a nurse practitioner or a physician; a power plant assistant working with me, had a face to face encounter that - meets the physician face to face encounter requirements with this patient as dated. PADDY CASAS DO Sep 26, 2021 05:38
--- NOTE | 2021-09-26 05:39 | Discharge Summary ---
Diagnosis/Chief Complaint Date of Admission Sep 18, 2021 at 10:59 Date of Discharge Discharge Date: Sep 26, 2021 Discharge Diagnosis Assessment: Status post left hip fracture Postop anemia requiring transfusion on 09/18/2021 and again on 09/19/2021 CAD previous bypass Hypertension Chronic kidney disease Hyperlipidemia BPH Urinary retention UTI placed on Bactrim after consulting Dr. Toledo Plan: Monitor hemoglobin Monitor need for holding Lovenox depending on hemoglobin Aggressive PT and OT Supportive care 09/19/2021: Dr. Toledo consult appreciated Bactrim until urine culture final Monitor hemoglobin 09/20/21: Supportive care Bactrim Await urine culture 09/21/2021: Pain control Change oxycodone to hydrocodone Await urine culture 09/22/2021: Bactrim Monitor closely 09/23/21: Ucx pending Pain control 09/24/2021: Await urine culture Antibiotics maintained 09/25/2021: Discharge plan tomorrow (1) Intertrochanteric fracture of left femur Status: Acute (2) Acute kidney injury superimposed on chronic kidney disease Status: Acute (3) CAD (coronary artery disease) (4) Hx of CABG (5) Transfusion of blood during current hospitalisation (6) BPH (benign prostatic hyperplasia) (7) Urinary retention (8) Acute postoperative anemia due to expected blood loss Status: Acute (9) Orthostatic hypotension Discharge Summary Discharge Physical Examination Allergies: Coded Allergies: No Known Drug Allergies (Unverified , 07/25/10) Vitals & I&Os Vital Signs Date Time Temp Pulse Resp B/P (MAP) Pulse Ox O2 Delivery O2 Flow Rate FiO2 09/26/21 14:35 36.2 71 16 187/90 98 Room Air General Appearance: Alert, Oriented X3, Cooperative Respiratory: Clear to Auscultation Cardiovascular: Regular Rate Psych/Mental Status: Mental Status NL, Other (Flat affect) Hospital Course Was the Problem List Reviewed?: Yes Pt had an uneventful 9 day hospital course after he was admitted for a hip fracture debility. He was started on an aggressive rehab. PT and OT were consulted. Pain was well controlled. Urinary issue was managed by Dr. Toledo, with resolution of that at time of discharge. Maintain on Proscar and Flomax. Pt was deemed stable for discharge and will have close follow up with Dr. Feliz and urology. Labs (last 24 hrs) Laboratory Tests 09/18/21 11:48: Glucometer 173H 09/18/21 15:48: Glucometer 126H 09/18/21 20:53: Glucometer 138H 09/19/21 05:33: White Blood Count 16.3H, Red Blood Count 2.59L, Hemoglobin 6.5*L, Hematocrit 20*L, Mean Corpuscular Volume 78L, Mean Corpuscular Hemoglobin 25, Mean Corpuscular Hemoglobin Concent 32, Red Cell Distribution Width 12.3, Platelet Count 328, Mean Platelet Volume 9.3, Immature Granulocyte % (Auto) 1, Neutrophils (%) (Auto) 81H, Lymphocytes (%) (Auto) 9L, Monocytes (%) (Auto) 8, Eosinophils (%) (Auto) 1, Basophils (%) (Auto) 0, Neutrophils # (Auto) 13.2H, Lymphocytes # (Auto) 1.4, Monocytes # (Auto) 1.3H, Eosinophils # (Auto) 0.2, Basophils # (Auto) 0.0, Immature Granulocyte # (Auto) 0.1, Sodium Level 130L, Po tassium Level 3.9, Chloride Level 94L, Carbon Dioxide Level 22, Anion Gap 14, Blood Urea Nitrogen 20H, Creatinine 1.34H, Estimat Glomerular Filtration Rate 53, BUN/Creatinine Ratio 15, Glucose Level 150H, Calcium Level 9.4, Corrected Calcium 9.4, Total Bilirubin 0.6, Aspartate Amino Transf (AST/SGOT) 31, Alanine Aminotransferase (ALT/SGPT) 36, Alkaline Phosphatase 96, Total Protein 7.1, Albumin 4.0 09/19/21 05:46: Glucometer 137H 09/19/21 07:45: Urine Color YELLOW, Urine Clarity CLEAR, Urine pH 7.5, Urine Specific [place] 1.010L, Urine Protein TRACEH, Urine Glucose (UA) NEGATIVE, Urine Ketones NEGATIVE, Urine Nitrite NEGATIVE, Urine Bilirubin NEGATIVE, Urine Urobilinogen 0.2, Urine Leukocyte Esterase 3+H, Urine RBC (Auto) 2+H, Urine RBC 10-25H, Urine WBC >100H, Urine Crystals NONE, Urine Bacteria LARGEH, Urine Casts NONE, Urine Mucus NEGATIVE, Urine Culture Indicated YES 09/19/21 11:25: White Blood Count 14.0H 09/19/21 11:27: Glucometer 145H 09/19/21 16:04: Glucometer 129H 09/19/21 20:25: Glucometer 174H 09/20/21 05:20: White Blood Count 9.1, Red Blood Count 3.21L, Hemoglobin 8.3#L, Hematocrit 25L, Mean Corpuscular Volume 79L, Mean Corpuscular Hemoglobin 26, Mean Corpuscular Hemoglobin Concent 33, Red Cell Distribution Width 13.6, Platelet Count 281, Mean Platelet Volume 8.9L, Immature Granulocyte % (Auto) 2, Neutrophils (%) (Auto) 68, Lymphocytes (%) (Auto) 16, Monocytes (%) (Auto) 12, Eosinophils (%) (Auto) 3, Basophils (%) (Auto) 0, Neutrophils # (Auto) 6.1, Lymphocytes # (Auto) 1.4, Monocytes # (Auto) 1.1H, Eosinophils # (Auto) 0.3, Basophils # (Auto) 0.0, Immature Granulocyte # (Auto) 0.2H, Sodium Level 133L, Potassium Level 3.7, Chloride Level 96L, Carbon Dioxide Level 23, Anion Gap 14, Blood Urea Nitrogen 26H, Creatinine 1.58H, Estimat Glomerular Filtration Rate 43, BUN/Creatinine Ratio 16, Glucose Level 138H, Calcium Level 9.0, Corrected Calcium 9.2, Total Bilirubin 0.5, Aspartate Amino Transf (AST/SGOT) 40H, Alanine Aminotransferase (ALT/SGPT) 45, Alkaline Phosphatase 89, Total Protein 6.4, Albumin 3.7 09/20/21 05:41: Glucometer 139H 09/20/21 08:44: Glucometer 167H 09/20/21 11:18: Glucometer 154H 09/20/21 17:19: Glucometer 105 09/20/21 20:12: Glucometer 145H 09/21/21 05:14: Glucometer 131H 09/21/21 10:23: Glucometer 172H 09/21/21 16:44: Glucometer 101 09/22/21 05:45: Glucometer 130H 09/22/21 11:53: Glucometer 108 09/22/21 16:42: Glucometer 124H 09/22/21 20:58: Glucometer 146H 09/23/21 06:03: Glucometer 111H 09/25/21 05:57: White Blood Count 7.6, Red Blood Count 3.40L, Hemoglobin 8.9L, Hematocrit 27L, Mean Corpuscular Volume 80, Mean Corpuscular Hemoglobin 26, Mean Corpuscular Hemoglobin Concent 33, Red Cell Distribution Width 14.8H, Platelet Count 366, Mean Platelet Volume 8.5L, Immature Granulocyte % (Auto) 2, Neutrophils (%) (Auto) 66, Lymphocytes (%) (Auto) 19, Monocytes (%) (Auto) 9, Eosinophils (%) (Auto) 4, Basophils (%) (Auto) 1, Neutrophils # (Auto) 5.0, Lymphocytes # (Auto) 1.4, Monocytes # (Auto) 0.7, Eosinophils # (Auto) 0.3, Basophils # (Auto) 0.0, Immature Granulocyte # (Auto) 0.2H, Sodium Level 129L, Potassium Level 4.4, Ch loride Level 98, Carbon Dioxide Level 21, Anion Gap 10, Blood Urea Nitrogen 24H, Creatinine 1.58H, Estimat Glomerular Filtration Rate 43, BUN/Creatinine Ratio 15, Glucose Level 115H, Calcium Level 9.4, Corrected Calcium 9.6, Total Bilirubin 0.4, Aspartate Amino Transf (AST/SGOT) 18, Alanine Aminotransferase (ALT/SGPT) 26, Alkaline Phosphatase 99, Total Protein 6.2L, Albumin 3.7 09/25/21 10:03: Lab Scanned Report Transfusion Reaction Form Microbiology 09/19/21 Urine Culture - Final, Complete Escherichia coli Pending Labs Microbiology Date/Time Source Procedure Growth Status 09/19/21 07:45 Urine Clean Catch Urine Culture - Final Escherichia coli Complete Laboratory Tests 09/18/21 11:48: Glucometer 173 09/18/21 15:48: Glucometer 126 09/18/21 20:53: Glucometer 138 09/19/21 05:33: White Blood Count 16.3, Red Blood Count 2.59, Hemoglobin 6.5, Hematocrit 20, Mean Corpuscular Volume 78, Mean Corpuscular Hemoglobin 25, Mean Corpuscular Hemoglobin Concent 32, Red Cell Distribution Width 12.3, Platelet Count 328, Mean Platelet Volume 9.3, Immature Granulocyte % (Auto) 1, Neutrophils (%) (Auto) 81, Lymphocytes (%) (Auto) 9, Monocytes (%) (Auto) 8, Eosinophils (%) (Auto) 1, Basophils (%) (Auto) 0, Neutrophils # (Auto) 13.2, Lymphocytes # (Auto) 1.4, Monocytes # (Auto) 1.3, Eosinophils # (Auto) 0.2, Basophils # (Auto) 0.0, Immature Granulocyte # (Auto) 0.1, Sodium Level 130, Potassium Level 3.9, Chloride Level 94, Carbon Dioxide Level 22, Anion Gap 14, Blood Urea Nitrogen 20, Creatinine 1.34, Estimat Glomerular Filtration Rate 53, BUN/Creatinine Ratio 15, Glucose Level 150, Calcium Level 9.4, Corrected Calcium 9.4, Total Bilirubin 0.6, Aspartate Amino Transf (AST/SGOT) 31, Alanine Aminotransferase (ALT/SGPT) 36, Alkaline Phosphatase 96, Total Protein 7.1, Albumin 4.0 09/19/21 05:46: Glucometer 137 09/19/21 07:45: Urine Color YELLOW, Urine Clarity CLEAR, Urine pH 7.5, Urine Specific [place] 1.010, Urine Protein TRACE, Urine Glucose (UA) NEGATIVE, Urine Ketones NEGATIVE, Urine Nitrite NEGATIVE, Urine Bilirubin NEGATIVE, Urine Urobilinogen 0.2, Urine Leukocyte Esterase 3+, Urine RBC (Auto) 2+, Urine RBC 10-25, Urine WBC >100, Urine Crystals NONE, Urine Bacteria LARGE, Urine Casts NONE, Urine Mucus NEGATIVE, Urine Culture Indicated YES 09/19/21 11:25: White Blood Count 14.0 09/19/21 11:27: Glucometer 145 09/19/21 16:04: Glucometer 129 09/19/21 20:25: Glucometer 174 09/20/21 05:20: White Blood Count 9.1, Red Blood Count 3.21, Hemoglobin 8.3, Hematocrit 25, Mean Corpuscular Volume 79, Mean Corpuscular Hemoglobin 26, Mean Corpuscular Hemoglobin Concent 33, Red Cell Distribution Width 13.6, Platelet Count 281, Mean Platelet Volume 8.9, Immature Granulocyte % (Auto) 2, Neutrophils (%) (Auto) 68, Lymphocytes (%) (Auto) 16, Monocytes (%) (Auto) 12, Eosinophils (%) (Auto) 3, Basophils (%) (Auto) 0, Neutrophils # (Auto) 6.1, Lymphocytes # (Auto) 1.4, Monocytes # (Auto) 1.1, Eosinophils # (Auto) 0.3, Basophils # (Auto) 0.0, Immature Granulocyte # (Auto) 0.2, Sodium Level 133, Potassium Level 3.7, Chloride Level 96, Carbon Dioxide Level 23, Anion Gap 14, Blood Urea Nitrogen 26, Creatinine 1.58, Estimat Glomerular Filtration Rate 43, BUN/Creatinine Ratio 16, Glucose Level 138, Calcium Level 9.0, Corrected Calcium 9.2, Total Bilirubin 0.5, Aspartate Amino Transf (AST/SGOT) 40, Alanine Aminotransferase (ALT/SGPT) 45, Alkaline Phosphatase 89, Total Protein 6.4, Albumin 3.7 09/20/21 05:41: Glucometer 139 09/20/21 08:44: Glucometer 167 09/20/21 11:18: Glucometer 154 09/20/21 17:19: Glucometer 105 09/20/21 20:12: Glucometer 145 09/21/21 05:14: Glucometer 131 09/21/21 10:23: Glucometer 172 09/21/21 16:44: Glucometer 101 09/22/21 05:45: Glucometer 130 09/22/21 11:53: Glucometer 108 09/22/21 16:42: Glucometer 124 09/22/21 20:58: Glucometer 146 09/23/21 06:03: Glucometer 111 09/25/21 05:57: White Blood Count 7.6, Red Blood Count 3.40, Hemoglobin 8.9, Hematocrit 27, Mean Corpuscular Volume 80, Mean Corpuscular Hemoglobin 26, Mean Corpuscular Hemoglobin Concent 33, Red Cell Distribution Width 14.8, Platelet Count 366, Mean Platelet Volume 8.5, Immature Granulocyte % (Auto) 2, Neutrophils (%) (Auto) 66, Lymphocytes (%) (Auto) 19, Monocytes (%) (Auto) 9, Eosinophils (%) (Auto) 4, Basophils (%) (Auto) 1, Neutrophils # (Auto) 5.0, Lymphocytes # (Auto) 1.4, Monocytes # (Auto) 0.7, Eosinophils # (Auto) 0.3, Basophils # (Auto) 0.0, Immature Granulocyte # (Auto) 0.2, Sodium Level 129, Potassium Level 4.4, Chloride Level 98, Carbon Dioxide Level 21, Anion Gap 10, Blood Urea Nitrogen 24, Creatinine 1.58, Estimat Glomerular Filtration Rate 43, BUN/Creatinine Ratio 15, Glucose Level 115, Calcium Level 9.4, Corrected Calcium 9.6, Total Bilirubin 0.4, Aspartate Amino Transf (AST/SGOT) 18, Alanine Aminotransferase (ALT/SGPT) 26, Alkaline Phosphatase 99, Total Protein 6.2, Albumin 3.7 09/25/21 10:03: Lab Scanned Report Transfusion Reaction Form Discharge Home Medications: Active Scripts Active HYDROcodone/APAP 5 MG/325 MG TAB (Acetaminophen/Hydrocodone Bitart) 1 Tab Tab 0 Ea PO Q4H PRN Flomax (Tamsulosin HCl) 0.4 Mg Cap 0.4 Mg PO BID Reported Dulcolax Stool Softener (Docusate Sodium) 100 Mg Capsule 100 Mg PO HS Aspirin EC (Aspirin) 81 Mg Tablet.dr 81 Mg PO HS Msm (Methylsulfonylmethane) 1,000 Mg Tablet 1,000 Mg PO DAILY Preservision Areds Tablet (Vit A/Vit C/Vit E/Zinc/Copper) 1 Each Tablet 1 Each PO DAILY Hydroxyzine HCl 50 Mg Tablet 150 Mg PO HS TAKES 3 (50MG)TABS Methocarbamol 500 Mg Tablet 500 Mg PO BID PRN Hydroxyzine HCl 50 Mg Tablet 100 Mg PO DAILY TAKES 2 (50MG) TABS Carvedilol 6.25 Mg Tablet 6.25 Mg PO BID Senokot (Sennosides) 8.6 Mg Tablet 17.2 Mg PO BID TAKES 2 (8.2MG) TAB Pioglitazone HCl 15 Mg Tablet 15 Mg PO DAILY Ezetimibe 10 Mg Tablet 10 Mg PO DAILY Finasteride 5 Mg Tablet 5 Mg PO HS ALPRAZolam 0.25 Mg Tablet 0.5 Mg PO HS TAKES 2 (0.25MG) TABS Instructions to patient/family Please see electronic discharge instructions given to patient. Diagnosis/Problems Diagnosis/Problems (1) Intertrochanteric fracture of left femur Status: Acute (2) Acute kidney injury superimposed on chronic kidney disease Status: Acute (3) CAD (coronary artery disease) (4) Hx of CABG (5) Transfusion of blood during current hospitalisation (6) BPH (benign prostatic hyperplasia) (7) Urinary retention (8) Acute postoperative anemia due to expected blood loss Status: Acute (9) Orthostatic hypotension Status: Acute PADDY CASAS DO Sep 26, 2021 05:38
[2021-09-26 07:27] VITALS: BP 187/90
[2021-09-26] MEDS: eZETimibe 10 MG (ZETIA) TABLET PO SCH (07:41)
[2021-09-26] MEDS: DOCUSATE SODIUM 100 MG (COLACE) CAP PO SCH (07:41)
[2021-09-26] MEDS: TAMSULOSIN 0.4 MG (FLOMAX) CAP PO SCH (07:41)
[2021-09-26] MEDS: SENNA W/DOCUSATE (SENOKOT S) TABLET PO SCH (07:41)
[2021-09-26] MEDS: HYDROcodone/APAP 5 MG/325 MG (LORTAB) TAB PO PRN (07:42)
[2021-09-26] MEDS: SENNOSIDES 8.6 MG (SENOKOT) TAB PO SCH (07:42)
[2021-09-26] MEDS: polyethylene glycoL POWDER 17 GM (MIRALAX) PACK PO SCH (07:42)
--- NOTE | 2021-09-26 10:32 | Therapy Team Discharge Summary ---
Therapy Discharge Summary Discharge Recommendations Date of Discharge Occupational Therapy Pt arrived to ARU s/p L IM Nail. At time of eval he was, CGA for lower body dressing, bathing, toileting, grooming, and set up for upper body dressing. During rehab stay, OT focused on balance, safety, endurance, UE strength, and functional transfers in order to improve performance and independence in adls. Pt made good progress and met all of his goals except footwear which he is set up for. Pt is discharging from this facility and will be discharged from OT. Decreased Activ Tolerance, Decreased UE Strength, Impaired I ADL's PT Usp Goals Supervisor Plastics Goals PT Supervisor Plastics Goals Time Frame: Oct 16, 2021 Roll Left to Right (QC): 6 Sit to Lying (QC): 6 Lying-Sitting on Side/Bed(QC): 6 Sit to Stand (QC): 6 Chair/Zkw-tn-Ppvst Xfer(QC): 6 Car Transfer (QC): 6 Does the Patient Walk: Yes Walk 10 feet (QC): 6 Walk 10ft-Uneven Surface(QC): 6 Walk 50ft with 2 Turns (QC): 6 Walk 150 ft (QC): 6 Does the Pt use WC or Scooter?: No Wheel 50 feet with 2 turns (QC: 9 1 Step (curb) (QC): 6 4 Steps (QC): 6 12 Steps (QC): 6 Picking up an Object (QC): 6 OT Supervisor Plastics Goals Supervisor Plastics Goals Time Frame: Oct 06, 2021 Eating (QC): 6 (met) Oral Hygiene (QC): 6 (met) Shower/Bathe Self (QC): 6 (met) Upper Body Dressing (QC): 6 (met) Lower Body Dressing (QC): 6 (met) On/Off Footwear (QC): 6 (not met, set up) Toileting Hygiene (QC): 6 (met) Toilet/Commode Transfer (QC): 6 (met) Additional Goals: 1-Demonstrate ADL Tasks, 2-Verbalize Understanding, 3- ImproveStrength/Liyah 1=Demonstrate adherence to instructed precautions during ADL tasks. 2=Patient will verbalize/demonstrate understanding of assistive devices/modific ations for ADL. 3=Patient will improve strength/tolerance for activity to enable patient to perform ADL's. Yanni Collado OT Sep 26, 2021 10:32
--- NOTE | 2021-09-26 11:11 | Progress Note - Urology ---
Progress Note-Urology Progress Notes/Assess & Plan Progress/Assessment & Plan GOING HOME TODAY. HAS SOME DYSURIA. WANTS TO FOLLOW UP WITH ME AND CONSIDER UROLIFT. WE WILL ARRANGE APPOINTMENT AND PYRIDIUM Final Diagnosis RETENTION ELIZABETH CALVILLO MD Sep 26, 2021 11:11
--- NOTE | 2021-09-26 11:37 | Therapy Team Discharge Summary ---
Therapy Discharge Summary Discharge Recommendations Date of Discharge Physical Therapy Patient came to rehab s/p L IM Nail. Upon evaluation patient performed rolling and supine <-> sit with CGA, sit <-> stand and transfers with CGA, car transfer CGA, ambulated 300' with a rolling walker with CGA (including 50' with at least 2 turns of 90 degrees and 10' over an uneven surface), and went up and down 1 step using a rolling walker with CGA. Patient has been performing bed mobility and transfer training, balance and endurance training, functional strengthening, stair training, gait training, and education. 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 Now, patient performs bed mobility and transfers with independence, independent with car transfer, ambulates over 150' with a rolling walker with independence (including 50' with at least 2 turns of 90 degrees and 10' over an uneven surface), can go up and down 8 steps using 2 handrails with independence, and can waste picker an object from the floor with setup. Patient is being discharged from this facility today and will be discharged from PT at this time. Occupational Therapy Decreased Activ Tolerance, Decreased UE Strength, Impaired I ADL's PT Skin Piler Goals Correction Goals PT Correction Goals Time Frame: Oct 16, 2021 Roll Left to Right (QC): 6 Sit to Lying (QC): 6 Lying-Sitting on Side/Bed(QC): 6 Sit to Stand (QC): 6 Chair/Zok-nc-Juphy Xfer(QC): 6 Car Transfer (QC): 6 Does the Patient Walk: Yes Walk 10 feet (QC): 6 Walk 10ft-Uneven Surface(QC): 6 Walk 50ft with 2 Turns (QC): 6 Walk 150 ft (QC): 6 Does the Pt use WC or Scooter?: No Wheel 50 feet with 2 turns (QC: 9 1 Step (curb) (QC): 6 4 Steps (QC): 6 12 Steps (QC): 6 Picking up an Object (QC): 6 OT Correction Goals Skin Piler Goals Time Frame: Oct 06, 2021 Eating (QC): 6 Oral Hygiene (QC): 6 Shower/Bathe Self (QC): 6 Upper Body Dressing (QC): 6 Lower Body Dressing (QC): 6 On/Off Footwear (QC): 6 Toileting Hygiene (QC): 6 Toilet/Commode Transfer (QC): 6 Additional Goals: 1-Demonstrate ADL Tasks, 2-Verbalize Understanding, 3- ImproveStrength/Liyah 1=Demonstrate adherence to instructed precautions during ADL tasks. 2=Patient will verbalize/demonstrate understanding of assistive devices/modifications for ADL. 3=Patient will improve strength/tolerance for activity to enable patient to perform ADL's. JERZY BRYAN PT Sep 26, 2021 11:36
[2021-09-26 14:35] VITALS: BP 187/90
== END 2021-09-26 14:35 | disposition home health service (06) | DRG 560 ==
PROVIDERS: ADMIT Internal Medicine; ATTEND Internal Medicine
DX: S72.142D Displaced intertrochanteric fracture of left femur, subsequent encounter for closed fracture with routine healing (principal); D62 Acute posthemorrhagic anemia; N17.9 Acute kidney failure, unspecified; N39.0 Urinary tract infection, site not specified; N40.1 Benign prostatic hyperplasia with lower urinary tract symptoms; R33.8 Other retention of urine; I12.9 Hypertensive chronic kidney disease with stage 1 through stage 4 chronic kidney disease, or unspecified chronic kidney disease; E11.22 Type 2 diabetes mellitus with diabetic chronic kidney disease; N18.9 Chronic kidney disease, unspecified; E78.5 Hyperlipidemia, unspecified; E78.00 Pure hypercholesterolemia, unspecified; K59.00 Constipation, unspecified; I95.1 Orthostatic hypotension; I25.10 Atherosclerotic heart disease of native coronary artery without angina pectoris; K21.9 Gastro-esophageal reflux disease without esophagitis; Z95.1 Presence of aortocoronary bypass graft; Z79.82 Long term (current) use of aspirin; W01.0XXD Fall on same level from slipping, tripping and stumbling without subsequent striking against object, subsequent encounter
CPT/HCPCS: 36415; 80053; 81000; 82947; 85025; 86850; 86900; 86901; 86920; 87077; 87088; 87186

== ENCOUNTER → 2021-09-20 | Day surgery (SDC) | payer MEDICARE ==
[~2021-09-20] MED LIST changes: +LIDOCAINE UROJET 2% GEL 10 ML PKG ONE
--- NOTE | 2021-09-20 12:18 | Progress Note-Post Operative ---
Post-Operative Progess Note Surgeon (s)/Hand Spring Repairer Helper (s) Surgeon ELIZABETH CALVILLO MD Hand Spring Repairer Helper: NONE Pre-Operative Diagnosis RETENTION Post-Operative Diagnosis SAME Procedure & Operative Findings Date of Procedure 09/20/21 Procedure Performed/Findings CYSTOSCOPY Anesthesia Type LOCAL Estimated Blood Loss Estimated blood loss (mL): NONE Specimens/Packing Specimens Removed NONE Packing: NONE ELIZABETH CALVILLO MD Sep 20, 2021 12:18
--- NOTE | 2021-09-20 17:22 | OPERATIVE REPORT ---
DATE OF SERVICE: 09/20/2021 PREOPERATIVE DIAGNOSIS: Urinary retention. POSTOPERATIVE DIAGNOSIS: Urinary retention. OPERATION PERFORMED: Cystoscopy. SURGEON: Ravin Calvillo MD ANESTHESIA: Local. COMPLICATIONS: None. DESCRIPTION OF PROCEDURE: With the patient supine in his bed, genitalia were prepped and draped in the usual sterile fashion. Urethra was infiltrated with lidocaine jelly and penile clamp was applied. This was then removed and a flexible cystoscope was introduced under vision. The anterior urethra was normal. The prostate was mildly enlarged with mild bladder neck obstruction. Bladder was entered and it revealed some trabeculations, no foreign body, bladder tumor or stone visualized. Cystoscopy was confirmed in an antegrade fashion and the cystoscope was removed. The patient tolerated the procedure and anesthesia well, remained in his bed in stable condition. Job ID: [id number] DocumentID: [id number] Dictated Date: 09/20/2021 12:17:00 Chef Broiler Or Fry Date: 09/20/2021 17:21:37 Dictated By: RAVIN CALVILLO MD
== END ==
LOC: SDC 11:29
PROVIDERS: ATTEND Urology
DX: N40.1 Benign prostatic hyperplasia with lower urinary tract symptoms (principal); R33.8 Other retention of urine; N39.0 Urinary tract infection, site not specified; Z79.899 Other long term (current) drug therapy

== ENCOUNTER → 2021-10-10 | Outpatient (CLI) | payer MEDICARE ==
[~2021-10-10] MED LIST changes: +ACHD5005 PO; -LIDOCAINE UROJET 2% GEL 10 ML PKG ONE
--- NOTE | 2021-10-10 09:59 | Diagnostic Imaging Report ---
INDICATION: Recent left hip fracture, post fixation. TECHNIQUE: Two views of the left hip. CORRELATION STUDY: 09/11/2021. FINDINGS: Internal fixation hardware has been performed with placement of an intramedullary roxana and compression screw transfixing the intertrochanteric femur fracture. Slight sclerosis along the fracture line. The lesser trochanter appears displaced superiorly and medially. Also prominent ossification projecting from the lesser trochanter. Radiation seed implants noted at the expected location of the prostate bed. Asymmetric sclerosis over the L5-S1 facets on the right. Soft tissue edema and skin franklyn over the lateral left hip. IMPRESSION: 1. Internal fixation has been performed of the proximal left femur fracture. Dictated by: Dictated on workstation # [id number]
== END ==
LOC: ORTHO 08:53
PROVIDERS: ATTEND Orthopaedic Surgery
DX: Z09 Encounter for follow-up examination after completed treatment for conditions other than malignant neoplasm (principal)
CPT/HCPCS: 73502

== ENCOUNTER → 2021-11-07 | Outpatient (CLI) | payer MEDICARE ==
--- NOTE | 2021-11-07 10:11 | Diagnostic Imaging Report ---
INDICATION: Postop left hip. Previous femoral fracture. COMPARISON: 10/10/2021. FINDINGS: Two radiographic views of the left hip were obtained. Again identified are post surgical changes of previous ORIF. A short intramedullary roxana is seen within the proximal left femoral shaft. This intersects a screw which traverses the femoral head and neck. The proximal femoral fracture fragments are in stable alignment. An intertrochanteric fracture is again noted. No unexpected radiopaque foreign bodies are seen. The left femoroacetabular joint space is maintained. The included portions of the pelvis are intact. IMPRESSION: Stable post operative changes to the left hip with nonacute proximal femoral fracture as above. Dictated by: Dictated on workstation # [id number]
== END ==
LOC: ORTHO 09:45
PROVIDERS: ATTEND Orthopaedic Surgery
DX: Z47.89 Encounter for other orthopedic aftercare (principal); S72.8X2D Other fracture of left femur, subsequent encounter for closed fracture with routine healing; Z98.890 Other specified postprocedural states; X58.XXXD Exposure to other specified factors, subsequent encounter
CPT/HCPCS: 73502

== ENCOUNTER → 2021-12-07 | Outpatient (CLI) | payer MEDICARE ==
--- NOTE | 2021-12-07 12:05 | Diagnostic Imaging Report ---
INDICATION: Follow-up of left hip fracture with pain. Comparison with 11/07/2021. FINDINGS: 2 views. Gamma nail present with interlocking screw intact. The compression screws in good position with femoral head. There has been healing of intertrochanteric fracture and anatomical position. There is soft tissue calcification along the abductors along the lesser trochanter again noted. IMPRESSION: No complications noted affecting gamma nail with healing of intertrochanteric fracture. Dictated by: Dictated on workstation # [id number]
== END ==
LOC: ORTHO 10:07
PROVIDERS: ATTEND Orthopaedic Surgery
DX: S72.092D Other fracture of head and neck of left femur, subsequent encounter for closed fracture with routine healing (principal); X58.XXXD Exposure to other specified factors, subsequent encounter
CPT/HCPCS: 73502

== ENCOUNTER → 2021-12-13 | Outpatient (CLI) | payer MEDICARE ==
[~2021-12-13] VITALS: Ht 177.8 cm; Wt 70.5 kg
[~2021-12-13] MED LIST changes: +PHEN-640 PO
== END | disposition home or self-care (01) ==
LOC: PREOP 05:36
PROVIDERS: ATTEND Urology
DX: Z01.818 Encounter for other preprocedural examination (principal)

== ENCOUNTER 2021-12-20 06:05 | Day surgery (SDC) | payer MEDICARE ==
[2021-12-20] VITALS (9 sets, daily range): BP systolic 164–191; BP diastolic 85–91
[~2021-12-20] VITALS: Ht 177 cm; Wt 70.5 kg
[~2021-12-20 06:05] MED LIST changes: -PHEN-640 PO
[2021-12-20] MEDS ORDERED: cefTRIAXone 1 GM PRE-MIX 50 ML IV ONE (07:15)
--- NOTE | 2021-12-20 07:16 | Progress Note-Pre Operative ---
Pre-Operative Progress Note H&P Reviewed The H&P was reviewed, patient examined and no changes noted. Date Seen by Provider: December 20, 2021 Time Seen by Provider: 07:16 Date H&P Reviewed: December 20, 2021 Time H&P Reviewed: 07:16 Pre-Operative Diagnosis: CA PROSTATE WITH PROSTATISM ELIZABETH CALVILLO MD December 20, 2021 07:16
[2021-12-20] MEDS ORDERED: LACTATED RINGERS 1,000 ML IV PRN (07:45)
[2021-12-20] MEDS ORDERED: LIDOCAINE PF 2% 5 ML (XYLOCAINE) VIAL ONE (07:46)
[2021-12-20] MEDS ORDERED: fentaNYL INJ 100 MCG/2 ML AMP ONE (07:46)
[2021-12-20] MEDS ORDERED: proPOfol 200 MG/20 ML (DIPRIVAN) VIAL IV ONE (07:46)
--- NOTE | 2021-12-20 07:53 | Progress Note-Post Operative ---
Post-Operative Progess Note Surgeon (s)/Skip Miner Blasting (s) Surgeon ELIZABETH CALVILLO MD Skip Miner Blasting: NONE Pre-Operative Diagnosis CA PROSTATE WITH PROSTATISM Post-Operative Diagnosis SAME Procedure & Operative Findings Date of Procedure 12/20/21 Procedure Performed/Findings UROLIFT IMPLANTS (4) Anesthesia Type GENERAL Estimated Blood Loss Estimated blood loss (mL): NEGLIGIBLE Specimens/Packing Specimens Removed NONE Packing: NONE ELIZABETH CALVILLO MD December 20, 2021 07:53
--- NOTE | 2021-12-20 07:55 | Discharge Inst-Urology ---
Discharge Inst-Urology Reconcile Patient Problems Problems Reviewed?: Yes Final Diagnosis CA PROSTATE WITH PROSTATISM Patient Instructions/Follow Up Plan/Assessment/Instructions Please make appointment to been seen in office in 2 weeks. REST till then Keep bowels soft and moving Showers no bath Hold ASA Increase oral fluids for 48 hours and then as needed. Diet as tolerated. If questions or concerns contact your physician Or seek help at emergency department. ELIZABETH CALVILLO MD December 20, 2021 07:55
--- NOTE | 2021-12-20 08:06 | Progress Note-Pre Operative ---
Pre-Operative Progress Note H&P Reviewed The H&P was reviewed, patient examined and no changes noted. Time Seen by Provider: 07:57 Date H&P Reviewed: December 20, 2021 Time H&P Reviewed: 07:57 Pre-Operative Diagnosis: Hx of Gastric polyps with dysplasia REMINGTON MILLER DO December 20, 2021 08:06
[2021-12-20] MEDS ORDERED: ONDANSETRON 4 MG/2 ML (SDV) Z0FRAN ONE (08:36)
[2021-12-20] MEDS ORDERED: SEVOFLURANE (ULTANE) 15 ML INHAL SOLN ONE (08:36)
--- NOTE | 2021-12-20 08:43 | Progress Note-Post Operative ---
Post-Operative Progess Note Surgeon (s)/Printer'S Assistant (s) Surgeon REMINGTON MILLER DO Printer'S Assistant: NONE Pre-Operative Diagnosis Hx of Gastric polyps with dysplasia Post-Operative Diagnosis Gastric Ulcers Hiatal hernia Procedure & Operative Findings Date of Procedure 12/20/21 Procedure Performed/Findings EGD with bx PROCEDURE NOTE: After informed consent was obtained, the patient was brought to the endoscopy suite, placed in bed in left lateral decubitus position. He was administered IV sedation by the SURFACE SUPPLY BREATHING APPARATUS who then monitored vitals the entire time, heart rate, blood pressure and pulse ox and the scope was inserted down the mouth through the esophagus into the stomach. Pushed into the stomach and noted some ulcers in the antral area, pushed past the antrum into the duodenum. Duodenum looked good. Pulled back and did a biopsy of the antral ulcers, then retroflexed the scope and saw a small hiatal hernia (esophagus sliding into stomach) plus I noted some inflammation in the cardia. Took a picture of this and then did a biopsy of this inflammed area, also appeared to be a small diverticula (could have been a fold). Pulled the scope into the GE junction and really didn't see any esophagitis; therefore, elected not to do a biopsy of the GE junction. Pushed the scope back into the stomach, suctioned all the air out of the stomach. At this point pulled the scope up the esophagus and out the mouth. The patient tolerated the procedure, and he recovered in endoscopy suite. Anesthesia Type IV sedation by SURFACE SUPPLY BREATHING APPARATUS Estimated Blood Loss Estimated blood loss (mL): scant Specimens/Packing Specimens Removed antral bx Cardia bx REMINGTON MILLER DO December 20, 2021 08:43
--- NOTE | 2021-12-20 08:43 | Endoscopy Discharge Instruct ---
Endo Procedure/Findings Findings 1.: Gastritis 2.: Hiatal Hernia Discharge Instructions - Activity: You might feel a little sleepy until tomorrow. This is due to the medicine you received to relax you. Until tomorrow, you should: NOT drive a car, operate machinery or power tools. NOT drink any alcoholic beverages. NOT make any important decisions or sign importortant papers. Do not return to work until tomorrow, unless otherwise instructed. Resume previous activities tomorrow. Diet: Start by taking liquids. If you tolerate liquids, advance to solid food. 1.: EGD in 3 years Notify Physician - If you experience excessive bleeding, unusual abdominal pain, fever, or chest pain, contact your doctor immediately. REMINGTON MILLER DO December 20, 2021 08:43
[2021-12-20] MEDS ORDERED: PHEN-640 PO (08:52)
[2021-12-20] MEDS ORDERED: SULF1TAB38 PO (08:52)
--- NOTE | 2021-12-20 10:22 | Anesthesia-General Post-Op ---
General Patient Condition Mental Status/LOC: Same as Preop Cardiovascular: Satisfactory Nausea/Vomiting: Absent Respiratory: Satisfactory Pain: Controlled Complications: Absent Post Op Complications Complications None Follow Up Care/Instructions Patient Instructions None needed. Anesthesia/Patient Condition Patient Condition Patient is doing well, no complaints, stable vital signs, no apparent adverse anesthesia problems. No complications reported per nursing. ARTHUR AGRAWAL CRNA December 20, 2021 10:22
--- NOTE | 2021-12-20 11:05 | OPERATIVE REPORT ---
DATE OF SERVICE: 12/20/2021 PREOPERATIVE DIAGNOSIS: CA of the prostate with prostatism. POSTOPERATIVE DIAGNOSIS: CA of the prostate with prostatism. OPERATION PERFORMED: UroLift implants four. SURGEON: Ravin Calvillo MD ANESTHESIA: General. COMPLICATIONS: None. DESCRIPTION OF PROCEDURE: Under satisfactory general anesthesia, the patient in lithotomy position, genitalia were prepped and draped in the usual sterile fashion. A special was introduced into the bladder. Again, visualized the lateral lobes of the prostate meeting in the midline causing bladder neck obstruction and trabeculations. I went ahead and inserted four UroLift implants, two on each side, two distal to the bladder neck and two proximal to the verumontanum. There was excellent opening of the channel, there was no bleeding at all. Cystoscopy confirmed these findings and technique used was the one described for UroLift implant. The patient tolerated the procedure and anesthesia well and was sent to recovery room in stable condition. No need for catheter. Instructions were given to his daughter. Job ID: [id number] DocumentID: [id number] Dictated Date: 12/20/2021 08:37:01 Laundry Marker Supervisor Date: 12/20/2021 11:04:11 Dictated By: RAVIN CALVILLO MD
== END 2021-12-20 10:29 | disposition home or self-care (01) ==
LOC: SDC 06:05
PROVIDERS: ATTEND Urology
DX: C61 Malignant neoplasm of prostate (principal); K29.50 Unspecified chronic gastritis without bleeding; N40.0 Benign prostatic hyperplasia without lower urinary tract symptoms; K31.7 Polyp of stomach and duodenum
CPT/HCPCS: 43239; 52441; 52442 ×3; 87081; 88305; 88342; L8699

== ENCOUNTER 2021-12-21 20:32 | Emergency (ER) | payer MEDICARE ==
[~2021-12-21] VITALS: Ht 177.8 cm; Wt 70.3 kg
[~2021-12-21 20:32] MED LIST changes: +PHEN-640 PO
[2021-12-21 20:40] VITALS: BP 113/64
--- NOTE | 2021-12-21 21:03 | ED GU-Female ---
General Chief Complaint: - Reproductive Stated Complaint: POST OP ABD PAIN Nursing Triage Note: Patient states he has a "urolift" yesterday. Patient states he has been unable to urinate since last night. Patient states that he had a small amount last night and had burning with it. Source: patient Exam Limitations: no limitations History of Present Illness Date Seen by Provider: December 21, 2021 Time Seen by Provider: 20:57 Initial Comments Patient is an 81-year-old male who presents with dysuria and complaints of urinary retention after undergoing UroLift procedure yesterday per Dr. Toledo. No fevers chills flank pain, frequency urgency or hematuria. Patient was prescribed Bactrim and Pyridium and took his first dose 1 hour prior to ED arrival. Timing/Duration: this afternoon Severity/Quality: mild Location: other Radiation: other Activities at Onset: other Modifying Factors: Improves With Other Associated Symptoms: other Allergies and Home Medications Allergies Coded Allergies: ciprofloxacin (Unverified Allergy, Unknown, Rash, 12/13/21) prednisone (Unverified Allergy, Unknown, 12/13/21) LEG NUMBNESS Patient Home Medication List Home Medication List Reviewed: Yes ALPRAZolam (ALPRAZolam) 0.25 Mg Tablet, 0.5 MG PO HS, (Reported) Entered as Reported by: JUANPABLO LOMBARDI on 06/27/20 1545 Carvedilol (Carvedilol) 6.25 Mg Tablet, 6.25 MG PO BID, (Reported) Entered as Reported by: IGOR OCASIO on 12/05/20 1100 Docusate Sodium (Dulcolax Stool Softener) 100 Mg Capsule, 100 MG PO HS, (Reported) Entered as Reported by: JUANPABLO LOMBARDI on 09/12/21 1008 Ezetimibe (Ezetimibe) 10 Mg Tablet, 10 MG PO BID, (Reported) Entered as Reported by: JUANPABLO LOMBARDI on 06/27/20 1545 Finasteride (Finasteride) 5 Mg Tablet, 5 MG PO HS, (Reported) Entered as Reported by: JUANPABLO LOMBARDI on 06/27/20 1545 Hydroxyzine HCl (Hydroxyzine HCl) 50 Mg Tablet, 100 MG PO DAILY, (Reported) Entered as Reported by: IGOR OCASIO on 12/05/20 1100 Hydroxyzine HCl (Hydroxyzine HCl) 50 Mg Tablet, 150 MG PO HS, (Reported) Entered as Reported by: JUANPABLO LOMBARDI on 09/12/21 100 Methocarbamol (Methocarbamol) 500 Mg Tablet, 500 MG PO BID PRN for HEADACHE/NECK SPASMS, (Reported) Entered as Reported by: JUANPABLO LOMBARDI on 09/12/21 100 Methylsulfonylmethane (Msm) 1,000 Mg Tablet, 1,000 MG PO DAILY, (Reported) Entered as Reported by: JUANPABLO LOMBARDI on 09/12/21 100 Phenazopyridine HCl (Pyridium) 200 Mg Tablet, 1 TAB PO TID Prescribed by: TINA BUNN on 12/20/21 0852 Sennosides (Senokot) 8.6 Mg Tablet, 17.2 MG PO BID, (Reported) Entered as Reported by: JUANPABLO LOMBARDI on 06/27/20 1545 Sulfamethoxazole/Trimethoprim (Bactrim Ds Tablet) 1 Each Tablet, 1 EACH PO BID Prescribed by: TINA BUNN on 12/20/21 0852 Tamsulosin HCl (Flomax) 0.4 Mg Cap, 0.4 MG PO BID Prescribed by: PADDY CASAS on 09/26/21 0536 Vit A/Vit C/Vit E/Zinc/Copper (Preservision Areds Tablet) 1 Each Tablet, 1 EACH PO DAILY, (Reported) Entered as Reported by: JUANPABLO LOMBARDI on 09/12/21 100 Discontinued Medications Aspirin (Aspirin EC) 81 Mg Tablet.dr, 81 MG PO HS, (Reported) Entered as Reported by: JUANPABLO LOMBARDI on 09/12/21 100 Review of Systems Review of Systems Constitutional: see HPI EENTM: see HPI Respiratory: see HPI Cardiovascular: see HPI Gastrointestinal: see HPI Genitourinary: see HPI Musculoskeletal: see HPI Skin: see HPI Psychiatric/Neurological: See HPI Endocrine: See HPI Hematologic/Lymphatic: See HPI Past Kwheuet-Aqingg-Fusnvi Hx Patient Social History Tobacco Use?: Yes Substance use?: No Alcohol Use?: No Pt feels they are or have been: No Immunizations Up To Date Tetanus Booster (TDap): Unknown First/Initial COVID19 Vaccinat: September 1ST SHOT DONE Second COVID19 Vaccination Neto: October 2ND SHOT DONE Third COVID19 Vaccination Date: YES COVID19 Vaccine Power Tool Repairer: Moderna Seasonal Allergies Seasonal Allergies: No Past Medical History Surgery/Hospitalization HX: CABAG; [facility]; [facility]; DM; Neuropathy; High Cholesterol; Hypertension.TURP, BPH, ARTHRITIS Surgeries: Yes (CABG 2017, HIP REPAIR) Appendectomy, CABG, Gallbladder, Orthopedic, Transurethral Resection Respiratory: Yes COPD Currently Using CPAP: No Currently Using BIPAP: No Cardiac: Yes Coronary Artery Disease, High Cholesterol, Hypertension Neurological: No Reproductive Disorders: No Sexually Transmitted Disease: No Genitourinary: Yes (CHRONIC KIDNEY DISEASE) Benign Prostatic Hyperpl Gastrointestinal: Yes Gastroesophageal Reflux Musculoskeletal: Yes (OSTEOARTHRITIS) Endocrine: Yes Diabetes, Non-Insulin dep HEENT: Yes ([place]) Hearing Impairment: Hard of Hearing Cancer: Yes Prostate Psychosocial: Yes Anxiety Integumentary: No Blood Disorders: Yes (ANEMIA) Adverse Reaction/Blood Tranf: Yes Family Medical History CAD Over 55 Years Old, Diabetes Physical Exam Vital Signs Vital Signs - First Documented 12/21/21 20:40 Temp 36.8 Pulse 99 Resp 18 B/P (MAP) 113/64 (80) Pulse Ox 96 O2 Delivery Room Air Capillary Refill : Less Than 3 Seconds Height, Weight, BMI Height: '" Weight: lbs. oz. kg; 22.00 BMI Method: General Appearance: WD/WN, no apparent distress HEENT: PERRL/EOMI Respiratory: chest non-tender Gastrointestinal: non tender, soft Genital/Rectal: normal genital exam Neurologic/Psychiatric: oriented x 3 Focused Exam Sepsis Stage: Ruled Out Progress/Results/Core Measures Suspected Sepsis SIRS Temperature: Pulse: 99 Respiratory Rate: 18 Blood Pressure 113 /64 Mean: 80 Results/Orders Vital Signs/I&O 12/21/21 20:40 Temp 36.8 Pulse 99 Resp 18 B/P (MAP) 113/64 (80) Pulse Ox 96 O2 Delivery Room Air Capillary Refill : Less Than 3 Seconds Blood Pressure Mean: 80 Departure Communication (Admissions) Bladder scan greater than 200 mL of urine. Case reviewed with urologist. Recommendations are for patient to continue antibiotics and Pyridium and to follow-up with his office in the morning if further concerns Impression Primary Impression: Dysuria Disposition: 01 HOME, SELF-CARE Condition: Stable Departure-Patient Inst. Decision time for Depature: 21:04 Referrals: BRENT PHILLIPS DO (PCP) Primary Care Physician REMINGTON MILLER DO (Family) Primary Care Physician Patient Instructions: Dysuria, Adult (DC), Urinary Tract Infection, Child (DC), Urinary Obstruction (DC) Add. Discharge Instructions: Please take your home medications as directed and contact Dr. Slater's office in tomorrow if further concerns All discharge instructions reviewed with patient and/or family. Voiced understanding. JUDY AMES DO December 21, 2021 21:03
[2021-12-21] MEDS ORDERED: PHENAZOPYRIDINE 100 MG (PYRIDIUM) TABLET PO ONE (21:15)
== END 2021-12-21 21:13 | disposition home or self-care (01) ==
LOC: EDUNIT# 20:32 → ER FS 20:33
DX: R30.0 Dysuria (principal)
CPT/HCPCS: 99281

== ENCOUNTER → 2022-03-08 | Outpatient (CLI) | payer MEDICARE ==
--- NOTE | 2022-03-08 12:47 | Diagnostic Imaging Report ---
Indication: Left hip pain. Time of Exam: 11:19 AM Comparison is made to prior exam from 12/07/2021. 2 views of the left hip demonstrate intramedullary roxana and compression screw transfixing left hip. Hardware is intact. No complicating features are seen. Femoral acetabular alignment is normal. There are radiation seed implants within the prostate gland. Impression: Stable postop left hip. Dictated by: Dictated on workstation # [id number]
== END ==
LOC: ORTHO 10:59
PROVIDERS: ATTEND Orthopaedic Surgery
DX: M25.552 Pain in left hip (principal); Z98.890 Other specified postprocedural states
CPT/HCPCS: 73502; G0463; 99213

== ENCOUNTER → 2022-04-19 | Outpatient (CLI) | payer MEDICARE | LOC: ORTHO 13:24 | PROVIDERS: ATTEND Orthopaedic Surgery | DX: M25.552 Pain in left hip (principal) ==

== ENCOUNTER → 2022-11-14 | Outpatient (CLI) | payer MEDICARE ==
[~2022-11-14] MED LIST changes: +DIPH-1122 PO; -DIPH25CA48 PO; +METH100054 PO; -[UNRECOGNIZED DRUG - CODE] PO
--- NOTE | 2022-11-14 16:15 | Diagnostic Imaging Report ---
INDICATION: Pain of left hip joint TECHNIQUE: 2 views of the left hip. CORRELATION STUDY: 03/08/2022. FINDINGS: Intramedullary roxana and compression screw remain in place. Hardware intact and unchanged. No new bony abnormality. There is rather prominent bony protuberance projecting superiorly and medially off the lesser trochanter, unchanged. There is mild narrowing at the femoral head acetabular relationship. Radiation seed implants at the prostate bed. IMPRESSION: Generally stable appearance of left hip with prior ORIF. Rather prominent bony protuberance projecting superiorly and medially off the lesser trochanter. Could potentially result in pain with range of motion. Dictated by: Dictated on workstation # [id number]
== END ==
LOC: ORTHO 09:23
PROVIDERS: ATTEND Orthopaedic Surgery
DX: M25.552 Pain in left hip (principal)
CPT/HCPCS: 20610; 73502; G0463

== ENCOUNTER → 2022-11-14 | Outpatient (CLI) | payer MEDICARE ==
--- NOTE | 2022-11-14 13:31 | Diagnostic Imaging Report ---
PROCEDURE: US Bilateral lower extremity arterial. INDICATION: 82-year-old male, atherosclerotic heart disease [id number] TECHNIQUE: Multiple real-time grayscale images were obtained over the bilateral lower extremities in in various projections. Additional duplex Doppler and color Doppler images were also obtained. COMPARISON: None FINDINGS: Color images demonstrate diffuse atherosclerotic plaque to be present. Right lower extremity: The major arteries of the right leg are patent to the ankle. There is detectable flow at the dorsalis pedis and posterior tibial arteries at the ankle. There is predominantly biphasic waveform throughout the right lower extremity arterial system. There is no focal velocity changes to suggest a hemodynamically significant stenosis. Left lower extremity: The major arteries of the left leg are patent to the ankle. There is detectable flow at the dorsalis pedis and posterior tibial arteries at the ankle. There is predominantly biphasic waveform throughout the left lower extremity arterial system. There is no focal velocity changes to suggest a hemodynamically significant stenosis. RIGHT NOMAN: N/A LEFT NOMAN: N/A IMPRESSION: 1. Right leg negative for large vessel occlusion or hemodynamically significant stenosis. 2. Left leg negative for large vessel occlusion or hemodynamically significant stenosis. Dictated by: Dictated on workstation # [id number]
== END ==
LOC: RAD 08:26
PROVIDERS: ATTEND Emergency Medicine
DX: I25.10 Atherosclerotic heart disease of native coronary artery without angina pectoris (principal)
CPT/HCPCS: 93925